=== PATIENT | female | born 1990 | race Caucasian/White ===

== ENCOUNTER 2018-07-21 12:31 | Outpatient (REF) | payer SELFPAY | END 2018-07-21 12:51 | LOC: NCHCN 12:31 | PROVIDERS: PCP Internal Medicine; Visit Provider Nurse Practitioner Family | DX: N39.0 Urinary tract infection, site not specified (principal) | CPT/HCPCS: 87077; 87086; 87186 ==

== ENCOUNTER 2019-11-13 17:30 | Emergency (ER) | payer MEDICAID, SELFPAY ==
[2019-11-13 17:36] VITALS: BP 156/94; PULSE 95; RESP 18; TEMP 37; O2SAT 98
--- NOTE | 2019-11-13 18:07 | W.ED.GENAD ---
Discharge Plan Disposition Patient Disposition: OTHER Condition: Stable Discharge Details Chief Complaint: ETOHWithdr Clinical Impression: Alcohol abuse, Eloped from emergency department Primary Care Provider: Seymour Collado ED Provider: David Zapien Home Meds and New Rx's Prescriptions: Continued methadone 5 mg/5 mL Solution 120 mg PO DAILY RF: 0 Discharge Data Discharge Date/Time-TO BE ENTERED AT DEPARTURE: 11/13/19 19:50 Medical Decision Making 29-year-old female states she was referred by outpatient recovery team for admission for medical alcohol detox. States she has been trying to get into [facility] as an outpatient. Her last drink was at 5 PM this evening. She does not have a history of acute alcohol withdrawal or seizure. Patient is somewhat tearful, blood pressure is 150/90, pulse is in the 90s, her exam is reassuring. She states she does not have thoughts of harming herself or others. Screening laboratories obtained Patient interviewed by rn practitioner recovery analyst. She continues her attempts to seek outpatient placement for substance abuse treatment. Discussed with her that she does not show indications of alcohol withdrawal at this time. Prior to receipt of her laboratories, the patient eloped from the emergency department. HPI General Mode of arrival: ambulatory. Date/Time Provider Initiated Documentation: 11/13/19 17:44. Limitations to Documentation: no limitations. Information obtained by: patient. History of Present Illness 29 year old F presents to the emergency department with the chief complaint of I was told to present for alcohol detox, last drink at 5 PM, Patient reports no radiation. Patient started experiencing this week(s) and it has been constant. No relieving factors improve symptom(s), No exacerbating factors reported . Patient notes denies loss of appetite, nausea/vomiting and seizure. Patient did receive the following treatments prior to arrival, none Related Data Home Medications Medication Instructions Recorded Confirmed methadone 120 mg PO DAILY 11/13/19 11/13/19 Allergies Allergy/AdvReac Type Severity Reaction Status Date / Time kiwi Allergy Swelling/Ed Unverified 11/13/19 17:42 catrachita General Stated Complaint: ETOHWithdr NATHANIEL: 3 Review of Systems Narrative: Drinks approxi-1/5 of alcohol per day, last drink 1 hour prior. Denies depression. No thoughts of harming herself or others. [facility] Social History Smoking/Tobacco Use Status: Current every day Tobacco Type: cigarettes Alcohol Intake: current Alcohol Intake frequency: 3 or more drinks per day Alcohol type: hard liquor Drug use: Daily Substance use type: marijuana Do you feel safe at home: Yes Do you feel safe in your relationship?: Yes Exam Narrative Exam Narrative: GEN: awake, alert, oriented 3. Pleasant, well groomed, interactive, tearful at times. HEAD: Normocephalic, atraumatic ENT: Mucous membranes moist, oropharynx unremarkable, External ear exam unremarkable EYES: PERRL, EOMI NECK: Full ROM, no NOELLE, no menigismus CHEST/RESP: Nontender, clear to auscultation bilateral, no wheeze/rhonchi/rales CARDIOVASCULAR: RRR, no murmur, rub dottie. 2+ Rad pulse bilateral ABDOMEN: Soft, nontender, no mass. +Bowel sounds EXT: Full ROM, no edema, no rash Neuro: Grossly normal neurologic exam, conversant, interactive. Psych: Speech fluent, thoughts congruent, affect tearful at times Course Vital Signs Vital signs: Vital Signs Temperature 37 C 11/13/19 17:36 Pulse 95 H 11/13/19 17:36 Respiratory Rate 18 11/13/19 17:36 Blood Pressure 156/94 H 11/13/19 17:36 Pulse Oximetry 98 11/13/19 17:36 Temperature 37 C 11/13/19 17:36 Temperature Source Temporal Artery Scan 11/13/19 17:36 Pulse 95 H 11/13/19 17:36 Respiratory Rate 18 11/13/19 17:36 Respiratory Effort Non-Labored 11/13/19 17:45 Respiratory Pattern Normal 11/13/19 17:45 Blood Pressure 156/94 H 11/13/19 17:36 Blood Pressure Position Supine 11/13/19 17:36 Pulse Oximetry 98 11/13/19 17:36 Oxygen Delivery Method Room Air 11/13/19 17:36 Oxygen Flow Rate 0 11/13/19 17:36
[2019-11-13 18:08] LABS: Bilirubin Negative (Negative); Blood Negative (Negative); Clarity Clear (Clear); Glucose Negative (Negative); Ketones Negative (Negative); Leukocyte Esterase Negative (Negative); Nitrite Negative (Negative); Specific Gravity <= 1.005 (1.005-1.025); Urobilinogen 0.2 EU/dL (Up TO 0.2)
[2019-11-13 18:27] LABS: *AMPHETAMINES SCREEN URINE Negative (Negative); *BARBITURATES SCREEN URINE Negative (Negative); *BENZODIAZEPINES SCREEN URINE Negative (Negative); Cannabinoids THC Negative (Negative); Cocaine Screen,Urine Negative (Negative); METHADONE URINE SCREEN POSITIVE (Negative); OPIATES URINE SCREEN Negative (Negative)
[2019-11-13 18:40] LABS: Tricyclic Antidepressants Negative (Negative)
[2019-11-13 19:13] LABS: Absolute Basophil Count 0.02 10^3/uL (0.0-0.2); Absolute Eosinophil Count 0.03 10^3/uL (0.0-0.7); Absolute Lymphocyte Count 1.77 10^3/uL (1.2-3.4); Absolute Monocyte Count 0.33 10^3/uL (0.1-0.8); Absolute Neutrophil Count 2.51 10^3/uL (1.2-6.7); Basophils % 0.4; Eosinophils % 0.6; HCT 40.7 % (36.0-46.0); HGB 13.8 g/dL (11.2-15.7); MCH 32.9 pg (27.0-33.0); MCHC 33.9 % (32.0-36.0); MCV 97.1 fL (80-95); MPV 9.4 fL (8.0-11.0); Monocytes % 7.1; Neutrophils % 53.9; Nucleated RBC 0 %; Platelet Count 177 10^3/uL (130-400); RBC 4.19 10^6/uL (3.93-5.22); RDW 12.7 % (11.7-14.6); RDW-SD 44.8 fL; WBC 4.66 10^3/uL (4.4-10.8)
[2019-11-13 19:47] LABS: ALT 179 U/L (14-59); AST 153 U/L (15-37); Albumin 4.2 g/dL (3.4-5.0); Alkaline Phosphatase 73 U/L (46-116); Anion Gap 9.9 mmol/L (3-11); BUN 7 mg/dL (7-18); Bilirubin, Total 0.4 mg/dL (0.2-1.0); CO2 30.1 mmol/L (21.0-32.0); Calcium 8.9 mg/dL (8.5-10.1); Chloride 105 mmol/L (98-107); Glucose 127 mg/dL (74-106); Magnesium 2.2 mg/dL (1.8-2.4); Potassium 3.4 mmol/L (3.5-5.1); Sodium 145 mmol/L (136-145); Total Protein 7.8 g/dL (6.4-8.2)
== END 2019-11-13 19:50 | disposition other institution (70) ==
PROVIDERS: Emergency Provider Emergency Medicine; PCP Internal Medicine
DX: F10.230 Alcohol dependence with withdrawal, uncomplicated (principal); Y90.8 Blood alcohol level of 240 mg/100 ml or more; Z53.29 Procedure and treatment not carried out because of patient's decision for other reasons
CPT/HCPCS: 36415; 80053; 80307; 99283; 80320; 81003; 83735; 85025

== ENCOUNTER 2019-11-14 11:17 | Inpatient (IN) | payer MEDICAID, SELFPAY ==
[2019-11-14] VITALS (7 sets, daily range): BP systolic 128–161; BP diastolic 68–110; PULSE 66–97; RESP 17–18; TEMP 36.3–37.4; O2SAT 97–100
--- NOTE | 2019-11-14 11:27 | ED.GENADUL_ITS ---
Discharge Plan Disposition Patient Disposition: [facility] INPATIENT Condition: Fair Discharge Details Chief Complaint: ETOHWithdr Clinical Impression: Alcohol withdrawal Admit Date/Time: 11/14/19 12:13 Admit Provider: Benjamin Car Attending Provider: Benjamin Car Primary Care Provider: Seymour Collado ED Provider: Marilee Dacosta Discharge Data Discharge Date/Time-TO BE ENTERED AT DEPARTURE: 11/14/19 13:09 Medical Decision Making Patient is a pleasant 29 year old female presenting today with c/c of ETOH dependence. She seen here yesterday and had been wanting inpatient [facility] for detox. Patient spoke with swimming coach or instructor who advised to not have any alcohol intake and to return today to be admitted to the ICU. Patient states her last drink was at 5 PM yesterday. She is currently feeling tremulous. She denies any GI upset. No chest pain or shortness of breath. She reports that she is drinking 1/5 of [employer] a day and has done so for the past year. States that she is tried to stop drinking historically. States that she becomes tremulous and short of breath is not had any seizures. Patient did have baseline labs upon yesterday. She did have elevated ALT, AST. Patient is on methadone, states that she took a partial dose this morning. Patient denies any other illicit drug use. She denies any suicidal homicidal ideations. She states that she is safe at home. She reports that she wants to stop and she has 3 small children at home and has been unsuccessful during this on her own. On exam, patient appears anxious and tremulous. Her lungs are clear. Normal abdominal exam. She seems to have good personal insight and does not seem to be an imminent threat to himself or others. [facility] Advise do not have any beds currently but that they are stretching many discharges this week and the patient would be eligible to be able to go there. However, they advised that they are not accepting patients to come to their facility from home and the patient will need to be housed in the emergency department or inpatient prior to transition to their facility. This is not been our practice historically. While the patient does appear tremulous and would benefit from assistance, I will speak with the hospitalist about this. Labs reviewed. Significant for AST and ALT of 178. He is relatively unchanged from yesterday. She is positive for methadone, THC. Her alcohol is less than 3. Consulted with hospitalist who agrees to admission plan for patient to be transitioned to [facility] for continued alcohol abuse management. Patient will be COVID testing. HPI General Mode of arrival: ambulatory . Date/Time Provider Initiated Documentation: 11/14/19 11:27 . Limitations to Documentation: no limitations . Information obtained by: patient and RN notes reviewed . History of Present Illness 29 year old F presents to the emergency department with the chief complaint of alcohol withdrawal, described as moderate, Quality is described as other (tremulous, anxious), Patient started experiencing this hour(s) and it has been constant (worsening). No relieving factors improve symptom(s), Patient notes loss of appetite and other (denies SI or HI); denies chest pain, cough, fever/chills, nausea/vomiting, shortness of breath and weakness. Patient did receive the following treatments prior to arrival, none Related Data Home Medications Medication Instructions Recorded Confirmed methadone 120 mg PO DAILY 11/13/19 11/14/19 Allergies Allergy/AdvReac Type Severity Reaction Status Date / Time kiwi Allergy Swelling/Ed Unverified 11/14/19 11:30 catrachita General Stated Complaint: ETOHWithdr NATHANIEL: 3 Review of Systems Constitutional Constitutional: Reports as per HPI, Denies chills, Reports fatigue, Denies fever(s), Denies headache(s), Reports malaise and Denies weakness Eyes Eyes: Denies change in vision ENT Ears, Nose, Mouth, and Throat: Denies headache(s) Cardiovascular Cardiovascular: Reports as per HPI, Denies chest pain, Denies lightheadedness, Denies dyspnea and Denies dyspnea on exertion Respiratory Respiratory: Reports as per HPI, Denies cough, Denies dyspnea and Denies dyspnea on exertion Gastrointestinal Gastrointestinal: Reports as per HPI, Denies abdominal pain, Denies change in bowel habits, Denies nausea and Denies vomiting Musculoskeletal Musculoskeletal: Denies abnormal gait Integumentary/Breasts Skin/Breast: Reports as per HPI and Denies rash Neurologic Neurologic: Denies abnormal movements, Denies abnormal speech, Denies abnormal gait, Denies headache(s), Denies paresthesias, Reports tremor(s) and Denies weakness Psychiatric Psychiatric: Denies homicidal ideation and Denies suicidal ideation Endocrine Endocrine: Reports fatigue PFSH Social History Smoking/Tobacco Use Status: Current every day Tobacco Type: cigarettes Alcohol Intake: current Alcohol Intake frequency: 3 or more drinks per day Alcohol type: hard liquor Drug use: Never Substance use type: marijuana Do you feel safe at home: Yes Do you feel safe in your relationship?: Yes Exam Const General: cooperative, well developed, well groomed, anxious and ill appearing acutely (appears to be in withdrawals) Nutritional Appearance: average body habitus and well nourished Orientation: alert and awake Eyes General: appearance normal, both eyes and all related structures Resp Effort & Inspection: normal respiratory effort, able to speak in complete sentences and no respiratory distress Auscultation: clear to auscultation bilaterally, no rales, no rhonchi and no wheezes Cardio Rate: regular rate Rhythm: regular rhythm Heart Sounds: S1 normal and S2 normal Skin General skin exam: no rashes or lesions noted Trauma: no lacerations or abrasions Neuro General: patient alert, patient awake, gait normal, tone normal and moves all extremities Cognition: normal cognition Speech: speech normal Gait: normal gait Motor: tremor Psych Appearance: grossly normal, well kempt and disheveled Mental Status: mental status grossly normal Speech and Movement: restless Mood: anxious mood Affect: anxious affect Attitude: cooperative Thought Process: normal Thought Content: normal Insight: insight good Judgment: judgment good Course Vital Signs Vital signs: Vital Signs Temperature 37.0 C 11/14/19 11:23 Pulse 97 H 11/14/19 11:23 Respiratory Rate 18 11/14/19 11:23 Blood Pressure 155/108 H 11/14/19 11:23 Pulse Oximetry 100 11/14/19 11:23 Temperature 37.0 C 11/14/19 11:23 Temperature Source Skin 11/14/19 11:23 Pulse 97 H 11/14/19 11:23 Respiratory Rate 18 11/14/19 11:23 Blood Pressure 155/108 H 11/14/19 11:23 Blood Pressure Position Sitting 11/14/19 11:23 Pulse Oximetry 100 11/14/19 11:23 Oxygen Delivery Method Room Air 11/14/19 11:23 Oxygen Flow Rate 0 11/14/19 11:23 Pain Level 0 11/14/19 11:23
[2019-11-14 12:05] LABS: *AMPHETAMINES SCREEN URINE Negative (Negative); *BARBITURATES SCREEN URINE Negative (Negative); *BENZODIAZEPINES SCREEN URINE Negative (Negative); Cannabinoids THC POSITIVE (Negative); Cocaine Screen,Urine Negative (Negative); METHADONE URINE SCREEN POSITIVE (Negative); OPIATES URINE SCREEN Negative (Negative)
[2019-11-14 12:06] LABS: Tricyclic Antidepressants Negative (Negative)
[2019-11-14] MEDS: LORazepam 2 MG/ML VIAL 1 MG IVP (12:16)
[2019-11-14] MEDS: Lactated Ringers 1,000 ML 1000 ML IV (12:17)
[2019-11-14] MEDS: Nicotine 21 MG/24 HR PATCH TD (12:17)
--- NOTE | 2019-11-14 12:19 | HPE_ITS ---
Date of service: 11/14/19 Time of Service: 12:20 Assessment and Plan Assessment and plan (1) Alcohol withdrawal: Status: Acute Assessment and plan: refer to observation, andiewa protocol, ativan for symptoms. MVI, thiamine, folic acid cessation discussed, motivated after a family intervention, seems to have good family support. (2) Alcohol abuse: Status: Chronic Assessment and plan: see above self referred to [facility] and awaiting bed acceptance. (3) Tobacco abuse: Status: Acute Assessment and plan: nicotine replacement while hospitalized (4) Dental infection: Status: Acute Assessment and plan: recent dental work, root canal, filled a script on October 21 for amoxicillin 500 mg po TID for 10 days but only took a couple days worth, denies dental pain or fevers. no further recommendations at this time, f/u with dentist as previously arranged. (5) Elevated transaminase level: Status: Acute Assessment and plan: due to alcohol abuse, will monitor and avoid hepatotoxic medications. discussed with Dr Car who is in agreement History of Present Illness History of Present Illness Chief Complaint: alcohol withdrawal Narrative: presents to the ED for c/o alcohol withdrawal. she has been drinking 1/2 fifth of [employer] daily for about a year, wants to stop drinking but has been unsuccessful at home on her own. she is trying to get into [facility] but no bed available. she is not suicidal or homicidal. she is otherwise medically stable and case discussed with case management and hospitalist, she will be referred to observation while awaiting bed. Review of Systems Constitutional Constitutional: Denies fever(s) Eyes Eyes: Denies blurry vision ENT Ears, Nose, Mouth, and Throat: Denies dysphagia Cardiovascular Cardiovascular: Denies chest pain Respiratory Respiratory: Denies cough Gastrointestinal Gastrointestinal: Denies abdominal pain, Denies dysphagia and Denies nausea Musculoskeletal Musculoskeletal: Denies myalgias Integumentary/Breasts Skin/Breast: Denies lesions and Denies rash Neurologic Neurologic: Denies confusion and Reports other (tremor/shaking) Psychiatric Psychiatric: Denies confusion Hematologic/Lymphatic Hematologic/Lymphatic: Denies easy bleeding and Denies easy bruising [facility] Social History Smoking/Tobacco Use Status: Current every day Tobacco Type: cigarettes Alcohol Intake: current Alcohol Intake frequency: 3 or more drinks per day [place] type: hard liquor Drug use: Never Substance use type: marijuana Do you feel safe at home: Yes Do you feel safe in your relationship?: Yes Meds Home Medications and Allergies Home Medications Medication Instructions Recorded Confirmed Type methadone 120 mg PO DAILY 11/13/19 11/14/19 History Allergies Allergy/AdvReac Type Severity Reaction Status Date / Time kiwi Allergy Swelling/Ed Unverified 11/14/19 11:30 catrachita Exam Const General: cooperative, in distress mild and anxious Nutritional Appearance: average body habitus Orientation: alert, awake and oriented x3 HENMT Head: normal to inspection, normocephalic and atraumatic Mouth: oral mucosae normal Resp Effort & Inspection: normal respiratory effort Cardio Rate: regular rate Rhythm: regular rhythm GI Inspection: normal to inspection Palpation: soft Auscultation: normal bowel sounds Skin General skin exam: other (bilateral hands swollen and reddened. she states chronic and unchanged) Neuro General: patient alert, patient awake, patient oriented x3, moves all extremities, no focal motor deficits and CN's II-XI intact bilaterally Cognition: normal cognition Speech: speech normal Motor: muscle tone normal throughout Extrem Right upper extremity: edema and hand Left upper extremity: edema and hand Psych Appearance: grossly normal Mental Status: mental status grossly normal Speech and Movement: speech and movement normal Mood: anxious mood (does not always make eye contact, appears slightly defensive) Affect: indifferent Attitude: cooperative Thought Process: normal Thought Content: normal Insight: insight good Judgment: fair Results Labs Result diagrams: 11/14/19 12:10 11/14/19 12:10 Labs: Laboratory Results - last 24 hr 11/14/19 11:45 Urine Opiates Screen Negative Urine Methadone Screen Positive A Ur Barbiturates Screen Negative Ur Tricyclics Screen Negative Ur Amphetamines Screen Negative U Benzodiazepines Scrn Negative Urine Cocaine Screen Negative Ur THC Screen Positive A Last Vital Signs Temp 37.0 C 11/14/19 11:23 Pulse 97 H 11/14/19 11:23 Resp 18 11/14/19 11:23 BP 155/108 H 11/14/19 11:23 Pulse Ox 100 11/14/19 11:23 COVID-19 Screening Have you,or household,traveled outside [place] in last 14 days?: No Had IN PERSON contact w/suspected or confirmed C-19 person: No
[2019-11-14 12:20] LABS: Abs Immature Grans 0.01 10^3/uL (0.0-0.06); Absolute Basophil Count 0.02 10^3/uL (0.0-0.2); Absolute Eosinophil Count 0.07 10^3/uL (0.0-0.7); Absolute Lymphocyte Count 1.19 10^3/uL (1.2-3.4); Absolute Monocyte Count 0.37 10^3/uL (0.1-0.8); Absolute Neutrophil Count 1.81 10^3/uL (1.2-6.7); Basophils % 0.6; HCT 41.3 % (36.0-46.0); HGB 13.8 g/dL (11.2-15.7); Immature Grans % 0.3; Lymphocytes % 34.3; MCH 32.8 pg (27.0-33.0); MCHC 33.4 % (32.0-36.0); MCV 98.1 fL (80-95); MPV 9.5 fL (8.0-11.0); Monocytes % 10.7; Neutrophils % 52.1; Nucleated RBC 0 %; Platelet Count 163 10^3/uL (130-400); RBC 4.21 10^6/uL (3.93-5.22); WBC 3.47 10^3/uL (4.4-10.8)
[2019-11-14 12:33] LABS: ETHANOL BLOOD < 3.0 mg/dL (<3)
[2019-11-14 12:36] LABS: ALT 178 U/L (14-59); AST 178 U/L (15-37); Albumin 4.1 g/dL (3.4-5.0); Alkaline Phosphatase 71 U/L (46-116); Anion Gap 7.5 mmol/L (3-11); BUN 8 mg/dL (7-18); Bilirubin, Total 0.5 mg/dL (0.2-1.0); CO2 32.5 mmol/L (21.0-32.0); CREATININE 0.79 mg/dL (0.55-1.02); Calcium 8.8 mg/dL (8.5-10.1); Chloride 105 mmol/L (98-107); Glucose 124 mg/dL (74-106); Potassium 3.9 mmol/L (3.5-5.1); Sodium 145 mmol/L (136-145); Total Protein 7.6 g/dL (6.4-8.2)
[2019-11-14] MEDS: LORazepam 1 MG TAB PO/SL ×3 (13:33→22:06)
[2019-11-14] MEDS: Thiamine 100 MG TAB PO (13:33)
[2019-11-14] MEDS: Folic Acid 1 MG TAB PO (13:34)
[2019-11-14] MEDS: Melatonin 3 MG TAB 6 MG PO (22:06)
[2019-11-15] VITALS (7 sets, daily range): BP systolic 131–165; BP diastolic 87–112; PULSE 60–85; RESP 17–20; TEMP 36.3–37; O2SAT 95–99
--- NOTE | 2019-11-15 08:05 | PDOC.CMIN ---
- If Service Date Differs Date of service: 11/15/19 Time of Service: 08:05 Care Management Initial Assess REASON FOR HOSPITALIZATION:: ETOH withdrawal PAST MEDICAL HISTORY/PAST SURGICAL HISTORY:: Substance use and dependency PREVIOUS FUNCTIONAL STATUS/SOCIAL/FAMILY SUPPORTS:: Melissa lives in [place], she hasthree young children at home. 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 CURRENT FUNCTIONAL STATUS:: Melissa makes good eye contact she is engaged with CM during assessment. She states she has support through [place] through [facility] program out [facility] her support person is Yolie. She states she has never been to a rehab facility. She states she does want to be sober and feels that rehabilitation is her best option. She is enrolled in [employer] out [facility] she has take homes from thru Friday every week. ADVANCE DIRECTIVES:: None on file does not want to compelte at this time Has patient been provided with info about the portal/API?: Yes Did the patient sign up for the portal?: No CODE STATUS:: Full Code INSURANCE COVERAGE / FINANCIAL ISSUES:: Medicaid CURRENT HOME/COMMUNITY SERVICES/EQUIPMENT:: [facility], [facility] PRIMARY CARE PHYSICIAN:: [facility] POTENTIAL DISCHARGE NEEDS:: Transfer to [facility] when bed available PATIENT/FAMILY EDUCATION NEEDS:: Education r/t transfer and pending bed availability. Reviewed process for transfer and expecations. ANTICIPATED BARRIERS TO DISCHARGE:: Awaiting placement and accepting facility TRANSPORTATION:: Ambulance transport at time of discharge to [facility] when bed available. PLAN:: Melissa is awaiting bed availability at . She continues to be assessed for alcohol withdrawal symptoms and receive management of symptoms. CM to continue to provide support througout the patient stay.
[2019-11-15] MEDS: Multivitamin w/Minerals TAB 1 TAB PO (09:09)
[2019-11-15] MEDS: Thiamine 100 MG TAB PO (09:09)
[2019-11-15] MEDS: Nicotine 21 MG/24 HR PATCH TD (09:09)
[2019-11-15] MEDS: Folic Acid 1 MG TAB PO (09:09)
[2019-11-15] MEDS: Methadone Liquid 10 MG/ML 50 MG PO (09:10)
[2019-11-15] MEDS: LORazepam 1 MG TAB PO/SL ×3 (09:28→19:23)
--- NOTE | 2019-11-15 09:42 | PGE_ITS ---
Date of Service Date of service: 11/15/19 Time of Service: 09:42 Assessment and Plan Assessment and plan (1) Alcohol withdrawal: Status: Acute Assessment and plan: no rehab bed available so will need acute stay, continue ciwa protocol, ativan for symptoms. MVI, thiamine, folic acid cessation discussed, motivated after a family intervention, seems to have good family support. (2) Alcohol abuse: Status: Chronic Assessment and plan: see above self referred to [facility] and awaiting bed acceptance. (3) Tobacco abuse: Status: Acute Assessment and plan: nicotine replacement while hospitalized (4) Dental infection: Status: Acute Assessment and plan: recent dental work, root canal, filled a script on October 21 for amoxicillin 500 mg po TID for 10 days but only took a couple days worth, denies dental pain or fevers. no further recommendations at this time, f/u with dentist as previously arranged. (5) Drug abuse and dependence: Status: Acute Assessment and plan: followed by [facility] in [place]. urine is positive for methadone. history of heroin abuse but denies recent use. reports she halves her doses. will resume at 50 mg as she hasn't had it filled since last friday. continue to monitor. (6) Elevated transaminase level: Status: Acute Assessment and plan: due to alcohol abuse, will monitor and avoid hepatotoxic medications. discussed with Dr Car who is in agreement Subjective Subjective Patient reports: no new complaints, tolerating liquids well, tolerating a regular diet, voiding w/o difficulty and afebrile; denies shortness of breath Interval history since last seen: scoring 3 or under on ciwa Exam Const General: cooperative, in distress mild and anxious Nutritional Appearance: average body habitus Orientation: alert, awake and oriented x3 HENMT Head: normal to inspection, normocephalic and atraumatic Mouth: oral mucosae normal Resp Effort & Inspection: normal respiratory effort Cardio Rate: regular rate Rhythm: regular rhythm GI Inspection: normal to inspection Palpation: soft Auscultation: normal bowel sounds Skin General skin exam: other (bilateral hands swollen and reddened. she states chronic and unchanged) Neuro General: patient alert, patient awake, patient oriented x3, moves all extremities, no focal motor deficits and CN's II-XI intact bilaterally Cognition: normal cognition Speech: speech normal Motor: muscle tone normal throughout Extrem Right upper extremity: edema and hand Left upper extremity: edema and hand Psych Appearance: grossly normal Mental Status: mental status grossly normal Speech and Movement: speech and movement normal Mood: anxious mood (does not always make eye contact, appears slightly defensive) Affect: indifferent Attitude: cooperative Thought Process: normal Thought Content: normal Insight: insight good Judgment: fair Objective Objective Clinical Data: Abnormal lab results 11/14/19 11/14/19 11/14/19 Range/Units 11:45 12:10 12:10 WBC 3.47 L (4.4-10.8) 10^3/uL MCV 98.1 H (80-95) fL Absolute Lymphocytes 1.19 L (1.2-3.4) 10^3/uL Carbon Dioxide 32.5 H (21.0-32.0) mmol/L Glucose 124 H (74-106) mg/dL AST 178 H (15-37) U/L ALT 178 H (14-59) U/L Urine Methadone Screen Positive A (Negative) Ur THC Screen Positive A (Negative) Vital Signs Temperature 36.8 C 11/15/19 07:49 Temperature Source Tympanic 11/15/19 07:49 Pulse 75 11/15/19 09:23 Pulse Rhythm Regular 11/15/19 03:45 Respiratory Rate 18 11/15/19 09:23 Respiratory Effort 11/15/19 03:45 Respiratory Depth Normal 11/15/19 03:45 Respiratory Pattern Normal 11/15/19 03:45 Blood Pressure 144/87 H 11/15/19 09:23 Blood Pressure Position Sitting 11/14/19 11:23 Pulse Oximetry 99 11/15/19 09:23 Oxygen Delivery Method Room Air 11/15/19 09:23 Oxygen Flow Rate 0 11/15/19 09:23 Pain Level 0 11/15/19 09:10 Comment 11/15/19 03:15 Intake & Output 11/14/19 11/14/19 11/15/19 11:59 23:59 11:59 Intake Total 2029 910 / 910 Balance 2029 910 / 910 Weight 63.503 kg 63.503 kg Intake: IV 1000 / 1000 Oral 1030 / 1030 910 / 910 Other: Comment voids independently to the toilet Voiding Methods Toilet Laboratory Results WBC 3.47 10^3/uL (4.4-10.8) L 11/14/19 12:10 RBC 4.21 10^6/uL (3.93-5.22) 11/14/19 12:10 Hgb 13.8 g/dL (11.2-15.7) 11/14/19 12:10 Hct 41.3 % (36.0-46.0) 11/14/19 12:10 MCV 98.1 fL (80-95) H 11/14/19 12:10 MCH 32.8 pg (27.0-33.0) 11/14/19 12:10 MCHC 33.4 % (32.0-36.0) 11/14/19 12:10 RDW 13.0 % (11.7-14.6) 11/14/19 12:10 Plt Count 163 10^3/uL (130-400) 11/14/19 12:10 MPV 9.5 fL (8.0-11.0) 11/14/19 12:10 Immature Gran % 0.3 11/14/19 12:10 Neutrophils % 52.1 11/14/19 12:10 Lymphocytes % 34.3 11/14/19 12:10 Monocytes % 10.7 11/14/19 12:10 Eosinophils % 2.0 11/14/19 12:10 Basophils % 0.6 11/14/19 12:10 Absolute Neutrophils 1.81 10^3/uL (1.2-6.7) 11/14/19 12:10 Absolute Lymphocytes 1.19 10^3/uL (1.2-3.4) L 11/14/19 12:10 Absolute Monocytes 0.37 10^3/uL (0.1-0.8) 11/14/19 12:10 Absolute Eosinophils 0.07 10^3/uL (0.0-0.7) 11/14/19 12:10 Absolute Basophils 0.02 10^3/uL (0.0-0.2) 11/14/19 12:10 Sodium 145 mmol/L (136-145) 11/14/19 12:10 Potassium 3.9 mmol/L (3.5-5.1) 11/14/19 12:10 Chloride 105 mmol/L (98-107) 11/14/19 12:10 Carbon Dioxide 32.5 mmol/L (21.0-32.0) H 11/14/19 12:10 Anion Gap 7.5 mmol/L (3-11) 11/14/19 12:10 BUN 8 mg/dL (7-18) 11/14/19 12:10 Creatinine 0.79 mg/dL (0.55-1.02) 11/14/19 12:10 Estimated GFR/1.73 m2 >= 60.00 (mL/min/1.73m2) 11/14/19 12:10 Glucose 124 mg/dL (74-106) H 11/14/19 12:10 Calcium 8.8 mg/dL (8.5-10.1) 11/14/19 12:10 Total Bilirubin 0.5 mg/dL (0.2-1.0) 11/14/19 12:10 AST 178 U/L (15-37) H 11/14/19 12:10 ALT 178 U/L (14-59) H 11/14/19 12:10 Alkaline Phosphatase 71 U/L (46-116) 11/14/19 12:10 Total Protein 7.6 g/dL (6.4-8.2) 11/14/19 12:10 Albumin 4.1 g/dL (3.4-5.0) 11/14/19 12:10 Urine Opiates Screen Negative (Negative) 11/14/19 11:45 Urine Methadone Screen Positive (Negative) A 11/14/19 11:45 Ur Barbiturates Screen Negative (Negative) 11/14/19 11:45 Ur Tricyclics Screen Negative (Negative) 11/14/19 11:45 Ur Amphetamines Screen Negative (Negative) 11/14/19 11:45 U Benzodiazepines Scrn Negative (Negative) 11/14/19 11:45 Urine Cocaine Screen Negative (Negative) 11/14/19 11:45 Ur THC Screen Positive (Negative) A 11/14/19 11:45 Ethyl Alcohol < 3.0 mg/dL (<3) 11/14/19 12:10
[2019-11-15 14:45] LABS: COVID-19 RT-PCR UVMMC Result Negative (Negative)
[2019-11-15] MEDS: Melatonin 3 MG TAB 6 MG PO (21:05)
[2019-11-16 03:15] VITALS: BP 129/93; PULSE 66; RESP 17; TEMP 36.9; O2SAT 99
[2019-11-16 07:13] VITALS: BP 137/95; PULSE 72; RESP 18; TEMP 36.7; O2SAT 100
[2019-11-16] MEDS: Nicotine 21 MG/24 HR PATCH TD (08:06)
[2019-11-16] MEDS: Methadone Liquid 10 MG/ML 50 MG PO (08:06)
[2019-11-16] MEDS: Folic Acid 1 MG TAB PO (08:06)
[2019-11-16] MEDS: Thiamine 100 MG TAB PO (08:07)
[2019-11-16] MEDS: Multivitamin w/Minerals TAB 1 TAB PO (08:07)
[2019-11-16 08:10] VITALS: O2SAT 100
[2019-11-16] MEDS: LORazepam 1 MG TAB PO/SL ×2 (10:00→12:32)
--- NOTE | 2019-11-16 10:29 | W.NUTRFU ---
Date of service: 11/16/19 Time of Service: 10:29 Nutritional Follow up NOTE: 29 year old female admitted for ETOH withdrawl, awaiting placement for rehab. Meds include MVI, thiamin, folic acid. Following regular diet with adequate intake for weight maintainance. BMI wnl. Not at nutritional risk at this time. Time Spent in Nutritional Counseling and Treatment: 0 time spent face to face
[2019-11-16 11:40] VITALS: BP 145/105; PULSE 105; RESP 18; TEMP 36.7; O2SAT 96
--- NOTE | 2019-11-16 11:57 | DSE_ITS ---
Date of service: 11/16/19 Time of Service: 11:57 DS: Diagnosis Discharge Diagnosis (1) Alcohol withdrawal: Status: Acute (2) Alcohol abuse: Status: Chronic (3) Tobacco abuse: Status: Acute (4) Dental infection: Status: Acute (5) Drug abuse and dependence: Status: Acute (6) Elevated transaminase level: Status: Acute Discharge Plan Disposition Patient Disposition: MOBILE RETREAT Condition: Fair Discharge Details Chief Complaint: ETOHWithdr Clinical Impression: Alcohol withdrawal Reason For Visit: ETOH WITHDRAWAL Admit Date/Time: 11/15/19 12:04 Admit Provider: Benjamin Car Attending Provider: Benjamin Car Primary Care Provider: Seymour Collado ED Provider: [facility] Course Hospital Course: This is a 29 year old female who presented to the ED for c/o alcohol withdrawal. She has a medical history of alcohol and drug abuse. she is on methadone through [facility] in [facility]. her prescribed dose is 110 mg but she has halved it and is only taking 55 mg. she has been drinking 1/2 fifth of captain [employer]org[employer] daily for about a year, wants to stop drinking but has been unsuccessful at home on her own. Her family is pushing her to rehab and she has been trying to get into [facility] but no bed available. she is not suicidal or homicidal. she is otherwise medically stable. Her covid 19 testing negative. She was referred to observation while awaiting bed. She was observed on CIWA protocol and was scoring 1-9, responding well to lorazepam. She remains medically stable and a bed has been secured. She is eating and drinking and bowels and bladder functioning well. she is being transferred by ambulance. discharge discussed with Dr Gao who is in agreement. Home Meds and New Rx's Prescriptions: Continued methadone 5 mg/5 mL Solution 55 mg PO DAILY RF: 0 Discharge Instructions Instructions: Alcohol Use Disorder (DC) Additional Instructions: medications as prescribed only. No alcohol. Referrals: Seymour Collado [Primary Care Provider] - (on discharge from rehabilitation) Activity:: Activity as Tolerated Diet:: As Tolerated DS: Summary Status at Discharge Functional status at discharge: independent ambulation Overall status at discharge: patient is progressing back to baseline Mental Status: mental status grossly normal Speech and Movement: speech and movement normal Mood: anxious mood (does not always make eye contact, appears slightly defensive) Affect: indifferent Exam Const General: cooperative, in distress mild and anxious Nutritional Appearance: average body habitus Orientation: alert, awake and oriented x3 HENMT Head: normal to inspection, normocephalic and atraumatic Mouth: oral mucosae normal Resp Effort & Inspection: normal respiratory effort Cardio Rate: regular rate Rhythm: regular rhythm GI Inspection: normal to inspection Palpation: soft Auscultation: normal bowel sounds Skin General skin exam: other (bilateral hands swollen and reddened. she states chronic and unchanged) Neuro General: patient alert, patient awake, patient oriented x3, moves all extremities, no focal motor deficits and CN's II-XI intact bilaterally Cognition: normal cognition Speech: speech normal Motor: muscle tone normal throughout Extrem Right upper extremity: edema and hand Left upper extremity: edema and hand Psych Appearance: grossly normal Mental Status: mental status grossly normal Speech and Movement: speech and movement normal Mood: anxious mood (does not always make eye contact, appears slightly defensive) Affect: indifferent Attitude: cooperative Thought Process: normal Thought Content: normal Insight: insight good Judgment: fair DS: Data Vitals/I&O Vitals and I&O: Vital Signs Temperature 36.7 C 11/16/19 11:40 Temperature Source Tympanic 11/16/19 11:40 Pulse 105 H 11/16/19 11:40 Pulse Rhythm Regular 11/16/19 08:10 Respiratory Rate 18 11/16/19 11:40 Respiratory Effort Non-Labored 11/16/19 08:10 Respiratory Depth Normal 11/16/19 08:10 Respiratory Pattern Normal 11/16/19 08:10 Blood Pressure 145/105 H 11/16/19 11:40 Blood Pressure Position Sitting 11/14/19 11:23 Pulse Oximetry 96 11/16/19 11:40 Oxygen Delivery Method Room Air 11/16/19 11:40 Oxygen Flow Rate 0 11/16/19 11:40 Pain Level 0 11/16/19 11:40 Comment 11/16/19 11:40 Intake & Output 11/15/19 11/15/19 11/16/19 11:59 23:59 11:59 Intake Total 910 / 1510 600 / 1510 480 / 480 Balance 910 / 1510 600 / 1510 480 / 480 Intake: Oral 910 / 1510 600 / 1510 480 / 480 Other: Urine Color Yellow Urine Appearance Clear Clear Clear Urine Odor Normal Comment Void x1 in the toilet. Voided 1x at this time voids independently Voiding Methods Toilet Toilet Data Completed and Pending Labs on day of discharge: Labs from last 24 hours 11/14/19 12:49 COVID-19 PCR Negative Zofia COVID-19 PCR Not Applicable Ref Test Perform Site [facility] Social History Smoking/Tobacco Use Status: Current every day Tobacco Type: cigarettes Alcohol Intake: current Alcohol Intake frequency: 3 or more drinks per day Alcohol type: hard liquor Drug use: Never Substance use type: marijuana Do you feel safe at home: Yes Do you feel safe in your relationship?: Yes
[2019-11-16 13:56] VITALS: PULSE 140
--- NOTE | 2019-11-16 15:57 | PDOC.CMDIS ---
- If Service Date Differs Date of service: 11/16/19 Time of Service: 15:57 LACE Index Scoring Tool - Questions: Length of Stay (in days): 3 Acuity (Admit via E.D.?): Yes E.D. Visits: 2 - Answers: Total Score: 8 Risk of Readmission: Low Risk Care Management Discharge Reason for Hospitalization: ETOH withdrawal Discharge Plan: Melissa is being transfered to [facility] for acute detox. She is being transfered via [facility] coordinated by CM. She agrees to the plan, nurse to nurse was completed. Patient/Family Education Needs: Education related to transfer, substance use resources and information provided to Melissa. She continues to work with community services including [facility]. Services Needed at Discharge: Psychiatric Facility, Transportation - MH Services (Omit if N/A) Current MH Services: Psychiatric Inp
== END 2019-11-16 14:00 | disposition short-term general hospital (02) | DRG 897 ==
LOC: ER 12:42 → MS 13:09
PROVIDERS: Admitting Provider Internal Medicine; Emergency Provider Physician Assistant; PCP Internal Medicine; Visit Provider Internal Medicine
DX: F10.239 Alcohol dependence with withdrawal, unspecified (principal); F11.20 Opioid dependence, uncomplicated; F17.210 Nicotine dependence, cigarettes, uncomplicated; K04.7 Periapical abscess without sinus; R74.0 Nonspecific elevation of levels of transaminase and lactic acid dehydrogenase [LDH]
CPT/HCPCS: 36415; 80053; 80307; 81025; 96361; 96374; 99220; 99233; 99239; 99285; U0003; 80320; 85025; 99284; G0378; J2060

== ENCOUNTER 2019-12-02 10:49 | Outpatient (REF) | payer MEDICAID, SELFPAY ==
[2019-12-02 18:56] LABS: Abs Immature Grans 0.02 10^3/uL (0.0-0.06); Absolute Basophil Count 0.03 10^3/uL (0.0-0.2); Absolute Eosinophil Count 0.13 10^3/uL (0.0-0.7); Absolute Lymphocyte Count 2.05 10^3/uL (1.2-3.4); Absolute Monocyte Count 0.52 10^3/uL (0.1-0.8); Absolute Neutrophil Count 4.25 10^3/uL (1.2-6.7); Basophils % 0.4; Eosinophils % 1.9; HCT 42.6 % (36.0-46.0); HGB 14.4 g/dL (11.2-15.7); Immature Grans % 0.3; Lymphocytes % 29.3; MCH 32.6 pg (27.0-33.0); MCHC 33.8 % (32.0-36.0); MCV 96.4 fL (80-95); MPV 9.6 fL (8.0-11.0); Monocytes % 7.4; Neutrophils % 60.7; Nucleated RBC 0 %; Platelet Count 279 10^3/uL (130-400); RBC 4.42 10^6/uL (3.93-5.22); RDW 12.3 % (11.7-14.6); RDW-SD 43.5 fL
[2019-12-02 19:20] LABS: ALT 38 U/L (14-59); AST 27 U/L (15-37); Albumin 3.8 g/dL (3.4-5.0); Alkaline Phosphatase 78 U/L (46-116); Anion Gap 5.7 mmol/L (3-11); BUN 13 mg/dL (7-18); Bilirubin, Direct 0.09 mg/dL (0.00-0.20); Bilirubin, Total 0.2 mg/dL (0.2-1.0); CO2 31.3 mmol/L (21.0-32.0); CREATININE 1.02 mg/dL (0.55-1.02); Chloride 104 mmol/L (98-107); Glucose 76 mg/dL (74-106); Magnesium 1.9 mg/dL (1.8-2.4); Potassium 4.7 mmol/L (3.5-5.1); Sodium 141 mmol/L (136-145); TSH 1.47 uIU/mL (0.36-3.74); Total Protein 7.2 g/dL (6.4-8.2)
[2019-12-02 20:04] LABS: Vitamin B12 524 pg/mL (193-986)
[2019-12-06 09:19] LABS: HBs Antibody, Quant 252.9 mIU/mL (See Note); Hepatitis B Surface Ab Positive (See Note)
[2019-12-06 11:12] LABS: Hep A Total Ab w Rflx IgM Negative (Negative)
[2019-12-06 11:28] LABS: Hepatitis C Ab w Rflx HCV PCR Reactive (Negative)
[2019-12-08 13:35] LABS: HCV RNA Qualitative Detected (Undetected)
== END 2019-12-02 11:09 ==
LOC: NCHCN 10:49
PROVIDERS: PCP Internal Medicine; Visit Provider Nurse Practitioner Family
DX: F10.10 Alcohol abuse, uncomplicated (principal); B19.20 Unspecified viral hepatitis C without hepatic coma
CPT/HCPCS: 80048; 80076; 86706; 86709; 86803; 87522; 82607; 83735; 84443; 85025

== ENCOUNTER 2021-08-01 10:55 | Emergency (ER) | payer MEDICAID, SELFPAY ==
[2021-08-01 11:25] VITALS: BP 172/105; PULSE 112; RESP 18; TEMP 36.9; O2SAT 98
--- NOTE | 2021-08-01 11:30 | RT.EKG_ITS ---
APPROVED REPORT Exam: Resting ECG Reason for Exam: Drug abuse, tachycardia Patient Location: E HR:104 bpm ECG Measurements Heart Rate 104 AXIS MO 169 P -6 QRSd 92 QRS 78 QT 368 T 24 QTc 485 Conclusion Sinus tachycardia...rate> 99
--- NOTE | 2021-08-01 11:37 | W.ED.GENAD ---
Discharge Plan Disposition Patient Disposition: HOME Condition: Stable Discharge Details Clinical Impression: Drug abuse and dependence Primary Care Provider: Seymour Collado ED Provider: Irais Whittaker Home Meds and New Rx's Prescriptions: No Action buprenorphine-naloxone [Suboxone] 12-3 mg Film 12 film sublingual DAILY 0RF Discharge Instructions Instructions: Medical Clearance for Substance Abuse Treatment (ED) Additional Instructions: At this time, you have been medically cleared to assist you in substance abuse treatment. Please follow up and make phone calls to recovery centers as directed by rhythmic gymnastics coach. Do not take the Suboxone with any other substances if possible. Please call the crisis hotline number for any thoughts of harming you develop or others. Follow up with primary care provider in 3-5 days. Return to ED sooner if any worsening or concerns. Increase oral fluids. Referrals: Seymour Collado [Primary Care Provider] - 5 days Medical Decision Making 31 year old female presents to ED with Alcohol and substance abuse. Patient reports she was instructed by Janet [email or web address] to present for medical clearence. She last used Fentanyl, multiple other substances and ETOH last night. She denies Suicidal ideation, homicidal ideation. She reports anxiety, Nausea, no vomiting no diarrhea, Denies CP, SOB. She is unvaccinated for Covid. She also has a prescription for Suboxone which she reports that she has not taken in the last 2 days. Past medical history include tobacco abuse, alcohol withdrawal, drug abuse and dependence. 1153: Spoke with Jenny with Care Management she will get in touch with Janet. 1157: Spoke with Isabell with care management reports that her about Janet patient has not excepted and I do not admit for drug and alcohol detox treatment only the only admit if there is a concurrent mental health issue or suicidal ideation with patient does not have at this time as far as I understand. men's basketball coach was called time. 1226: men's basketball coach here at bedside for patient evaluation and discussion. Labs largely unremarkable there is positive nitrite small blood urinalysis I did 10 RBCs negative for WBCs or leukocytes. There is squamous contamination. Cultures x2 at this time. Urine drug screen is positive for methadone, cocaine and THC ethyl alcohol less than 3.0, salicylate 2.9 within normal limits. 1250: Discussed plan of care with rhythmic gymnastics coach 1300: Patient was given resources by them. I did discuss with patient that she does not have a bed assignment at [facility] in her management. She really has understanding. She continues to deny any suicidal or homicidal ideation at time. We will give treatment centers for addiction resources. Instructed to call them to set up admission. Given strict return instructions, verbalized understanding. Patient was given transportation home by her CT arranged by community organization worker. After patient was discharged to [facility] rehab requested medical records which were faxed. HPI General Mode of arrival: ambulatory. Date/Time Provider Initiated Documentation: 08/01/21 10:56. Limitations to Documentation: no limitations. Information obtained by: patient, RN notes reviewed and old records reviewed. HPI Narrative: 31 year old female presents to ED with Alcohol and substance abuse. Patient [facility] for [facility]arence. She last used Fentanyl, multiple other substances and ETOH last night. She denies Suicidal ideation, homicidal ideation. She reports anxiety, Nausea, no vomiting no diarrhea, Denies CP, SOB. She is unvaccinated for Covid. She also has a prescription for Suboxone which she reports that she has not taken in the last 2 days. Past medical history include tobacco abuse, alcohol withdrawal, drug abuse and dependence. Related Data Home Medications Medication Instructions Recorded Confirmed buprenorphine 12 mg-naloxone 3 mg 12 film SUBLINGUAL DAILY 08/01/21 08/01/21 sublingual film (Suboxone) Allergies Allergy/AdvReac Type Severity Reaction Status Date / Time kiwi Allergy Swelling/Ed Unverified 08/01/21 11:36 catrachita General Stated Complaint: ETOHWithdr NATHANIEL: 2 Review of Systems All systems reviewed & are unremarkable except as noted in HPI and below Gastrointestinal Gastrointestinal: Denies diarrhea, Reports nausea and Denies vomiting Genitourinary Genitourinary: Denies difficulty voiding, Denies dysuria, Denies pelvic pain, Denies vaginal discharge and Denies vaginal pruritus Psychiatric Psychiatric: Reports as per HPI, Denies homicidal ideation and Denies suicidal ideation PFSH All Active Problems (Updated 08/01/21 @ 13:10 by Irais Whittaker) Drug abuse and dependence (Acute) Elevated transaminase level (Acute) Dental infection (Acute) Tobacco abuse (Acute) Alcohol withdrawal (Acute) Social History Smoking/Tobacco Use Status: Current every day Tobacco Type: cigarettes Smoking risk assessment performed?: Yes Alcohol Intake: current Alcohol Intake frequency: 3 or more drinks per day Alcohol type: hard liquor Drug use: Never Substance use type: marijuana, crack/cocaine and opiates Details: admits to fentynl use Do you feel safe at home: Yes Do you feel safe in your relationship?: Yes Exam Narrative Exam Narrative: Constitutional: Alert and oriented x3. Appears stated age. Normal body habitus. Head: Normocephalic, no trauma. Eyes: Pupils PERRL, Red reflex noted, EOM's intact. Eyelids symmetrical without lesions, discharge, or swelling. ENT: Bilateral TM's WNL, External ear normal to inspection, no mastoid TTP, swelling, or erythema, Nasal turbinates WNL, no nasal discharge. Chest: Tachycardic at rate 114, Normal S1, S2, No murmurs, rubs or gallops, distal pulses intact. Resp: Lungs clear to auscultation bilaterally, no wheezes, rales, or rhonchi. Abdomen: Soft, non-distended, Normoactive bowel sounds all 4 quads. Musculoskeletal: Normal gait, 5/5 strength to all four extremities. Skin: No suspicious rashes or lesions. Capillary refill less than 2 sec. Neurologic: Cranial nerves II-XII intact. Alert and oriented x 3. Motor: No deficits noted. Sensory: Intact bilaterally all 4 extremities. Reflexes: DTR's intact bilaterally.. Hematologic/Lymphatic: No ecchymosis, no lymphadenopathy. Psych Appearance: well kempt Mental Status: mental status grossly normal Speech and Movement: slowed movement Mood: anxious mood (Mildly tearful) Affect: anxious affect and blunted Attitude: cooperative Thought Process: normal Thought Content: no homicidality and suicidality Insight: insight good Judgment: poor Course Vital Signs Vital signs: Vital Signs Temperature 36.9 C 08/01/21 11:25 Pulse 112 H 08/01/21 11:25 Respiratory Rate 18 08/01/21 11:25 Blood Pressure 172/105 H 08/01/21 11:25 Pulse Oximetry 98 08/01/21 11:25 Temperature 36.9 C 08/01/21 11:25 Pulse 112 H 08/01/21 11:25 Respiratory Rate 18 08/01/21 11:25 Respiratory Effort 08/01/21 11:25 Blood Pressure 172/105 H 08/01/21 11:25 Pulse Oximetry 98 08/01/21 11:25 PAWSS Have you Been Recently Intoxicated or Drunk Within the Last 30 days?: Yes Have you Ever Experienced Previous Episodes of Alcohol Withdrawal?: Yes Have you ever Experienced Withdrawal Seizures?: Unable to Obtain Have you ever Experienced Delirium Tremens(DT)s?: Unable to Obtain Have you ever undergone Alcohol Rehabilitation Treatment (i.e, inpt ot outpatient treatment programs)?: Yes Have you ever Experienced Blackouts?: Yes Have you ever Combined Alcohol with other Downers within the last 90 days?: Yes Have you ever Combined Alcohol with any other Substance of Abuse during the last 90 days?: Yes Positive Blood Alcohol level on Presentation? [PCS.BAL]: Unable to Obtain Evidence of Increased Autonomic Activity (i.e. HR>120, tremor, sweating, agitation, nausea)?: Yes Result: 7
[2021-08-01 12:04] LABS: Source Nasal/Nares
[2021-08-01 12:08] LABS: HCT 37.5 % (36.0-46.0); HGB 12.9 g/dL (11.2-15.7); MCH 32.7 pg (27.0-33.0); MCHC 34.4 % (32.0-36.0); MCV 95 fL (80-95); MPV 8.9 fL (8.0-11.0); Platelet Count 143 10^3/uL (130-400); RBC 3.94 10^6/uL (3.93-5.22); RDW 13.4 % (11.7-14.6); RDW-SD 47.6 fL; WBC 3.12 10^3/uL (4.4-10.8)
[2021-08-01 12:10] LABS: Bilirubin Negative (Negative); Blood Small (Negative); Clarity Cloudy (Clear); Glucose Negative (Negative); Ketones Negative (Negative); Leukocyte Esterase Negative (Negative); Nitrite Positive (Negative); Urobilinogen 0.2 EU/dL (Up TO 0.2)
[2021-08-01 12:19] LABS: *AMPHETAMINES SCREEN URINE Negative (Negative); *BARBITURATES SCREEN URINE Negative (Negative); *BENZODIAZEPINES SCREEN URINE Negative (Negative); Cannabinoids THC Positive (Negative); Cocaine Screen,Urine Positive (Negative); METHADONE URINE SCREEN Positive (Negative); OPIATES URINE SCREEN Negative (Negative)
[2021-08-01 12:20] LABS: Absolute Lymphocyte Count 1.47 10^3/uL (1.2-3.4); Absolute Monocyte Count 0.47 10^3/uL (0.1-0.8); Absolute Neutrophil Count 1.19 10^3/uL (1.2-6.7); Atypical Lymphocytes % 8; Diff Comment Manual Differential; RBC Morphology Normal
[2021-08-01 12:21] LABS: Bacteria Many HPF (Negative); C & S Indicated? No/Sq. Contamination; Casts 0-2 Hyaline LPF (Negative); Crystals Negative HPF (Negative); Epithelial Cells Many HPF (Negative); Mucus Negative (Negative); Tricyclic Antidepressants Negative (Negative); WBC Negative HPF (0-5)
[2021-08-01 12:26] LABS: Salicylate 2.9 mg/dL (<2.8)
[2021-08-01 12:28] LABS: ALT 49 U/L (14-59); AST 48 U/L (15-37); Acetaminophen < 2 ug/mL (10-30); Albumin 3.7 g/dL (3.4-5.0); Alkaline Phosphatase 89 U/L (46-116); Anion Gap 6.7 mmol/L (3-11); BUN 7 mg/dL (7-18); Bilirubin, Total 0.2 mg/dL (0.2-1.0); CO2 31.3 mmol/L (21.0-32.0); CREATININE 0.8 mg/dL (0.55-1.02); Calcium 8.7 mg/dL (8.5-10.1); Chloride 101 mmol/L (98-107); ETHANOL BLOOD < 3.0 mg/dL (<10); Glucose 138 mg/dL (74-106); Potassium 3.5 mmol/L (3.5-5.1); Sodium 139 mmol/L (136-145); TSH (W/Ref FT4) 2.77 uIU/mL (0.36-3.74); Total Protein 7.8 g/dL (6.4-8.2)
[2021-08-01 12:49] LABS: COVID-19 PCR Negative (Negative)
[2021-08-01 13:19] VITALS: BP 132/77; PULSE 114; RESP 18; TEMP 36.6; O2SAT 99
--- NOTE | 2021-08-01 16:45 | NUR.NOTE ---
Nursing Note: At the patient's request I faxed the information from this visit to Chris Sanchez. Edith Andrade P [phone] F [phone]
== END 2021-08-01 13:37 | disposition home or self-care (01) ==
PROVIDERS: Emergency Provider Registered Nurse Emergency; PCP Internal Medicine
DX: F11.20 Opioid dependence, uncomplicated (principal); F10.10 Alcohol abuse, uncomplicated; R00.0 Tachycardia, unspecified
CPT/HCPCS: 80053; 80307; 87635; 93005; 99283; 80320; 80329; 81003; 81015; 84443; 85025; 93010

== ENCOUNTER 2022-07-05 15:33 | Outpatient (REF) | payer MEDICAID, SELFPAY ==
[2022-07-05 19:19] LABS: ALT 48 U/L (14-59); AST 80 U/L (15-37); Albumin 4.4 g/dL (3.4-5.0); Alkaline Phosphatase 106 U/L (46-116); BUN 9 mg/dL (7-18); Bilirubin, Total 0.3 mg/dL (0.2-1.0); CREATININE 0.8 mg/dL (0.55-1.02); Calculated LDL 147 mg/dL (<100); Chloride 102 mmol/L (98-107); Cholesterol 245 mg/dL (<200); Estimated GFR 101.59 (mL/min/1.73m2); Glucose 109 mg/dL (74-106); HDL Cholesterol 61 mg/dL (40-60); Potassium 4.4 mmol/L (3.5-5.1); Sodium 140 mmol/L (136-145); TSH 1.69 uIU/mL (0.36-3.74); Total Protein 8.6 g/dL (6.4-8.2); Triglyceride 186 mg/dL (<150)
== END 2022-07-05 15:34 | disposition home or self-care (01) ==
LOC: NCHCN 15:33
PROVIDERS: PCP Internal Medicine; Visit Provider Internal Medicine
DX: F41.8 Other specified anxiety disorders (principal); B19.20 Unspecified viral hepatitis C without hepatic coma; R79.89 Other specified abnormal findings of blood chemistry; Z00.00 Encounter for general adult medical examination without abnormal findings
CPT/HCPCS: 80053; 80061; 84443

== ENCOUNTER 2022-07-18 16:58 | Outpatient (REF) | payer MEDICAID, SELFPAY ==
[2022-07-18 19:56] LABS: *AMPHETAMINES SCREEN URINE Negative (Negative); *BARBITURATES SCREEN URINE Negative (Negative); *BENZODIAZEPINES SCREEN URINE Negative (Negative); Cannabinoids THC Positive (Negative); Cocaine Screen,Urine Negative (Negative); METHADONE URINE SCREEN Negative (Negative); OPIATES URINE SCREEN Negative (Negative)
[2022-07-18 20:09] LABS: Tricyclic Antidepressants Negative (Negative)
[2022-07-20 13:20] LABS: Chlamydia Result Negative (Negative); GC Result Negative (Negative)
== END 2022-07-18 16:59 | disposition home or self-care (01) ==
LOC: NCHCN 16:58
PROVIDERS: PCP Internal Medicine; Visit Provider Internal Medicine
DX: R10.2 Pelvic and perineal pain (principal); R82.998 Other abnormal findings in urine; R82.5 Elevated urine levels of drugs, medicaments and biological substances; Z11.3 Encounter for screening for infections with a predominantly sexual mode of transmission
CPT/HCPCS: 80307; 87077; 87491; 87493; 87591; 87086; 87186; 87230

== ENCOUNTER 2024-02-08 10:39 | Emergency (ER) | payer MEDICAID, SELFPAY ==
[2024-02-08] VITALS (21 sets, daily range): BP systolic 115–148; BP diastolic 69–99; PULSE 63–105; RESP 11–30; TEMP 36.8; O2SAT 89–98
--- NOTE | 2024-02-08 10:54 | W.ED.GENAD ---
Discharge Plan Disposition Patient Disposition: Home Discharge Details Clinical Impression: Alcohol withdrawal Primary Care Provider: Seymour Collado ED Provider: Gerhard Barnard Home Meds and New Rx's Prescriptions: New chlordiazepoxide HCl 25 mg capsule 25 mg PO Q6H PRNQty: 15 0RF Rx Instructions: Day 1: 50mg q6h Day 2: 25mg q6h Day 3: 25mg q12h Day 4: 25mg at night (Rx fifteen 25mg tabs) Continued methadone 100 mg PO DAILY Patient Comments: please confirm with [facility] Discharge Instructions Additional Instructions: You are seen following your withdrawal from ethanol. You are receiving a medication called Librium which you should take as directed: Day 1: 50mg every 6 hours Day 2: 25mg every 6 hours Day 3: 25mg every 12 hours Day 4: 25mg at night(Rx fifteen 25mg tabs) Please return to the emergency department if you develop nausea vomiting chest pain or shortness of breath. Please follow-up with your oil recovery unit operator. Discharge Data Discharge Date/Time-TO BE ENTERED AT DEPARTURE: 02/08/24 13:35 HPI General Date/Time Provider Initiated Documentation: 02/08/24 10:54. HPI Narrative: MDM This is an overall well-appearing 33-year-old normothermic and not tachycardic female with concerns for ethanol withdrawal for which she will receive 75 mg of chlordiazepoxide and oil recovery unit operator consultation. No suicidal nor homicidal ideation so no indication for assessment by crisis clinicians. No pain out of proportion to suggest necrotizing soft tissue infection. Will obtain IV access and basic labs in the event that patient has worsening signs of withdrawal. Soft nontender abdomen so my suspicion was low for pancreatitis and hepatitis so I did not send a comprehensive metabolic panel nor a lipase. Patient is not markedly hypertensive nor tachycardic and has no tongue fasciculations so I do not feel that she requires phenobarbital. Will engage with a oil recovery unit operator. Will monitor the patient in the emergency department and placed on a CIWA protocol. Given soft nontender abdomen I am not suspicious for spontaneous bacterial peritonitis. Will treat with 100 mg p.o. thiamine prophylactically. She took her methadone this morning. Patient does have a history of cardiomyopathy however is not short of breath and does not appear volume overloaded so I did not send a proBNP nor provide the patient with diuretics. 12:10 PM Negative hCG. CBC with leukopenia improved compared to prior. No anemia. No thrombocytopenia. 12:30 PM Patient metabolic panel notable for worsened renal function compared to prior. No acute electrolyte abnormalities. Will ensure patient can tolerate p.o. Elevated ethanol level. Normal reassuring magnesium. 1:15 PM Patient connected with a oil recovery unit operator who will call her every day for the next 10 days. She has a supportive partner with her. She passed a p.o. challenge. Given that she had no know ongoing vomiting I was not suspicious for any worsening MARLON so I did not feel that she required IV hydration. Her repeat CIWA score was 4. I discussed that she should follow-up with her primary care provider as there are medications that she could take to prevent cravings moving forward. I advised that if she did not feel safe or if she developed nausea or vomiting that she should return to the emergency department. She understood her return indications and was discharged with empiric trial of expectant outpatient management. Chronic conditions affecting the care of the patient: Heart failure History obtained from an outside historian: N/A [place] [facility] Medications: chlordiazepoxide Social determinants of health affecting disposition: N/A Management discussed with: N/A Treatment/interventions considered: IV fluids but deferred given patient passed a p.o. challenge Response to therapies provided: Improved symptoms in the ED HPI This is a 33-year-old female history of prior heart failure arrived in the emergency department via private vehicle in the setting of concerns for withdrawal from alcohol. Patient reports that she drinks 1 gallon of whiskey per day. Her last drink was 13 hours ago. She has had withdrawal in the past but has never required intubation nor has she had seizures. She vomited yesterday. She denies chest pain abdominal pain shortness of breath. She receives methadone every day and received her methadone this morning. She has daily tobacco user. Denies illicit drug use. Feels tremulous. Has not had any fevers. Exam General: Well-appearing in no acute distress speaking in complete sentences. Head: Normocephalic, atraumatic. Eye: Extraocular eye movements intact. No conjunctival injection. No scleral icterus. Ear, nose, mouth, throat: Grossly normal inspection. Normal voice, handling secretions normally. No significant tongue fasciculations. Neck: Trachea midline. Cardiovascular: Well-perfused distal extremities. Regular rate and rhythm Respiratory: Nonlabored respiration. Clear lungs bilaterally. Gastrointestinal: Nondistended abdomen. Soft and nontender. Musculoskeletal: No edema. Moving all 4 extremities spontaneously. Skin: Normal for age and race, grossly normal temperature and turgor. No acute rash. Neurologic: Alert and appropriate, no apparent acute deficits. GCS 15. Psychiatric: Mood and manner are appropriate. Grooming and personal hygiene are appropriate. Related Data Home Medications ?Medication ?Instructions ?Recorded ?Confirmed chlordiazepoxide HCl 25 mg capsule 25 mg PO Q6H PRN #15 caps 02/08/24 methadone 100 mg PO DAILY 02/08/24 02/08/24 Previous Rx's ?Medication ?Instructions ?Recorded chlordiazepoxide HCl 25 mg capsule 25 mg PO Q6H PRN #15 caps 02/08/24 Allergies Allergy/AdvReac Type Severity Reaction Status Date / Time bupropion (From Wellbutrin) Allergy Intermediate Topical Verified 02/08/24 10:46 Irritation kiwi Allergy Swelling/Ed Unverified 02/08/24 10:46 catrachita General Stated Complaint: ETOHWithdr NATHANIEL: 3 Course Vital Signs Vital signs: Vital Signs Temperature 36.8 C 02/08/24 10:42 Pulse 96 H 02/08/24 10:42 Respiratory Rate 20 02/08/24 10:42 Blood Pressure 148/90 H 02/08/24 10:42 Pulse Oximetry 96 02/08/24 10:42 Temperature 36.8 C 02/08/24 10:42 Pulse 96 H 02/08/24 10:42 Respiratory Rate 20 02/08/24 10:42 Respiratory Effort Normal 02/08/24 10:48 Blood Pressure 148/90 H 02/08/24 10:42 Pulse Oximetry 96 02/08/24 10:42 Pain Level 0 02/08/24 10:42 Medical Decision Making Quality:SDOH Health Related Social Needs: No Data to Display PFSH All Active Problems (Updated 02/08/24 @ 13:18 by Gerhard Barnard MD) Drug abuse and dependence (Acute) Elevated transaminase level (Acute) Dental infection (Acute) Tobacco abuse (Acute) Alcohol withdrawal (Acute) Social History Smoking/Tobacco Use Status: Current every day Tobacco Type: cigarettes Smoking risk assessment performed?: Yes Alcohol Intake: current Alcohol Intake frequency: 3 or more drinks per day Alcohol type: hard liquor Drug use: Current Sobriety Substance use type: former substance user and opiates Housing: house Do you feel safe at home: Yes Do you feel safe in your relationship?: Yes PAWSS Have you Been Recently Intoxicated or Drunk Within the Last 30 days?: Yes Have you Ever Experienced Previous Episodes of Alcohol Withdrawal?: Yes Have you ever Experienced Withdrawal Seizures?: No Have you ever Experienced Delirium Tremens(DT)s?: Yes Have you ever undergone Alcohol Rehabilitation Treatment (i.e, inpt ot outpatient treatment programs)?: Yes Have you ever Experienced Blackouts?: Yes Have you ever Combined Alcohol with other Downers within the last 90 days?: No Have you ever Combined Alcohol with any other Substance of Abuse during the last 90 days?: No Positive Blood Alcohol level on Presentation? [PCS.BAL]: Unable to Obtain Evidence of Increased Autonomic Activity (i.e. HR>120, tremor, sweating, agitation, nausea)?: Yes Result: 6
[2024-02-08] MEDS: chlordiazePOXIDE 25 MG CAP 75 MG PO (11:14)
[2024-02-08 11:23] LABS: HCG Qual (Urine) Negative
[2024-02-08] MEDS: Thiamine 100 MG TAB PO (11:53)
[2024-02-08 11:59] LABS: Abs Immature Grans 0.01 10^3/uL (0.0-0.06); Absolute Basophil Count 0.01 10^3/uL (0.0-0.2); Absolute Eosinophil Count 0.04 10^3/uL (0.0-0.7); Absolute Lymphocyte Count 1.38 10^3/uL (1.2-3.4); Absolute Monocyte Count 0.36 10^3/uL (0.1-0.8); Absolute Neutrophil Count 1.85 10^3/uL (1.2-6.7); Basophils % 0.3 %; Eosinophils % 1.1 %; HCT 35.9 % (36.0-46.0); HGB 11.9 g/dL (11.2-15.7); Immature Grans % 0.3 %; Lymphocytes % 37.8 %; MCH 30.4 pg (27.0-33.0); MCHC 33.1 % (32.0-36.0); MCV 92 fL (80-95); MPV 8.7 fL (8.0-11.0); Monocytes % 9.9 %; Neutrophils % 50.6 %; Platelet Count 157 10^3/uL (130-400); RBC 3.91 10^6/uL (3.93-5.22); RDW 14.7 % (11.7-14.6); RDW-SD 49.2 fL; WBC 3.65 10^3/uL (4.4-10.8)
[2024-02-08 12:10] LABS: Anion Gap 9.9 mmol/L (3-11); BUN 26 mg/dL (7-18); CO2 29.1 mmol/L (21.0-32.0); CREATININE 1.5 mg/dL (0.55-1.02); Calcium 9.2 mg/dL (8.5-10.1); Chloride 100 mmol/L (98-107); ETHANOL BLOOD 154.6 mg/dL (<10); Estimated GFR 47.19 (mL/min/1.73m2); Glucose 94 mg/dL (74-106); Sodium 139 mmol/L (136-145)
--- OUTSIDE RECORDS SUMMARY | 2024-02-08 12:27 | XMS_ITS | Encounter Summary ---
Author Organization [facility] Address [address] [place] [address] Care Team Providers Care Network Admin Name Role Phone Seymour Collado MD Primary Care Provider [phone] Encounter Details Date Type Department Care Team (Late st Contact Info) Description 02/17/2023 Lab Requisition [facility] Pathology & Laboratory Medicine - [address] [address] Outr Resulting Lab, Provider Social History Tobacco Use Types Packs/Day Years Used Date Smoking Tobacco: Former Cigarettes 0.5 3 Smokeless Tobacco: Never Alcohol Use Standard Drinks/Week Comments No 0 (1 standard drink = 0.6 oz pur e alcohol) Not with my liver bad Interpersonal Safety Answer Date Record ed Physically Hurt Never 10/31/2019 Verbally Threaten Not on file 10/31/2019 Comments No Sex and Gender Information Value Date Recorded Sex Assigned at Not on file Legal Sex Female 18:50 EST Gender Identity Not on file Sexual Orientation Not on file documented as of this encounter Functional Status * Are you deaf or do you have serious difficulty hearing? Answer Date of Assessment Author No 06/20/2017 17:00 EDT Dimitri Fallon RN * Are you blind or do you have serious difficulty seeing, even when wearing glasses? Answer Date of Assessment Author No 06/20/2017 17:00 EDT Dimitri Fallon, RN * Do you have serious difficulty walking or climbing stairs? (5 years old or older) Answer Date of Assessment Author No 06/20/2017 17:00 EDT McSDimitri mcrae RN * Do you have difficulty dressing or bathing? (5 years old or older) Answer Date of Assessment Author No 06/20/2017 17:00 EDT Dimitri Fallon RN * Because of a physical, mental, or emotional condition, do you have difficulty doing errands alone such as visiting a doctor's office or shopping? (15 years old or older) Answer Date of Assessment Author No 06/20/2017 17:00 EDT Dimitri Fallon RN documented as of this encounter Mental Status * Because of a physical, mental, or emotional condition, do you have serious difficulty concentrating, remembering, or making decisions? (5 years old or older) Answer Entry Date Author No 06/20/2017 17:00 EDT Dimitri Fallon RN documented in this encounter Plan of Treatment Not on file documented as of this encounter Procedures Procedure Name Priority Date/Time Associated Diagnosis Comments HCV RNA DETECT QUANT Today 02/17/2023 15:20 EST SYPHILIS SEROLOGY Routine 02/17/2023 15: 20 EST HEPATITIS C AB W REFLEX TO HCV RNA BY PCR Routine 02/17/2023 15:20 EST RUBELLA IGG ANTIBODY Routine 02/17/2023 15:20 EST HEPATITIS B SURFACE ANTIGEN Routine 02/17/2023 15:20 EST HIV 1/2 ANTIGEN AND ANTIBODY, 4TH GENERATION Routine 02/17/2023 15:20 EST documented in this encounter Results * (ABNORMAL) HCV RNA DETECT QUANT (02/17/2023 15:20 EST) HCV RNA Qualitative Detected( A) Undetected 02/19/2023 11:31 EST [facility] HCV RNA Quantitative 13,700,00 0(H) Undetected IU/mL 02/19/2023 11:31 EST [facility] Blood VENOUS BLOOD / Unknown 02/17/2023 15:20 EST 02/17/2023 22:44 EST Narrative [facility] - 02/19/2023 11:31 EST The quantification range of this assay is 15 IU/mL to 100,000,000 IU/mL. Testing was performed using the Danyel HCV test ([employer] with the danyel 6800 System. us Provider Outr Resulting Lab CHEMISTRY & BLOOD GA S ORDERABLES Final Result Performing Organization Address [facility]/ZIP Co de Phone Number [facility] [address] [place] [address] * (ABNORMAL) HEPATITIS C AB W REFLEX TO HCV RNA BY PCR (02/17/2023 15:20 EST) Hep C Antibody Reactive(A ) Negative 02/18/2023 10:36 EST [facility] Comment: Supplemental testing for HCV RNA is ordered to rule out active HCV infection. Blood VENOUS BLOOD / Unknown 02/17/2023 15:20 EST 02/17/2023 22:44 EST us Provider Outr Resulting Lab CHEMISTRY & BLOOD GA S ORDERABLES Final Result Performing Organization Address [facility] Co de Phone Number [facility] [address] [place] [address] * HEPATITIS B SURFACE ANTIGEN (02/17/2023 15:20 EST) Hep B Surface Ag Negative Negative 02/18/2023 9:45 EST [facility] Blood VENOUS BLOOD / Unknown 02/17/2023 15:20 EST 02/17/2023 22:44 EST us Provider Outr Resulting Lab CHEMISTRY & BLOOD GA S ORDERABLES Final Result Performing Organization Address City/[facility]/ZIP Co de Phone Number [facility] [address] [place] [address] * HIV 1/2 ANTIGEN AND ANTIBODY, 4TH GENERATION (02/17/2023 15:20 EST) HIV 1 and 2 Antibody/p24 Antigen, 4th Generation Negative Negative 02/18/2023 10:16 EST [facility] Comment:If acute HIV-1 infec tion is suspected in a high risk patient, submit plasma specimen for HIV-1 RNA quantitation test. Blood VENOUS BLOOD / Unknown 02/17/2023 15:20 EST 02/17/2023 22:44 EST Narrative [facility] - 02/18/2023 10:16 EST Fourth Generation assay performed on the Siemens Centaur XPT. us Provider Outr Resulting Lab IMMUNOLOGY AND SEROL OGY ORDERABLES Final Result [facility] [address] [place] [address] * SYPHILIS SEROLOGY (02/17/2023 15:20 EST) Syphilis Serology Negative Negative 02/18/2023 10:48 EST [facility] Blood VENOUS BLOOD / Unknown 02/17/2023 15:20 EST 02/17/2023 22:44 EST us Provider Outr Resulting Lab IMMUNOLOGY AND SEROL OGY ORDERABLES Final Result Performing Organization Address [facility]/ZIP Co de Phone Number [facility] [address] [place] [address] * RUBELLA IGG ANTIBODY (02/17/2023 15:20 EST) Rubella IgG Ab Negative See Note 02/18/2023 10:52 EST [facility] Comment:Sample is considered negative for IgG antibodies to Rubella virus. A negative result presumes that immunity has not been acquired. If exposure to Rubella virus is suspected despite a negative finding, a second specimen should be collected and tested for Rubella IgG Ab one or two weeks later. Blood VENOUS BLOOD / Unknown 02/17/2023 15:20 EST 02/17/2023 22:44 EST us Provider Outr Resulting Lab CHEMISTRY & BLOOD GA S ORDERABLES Final Result Performing Organization Address City/[facility]/ZIP Co de Phone Number [facility] [address] [place] [address] documented in this encounter Visit Diagnoses Not on filedocumented in this encounter Care Teams Network Admin Relationship Specialty Start Date End Date Seymour Collado MD [address] [place] [address] PCP - General 12/19/09 documented as of this encounter
--- OUTSIDE RECORDS SUMMARY | 2024-02-08 12:27 | XMS_ITS | Referral Summary ---
Author Organization [facility] Address [address] [place] [address] Care Team Providers Care Websphere Message Broker Developer Name Role Phone Seymour Collado MD Primary Care Provider [phone] Encounters Date Type Department Care Team Description 12/26/2023 Lab Requisition [facility] Pathology & Laboratory [address] [address] Outr Resulting Lab, Provider 11/21/2023 Lab Requisition [facility] Pathology & Laboratory [facility] [address] [place] [address] Outr Resulting Lab, Provider from Last 3 Months Allergies Active Allergy Reactions Criticality Noted Date Comments Kiwi 07/18/2014 Medications ondansetron (ZOFRAN) 4 mg tablet Take 1 Tab by mouth every 8 hours as needed for Nausea. 10 Tab 0 0 Active Additional Information Patient not taking.Informant: Self, Reported on 12/31/2016 methadone (DOLOPHINE) 5 mg/5 mL oral solution Take 100 mg by mouth daily Active Pazcohzg-Gk-Jap -Fe-FA ( VITAMIN) tablet Take 1 Tab by mouth daily Active calcium carbonate (TUMS) 200 mg calcium (500 mg) tablet,chewable Take 1-2 Tabs by mouth 4 times daily as needed Active acetaminophen (TYLENOL) 325 mg tablet Take 1-2 Tabs by mouth every 4 hours as needed for Pain 5 Active Additional Information Patient not taking.Reported on 09/06/2021 docusate sodium (COLACE) 100 mg capsule Take 1 Cap by mouth 2 times daily as needed for Constipation 5 Active Additional Information Patient not taking.Reported on 09/06/2021 ibuprofen (MOTRIN) 400 mg tablet Take 1 Tab by mouth every 4 hours as needed for Pain 5 Active Additional Information Patient not taking.Reported on 12/31/2016 HYDROmorphone (DILAUDID) 4 mg tablet Take 1 Tab by mouth every 4 hours as needed for Pain. Daily Max: 24 mg 20 Tab 8 Active Additional Information Patient not taking.Reported on 09/06/2021 buprenorphine HCl/naloxone HCl (SUBOXONE SL) Place 16 mg under the tongue daily. Active cloNIDine HCL (CATAPRES) 0.1 mg tablet Take by mouth 2 times daily. Active multivitamin capsule Take 1 capsule by mouth daily. Active MAGNESIUM OXIDE ORAL Take 1 Tablet by mouth. Active FOLIC ACID ORAL Take 1 Tablet by mouth daily. Active cyanocobalamin, vitamin B-12, (VITAMIN B12 ORAL) Take 1 Tablet by mouth daily. Active Active Problems Patient Care Coordination No te Formatting of this note migh t be different from the original. 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 Boyle Opiate dependence ([facility]) 07/18/2014 Overview (07/18/2014): methadone Assessment & Plan (07/31/2014 12:46 EDT): Stable on methadone, doing well Assessment & Plan (07/22/2014 11:25 EDT): Stable on methadone Rh negative state in antepartum period 5 Overview (07/22/2014): Received rhogam at OSH at 27 weeks ga S/p rhogam 07/18 (ECV) Assessment & Plan (07/22/2014 11:27 EDT): Received on 07/18 after ECV Stopped smoking during 06/28/2014 Overview (07/12/2014): Quit smoking 2-3 months into , still occasional smokes cigarette FOB smokes and lives in house with her [x ] growth scan ordered 3,145 g 83% Freire @ 35+6 Assessment & Plan (07/22/2014 11:26 EDT): AGA at 32 wks, continues to smoke Assessment & Plan (07/14/2014 14:41 EDT): Growth-3,145 g 83% Freire @ 35+6 Assessment & Plan (07/12/2014 15:00 EDT): Occ smokes still, 3,145 g 83% Freire @ 35+6 Assessment & Plan (06/28/2014 10:28 EDT): Quit smoking 2-3 months into , still occasional smokes cigarette FOB smokes and lives in house with her [ ] growth scan ordered Resolved Problems Problem Noted Date Diagnosed Date Resolved Date cardiac anomaly compli cating , antepartum 07/14/2014 12/31/2016 Overview (07/14/2014): 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 Given precautions Assessment & Plan (07/14/2014 14:43 EDT): Scheduled for version on 07/18 Other known or suspected fet al abnormality, not elsewhere classified, affecting management of mother, antepartum condition or complication 07/12/2014 12/31/2016 Overview (07/14/2014): Persistent SVC noted at detailed at 35+6, echo ordered--> Av canal with ASD, 50% chance of down's syndrome per Dr. Shipman. Offered genetic counseling, pt declined. Will start testing next week. Discussed NIPT and amnio; either will take 2 weeks and pt will likely be delivered; disc higher rate of culture failure with either. Will not alter OB management. Assessment & Plan (07/31/2014 12:50 EDT): Continue antepartum testing as scheduled. Delivery plan as above. Has had pedi cards consult. Understands likelihood of baby going to NICU after delivery. Assessment & Plan (07/22/2014 11:27 EDT): testing ordered Assessment & Plan (07/14/2014 14:43 EDT): Persistent SVC noted at detailed at 35+6, echo ordered--> ASD, 50% chance of down's syndrome per Dr. Shipman. Offered genetic counseling, pt declined. Will start testing next week. Supervision of high-risk 06/28/2014 12/31/2016 Overview (07/22/2014): # Global - Dating: DELMY 08/05/2014 by 6+6 wk US - PN labs: B- /Ab neg /Rubella Imm/Varicella unk /HepB neg /HepC neg /HIV neg/RPR NR Rhogam [x] had @ 27.5 weeks Pap: neg (01/11) G/C: neg, neg Urine cx: no growth - Screening: CF - neg Ultrascreen (11-13 WGA) - too late Quad Markers (15-20+6 WGA) - too late - Flu vaccines (Jan-July) - TDaP (after 28wga) [x] - Anatomy scan: detailed w persistent SVC, echo ordered - 1h GTT and CBC -- 84, Hct 36.6 - Growth: [x] 3,145 g 83% Freire @ 35+6; Also presence of persistent left vena cava with a dilated coronary sinus ---> BREECH s/p failed ECV, PCS on 08/02 - GBS [x] POS Allergies? NKDA - Contraception -- really interested in a Mirena IUD Assessment & Plan (07/31/2014 12:51 EDT): Reviewed signs/symptoms of labor prior to planned . Long discussion today regarding delivery plan (scheduled for 08/02). Reviewed informed consent with patient and signed. Informed patient that we always confirm persistent breech presentation immediately prior to proceeding to OR whether she presents in labor or for scheduled time. If cephalic, would proceed with induction on 08/02 as well given anomalies and GA >39 wks for pediatrics availability. Patient states understanding and agreement with this plan. Also discussed that visitor policy and support person policy in OR would not be altered due to baby's heart defects, still can only have one person accompany her in OR. Assessment & Plan (07/14/2014 14:44 EDT): Up to date. Breech, version scheduled on 07/18. GBS POS. Rh neg Assessment & Plan (07/12/2014 15:02 EDT): GBS collected- positive Rh neg- received rhogam at 27 weeks Growth today showed EFW 3,145 g 83% Freire, persistent SVC noted so echo ordered Would like mirena pp Assessment & Plan (06/28/2014 10:30 EDT): - Up to date on care - Needs GBS at next visit - Interested in Mirena IUD for post contraception - Growth scan ordered - S/p Rhogam at 27 wks - S/p TDaP Social History Tobacco Use Types Packs/Day Years [...] on file Sexual Orientation Not on file Last Filed Vital Signs Vital Sign Reading Time Taken Comments Blood Pressure 135/103 11/15/2022 0156 EDT Pulse 115 11/15/2022 0156 EDT Temperature 36.5 ??C (97.7 ??F) 11/15/2022 0156 EDT Respiratory Rate 22 11/15/2022 0156 EDT Oxygen Saturation 95% 11/15/2022 0156 EDT Inhaled Oxygen Concentration - - Weight 75 kg (165 lb 5.5 oz) 11/15/2022 0156 EDT Height 162.6 cm (5' 4) 06/20/2017 1700 EDT Body Mass Index 28.38 06/20/2017 1700 EDT Functional Status * Are you deaf or do you have serious difficulty hearing? Answer Date of Assessment Author No 06/20/2017 17:00 EDT Dimitri Fallon, SABA * Are you blind or do you have serious difficulty seeing, even when wearing glasses? Answer Date of Assessment Author No 06/20/2017 17:00 EDT Dimitri Fallon, RN * Do you have serious difficulty walking or climbing stairs? (5 years old or older) Answer Date of Assessment Author No 06/20/2017 17:00 EDT Dimitri Fallon RN * Do you have difficulty dressing or bathing? (5 years old or older) Answer Date of Assessment Author No 06/20/2017 17:00 EDT Dimitri Fallon, RN * Because of a physical, mental, or emotional condition, do you have difficulty doing errands alone such as visiting a doctor's office or shopping? (15 years old or older) Answer Date of Assessment Author No 06/20/2017 17:00 EDT Dimitri Fallon RN Mental Status * Because of a physical, mental, or emotional condition, do you have serious difficulty concentrating, remembering, or making decisions? (5 years old or older) Answer Entry Date Author No 06/20/2017 17:00 EDT Dimitri Fallon RN Plan of Treatment Not on file Procedures Procedure Name Priority Date/Time Associated Diagnosis Comments FENTANYL AND METABOLITE CONFIRMATION PANEL Routine 12/26/2023 11:29 EDT HOLD SST Today 11/21/2023 12:15 EDT HIV 1/2 ANTIGEN AND ANTIBODY, 4TH GENERATION Today 11/21/2023 12:15 EDT HEPATITIS A ANTIBODY IGM Today 11/21/2023 12:15 EDT HEPATITIS B SURFACE ANTIGEN Today 11/21/2023 12:15 EDT HEPATITIS B SURFACE ANTIBODY Today 11/21/2023 12:15 EDT HEPATITIS C AB W REFLEX TO HCV RNA BY PCR Routine 02/17/2023 15:20 EST from Last 3 Months or Most Recently Relevant to Health Maintenance Results * (ABNORMAL) FENTANYL AND METABOLITE CONFIRMATION PANEL (12/26/2023 11:29 EDT) Fentanyl Confirmation >40(A) <2 ng/mL 12/30/2023 11:47 EDT [facility] Norfentanyl Confirmation >200(A) <10 ng/mL 12/30/2023 11:47 EDT [facility] Urine URINE / Unknown 12/26/2023 1 1:29 EDT 12/28/2023 15:57 EDT Narrative [facility] - 12/30/2023 11:47 EDT [facility] performed by: [facility] [address] [place] [address] [address] [address] Rating Specialist: Vipul Portillo MD; CLIA # [id number] us Provider Outr Resulting Lab GEN LAB UNIT COLLECT ORDERABLES Final Result [facility] [address] [place] [address], [address] [phone] * HOLD SST (11/21/2023 12:15 EDT) [facility] Hold Hold 11/21/2023 23:15 EDT [facility] Blood VENOUS BLOOD / Unknown 11/21/2023 12:15 EDT 11/21/2023 22:09 EDT Provider Outr Resulting Lab LAB INFO SERVICE AND SUPPORT & PHONE RESULT Final Result Performing Organization Address [facility]/ZIP Co de Phone Number [facility] [address] [place] [address] * HEPATITIS A ANTIBODY IGM (11/21/2023 12:15 EDT) [facility] Hepatitis A Antibody, IgM Negative Negative 11/24/2023 10:48 EDT [facility] Blood VENOUS BLOOD / Unknown 11/21/2023 12:15 EDT 11/21/2023 22:07 EDT Narrative [facility] - 11/24/2023 10:48 EDT The results of this assay can be falsely lowered due to the consumption of Biotin. us Provider Outr Resulting Lab CHEMISTRY & BLOOD GA S ORDERABLES Final Result [facility] [address] [place] [address] * HEPATITIS B SURFACE ANTIBODY (11/21/2023 12:15 EDT) [facility] Hep B Surface Ab, Quantitative 261.4 See Note mIU/mL 11/24/2023 9:47 EDT [facility] Comment: Reference Range for Hep B Surface Ab, Quant: Positive: >= 10.0 mIU/mL Negative: ??< 10.0 mIU/mL Patient is presumed to be immune to infection with Hepatitis B Virus. Hep B Surface Ab, Qualitative Positive See Note 11/24/2023 9:47 EDT [facility] Comment: Reference Range for Hep B Surface Ab, Qual: Unvaccinated: ??Negative Vaccinated: ??Positive Blood VENOUS BLOOD / Unknown 11/21/2023 12:15 EDT 11/21/2023 22:07 EDT us Provider Outr Resulting Lab CHEMISTRY & BLOOD GA S ORDERABLES Final Result Performing Organization Address [facility]/ZIP Co de Phone Number [facility] [address] [place] [address] * HEPATITIS B SURFACE ANTIGEN (11/21/2023 12:15 EDT) Hep B Surface Ag Negative Negative 11/24/2023 10:12 EDT [facility] Blood VENOUS BLOOD / Unknown 11/21/2023 12:15 EDT 11/21/2023 22:07 EDT Provider Outr Resulting Lab CHEMISTRY & BLOOD GA S ORDERABLES Final Result Performing Organization Address [facility] Co de Phone Number [facility] [address] [place] [phone] * HIV 1/2 ANTIGEN AND ANTIBODY, 4TH GENERATION (11/21/2023 12:15 EDT) HIV 1 and 2 Antibody/p24 Antigen, 4th Generation Negative Negative 11/24/2023 10:31 EDT [facility] Comment:If acute HIV-1 infec tion is suspected in a high risk patient, submit plasma specimen for HIV-1 RNA quantitation test. Blood VENOUS BLOOD / Unknown 11/21/2023 12:15 EDT 11/21/2023 22:07 EDT Narrative [facility] - 11/24/2023 10:31 EDT Fourth Generation assay performed on the [employer] XPT. us Provider Outr Resulting Lab IMMUNOLOGY AND SEROL OGY ORDERABLES Final Result Performing Organization Address City/[facility]/ZIP Co de Phone Number [facility] [address] [place] [address] * (ABNORMAL) HEPATITIS C AB W REFLEX TO HCV RNA BY PCR (02/17/2023 15:20 EST) Hep C Antibody Reactive(A ) Negative 02/18/2023 10:36 EST [facility] Comment: Supplemental testing for HCV RNA is ordered to rule out active HCV infection. Blood VENOUS BLOOD / Unknown 02/17/2023 15:20 EST 02/17/2023 22:44 EST us Provider Outr Resulting Lab CHEMISTRY & BLOOD GA S ORDERABLES Final Result Performing Organization Address City/[facility] Co de Phone Number [facility] [address] [place] [address] from Last 3 Months or Most Recently Relevant to Health Maintenance Administered Medications Insurance MEDICAID [place] Advance Directives For more information, please contact: [phone] * Full Code (Latest Code Status on File) Date Activated Date Inactivated Comments 06/20/2017 17:26 06/24/2017 17:10 Question Answer Comments Reason for decision includes: Full code consistent with overall plan of care Who participated in the discussion? Not Discusse d * Full Code Date Activated Date Inactivated Comments 08/02/2014 19:30 08/06/2014 17:00 Question Answer Comments Reason for decision includes: Full code consistent with overall plan of care Who participated in the discussion? Not Discusse d * Full Code Date Activated Date Inactivated Comments 08/02/2014 9:34 08/02/2014 16:54 Question Answer Comments Reason for decision includes: Full code consistent with overall plan of care Who participated in the discussion? Not Discusse d * Full Code Date Activated Date Inactivated Comments 07/18/2014 9:43 07/18/2014 16:34 Question Answer Comments Reason for decision includes: Full code consistent with overall plan of care Who participated in the discussion? Not Discusse d Care Teams Websphere Message Broker Developer Relationship Specialty Start Date End Date Seymour Collado MD [address] [place] [address] PCP - General 12/19/09
--- OUTSIDE RECORDS SUMMARY | 2024-02-08 12:27 | XMS_ITS | Encounter Summary ---
Author Organization [facility] Address [address] [place] [address] Care Team Providers Care Sieve Maker Name Role Phone Seymour Collado MD Primary Care Provider [phone] Encounter Details Date Type Department Care Team (Late st Contact Info) Description 03/21/2023 Lab Requisition [facility] Pathology & Laboratory Medicine - [address] [address] Outr Resulting Lab, Provider Social History Tobacco [...] Procedure Name Priority Date/Time Associated Diagnosis Comments METHADONE AND METABOLITE CONFIRMATION PANEL Routine 03/21/2023 16:23 EST COCAINE METABOLITE CONFIRMATION Routine 03/21/2023 16:23 EST FENTANYL AND METABOLITE CONFIRMATION PANEL Routine 03/21/2023 16:23 EST documented in this encounter Results * (ABNORMAL) FENTANYL AND METABOLITE CONFIRMATION PANEL (03/21/2023 16:23 EST) Fentanyl Confirmation >40(A) <2 ng/mL 03/26/2023 11:26 EST [facility] Norfentanyl Confirmation >200(A) <10 ng/mL 03/26/2023 11:26 EST [facility] Urine URINE / Unknown 03/21/2023 1 6:23 EST 03/21/2023 21:00 EST Narrative [facility] - 03/26/2023 11:26 EST Testing performed by: [employer] [facility] [address] [place] [address], [address] [address] Welfare Director: Vipul Portillo MD; CLIA # [id number] us Provider Outr Resulting Lab GEN LAB UNIT COLLECT ORDERABLES Final Result [facility] [address] [place] [address] * (ABNORMAL) METHADONE AND METABOLITE CONFIRMATION PANEL (03/21/2023 16:23 EST) Methadone Confirmation >2000(A) <100 ng/mL 03/26/2023 11:26 EST [facility] EDDP Confirmation >2000(A) <100 ng/mL 03/26/2023 11:26 EST [facility] Urine URINE / Unknown 03/21/2023 1 6:23 EST 03/21/2023 21:00 EST Narrative [facility] - 03/26/2023 11:26 EST Testing performed by: [facility] [address] [place] [address] Welfare Director: Vipul Portillo MD; CLIA # [id number] us Provider Outr Resulting Lab GEN LAB UNIT COLLECT ORDERABLES Final Result Performing Organization Address [facility]/ZIP Co de Phone Number [facility] [address] [place] [address] * (ABNORMAL) COCAINE METABOLITE CONFIRMATION (03/21/2023 16:23 EST) Benzoylecgonine Confirmation 136(A) <50 ng/mL 03/26/2023 11:26 EST [facility] Urine URINE / Unknown 03/21/2023 1 6:23 EST 03/21/2023 21:00 EST Narrative [facility] - 03/26/2023 11:26 EST Testing performed by: [facility] [address] [place] [address] Welfare Director: Vipul Portillo MD; CLIA # [id number] us Provider Outr Resulting Lab URINALYSIS ORDERABLE S Final Result Performing Organization Address City/[facility]/ZIP Co de Phone Number [facility] [address] [place] [address] documented in this encounter Visit Diagnoses Not on filedocumented in this encounter Care Teams Sieve Maker Relationship Specialty Start Date End Date Seymour Collado MD [address] [place] [address] PCP - General 12/19/09 documented as of this encounter
--- OUTSIDE RECORDS SUMMARY | 2024-02-08 12:27 | XMS_ITS | Encounter Summary ---
Author Organization [facility] Address [address] [place] [address] Care Team Providers Care Conceptor Name Role Phone Seymour Collado MD Primary Care Provider [phone] Encounter Details Date Type Department Care Team (Late st Contact Info) Description 08/18/2023 Lab Requisition [facility] Pathology & Laboratory Medicine - [address] [address] Carlyle Katz MD [address] [place] [id number] Encounter for other general examination Social History Tobacco Use Types Packs/Day Years [...] Dimitri Fallon RN * Do you have serious difficulty [...] Procedure Name Priority Date/Time Associated Diagnosis Comments SURGICAL PATHOLOGY Today 08/18/2023 8: 45 EDT Encounter for other general examination documented in this encounter Results * SURGICAL PATHOLOGY (08/18/2023 8:45 EDT) Note to Patient The following pathology results have been interpreted by your pathologist and may be available to you before your health provider has had the opportunity to review them. Please allow time for your provider to receive these results and explore management options, if applicable. 08/21/2023 16:10 T [facility] Final Diagnosis A. FALLOPIAN TUBES, BILATERAL SALPINGECTOMY: - Two (2) fallopian tubes with no specific pathologic features. 08/21/2023 16:10 [facility] Attestation There was significant resident/fellow involvement in the diagnostic evaluation of this case. By the signature below, the attending physician certifies that they have personally conducted a gross and/or microscopic examination of the described specimens and rendered or confirmed the above diagnosis. 08/21/2023 16:10 [facility] at 1610 Clinical History Repeat C/S 08/21/2023 16:10 EDT [facility] Gross Description A. Received in formalin labelled with proper patient identification (initials R, R) and bilateral fallopian tubes are bilateral fimbriated fallopian tubes measuring 6 cm in length by 0.7 cm in diameter and 7 cm in length by 0.6 cm in diameter. The serosas are smith-pink, smooth and glistening. Cut sections display a pinpoint lumen. Roofing Plant Supervisor sections to include both fimbriated ends in their entirety are submitted as follows: BLOCK PATEL A1- cross-sections through shorter fallopian tube A2- shorter fallopian tube fimbriated end, trisected and perpendicular A3- cross-sections through longer fallopian tube A4- longer fallopian tube fimbriated end, trisected and perpendicular IAN HOANG(ASCP) 08/19/2023 9:35 08/21/2023 16:10 EDT [facility] Resident/Baldemar w: Kenrick Monroe MD 08/21/2023 16:10 EDT [facility] Performing Lab [facility] 08/21/2023 16:10 EDT [facility] Scanned Images 08/21/2023 16:10 EDT [facility] Tissue BOTH FALLOPIAN TUBES / Unknown 08/18/2023 8:45 EDT 08/19/2023 9:11 EDT Carlyle Katz MD PATHOLOGY ORDERABLES F inal Result [facility] [address] [place], [place] [address] documented in this encounter Visit Diagnoses Diagnosis Encounter for other general examination documented in this encounter Care Teams Conceptor Relationship Specialty Start Date End Date Seymour Collado MD [address] [place] [address] PCP - General 12/19/09 documented as of this encounter
--- OUTSIDE RECORDS SUMMARY | 2024-02-08 12:27 | XMS_ITS | Encounter Summary ---
Author Organization [facility] Address [address] [place] [address] Care Team Providers Care Tile Edger Name Role Phone Seymour Collado MD Primary Care Provider [phone] Encounter Details Date Type Department Care Team (Late st Contact Info) Description 05/16/2023 Lab Requisition [facility] Pathology & Laboratory Medicine - [address] [address] Outr Resulting Lab, Provider Social History Tobacco [...] Comments METHADONE AND METABOLITE CONFIRMATION PANEL Routine 05/16/2023 16:24 EST documented in this encounter Results * (ABNORMAL) METHADONE AND METABOLITE CONFIRMATION PANEL (05/16/2023 16:24 EST) Methadone Confirmation >2000(A) <100 ng/mL 05/20/2023 14:39 EST [facility] EDDP Confirmation >2000(A) <100 ng/mL 05/20/2023 14:39 EST [facility] Urine URINE / Unknown 05/16/2023 1 6:24 EST 05/18/2023 16:49 EST Narrative [facility] - 05/20/2023 14:39 EST Testing performed by: [facility] [address] [place] [address], [facility] [address] [address] Licsw: Vipul Portillo MD; CLIA # [id number] us Provider Outr Resulting Lab GEN LAB UNIT COLLECT ORDERABLES Final Result [facility] [address] [place] [address], [facility] [address] [place] [address], [facility] [phone] documented in this encounter Visit Diagnoses Not on filedocumented in this encounter Care Teams Tile Edger Relationship Specialty Start Date End Date Primeau, Seymour E, MD [address] [place] [address] PCP - General 12/19/09 documented as of this encounter
--- OUTSIDE RECORDS SUMMARY | 2024-02-08 12:27 | XMS_ITS | Encounter Summary ---
Author Organization [facility] Address [address] [place] [address] Care Team Providers Care Earth Science Teacher Name Role Phone Seymour Collado MD Primary Care Provider [phone] Encounter Details Date Type Department Care Team (Late st Contact Info) Description 06/13/2023 Lab Requisition [facility] Pathology & Laboratory Medicine - [address] [address] Outr Resulting Lab, Provider Social History Tobacco [...] Comments METHADONE AND METABOLITE CONFIRMATION PANEL Routine 06/13/2023 16:36 EDT FENTANYL AND METABOLITE CONFIRMATION PANEL Routine 06/13/2023 16:36 EDT documented in this encounter Results * (ABNORMAL) METHADONE AND METABOLITE CONFIRMATION PANEL (06/13/2023 16:36 EDT) Methadone Confirmation >2000(A) <100 ng/mL 06/17/2023 14:45 EDT [facility] EDDP Confirmation >2000(A) <100 ng/mL 06/17/2023 14:45 EDT [facility] Urine URINE / Unknown 06/13/2023 1 6:36 EDT 06/13/2023 22:09 EDT Narrative [facility] - 06/17/2023 14:45 EDT Testing performed by: [facility] [address] [place] [address], [facility] [address] [address] Tower Equipment Installer: Vipul Portillo MD; CLIA # [id number] us Provider Outr Resulting Lab GEN LAB UNIT COLLECT ORDERABLES Final Result [facility] [address] [place], [place] [address] [address] [phone] * (ABNORMAL) FENTANYL AND METABOLITE CONFIRMATION PANEL (06/13/2023 16:36 EDT) Fentanyl Confirmation 12(A) <2 ng/mL 06/17/2023 14:45 EDT [facility] Norfentanyl Confirmation >200(A) <10 ng/mL 06/17/2023 14:45 EDT [facility] Urine URINE / Unknown 06/13/2023 1 6:36 EDT 06/13/2023 22:09 EDT Narrative [facility] - 06/17/2023 14:45 EDT Testing performed by: [facility] [address] [place] [address], [facility] [address] [address] Tower Equipment Installer: Vipul Portillo MD; CLIA # [id number] us Provider Outr Resulting Lab GEN LAB UNIT COLLECT ORDERABLES Final Result Performing Organization Address City/State/[facility] Co de Phone Number [facility] [address] [place] [address], [facility] [address] [phone] documented in this encounter Visit Diagnoses Not on filedocumented in this encounter Care Teams Earth Science Teacher Relationship Specialty Start Date End Date Seymour Collado MD [address] [place] [address] PCP - General 12/19/09 documented as of this encounter
--- OUTSIDE RECORDS SUMMARY | 2024-02-08 12:27 | XMS_ITS | Encounter Summary ---
Author Organization [facility] Address [address] [place] [address] Care Team Providers Care Restaurant Front Manager Name Role Phone Seymour Collado MD Primary Care Provider [phone] Reason for Visit * (Routine/Next Available) - Receiving Office to Obtain Authorization Specialty Diagnoses / Procedures Referred By Contac t Referred To Contact Procedures CT OUTSIDE IMAGES ABDOMEN PELVIS Unknown, Provider, MD Referral ID Status Reason Start Date Expiration Date Visits Requested Visits Authorized [id number] Receiving Office to Obtain Authorization 11/19/2022 1 1 Encounter Details Date Type Department Care Team (Latest Contact Info) Description 11/19/2022 20:51 EDT - 11/19/2022 23:59 EDT Hospital Encounter [facility] Secondary Reads [place] Discharge Disposition: Home or Self Care Social History Tobacco Use Types Packs/Day Years [...] Dimitri Fallon RN documented in this encounter Medications at Time of Discharge acetaminophen (TYLENOL) 325 mg tablet Take 1-2 Tabs by mouth every 4 hours as needed for Pain 08/06/2014 buprenorphine HCl/naloxone HCl (SUBOXONE SL) Place 16 mg under the tongue daily. calcium carbonate (TUMS) 200 mg calcium (500 mg) tablet,chewable Take 1-2 Tabs by mouth 4 times daily as needed cloNIDine HCL (CATAPRES) 0.1 mg tablet Take by mouth 2 times daily. cyanocobalamin, vitamin B-12, (VITAMIN B12 ORAL) Take 1 Tablet by mouth daily. docusate sodium (COLACE) 100 mg capsule Take 1 Cap by mouth 2 times daily as needed for Constipation 08/06/2014 FOLIC ACID ORAL Take 1 Tablet by mouth daily. HYDROmorphone (DILAUDID) 4 mg tablet Take 1 Tab by mouth every 4 hours as needed for Pain. Daily Max: 24 mg 20 Tab 06/23/2017 ibuprofen (MOTRIN) 400 mg tablet Take 1 Tab by mouth every 4 hours as needed for Pain 08/06/2014 MAGNESIUM OXIDE ORAL Take 1 Tablet by mouth. methadone (DOLOPHINE) 5 mg/5 mL oral solution Take 100 mg by mouth daily multivitamin capsule Take 1 capsule by mouth daily. ondansetron (ZOFRAN) 4 mg tablet Take 1 Tab by mouth every 8 hours as needed for Nausea. 10 Tab 0 12/19/2009 Ymwzchcy-Ov-Ptk- Fe-FA ( VITAMIN) tablet Take 1 Tab by mouth daily documented as of this encounter Discharge Disposition Disposition Code Departure Means Destination Home or Self Care documented in this encounter Plan of Treatment Not on file documented as of this encounter Procedures Procedure Name Priority Date/Time Associated Diagnosis Comments CT OUTSIDE IMAGES ABDOMEN PELVIS Routine 11/19/2022 20:52 EDT documented in this encounter Results * CT OUTSIDE IMAGES ABDOMEN PELVIS (11/19/2022 20:52 EDT) Narrative 11/19/2022 20:52 EDT This is a non-reportable exam. us Provider Unknown [facility] OTHER IMAGING ORDERABLES Final Result documented in this encounter Visit Diagnoses Not on filedocumented in this encounter Care Teams Restaurant Front Manager Relationship Specialty Start Date End Date Seymour Collado MD [address] [place] [address] PCP - General 12/19/09 documented as of this encounter
--- OUTSIDE RECORDS SUMMARY | 2024-02-08 12:27 | XMS_ITS | Encounter Summary ---
Author Organization [facility] Address [address] [place] [address] Care Team Providers Care Cylinder Devalver Name Role Phone Seymour Collado MD Primary Care Provider [phone] Reason for Visit * (Routine/Next Available) - Receiving Office to Obtain Authorization Specialty Diagnoses / Procedures Referred By Contabebe t Referred To Contact Procedures XR OUTSIDE IMAGES RIGHT UPPER EXTREMITY Imaging, External Referral ID Status Reason Start Date Expiration Date Visits Requested Visits Authorized [id number] Receiving Office to Obtain Authorization 11/15/2022 1 1 Encounter Details Date Type Department Care Team (Latest Contact Info) Description 11/15/2022 6:12 EDT Hospital Encounter [facility] Secondary Reads [place] Discharge Disposition: Home [...] needed for Nausea. 10 Tab 0 12/19/2009 Ycdellhi-Fr-Ijt- Fe-FA ( VITAMIN) tablet Take 1 Tab by mouth daily documented as of this encounter Discharge Disposition Disposition Code Departure Means Destination Home or Self Care documented in this encounter Plan of Treatment Not on file documented as of this encounter Procedures Procedure Name Priority Date/Time Associated Diagnosis Comments XR OUTSIDE IMAGES RIGHT UPPER EXTREMITY Routine 11/15/2022 6:12 EDT documented in this encounter Results * XR OUTSIDE IMAGES RIGHT UPPER EXTREMITY (11/15/2022 6:12 EDT) Narrative 11/15/2022 6:12 EDT This is a non-reportable exam. us External Imaging IMG OTHER IMAGING ORDERABLES Fi nal Result documented in this encounter Visit Diagnoses Not on filedocumented in this encounter Care Teams Cylinder Devalver Relationship Specialty Start Date End Date Seymour Collado MD [address] [place] [address] PCP - General 12/19/09 documented as of this encounter
--- OUTSIDE RECORDS SUMMARY | 2024-02-08 12:27 | XMS_ITS | Encounter Summary ---
Author Organization [facility] Address [address] [place] [address] Care Team Providers Care Deck And Hull Assembler Name Role Phone Seymour Collado MD Primary Care Provider [phone] Encounter Details Date Type Department Care Team (Late st Contact Info) Description 12/26/2023 Lab Requisition [facility] Pathology & Laboratory Medicine - [address] [address] Outr Resulting Lab, Provider Social History Tobacco [...] METABOLITE CONFIRMATION PANEL Routine 12/26/2023 11:29 EDT documented in this encounter Results * (ABNORMAL) FENTANYL AND METABOLITE CONFIRMATION PANEL (12/26/2023 11:29 EDT) Fentanyl Confirmation >40(A) <2 ng/mL 12/30/2023 11:47 EDT [facility] Norfentanyl Confirmation >200(A) <10 ng/mL 12/30/2023 11:47 EDT [facility] Urine URINE / Unknown 12/26/2023 1 1:29 EDT 12/28/2023 15:57 EDT Narrative [facility] - 12/30/2023 11:47 EDT Testing performed by: [facility] [address] [place] [address], [address], [place] [address] Director Product Development: Vipul Portillo MD; CLIA # [id number] us Provider Outr Resulting Lab GEN LAB UNIT COLLECT ORDERABLES Final Result [facility] [address] [place] [address], [facility] 2 [place] [address], [facility] [phone] documented in this encounter Visit Diagnoses Not on filedocumented in this encounter Care Teams Deck And Hull Assembler Relationship Specialty Start Date End Date Seymour Collado MD [address] [place] [address] PCP - General 12/19/09 documented as of this encounter
--- OUTSIDE RECORDS SUMMARY | 2024-02-08 12:27 | XMS_ITS | Encounter Summary ---
Author Organization [facility] Address [address] [place] [address] Care Team Providers Care Electron Beam Operator Name Role Phone Seymour Collado MD Primary Care Provider [phone] Encounter Details Date Type Department Care Team (Late st Contact Info) Description 11/15/[address] [facility] Pathology & Laboratory Medicine - [address] [address] Outr Resulting Lab, Provider Social History Tobacco [...] Name Priority Date/Time Associated Diagnosis Comments FENTANYL SCREEN WITH REFLEX TO CONFIRMATION, U Routine 11/15/2022 0:51 EDT FENTANYL AND METABOLITE CONFIRMATION PANEL Today 11/15/2022 0:51 EDT documented in this encounter Results * (ABNORMAL) FENTANYL AND METABOLITE CONFIRMATION PANEL (11/15/2022 0:51 EDT) Fentanyl Confirmation >40(A) <2 ng/mL 11/19/2022 13:44 EDT [facility] Norfentanyl Confirmation >200(A) <10 ng/mL 11/19/2022 13:44 EDT [facility] Urine URINE / Unknown 11/15/2022 0 :51 EDT 11/15/2022 21:11 EDT Narrative [facility] - 11/19/2022 13:44 EDT Testing performed by: [facility] [address] [place] [address], [facility] 2[place] [address] Dye Stand Loader: Vipul Portillo MD; CLIA # [id number] us Provider Outr Resulting Lab GEN LAB UNIT COLLECT ORDERABLES Final Result [facility] [address] [place] [address], [facility] [address] [phone] * (ABNORMAL) FENTANYL SCREEN WITH REFLEX TO CONFIRMATION, U (11/15/2022 0:51 EDT) Fentanyl Screen with Reflex to Confirmation, U Positive( A) <1 ng/mL 11/18/2022 11:47 EDT [facility] Comment: Trazodone is known to cross react with the Fentanyl immunoassay and may cause a false positive Urine URINE / Unknown 11/15/2022 0 :51 EDT 11/15/2022 21:11 EDT Narrative [facility] - 11/18/2022 11:47 EDT Testing performed by: [facility] [address] [place] [address], [facility] 2[place] [address] Dye Stand Loader: Vipul Portillo MD; CLIA # [id number] us Provider Outr Resulting Lab URINALYSIS ORDERABLE S Final Result Performing Organization Address City/State/[facility] Co de Phone Number [facility] [address] [place] [address], [facility] [address] [phone] documented in this encounter Visit Diagnoses Not on filedocumented in this encounter Care Teams Electron Beam Operator Relationship Specialty Start Date End Date Seymour Collado MD [address] [place] [address] PCP - General 12/19/09 documented as of this encounter
--- OUTSIDE RECORDS SUMMARY | 2024-02-08 12:27 | XMS_ITS | Encounter Summary ---
Author Organization [facility] Address [address] [place] [address] Care Team Providers Care Strength And Conditioning Coach Name Role Phone Seymour Collado MD Primary Care Provider [phone] Encounter Details Date Type Department Care Team (Late st Contact Info) Description 08/04/2023 Lab Requisition [facility] Pathology & Laboratory Medicine - [address] [address] Outr Resulting Lab, Provider Social History Tobacco [...] Comments METHADONE AND METABOLITE CONFIRMATION PANEL Routine 08/04/2023 14:24 EDT FENTANYL AND METABOLITE CONFIRMATION PANEL Routine 08/04/2023 14:24 EDT documented in this encounter Results * FENTANYL AND METABOLITE CONFIRMATION PANEL (08/04/2023 14:24 EDT) Fentanyl Confirmation Negative <2 ng/mL 08/06/2023 15:00 EDT [facility] Norfentanyl Confirmation Negative <10 ng/mL 08/06/2023 15:00 EDT [facility] Urine URINE / Unknown 08/04/2023 1 4:24 EDT 08/04/2023 22:[address] - 08/06/2023 15:00 EDT Testing performed by: [facility] [address] [place] [address], [facility], [place] [address] Food Production Supervisor: Vipul Portillo MD; CLIA # [id number] us Provider Outr Resulting Lab GEN LAB UNIT COLLECT ORDERABLES Final Result [facility] [address] [place] [address], [address] [place] [address], [facility] [phone] * (ABNORMAL) METHADONE AND METABOLITE CONFIRMATION PANEL (08/04/2023 14:24 EDT) Methadone Confirmation >2000(A) <100 ng/mL 08/06/2023 15:00 EDT [facility] EDDP Confirmation >2000(A) <100 ng/mL 08/06/2023 15:00 EDT [facility] Urine URINE / Unknown 08/04/2023 1 4:24 EDT 08/04/2023 22:16 EDT Narrative [facility] - 08/06/2023 15:00 EDT Testing performed by: [facility] [address] [place] [address], [facility] 2[place] [address] Food Production Supervisor: Vipul Portillo MD; CLIA # [id number] us Provider Outr Resulting Lab GEN LAB UNIT COLLECT ORDERABLES Final Result Performing Organization Address City/State/[facility] Co de Phone Number [facility] [address] [place] [address], [facility] [address] [phone] documented in this encounter Visit Diagnoses Not on filedocumented in this encounter Care Teams Strength And Conditioning Coach Relationship Specialty Start Date End Date Seymour Collado MD [address] [place] [address] PCP - General 12/19/09 documented as of this encounter
--- OUTSIDE RECORDS SUMMARY | 2024-02-08 12:27 | XMS_ITS | Encounter Summary ---
Author Organization [facility] Address [address] [place] [address] Care Team Providers Care Toolroom Helper Name Role Phone Seymour Collado MD Primary Care Provider [phone] Encounter Details Date Type Department Care Team (Late st Contact Info) Description 06/27/2023 Lab Requisition [facility] Pathology & Laboratory Medicine - [address] [address] Outr Resulting Lab, Provider Social History Tobacco [...] Procedure Name Priority Date/Time Associated Diagnosis Comments XYLAZINE CONFIRMATION, U Routine 06/27/2023 16:42 EDT METHADONE AND METABOLITE CONFIRMATION PANEL Routine 06/27/2023 16:42 EDT FENTANYL AND METABOLITE CONFIRMATION PANEL Routine 06/27/2023 16:42 EDT documented in this encounter Results * (ABNORMAL) XYLAZINE CONFIRMATION, U (06/27/2023 16:42 EDT) Xylazine Confirmation > 2000(A) <50 ng/mL 07/01/2023 14:14 EDT [facility] Urine URINE / Unknown 06/27/2023 1 6:42 EDT 06/27/2023 21:50 EDT Narrative [facility] - 07/01/2023 14:14 EDT Testing performed by: [facility] [address] [place] [address], [place] [address] [address] Company Dancer: Vipul Portillo MD; CLIA # [id number] us Provider Outr Resulting Lab GEN LAB UNIT COLLECT ORDERABLES Final Result [facility] [address] [place] [address], [place] [address] [phone] * (ABNORMAL) FENTANYL AND METABOLITE CONFIRMATION PANEL (06/27/2023 16:42 EDT) Fentanyl Confirmation >40(A) <2 ng/mL 07/01/2023 14:14 EDT [facility] Norfentanyl Confirmation >200(A) <10 ng/mL 07/01/2023 14:14 EDT [facility] Urine URINE / Unknown 06/27/2023 1 6:42 EDT 06/27/2023 21:50 EDT Narrative [facility] - 07/01/2023 14:14 EDT Testing performed by: [facility] [address] [place] [address], [place] [address] [address] Company Dancer: Vipul Portillo MD; CLIA # [id number] us Provider Outr Resulting Lab GEN LAB UNIT COLLECT ORDERABLES Final Result Performing Organization Address [facility] Co de Phone Number [facility] [address] [place] [address] [phone] * (ABNORMAL) METHADONE AND METABOLITE CONFIRMATION PANEL (06/27/2023 16:42 EDT) Methadone Confirmation >2000(A) <100 ng/mL 07/01/2023 14:14 EDT [facility] EDDP Confirmation >2000(A) <100 ng/mL 07/01/2023 14:14 EDT [facility] Urine URINE / Unknown 06/27/2023 1 6:42 EDT 06/27/2023 21:50 EDT Narrative [facility] - 07/01/2023 14:14 EDT Testing performed by: [facility] [address] [place] [address], [place] [address] [address] Company Dancer: Vipul Portillo MD; CLIA # [id number] us Provider Outr Resulting Lab GEN LAB UNIT COLLECT ORDERABLES Final Result Performing Organization Address [facility]/ZIP Co de Phone Number [facility] [address] [facility], [address] [phone] documented in this encounter Visit Diagnoses Not on filedocumented in this encounter Care Teams Toolroom Helper Relationship Specialty Start Date End Date Seymour Collado MD [address] [place] [address] PCP - General 12/19/09 documented as of this encounter
--- OUTSIDE RECORDS SUMMARY | 2024-02-08 12:27 | XMS_ITS | Encounter Summary ---
Author Organization [facility] Address [address] [place] [address] Care Team Providers Care Stadium Manager Name Role Phone Seymour Collado MD Primary Care Provider [phone] Encounter Details Date Type Department Care Team (Latest Contact Info) Description 11/15/2022 Travel Social History Tobacco Use Types Packs/Day Years [...] on file documented as of this encounter Visit Diagnoses Not on filedocumented in this encounter Care Teams Stadium Manager Relationship Specialty Start Date End Date Seymour Collado MD [address] [place] [address] PCP - General 12/19/09 documented as of this encounter
--- OUTSIDE RECORDS SUMMARY | 2024-02-08 12:27 | XMS_ITS | Encounter Summary ---
Author Organization [facility] Address [address] [place] [address] Care Team Providers Care Laser Set Up Operator Name Role Phone Seymour Collado MD Primary Care Provider [phone] Encounter Details Date Type Department Care Team (Late st Contact Info) Description 01/06/2023 Lab Requisition [facility] Pathology & Laboratory Medicine - [address] [address] Outr Resulting Lab, Provider Social History Tobacco [...] Procedure Name Priority Date/Time Associated Diagnosis Comments BUPRENORPHINE AND METABOLITE CONFIRMATION PANEL Routine 01/06/2023 13:40 EDT COCAINE METABOLITE CONFIRMATION Routine 01/06/2023 13:40 EDT FENTANYL AND METABOLITE CONFIRMATION PANEL Routine 01/06/2023 13:40 EDT documented in this encounter Results * (ABNORMAL) FENTANYL AND METABOLITE CONFIRMATION PANEL (01/06/2023 13:40 EDT) Fentanyl Confirmation >40(A) <2 ng/mL 01/08/2023 14:53 EDT [facility] Norfentanyl Confirmation >200(A) <10 ng/mL 01/08/2023 14:53 EDT [facility] Urine URINE / Unknown 01/06/2023 1 3:40 EDT 01/06/2023 21:35 EDT Narrative [facility] - 01/08/2023 14:53 EDT Testing performed by: [facility] [address] [place] [address] [address] [address] Neon Technician: Vipul Portillo MD; CLIA # [id number] us Provider Outr Resulting Lab GEN LAB UNIT COLLECT ORDERABLES Final Result Performing Organization Address [facility] Co de Phone Number [email or web address] [address] [place] [address] [phone] * (ABNORMAL) COCAINE METABOLITE CONFIRMATION (01/06/2023 13:40 EDT) Benzoylecgonine Confirmation 1128(A) <50 ng/mL 01/08/2023 14:53 EDT [facility] Urine URINE / Unknown 01/06/2023 1 3:40 EDT 01/06/2023 21:35 EDT Narrative [email or web address] - 01/08/2023 14:53 EDT Testing performed by: [facility] [address] [place] [address], [facility] [address] [address] Neon Technician: Vipul Portillo MD; CLIA # [id number] us Provider Outr Resulting Lab URINALYSIS ORDERABLE S Final Result Performing Organization Address [facility] Co de Phone Number [facility] [address] [place] [address] * (ABNORMAL) BUPRENORPHINE AND METABOLITE CONFIRMATION PANEL (01/06/2023 13:40 EDT) Buprenorphine Confirmation 45(A) <10 ng/mL 01/08/2023 14:53 EDT [facility] Norbuprenorphine Confirmation 225(A) <10 ng/mL 01/08/2023 14:53 EDT [facility] Naloxone Confirmation 61(A) <10 ng/mL 01/08/2023 14:53 EDT [facility] Urine URINE / Unknown 01/06/2023 1 3:40 EDT 01/06/2023 21:35 EDT Narrative [email or web address] - 01/08/2023 14:53 EDT Testing performed by: [facility] [address] [place] [address], [facility] [address] [address] Neon Technician: Vipul Portillo MD; CLIA # [id number] us Provider Outr Resulting Lab GEN LAB UNIT COLLECT ORDERABLES Final Result [facility] [address] [facility], [address] [phone] documented in this encounter Visit Diagnoses Not on filedocumented in this encounter Care Teams Laser Set Up Operator Relationship Specialty Start Date End Date Seymour Collado MD [address] [place] [address] PCP - General 12/19/09 documented as of this encounter
--- OUTSIDE RECORDS SUMMARY | 2024-02-08 12:27 | XMS_ITS | Encounter Summary ---
Author Organization [facility] Address [address] [place] [address] Care Team Providers Care Synthetic Plasterer Name Role Phone Seymour Collado MD Primary Care Provider [phone] Encounter Details Date Type Department Care Team (Late st Contact Info) Description 07/09/2023 Lab Requisition [facility] Pathology & Laboratory Medicine - [address] [address] Outr Resulting Lab, Provider Social History Tobacco [...] Date Author No 06/20/2017 17:00 EDT Dimitri aFllon RN documented in this encounter Plan of Treatment Not on file documented as of this encounter Procedures Procedure Name Priority Date/Time Associated Diagnosis Comments XYLAZINE CONFIRMATION, U Routine 07/09/2023 16:32 EDT FENTANYL AND METABOLITE CONFIRMATION PANEL Routine 07/09/2023 16:32 EDT documented in this encounter Results * (ABNORMAL) FENTANYL AND METABOLITE CONFIRMATION PANEL (07/09/2023 16:32 EDT) Fentanyl Confirmation 12(A) <2 ng/mL 07/11/2023 15:32 EDT [facility] Norfentanyl Confirmation 100(A) <10 ng/mL 07/11/2023 15:32 EDT [facility] Urine URINE / Unknown 07/09/2023 1 6:32 EDT 07/09/2023 22:52 EDT [facility] 07/11/2023 15:32 EDT Testing performed by: [facility] [address] [place] [address], [facility] [address] [address] Tunnel Mucker: Vipul Portillo MD; CLIA # [id number] us Provider Outr Resulting Lab GEN LAB UNIT COLLECT ORDERABLES Final Result [facility] [address] [place] [address], [facility] [address] [phone] * XYLAZINE CONFIRMATION, U (07/09/2023 16:32 EDT) Xylazine Confirmation Negative <50 ng/mL 07/11/2023 15:32 EDT [facility] Urine URINE / Unknown 07/09/2023 1 6:32 EDT 07/09/2023 22:52 EDT [facility] - 07/11/2023 15:32 EDT Testing performed by: [facility] [address] [place] [address], [facility] 2, [place] [address] Tunnel Mucker: Vipul Portillo MD; CLIA # [id number] us Provider Outr Resulting Lab GEN LAB UNIT COLLECT ORDERABLES Final Result [facility] [address] [place] [address] [phone] documented in this encounter Visit Diagnoses Not on filedocumented in this encounter Care Teams Synthetic Plasterer Relationship Specialty Start Date End Date Seymour Collado MD [address] [place] [address] PCP - General 12/19/09 documented as of this encounter
--- OUTSIDE RECORDS SUMMARY | 2024-02-08 12:27 | XMS_ITS | Encounter Summary ---
Author Organization [facility] Address [address] [place] [address] Care Team Providers Care In House Cra Name Role Phone Seymour Collado MD Primary Care Provider [phone] Encounter Details Date Type Department Care Team (Late st Contact Info) Description 07/28/2023 Lab Requisition [facility] Pathology & Laboratory Medicine - [address] [address] Outr Resulting Lab, Provider Social History Tobacco [...] Associated Diagnosis Comments XYLAZINE CONFIRMATION, U Routine 07/28/2023 17:14 EDT FENTANYL AND METABOLITE CONFIRMATION PANEL Routine 07/28/2023 17:14 EDT documented in this encounter Results * XYLAZINE CONFIRMATION, U (07/28/2023 17:14 EDT) Xylazine Confirmation Negative <50 ng/mL 2023 14:43 EDT [facility] Urine URINE / Unknown 07/28/2023 1 7:14 EDT 07/28/2023 21:48 EDT Narrative [facility] - 2023 14:43 EDT Testing performed by: [facility] [address] [place] [address], [facility] [address] [address] Supervisor Prop Making: Vipul Portillo MD; CLIA # [id number] us Provider Outr Resulting Lab GEN LAB UNIT COLLECT ORDERABLES Final Result [facility] [address] [place] [address], [facility] 2 [place] [address], [facility] [phone] * (ABNORMAL) FENTANYL AND METABOLITE CONFIRMATION PANEL (07/28/2023 17:14 EDT) Fentanyl Confirmation Negative <2 ng/mL 2023 14:43 EDT [facility] Norfentanyl Confirmation 27(A) <10 ng/mL 2023 14:43 EDT [facility] Urine URINE / Unknown 07/28/2023 1 7:14 EDT 07/28/2023 21:48 EDT [facility]ative [facility] - 2023 14:43 EDT Fentanyl trace but unable to quantitate due to ion ratio inconsistency. spw 07.30.23 Testing performed by: [facility] [address] [place] [address], [facility] [address] [address] Supervisor Prop Making: Vipul Portillo MD; CLIA # [id number] us Provider Outr Resulting Lab GEN LAB UNIT COLLECT ORDERABLES Final Result Performing Organization Address City/State/[facility] Co de Phone Number [facility] [address] [place] [address], [facility] [address] [phone] documented in this encounter Visit Diagnoses Not on filedocumented in this encounter Care Teams In House Cra Relationship Specialty Start Date End Date Seymour Collado MD [address] [place] [address] PCP - General 12/19/09 documented as of this encounter
--- OUTSIDE RECORDS SUMMARY | 2024-02-08 12:27 | XMS_ITS | Encounter Summary ---
Author Organization [facility] Address [address] [place] [address] Care Team Providers Care Tractor Mechanic Apprentice Name Role Phone Seymour Collado MD Primary Care Provider [phone] Encounter Details Date Type Department Care Team (Late st Contact Info) Description 04/18/2023 Lab Requisition [facility] Pathology & Laboratory Medicine - [address] [address] Outr Resulting Lab, Provider Social History Tobacco [...] Comments METHADONE AND METABOLITE CONFIRMATION PANEL Routine 04/18/2023 16:59 EST COCAINE METABOLITE CONFIRMATION Routine 04/18/2023 16:59 EST FENTANYL AND METABOLITE CONFIRMATION PANEL Routine 04/18/2023 16:59 EST documented in this encounter Results * (ABNORMAL) COCAINE METABOLITE CONFIRMATION (04/18/2023 16:59 EST) Benzoylecgonine Confirmation >2000(A) <50 ng/mL 04/22/2023 12:28 EST [facility] Urine URINE / Unknown 04/18/2023 1 6:59 EST 04/18/2023 22:15 EST Narrative [facility] - 04/22/2023 12:28 EST Testing performed by: [facility] [address] [place] [address], [facility] 2, [place] [address] Electronics Engineering Technician: Vipul Portillo MD; CLIA # [id number] us Provider Outr Resulting Lab URINALYSIS ORDERABLE S Final Result [facility] [address] [place] [address], [address] [place] [address], [facility] [phone] * (ABNORMAL) METHADONE AND METABOLITE CONFIRMATION PANEL (04/18/2023 16:59 EST) Methadone Confirmation >2000(A) <100 ng/mL 04/22/2023 12:28 EST [facility] EDDP Confirmation >2000(A) <100 ng/mL 04/22/2023 12:28 EST [facility] Urine URINE / Unknown 04/18/2023 1 6:59 EST 04/18/2023 22:15 EST Narrative [facility] - 04/22/2023 12:28 EST Testing performed by: [facility] [address] [place] [address] Electronics Engineering Technician: Vipul Portillo MD; CLIA # [id number] us Provider Outr Resulting Lab GEN LAB UNIT COLLECT ORDERABLES Final Result Performing Organization Address [facility] Co de Phone Number [facility] [address] [place] [address] * (ABNORMAL) FENTANYL AND METABOLITE CONFIRMATION PANEL (04/18/2023 16:59 EST) Fentanyl Confirmation >40(A) <2 ng/mL 04/22/2023 12:28 EST [facility] Norfentanyl Confirmation >200(A) <10 ng/mL 04/22/2023 12:28 EST [facility] Urine URINE / Unknown 04/18/2023 1 6:59 EST 04/18/2023 22:15 EST Narrative [facility] - 04/22/2023 12:28 EST Testing performed by: [facility] [address] [place] [address] Electronics Engineering Technician: Vipul Portillo MD; CLIA # [id number] us Provider Outr Resulting Lab GEN LAB UNIT COLLECT ORDERABLES Final Result Performing Organization Address City/[facility]/ZIP Co de Phone Number [facility] [address] [place] [address] documented in this encounter Visit Diagnoses Not on filedocumented in this encounter Care Teams Tractor Mechanic Apprentice Relationship Specialty Start Date End Date Seymour Collado MD [address] [place] [address] PCP - General 12/19/09 documented as of this encounter
--- OUTSIDE RECORDS SUMMARY | 2024-02-08 12:27 | XMS_ITS | Encounter Summary ---
Author Organization [facility] Address [address] [place] [address] Care Team Providers Care Motorcycle Repairer Name Role Phone Seymour Collado MD Primary Care Provider [phone] Encounter Details Date Type Department Care Team (Late st Contact Info) Description 07/19/2022 Lab Requisition [facility] Pathology & Laboratory Medicine - [address] [address] Outr Resulting Lab, Provider Social History Tobacco Use Types Packs/Day Years Used Date Smoking Tobacco: Never Assessed Interpersonal Safety Answer Date Record ed Physically Hurt Never 10/31/2019 Verbally Threaten Not on file 10/31/2019 Comments Yes Sex and Gender Information Value Date Recorded [...] 06/20/2017 17:00 EDT Dimitri Fallon, SABA * Do you have difficulty dressing or [...] Procedure Name Priority Date/Time Associated Diagnosis Comments HEPATITIS B SURFACE ANTIGEN Routine 07/18/2022 18:30 EDT documented in this encounter Results * HEPATITIS B SURFACE ANTIGEN (07/18/2022 18:30 EDT) Hep B Surface Ag Negative Negative 07/22/2022 9:02 EDT [facility] Blood VENOUS BLOOD / Unknown 07/18/2022 18:30 EDT 07/19/2022 22:11 EDT us Provider Outr Resulting Lab CHEMISTRY & BLOOD GA S ORDERABLES Final Result [facility] [address] [place] [address] documented in this encounter Visit Diagnoses Not on filedocumented in this encounter Care Teams Motorcycle Repairer Relationship Specialty Start Date End Date Seymour Collado MD [address] [place] [address] PCP - General 12/19/09 documented as of this encounter
--- OUTSIDE RECORDS SUMMARY | 2024-02-08 12:27 | XMS_ITS | Encounter Summary ---
Author Organization [facility] Address [address] [place] [address] Care Team Providers Care Gerontology Aide Name Role Phone Seymour Collado MD Primary Care Provider [phone] Encounter Details Date Type Department Care Team (Late st Contact Info) Description 11/15/2022 Lab Requisition [facility] Pathology & Laboratory Medicine - [address] [address] Outr Resulting Lab, Provider Social History Tobacco [...] Associated Diagnosis Comments HCV RNA DETECT QUANT Routine 11/15/2022 1:32 EDT HIV 1/2 ANTIGEN AND ANTIBODY, 4TH GENERATION Routine 11/15/2022 1:32 EDT documented in this encounter Results * (ABNORMAL) HCV RNA DETECT QUANT (11/15/2022 1:32 EDT) HCV RNA Qualitative Detected( A) Undetected 11/18/2022 11:24 EDT [facility] HCV RNA Quantitative 7,950,000 (H) Undetected IU/mL 11/18/2022 11:24 EDT [facility] Blood VENOUS BLOOD / Unknown 11/15/2022 1:32 EDT 11/15/2022 21:15 EDT Narrative [facility] - 11/18/2022 11:24 EDT The quantification range of this assay is 15 IU/mL to 100,000,000 IU/mL. Testing was performed using the Danyel HCV test ([employer] with the danyel 6800 System. us Provider Outr Resulting Lab CHEMISTRY & BLOOD GA S ORDERABLES Final Result [facility] [address] [place] [address] * HIV 1/2 ANTIGEN AND ANTIBODY, 4TH GENERATION (11/15/2022 1:32 EDT) HIV 1 and 2 Antibody/p24 Antigen, 4th Generation Negative Negative 11/18/2022 11:11 EDT [facility] Comment:If acute HIV-1 infec tion is suspected in a high risk patient, submit plasma specimen for HIV-1 RNA quantitation test. Blood VENOUS BLOOD / Unknown 11/15/2022 1:32 EDT 11/15/2022 21:11 EDT Narrative [facility] - 11/18/2022 11:11 EDT Fourth Generation assay performed on the [employer] XPT. us Provider Outr Resulting Lab IMMUNOLOGY AND SEROL OGY ORDERABLES Final Result [facility] [address] [place] [address] documented in this encounter Visit Diagnoses Not on filedocumented in this encounter Care Teams Gerontology Aide Relationship Specialty Start Date End Date Seymour Collado MD [address] [place] [address] PCP - General 12/19/09 documented as of this encounter
--- OUTSIDE RECORDS SUMMARY | 2024-02-08 12:27 | XMS_ITS | Encounter Summary ---
Author Organization [facility] Address [address] [place] [address] Care Team Providers Care Architect Intern Name Role Phone Seymour Collado MD Primary Care Provider [phone] Encounter Details Date Type Department Care Team (Late st Contact Info) Description 02/17/2023 Lab Requisition [facility] Pathology & Laboratory Medicine - [address] [address] Outr Resulting Lab, Provider Social History Tobacco [...] Procedure Name Priority Date/Time Associated Diagnosis Comments VAGINAL CTGC AND VAGINITIS/VAGINOSIS MOLECULAR DETECTION Routine 02/17/2023 16:36 EST documented in this encounter Results * (ABNORMAL) VAGINAL CTGC AND VAGINITIS/VAGINOSIS MOLECULAR DETECTION (02/17/2023 16:36 EST) Dee glabrata Negative Negative 02/18/2023 14:22 [facility] Trichomonas Vaginalis Negative Negative 02/18/2023 14:22 [facility] BV (Bacterial vaginosis) Positive(A) Negative 02/18/2023 14:22 [facility] Neisseria gonorrhoeae Result Negative Negative 02/18/2023 14:22 [facility] Chlamydia trachomatis Result Negative Negative 02/18/2023 14:22 [facility] Dee Species Negative Negative 14:22 [facility] Swab VAGINAL STRUCTURE / Unknown 02/17/2023 16:36 EST 02/17/2023 22:39 EST us Provider Outr Resulting Lab MICROBIOLOGY - GENER AL ORDERABLES Final Result [facility] [address] [place] [address] documented in this encounter Visit Diagnoses Not on filedocumented in this encounter Care Teams Architect Intern Relationship Specialty Start Date End Date Seymour Collado MD [address] [place] [address] PCP - General 12/19/09 documented as of this encounter
--- OUTSIDE RECORDS SUMMARY | 2024-02-08 12:27 | XMS_ITS | Clinical Summary ---
Author Organization [facility] Address [address] [place] [address] Care Team Providers Care Calibration Laboratory Technician Name Role Phone Seymour Collado MD Primary Care Provider [phone] Allergies Active Allergy Reactions Criticality Noted Date Comments Kiwi 07/18/2014 Medications ondansetron (ZOFRAN) 4 mg tablet Take 1 Tab by mouth every 8 hours as needed for Nausea. 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 Boyle Opiate dependence ([facility]) 07/18/2014 Overview (07/18/2014): methadone Assessment & [...] 35+6 Version scheduled for 07/18 FAILED PCS 5/ Assessment & Plan (07/22/2014 11:28 EDT): S/p failed ECV on 07/18 PCS scheduled for 08/02 Breech on leóscards. 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 Encounters Date Type Department Care Team Description 12/26/2023 Lab Requisition [facility] Pathology & Laboratory Medicine [address] [address] Outr Resulting Lab, Provider 11/21/2023 Lab Requisition [facility] Pathology & Laboratory Medicine - [address] [address] Outr Resulting Lab, Provider from Last 3 Months Medical History Medical History Date Comments Iron metabolism disorder Placental abruption Hepatitis C Family History Medical History Relation Comments Diabetes Mother Relation Status Comments Mother Social History Tobacco Use Types Packs/Day Years [...] on file Sexual Orientation Not on file Obstetrics History Para Term AB IAB SAB Ectopic Multiple Livin g Live Births 5 3 3 1 1 0 2 2 Date Outcome GA Total Labor Labor//3rd Weight Sex Type Anes PTL Rita A1 A5 Name Clin SAB 2012 Term Demis e Complications:Abruptio Place nta 2014 Term 39w 4d 3630 g (8 lb) M Douglas an - L Livin g 6 9 Luna Ndiaye Delivery Location:[facility] Comments:Method of del hermelinda: c-sectionPresentation: breech Indication for delivery: breech termRoute of delivery: breechAmniotic fluid: Clear Apgars: 6/9/ Resuscitation: was initially quiet at the abdomen. Brought to open bed warmer where he was warmed, dried, and stimulated, began to cry. Had some secretions from mouth and nose, which were suctioned. Had HR >100, decreased respiratory effort at 1 MOL, increased with stimulation, good tone, remained vigorous. Bluish color persistent, pulse oximetry initiated. Received BBO2 for pre-ductal sats below O2 sat goal (60s) at 4-5 MOL, subsequently recovered and weaned to RA by 6 MOL. Deep suctioned at 5 min of life with removal of clear secretions. Parents held for a few minutes before transfer to NICU for evaluation of known congenital heart disease. 2017 Term 39w 0d M CS-LTr anv Livin g Last Filed Vital Signs Vital Sign Reading [...] Body Mass Index 28.38 06/20/2017 1700 EDT Plan of Treatment Health Maintenance Due Date Last Done Comments Hepatitis B Vaccine (1 of 3 - 19+ 3-dose series) 07/29/2010 COVID-19 Vaccine (2023-2 5 season) 2023 Hepatitis C Screen Completed 02/17/2023, 1 04/19/2022, 11/15/2022, Additional history exists Procedures Procedure Name Priority Date/Time Associated Diagnosis [...] Confirmation >40(A) <2 ng/mL 12/30/2023 11:47 EDT [facility] Norfentanyl Confirmation >200(A) <10 ng/mL 12/30/2023 11:47 EDT [facility] Urine URINE / Unknown 12/26/2023 1 1:29 EDT 12/28/2023 15:57 EDT Narrative [facility] - 12/30/2023 11:47 EDT Testing performed by: [facility] [address] [place] [address], [address], [place] [address] Spinner Concrete Pipe: Vipul Portillo MD; CLIA # [id number] us Provider Outr Resulting Lab GEN LAB UNIT COLLECT ORDERABLES Final Result [facility] [address] [place] [address], [facility] [address] [phone] * HOLD SST (11/21/2023 12:15 EDT) Hold Hold 11/21/2023 23:15 EDT [facility] Blood VENOUS BLOOD / Unknown 11/21/2023 12:15 EDT 11/21/2023 22:09 EDT us Provider Outr Resulting Lab LAB INFO SERVICE AND SUPPORT & PHONE RESULT Final Result [facility] [address] [place] [address] * HEPATITIS A ANTIBODY IGM (11/21/2023 12:15 EDT) Hepatitis A Antibody, IgM Negative Negative 11/24/2023 10:48 EDT [facility] Blood VENOUS BLOOD / Unknown 11/21/2023 12:15 EDT 11/21/2023 22:07 EDT Narrative [facility] - 11/24/2023 10:48 EDT The results of this assay can be falsely lowered due to the consumption of Biotin. us Provider Outr Resulting Lab CHEMISTRY & BLOOD GA S ORDERABLES Final Result [facility] [address] [place] [address] * HEPATITIS B SURFACE ANTIBODY (11/21/2023 12:15 EDT) Pathologist [facility] Hep B Surface Ab, Quantitative 261.4 See Note mIU/mL 11/24/2023 9:47 EDT [facility] Comment: Reference Range for Hep B Surface Ab, Quant: Positive: >= 10.0 mIU/mL Negative: ??< 10.0 mIU/mL Patient is presumed to be immune to infection with Hepatitis B Virus. Hep B Surface Ab, Qualitative Positive See Note 11/24/2023 9:47 EDT [facility] Comment: Reference Range for Hep B Surface Ab, Qual: Unvaccinated: ??Negative Vaccinated: ??Positive Blood VENOUS BLOOD / Unknown 11/21/2023 12:15 EDT 11/21/2023 22:07 EDT us Provider Outr Resulting Lab CHEMISTRY & BLOOD GA S ORDERABLES Final Result Performing Organization Address [facility]/ZIP Co de Phone Number [facility] [address] [place] [phone] * HEPATITIS B SURFACE ANTIGEN (11/21/2023 12:15 EDT) [facility] Hep B Surface Ag Negative Negative 11/24/2023 10:12 EDT [facility] Blood VENOUS BLOOD / Unknown 11/21/2023 12:15 EDT 11/21/2023 22:07 EDT us Provider Outr Resulting Lab CHEMISTRY & BLOOD GA S ORDERABLES Final Result Performing Organization Address City/[facility]/ZIP Co de Phone Number [facility] [address] [place] [address] * HIV 1/2 ANTIGEN AND ANTIBODY, 4TH GENERATION (11/21/2023 12:15 EDT) [facility] HIV 1 and 2 Antibody/p24 Antigen, 4th Generation Negative Negative 11/24/2023 10:31 EDT [facility] Comment:If acute HIV-1 infec tion is suspected in a high risk patient, submit plasma specimen for HIV-1 RNA quantitation test. Blood VENOUS BLOOD / Unknown 11/21/2023 12:15 EDT 11/21/2023 22:07 EDT Narrative [facility] - 11/24/2023 10:31 EDT Fourth Generation assay performed on the Siemens Centaur XPT. us Provider Outr Resulting Lab IMMUNOLOGY AND SEROL OGY ORDERABLES Final Result [facility] [address] [place] [address] * (ABNORMAL) HEPATITIS C AB W REFLEX TO HCV RNA BY PCR (02/17/2023 15:20 EST) Hep C Antibody Reactive(A ) Negative 02/18/2023 10:36 EST [facility] Comment: Supplemental testing for HCV RNA is ordered to rule out active HCV infection. Blood VENOUS BLOOD / Unknown 02/17/2023 15:20 EST 02/17/2023 22:44 EST us Provider Outr Resulting Lab CHEMISTRY & BLOOD GA S ORDERABLES Final Result Performing Organization Address City/[facility] Co de Phone Number [facility] [address] [place] [address] from Last 3 Months or Most Recently Relevant to Health Maintenance Insurance [place] [facility] Address: [facility] [address] [place] [address] Advance Directives For more information, please contact: [phone] * Full Code (Latest Code Status on [...] the discussion? Not Discusse d Care Teams Calibration Laboratory Technician Relationship Specialty Start Date End Date Seymour Collado MD [address] [place] [address] PCP - General 12/19/09
--- OUTSIDE RECORDS SUMMARY | 2024-02-08 12:27 | XMS_ITS | Encounter Summary ---
Author Organization [facility] Address [address] [place] [address] Care Team Providers Care Manager Sports Name Role Phone Seymour Collado MD Primary Care Provider [phone] Reason for Visit * (Routine/Next Available) - Receiving Office to Obtain Authorization Specialty Diagnoses / Procedures Referred By Contac t Referred To Contact Procedures CT OUTSIDE IMAGES HEAD Imaging, External Referral ID Status Reason Start Date Expiration Date Visits Requested Visits Authorized [id number] Receiving Office to Obtain Authorization 11/15/2022 1 1 Encounter Details Date Type Department Care Team (Latest Contact Info) Description 11/15/2022 6:12 EDT - 11/15/2022 23:59 EDT Hospital Encounter [facility] Secondary Reads [place] Discharge Disposition: Home or [...] 06/20/2017 17:00 EDT Dimitri Fallon, RN * Are you blind or do [...] needed for Nausea. 10 Tab 0 12/19/2009 Yskstsrv-Mg-Ibm- Fe-FA ( VITAMIN) tablet Take 1 Tab by mouth daily documented as of this encounter Discharge Disposition Disposition Code Departure Means Destination Home or Self Care documented in this encounter Plan of Treatment Not on file documented as of this encounter Procedures Procedure Name Priority Date/Time Associated Diagnosis Comments CT OUTSIDE IMAGES HEAD Routine 11/15/2022 6:12 EDT documented in this encounter Results * CT OUTSIDE IMAGES HEAD (11/15/2022 6:12 EDT) Narrative 11/15/2022 6:12 EDT This is a non-reportable exam. us External Imaging IMG OTHER IMAGING ORDERABLES Fi nal Result documented in this encounter Visit Diagnoses Not on filedocumented in this encounter Care Teams Manager Sports Relationship Specialty Start Date End Date Seymour Collado MD [address] [place] [address] PCP - General 12/19/09 documented as of this encounter
--- OUTSIDE RECORDS SUMMARY | 2024-02-08 12:27 | XMS_ITS | Encounter Summary ---
Author Organization [facility] Address [address] [place] [address] Care Team Providers Care Display Screen Fabricator Name Role Phone Seymour Collado MD Primary Care Provider [phone] Encounter Details Date Type Department Care Team (Late st Contact Info) Description 02/18/2023 Lab Requisition [facility] Pathology & Laboratory Medicine - [address] [address] Carlyle Katz MD [address] [place] [id number] Encounter for screening for malignant neoplasm of cervix; state, incidental Social History Tobacco Use Types Packs/Day Years [...] Procedure Name Priority Date/Time Associated Diagnosis Comments PAP TEST Today 02/17/2023 16:36 EST HPV DNA DETECTION WITH GENOTYPING, PCR Today 02/17/2023 16:36 EST documented in this encounter Results * HUMAN PAPILLOMAVIRUS (HPV) DETECTION-HIGH RISK TYPES (02/17/2023 16:36 EST) HPV other High Risk types, PCR Negative Negative 03/03/2023 18:39 EST [facility] Comment:No E6 or E7 mRNA is detected from HPV types 16,18,31,33,35,39,45,51,52,56,58,59,66, and 68 by superintendent general mediated amplification. Pap Test CERVIX UTERI STRUCTURE / Unknown 02/17/2023 16:36 EST 02/28/2023 13:33 EST us Carlyle Katz MD MICROBIOLOGY - GENERAL ORDERABLES Final Result [facility] [address] [place] [phone] * PAP TEST (02/17/2023 16:36 EST) Specimens A. Cervix and/or Endocervix , ThinPrep Imaging System with Manual Evaluation 03/03/2023 18:39 [facility] Specimen Adequacy Satisfactory for Evaluation - transformation zone component absent 03/03/2023 18:39 [facility] General Categorization Negative for intraepithelial lesion or malignancy 03/03/2023 18:39 [facility] Descriptive Diagnosis Shift in natalia present suggestive of bacterial vaginosis. 03/03/2023 18:39 [facility] Attestation . 03/03/2023 18:39 [facility] at 1838 Clinical History SEE BELOW 03/03/20 18:39 [facility] HPV The result for the Human Papillomavirus (HPV) Detection-High Risk Types is Negative. No E6 or E7 mRNA is detected from HPV types 16,18,31,33,35,39 ,45,51,52,56,58,5 9,66, and 68 by superintendent general mediated amplification.Lorna ting was performed on specimen [id number] and was resulted on 03/03/2023 1838 EST by MATT, LAB INSTRUMENT RESULTS IN 03/03/2023 18:39 [facility] Performing Lab [facility] 03/03/2023 18:39 [facility] Scanned Images 03/03/2023 18:39 [facility] Pap Test CERVIX UTERI STRUCTURE / Unknown 02/17/2023 16:36 EST 02/19/2023 14:46 EST us Carlyle Katz MD PATHOLOGY ORDERABLES F inal Result [facility] [address] [place] [address] documented in this encounter Visit Diagnoses Diagnosis Encounter for screening for malignant neoplasm of cervix Screening for malignant neoplasm of the cervix state, incidental documented in this encounter Care Teams Display Screen Fabricator Relationship Specialty Start Date End Date Seymour Collado MD [address] [place] [address] PCP - General 12/19/09 documented as of this encounter
--- OUTSIDE RECORDS SUMMARY | 2024-02-08 12:27 | XMS_ITS | Encounter Summary ---
Author Organization [facility] Address [address] [place] [address] Care Team Providers Care Angle Bender Name Role Phone Seymour Collado MD Primary Care Provider [phone] Encounter Details Date Type Department Care Team (Late st Contact Info) Description 11/21/2023 Lab Requisition [facility] Pathology & Laboratory Medicine - [address] [address] Outr Resulting Lab, Provider Social History Tobacco [...] Procedure Name Priority Date/Time Associated Diagnosis Comments HOLD SST Today 11/21/2023 12:15 EDT HEPATITIS A ANTIBODY IGM Today 11/21/2023 12:15 EDT HEPATITIS B SURFACE ANTIBODY Today 11/21/2023 12:15 EDT HEPATITIS B SURFACE ANTIGEN Today 11/21/2023 12:15 EDT HIV 1/2 ANTIGEN AND ANTIBODY, 4TH GENERATION Today 11/21/2023 12:15 EDT documented in this encounter Results * HOLD SST (11/21/2023 12:15 EDT) Hold Hold 11/21/2023 23:15 EDT [facility] Blood VENOUS BLOOD / Unknown 11/21/2023 12:15 EDT 11/21/2023 22:09 EDT us Provider Outr Resulting Lab LAB INFO SERVICE AND SUPPORT & PHONE RESULT Final Result [facility] [address] [place] [phone] * HIV 1/2 ANTIGEN AND ANTIBODY, 4TH GENERATION (11/21/2023 12:15 EDT) HIV 1 and 2 Antibody/p24 Antigen, 4th Generation Negative Negative 11/24/2023 10:31 EDT [facility] Comment:If acute HIV-1 infec tion is suspected in a high risk patient, submit plasma specimen for HIV-1 RNA quantitation test. Blood VENOUS BLOOD / Unknown 11/21/2023 12:15 EDT 11/21/2023 22:07 EDT Narrative [facility] - 11/24/2023 10:31 EDT Fourth Generation assay performed on the Siemens Centaur XPT. Provider Outr Resulting Lab IMMUNOLOGY AND SEROL OGY ORDERABLES Final Result Performing Organization Address [facility]/ZIP Co de Phone Number [facility] [address] [place] [address] * HEPATITIS A ANTIBODY IGM (11/21/2023 12:15 EDT) Pathologist [facility] Hepatitis A Antibody, IgM Negative Negative 11/24/2023 10:48 EDT [facility] Blood VENOUS BLOOD / Unknown 11/21/2023 12:15 EDT 11/21/2023 22:07 EDT Narrative [facility] - 11/24/2023 10:48 EDT The results of this assay can be falsely lowered due to the consumption of Biotin. us Provider Outr Resulting Lab CHEMISTRY & BLOOD GA S ORDERABLES Final Result [facility] [address] [place] [address] * HEPATITIS B SURFACE ANTIGEN (11/21/2023 12:15 EDT) Hep B Surface Ag Negative Negative 11/24/2023 10:12 EDT [facility] Blood VENOUS BLOOD / Unknown 11/21/2023 12:15 EDT 11/21/2023 22:07 EDT us Provider Outr Resulting Lab CHEMISTRY & BLOOD GA S ORDERABLES Final Result Performing Organization Address [facility] Co de Phone Number [facility] [address] [place], [place] [phone] * HEPATITIS B SURFACE ANTIBODY (11/21/2023 12:15 EDT) Hep B Surface Ab, Quantitative 261.4 See Note mIU/mL 11/24/2023 9:47 EDT [facility] Comment: Reference Range for Hep B Surface Ab, Quant: Positive: >= 10.0 mIU/mL Negative: ??< 10.0 mIU/mL Patient is presumed to be immune to infection with Hepatitis B Virus. Hep B Surface Ab, Qualitative Positive See Note 11/24/2023 9:47 EDT [facility] Comment: Reference Range for Hep B Surface Ab, Qual: Unvaccinated: ??Negative Vaccinated: ??Positive Blood VENOUS BLOOD / Unknown 11/21/2023 12:15 EDT 11/21/2023 22:07 EDT us Provider Outr Resulting Lab CHEMISTRY & BLOOD GA S ORDERABLES Final Result Performing Organization Address [facility] de Phone Number [facility] [address] [place] [phone] documented in this encounter Visit Diagnoses Not on filedocumented in this encounter Care Teams Angle Bender Relationship Specialty Start Date End Date Seymour Collado MD [address] [place] [id number] PCP - General 12/19/09 documented as of this encounter
--- OUTSIDE RECORDS SUMMARY | 2024-02-08 12:27 | XMS_ITS | Encounter Summary ---
Author Organization [facility] Address [address] [place] [address] Care Team Providers Care Medical Payment Poster Name Role Phone Seymour Collado MD Primary Care Provider [phone] Reason for Visit * (Routine/Next Available) - Receiving Office to Obtain Authorization Specialty Diagnoses / Procedures Referred By Contabebe t Referred To Contact Procedures CT OUTSIDE IMAGES CHEST ABDOMEN PELVIS Unknown, Provider, MD Referral ID Status Reason Start Date Expiration Date Visits Requested Visits Authorized [id number] Receiving Office to Obtain Authorization 11/19/2022 1 1 Encounter Details Date Type Department Care Team (Latest Contact Info) Description 11/15/2022 - 11/15/2022 6:11 EDT Hospital Encounter [facility] Secondary Reads [place] Discharge Disposition: [...] needed for Nausea. 10 Tab 0 12/19/2009 Xaofnvzs-Ru-Ilc- Fe-FA ( VITAMIN) tablet Take 1 Tab by mouth daily documented as of this encounter Discharge Disposition Disposition Code Departure Means Destination Home or Self Care documented in this encounter Plan of Treatment Not on file documented as of this encounter Procedures Procedure Name Priority Date/Time Associated Diagnosis Comments CT OUTSIDE IMAGES CHEST ABDOMEN PELVIS Routine 11/15/2022 20:51 EDT documented in this encounter Results * CT OUTSIDE IMAGES CHEST ABDOMEN PELVIS (11/15/2022 20:51 EDT) Narrative 11/19/2022 20:52 EDT This is a non-reportable exam. us Provider Unknown MD SARABIA OTHER IMAGING ORDERABLES Final Result documented in this encounter Visit Diagnoses Not on filedocumented in this encounter Care Teams Medical Payment Poster Relationship Specialty Start Date End Date Seymour Collado MD [address] [place] [address] PCP - General 12/19/09 documented as of this encounter
--- OUTSIDE RECORDS SUMMARY | 2024-02-08 12:28 | XMS_ITS | Encounter Summary ---
Author Organization [facility] Address [address] [place] [address] Care Team Providers Care Cooler Man Name Role Phone Seymour Collado MD Primary Care Provider [phone] Encounter Details Date Type Department Care Team (Late st Contact Info) Description 04/17/2017 Results Only Imaging [facility] [phone] Vanessa Melchor, [address] [address] Social History Tobacco Use Types Packs/Day Years Used Date Smoking Tobacco: Former Cigarettes 0.5 3 Smokeless Tobacco: Never Alcohol Use Standard Drinks/Week Comments No 0 (1 standard drink = 0.6 oz pur e alcohol) Not with my liver bad Comments Yes Sex and Gender Information Value Date Recorded Sex Assigned at Not on file Legal Sex Female 18:50 EST Gender Identity Not on file Sexual Orientation Not on file documented as of this encounter Functional Status * Are you deaf or do you have serious difficulty hearing? Answer Date of Assessment Author No 08/02/2014 10:27 Lisa Balderas RN * Are you blind or do you have serious difficulty seeing, even when wearing glasses? Answer Date of Assessment Author No 08/02/2014 10:27 Lisa Balderas RN * Do you have serious difficulty walking or climbing stairs? (5 years old or older) Answer Date of Assessment Author No 08/02/2014 10:27 Lisa Balderas RN * Do you have difficulty dressing or bathing? (5 years old or older) Answer Date of Assessment Author No 08/02/2014 10:27 Lisa Balderas RN documented as of this encounter Mental Status * Because of a physical, mental, or emotional condition, do you have serious difficulty concentrating, remembering, or making decisions? (5 years old or older) Answer Entry Date Author No 08/02/2014 10:27 Lisa Balderas RN documented in this encounter Plan of Treatment Not on file documented as of this encounter Procedures Procedure Name Priority Date/Time Associated Diagnosis Comments [facility] CARD) 04/17/2017 15:43 EST documented in this encounter Results * [facility]) (04/17/2017 15:43 EST) Anatomical Region Laterality Modality Other 04/17/2017 15:4 3 EST Narrative 04/17/2017 16:50 EST Pediatric Cardiology [address] [place] [address] Date of study: 04/17/2017 Transabdominal Echocardiography Complete 2D, complete spectral Doppler, and color Doppler *STUDY CONCLUSIONS* Summary: - Follow up echocardiogram at 29+6 weeks gestation. - Difficult images secondary to gestational age and position. - Normal chamber size and function. - Normal arterial and venous connections. - Very mild tricuspid regurgitation with no significant change since the ??prior study 03/19/17. Otherwise, Normal Doppler study. - No arrhythmias noted during the exam. - No evidence of hydrops. - The results of the study, its limitations and the limitations of ??echocardiography in general were reviewed. The inability to diagnose ??patent ductus arteriosus, some atrial defects, ventricular septal ??defects and coarctation was discussed. Further echocardiography ??is not recommended unless new concerns arise. *PATIENT PRESENTATION* Age: ?26yr S/D Pressure: Location: Facility: ? [facility] Attending: ?Precious Gar MD Referring: ?CHERY Borjas Performing: ?? Precious Gar MD Ordering: ? CHERY Borjas Test start time: ??03:45 PM. Test stop time: ??04:25 PM. *PROCEDURE DATA* Procedure information: ??Pertinent images and digital data are archived for permanent storage and are available for subsequent review. ??Study status: ??Routine. Transabdominal echocardiography. ??Complete 2D, complete spectral Doppler, and color Doppler. ??Transabdominal echocardiography for congenital heart disease evaluation. ??: 4. ??Parity: ?2. ??Expected delivery date: ?06/27/2017. ??Gestational age: ?29wk. ??Study completion: ??The patient tolerated the procedure well. *INDICATIONS AND HISTORY* Indications: ?? F/u TR. History: ?? 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 *CARDIAC ANATOMY* DESCRIPTION Normal Doppler pattern of the umbilical artery, and vein VEINS AND ATRIA Atrial septum: ??There is a patent foramen ovale. There is a [id number] shunt. Left atrium: ??The atrium is normal in size. Right atrium: ??The atrium is normal in size. Systemic veins: ??Normal systemic venous drainage. Pulmonary veins: ??At least one pulmonary vein is seen entering the left atrium from each side. A-V CANAL Tricuspid valve: ??The annulus is normal-sized. ?There is normal biphasic inflow spectral Doppler. There is very mild regurgitation. Mitral valve: ??The annulus is normal-sized. ?There is normal biphasic inflow spectral Doppler. There is no regurgitation. VENTRICLES Right ventricle: ??The cavity size is normal. Systolic function is qualitatively normal. Ventricular septum: ?? On fair images, there is no significant ventricular septal defect identified. Left ventricle: ??The cavity size is normal. Systolic function is qualitatively normal. CONOTRUNCUS Aortic valve: ? Transvalvular velocity is within the normal range. There is no regurgitation. Pulmonary valve: ?Transvalvular velocity is within the normal range. There is no regurgitation. GREAT ARTERIES Aorta: ?? Normal unobstructed left-sided aortic arch. Pulmonary arteries: ?? The proximal branch pulmonary arteries are normal. Systemic-pulmonary shunts: Patent ductus arteriosus. Shunt flow is right to left. PERICARDIUM There is no significant pericardial effusion. *MEASUREMENT TABLES* ? Value ?03/19/2017 Reference ?? Z TrV annulus ? 0.83 ??cm 0.68 ? 0.66 - 1.09 -0.4 MiV annulus ? 0.80 ??cm 0.66 ? 0.64 - 0.96 0.0 Legend: (L) ??and ??(H) ?? values outside specified reference range. I have personally reviewed the images and have reviewed and edited the reported findings. Electronically signed by Precious Gar MD 04/17/2017 16:50 Procedure Note Precious Gar MD - 04/17/2017 Pediatric Cardiology [address] [place] [address] Date of study: 04/17/2017 Transabdominal Echocardiography Complete 2D, complete spectral Doppler, and color Doppler *STUDY CONCLUSIONS* Summary: - Follow up echocardiogram at 29+6 weeks gestation. - Difficult images secondary to gestational age and position. - Normal chamber size and function. - Normal arterial and venous connections. - Very mild tricuspid regurgitation with no significant change since the prior study 03/19/17. Otherwise, Normal Doppler study. - No arrhythmias noted during the exam. - No evidence of hydrops. - The results of the study, its limitations and the limitations of echocardiography in general were reviewed. The inability to diagnose patent ductus arteriosus, some atrial defects, ventricular septal defects and coarctation was discussed. Further echocardiography is not recommended unless new concerns arise. *PATIENT PRESENTATION* Age: 26yr S/D Pressure: Location: Facility: [facility] Attending: Precious Gar MD Referring: CHERY Borjas Performing: Precious Gar MD Ordering: CHERY Borjas Test start time: 03:45 PM. Test stop time: 04:25 PM. *PROCEDURE DATA* Procedure information: Pertinent images and digital data are archived for permanent storage and are available for subsequent review. Study status: Routine. Transabdominal echocardiography. Complete 2D, complete spectral Doppler, and color Doppler. Transabdominal echocardiography for congenital heart disease evaluation. : 4. Parity: 2. Expected delivery date: 06/27/2017. Gestational age: 29wk. Study completion: The patient tolerated the procedure well. *INDICATIONS AND HISTORY* Indications: F/u TR. 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 *CARDIAC ANATOMY* DESCRIPTION Normal Doppler pattern of the umbilical artery, and vein VEINS AND ATRIA Atrial septum: There is a patent foramen ovale. There is a dcckl-ee-rpbw shunt. Left atrium: The atrium is normal in size. Right atrium: The atrium is normal in size. Systemic veins: Normal systemic venous drainage. Pulmonary veins: At least one pulmonary vein is seen entering the left atrium from each side. A-V CANAL Tricuspid valve: The annulus is normal-sized. There is normal biphasic inflow spectral Doppler. There is very mild regurgitation. Mitral valve: The annulus is normal-sized. There is normal biphasic inflow spectral Doppler. There is no regurgitation. VENTRICLES Right ventricle: The cavity size is normal. Systolic function is qualitatively normal. Ventricular septum: On fair images, there is no significant ventricular septal defect identified. Left ventricle: The cavity size is normal. Systolic function is qualitatively normal. CONOTRUNCUS Aortic valve: Transvalvular velocity is within the normal range. There is no regurgitation. Pulmonary valve: Transvalvular velocity is within the normal range. There is no regurgitation. GREAT ARTERIES Aorta: Normal unobstructed left-sided aortic arch. Pulmonary arteries: The proximal branch pulmonary arteries are normal. Systemic-pulmonary shunts: Patent ductus arteriosus. Shunt flow is right to left. PERICARDIUM There is no significant pericardial effusion. *MEASUREMENT TABLES* Value 03/19/2017 Reference Z TrV annulus 0.83 cm 0.68 0.66 - 1.09 -0.4 MiV annulus 0.80 cm 0.66 0.64 - 0.96 0.0 Legend: (L) and (H) values outside specified reference range. I have personally reviewed the images and have reviewed and edited the reported findings. Electronically signed by Precious Gar MD 04/17/2017 16:50 Vanessa Melchor [facility] CARDIAC ECHO ORDERABLES Final Result documented in this encounter Visit Diagnoses Not on filedocumented in this encounter Care Teams Cooler Man Relationship Specialty Start Date End Date Seymour Collado MD [address] [place] [address] PCP - General 12/19/09 documented as of this encounter
--- OUTSIDE RECORDS SUMMARY | 2024-02-08 12:28 | XMS_ITS | Encounter Summary ---
Author Organization [facility] Address [address] [place] [address] Care Team Providers Care Senior Marketing Analyst Name Role Phone Seymour Collado MD Primary Care Provider [phone] Encounter Details Date Type Department Care Team (Late st Contact Info) Description 12/04/2016 Documentation Visit [facility] Obstetrics & Midwifery - [address] [id number] Dario Almaraz MD [address] [facility], [address] [place] [id number] Social History Tobacco Use Types Packs/Day Years [...] Date of Assessment Author No 08/02/2014 10:27 EDT Lisa Trevizo RN documented as of this encounter Mental Status * Because of a physical, mental, or emotional condition, do you have serious difficulty concentrating, remembering, or making decisions? (5 years old or older) Answer Entry Date Author No 08/02/2014 10:27 EDT Lisa Trevizo RN documented in this encounter Progress Notes * Tessa Wiley - 12/04/2016 1148 EDT episode and dating added for consult on 12.05.16 Tessa Wiley documented in this encounter Plan of Treatment Not on file documented as of this encounter Visit Diagnoses Not on filedocumented in this encounter Care Teams Senior Marketing Analyst Relationship Specialty Start Date End Date Seymour Collado MD [address] [place] [address] PCP - General 12/19/09 documented as of this encounter
--- OUTSIDE RECORDS SUMMARY | 2024-02-08 12:28 | XMS_ITS | Encounter Summary ---
Author Organization [facility] Address [address] [place] [address] Care Team Providers Care Jump Iron Machine Presser Name Role Phone Seymour Collado MD Primary Care Provider [phone] Reason for Visit * Reason Onset Date Comments 09/05/2021 Encounter Details Date Type Department Care Team (Late st Contact Info) Description 09/05/[address] [facility] OBGYN Services - [facility] [address] [place], [place] [address] Noemi Mendoza MD [address] [facility], [address] [place] [address] Social History Tobacco Use Types Packs/Day Years [...] Dimitri Fallon RN documented in this encounter Miscellaneous Notes * Addendum Note - Maine Neri RN - 09/06/2021 1651 EDTAddended by: MAINE NERI on: 09/06/2021 16:51 Modules accepted: Orders * Telephone Encounter - Maine Neri RN - 09/06/2021 1646 EDT Images from the original note were not included. Enriqueta Aguilar MD Cook, Clare, SABA Cc: P Wom[facility] Ob Nurse Discussed with Dr. Shipman, lets book her as routine OB US. This will schedule enough time to figure out what exactly is going on. - Enriqueta US ordered and scheduled per order above. [facility] also scheduled. Patient agrees to appt. dates/times. * Addendum Note - Maine Neri RN - 09/06/2021 1559 EDTAddended by: MAINE NERI on: 09/06/2021 15:59 Modules accepted: Orders * Telephone Encounter - DaronMaineSABA - 09/06/2021 6827 EDT Initial /[facility] Appt Screening Form Best contact number: [phone] Is it ok to leave detailed message: Yes [facility] provider: No preference per patient. Transfer of care: No LMP/Pt estimate gestational age: Unknown, patient had no period while she had an IUD. It was removed in at least a few months ago, she states that she didn't have a period after the removal. Date of positive test: A couple of months ago and I didn't know about it, and then a little while ago at [facility]. Cycles regular: N/A Cycle length: N/A Height: 65 inches Weight at LMP: 145 lbs. Before Relevant OB History What number is this for you? , per patient. Have you had problems with any prior pregnancies (GDM, HTN, Preeclampsia)? No Medical History Do you have any major medical problems (diabetes, HTN, thyroid)?: No Current medications/supplements: Suboxone 16mg daily (through [facility]) Clonidine maybe 1mg twice daily (through [facility]) Multivitamin 1 tablet daily Folic acid 1 tablet daily Vitamin B12 1 tablet daily Magnesium oxide 1 tablet daily Do you smoke, drink, or use other drugs: Patient smokes 1/2 pack of cigarettes daily. She denies alcohol or drug use since learning that she was , but states that she was recently in rehab and might have been at that time. Ectopic Risk (delete if KEI) Prior US with heartbeat, or showing normal inside the uterus ? No, but patient states that she is feeling movement 1-5x daily. If no prior US, any risk factors for ectopic ? Patient reports some spotting, once for three days, etl software engineer red and dark red, like a week ago. I was a little crampy, I figured it was my uterus stretching. It was a mild cramp. She denies any other spotting/bleeding pain and states that this bleeding was more than 72 hours ago. She states that she is unsure of whether she conceived when they IUD was in place, but it is out now. She denies history of tubal . Blood type: No results found for: BTYP B negative per chart review and patient. Plan Will review with MD before scheduling as patient is already feeling movement. Patient agrees to this plan. Informed patient that we will be contacting their insurance for prior authorization of supplementaltests that the provider will discuss with them at their first visit. Patient understands that she needs to arrive 15 minutes early for appointments. Reviewed office location and visitor policy. Patient is aware that she will receive a packet and needs to return patient information sheet to clinic at [facility]. Address confirmed with patient as follows: [address] [place] [address] Patient has no further questions at this time and understands that she can contact clinic via phonefor any questions or concerns. She does not have an active [employer] account. * Telephone Encounter - Maine Neri RN - 09/06/2021 1020 EDT TC to patient, message states that VM has not been set up yet, no option to LVM. Patient does not have active [facility] account. * Telephone Encounter - Maine Neri RN - 09/05/2021 0932 EDT TC to patient, busy signal with no option to LVM. * Telephone Encounter - Gisselle Almaraz - 09/05/2021 0814 EDT Have you been seen here before for OB care? Yes If yes, who did you see (Refer to if can???t remember)? 2015 Attendings If no, who is your primary care provider? Reason for Call as described by patient +upt @ [facility] What is the first day of your last period? Patient doesn't know how far along she is - she believes she might be over 20 weeks. Bleeding/Pain? No What is the best phone number for us to reach you back at? [phone] What time of day is the best to call you back? Anytime For your awareness, this will be a 5-10 minute intake discussion with your nurse. Is it ok to leave a detailed message? Yes Gisselle Almaraz 09/05/2021 8:15 documented in this encounter Plan of Treatment Not on file documented as of this encounter Visit Diagnoses Diagnosis Amenorrhea- Primary Absence of menstruation documented in this encounter Historical Medications * This list may reflect changes made after this encounter. cyanocobalamin, vitamin B-12, (VITAMIN B12 ORAL) Take 1 Tablet by mouth daily. FOLIC ACID ORAL Take 1 Tablet by mouth daily. MAGNESIUM OXIDE ORAL Take 1 Tablet by mouth. multivitamin capsule Take 1 capsule by mouth daily. cloNIDine HCL (CATAPRES) 0.1 mg tablet Take by mouth 2 times daily. buprenorphine HCl/naloxone HCl (SUBOXONE SL) Place 16 mg under the tongue daily. added in this encounter Care Teams Jump Iron Machine Presser Relationship Specialty Start Date End Date Seymour Collado MD [address] [place] [address] PCP - General 12/19/09 documented as of this encounter
--- OUTSIDE RECORDS SUMMARY | 2024-02-08 12:28 | XMS_ITS | Encounter Summary ---
Author Organization [facility] Address [address] [place] [address] Care Team Providers Care Flotation Operator Name Role Phone Seymour Collado MD Primary Care Provider [phone] Reason for Visit * Reason Comments Non-stress Test Encounter Details Date Type Department Care Team (Late st Contact Info) Description 07/22/2014 10:00 EDT Nurse Only [facility] Obstetrics & Midwifery - [facility] [address] [place], [place] [id number] Dario Almaraz MD [address] [facility], [address] [place] [address] Nurse, [facility] cardiac anomaly complicating , antepartum (Primary Dx) Social History Tobacco Use Types Packs/Day Years Used Date Smoking Tobacco: Every Day Cigarettes 0.5 3 Smokeless Tobacco: Never Alcohol Use Standard Drinks/Week Comments No 0 (1 standard drink = 0.6 oz pur e alcohol) Not with my liver bad Comments No Sex and Gender Information Value Date Recorded Sex Assigned at Not on file Legal Sex Female 18:50 EST Gender Identity Not on file Sexual Orientation Not on file documented as of this encounter Progress Notes * Dario Almaraz MD - 07/22/2014 1152 EDT NST Report Baseline Heart Rate: 120 Accelerations: present Movement: present Decelerations: absent Contractions: absent Interpretation: reactive Dario Almaraz MD 07/22/2014 11:52 documented in this encounter Plan of Treatment Not on file documented as of this encounter Visit Diagnoses Diagnosis cardiac anomaly complicating , antepartum- Primary Other known or suspected abnormality, not elsewhere classified, affecting management of mother, antepartum condition or complication documented in this encounter Care Teams Flotation Operator Relationship Specialty Start Date End Date Seymour Collado MD [address] [place] [address] PCP - General 12/19/09 documented as of this encounter
--- OUTSIDE RECORDS SUMMARY | 2024-02-08 12:28 | XMS_ITS | Encounter Summary ---
Author Organization [facility] Address [address] [place] [address] Care Team Providers Care Plant Anatomist Name Role Phone Seymour Collado MD Primary Care Provider [phone] Reason for Visit * Reason Onset Date Comments Medications Refill 08/09/2014 Encounter Details Date Type Department Care Team (Late st Contact Info) Description 08/09/2014 Orders Only [facility] OBGYN Services - [facility] [address] [place], [place] [address] Jossie Ch MD Social History Tobacco Use Types Packs/Day Years [...] Lisa Balderas RN documented in this encounter Ordered Prescriptions Prescription Sig Dispense Quantity Refills Last Filled Start Date End Date HYDROmorphone (DILAUDID) 2 mg tablet Take 1-2 Tabs by mouth every 4 hours as needed for up to 14 days for Pain Daily Max: 24 mg 30 Tab 0 08/09/2014 08/09/2014 documented in this encounter Plan of Treatment Not on file documented as of this encounter Visit Diagnoses Not on filedocumented in this encounter Discontinued Medications Medication Sig Discontinue Reason Start Date End Da te HYDROmorphone (DILAUDID) 2 mg tablet Take 1-3 Tabs by mouth every 3 hours as needed for Pain Daily Max: 48 mg Reorder 08/06/2014 08/09/2014 documented as of this encounter Care Teams Plant Anatomist Relationship Specialty Start Date End Date Seymour Collado MD [address] [place] [address] PCP - General 12/19/09 documented as of this encounter
--- OUTSIDE RECORDS SUMMARY | 2024-02-08 12:28 | XMS_ITS | Encounter Summary ---
Author Organization [facility] Address [address] [place] [address] Care Team Providers Care Quality Improvement Analyst Name Role Phone Seymour Collado MD Primary Care Provider [phone] Encounter Details Date Type Department Care Team (Late st Contact Info) Description 05/01/2018 Results Only [facility] [phone] Isiah Bailey MD [address] [place] [address] [address] [place], [place] [id number] Social History Tobacco Use Types Packs/Day Years [...] Dimitri Fallon, SABA * Do you have serious difficulty walking [...] Priority Date/Time Associated Diagnosis Comments SURGICAL PATHOLOGY Routine 05/01/2018 8:42 EST documented in this encounter Results * SURGICAL PATHOLOGY (05/01/2018 8:42 EST) Pathology Report: SURGICAL PATHOLOGY REPORT Reports generated via electronic interface contain original data; however they are lacking the format of the original report. Caution should be taken when reading/interpret ing unformatted reports. Name: ? ADRIANNA MORENO ? Accession #: ? [id number] ? : ? 1990 (Age: 27) ??F ? Collect Date: ? 05/01/2018 ? Location: ? [facility] ? Receive Date: ? 05/01/2018 ? Provider: ISIAH BAILEY MD Copy to: ? Final Pathologic Diagnosis: WILLINGHAM PLACENTA, 36+6 WEEKS, DELIVERY: - ??Placental weight 468 g (50-75th percentile for gestational age). - ??Parenchymal infarct (10% of surface). - ??Diffuse chorioamnionic hemosiderosis, consistent with history of chronic abruption. - ??Accelerated villus maturation. - ??No umbilical cord present for evaluation. Document reviewed and electronically signed by: SUNIL CHO MD Report ??Date: 05/06/2018 13:24 By the signature above, the attending physician certifies that he/she has personally conducted a gross and/or microscopic examination of the described specimens and rendered or confirmed the above diagnosis. Specimen(s) Received: Placenta Clinical History: Chronic abruption, possible h/o cocaine use Gross Description: ? Received in formalin labelled with proper patient identification (initials R, R) and placenta is an ovoid willingham placenta (468 g, 16.1 x 15.5 x 2.8 cm) with attached membranes. No segments of umbilical cord are present. ? The umbilical cord insertion is not definitively identified, however there are prominent traversing vessels feeding toward the placental disc. The membranes are smith-razo dull, translucent and focally thickened up to 0.6 cm. The surface is razo-purple with diffuse, thickened white areas comprising approximately 10% of the surface. Toward the possible umbilical cord insertion is a focus of subchorionic hemorrhage. The maternal surface shows red-brown intact cotyledons with an 8.2 cm firm razo focus that communicates with the diffuse areas on the surface. The cut surfaces are red-brown and spongy. The cut surfaces of the firm sunshine focus are firm and gritty. Distillery Worker General sections are submitted as follows: BLOCK PATEL 1- ?? membranes, thickened area 2- ?? membrane rolls 3- ??subchorionic hemorrhage, full thickness 4-5- ??firm sunshine focus, full thickness 6- ??unremarkable placenta, full thickness ? IAN Bello (ASCP) 05/04/2018 9:46 AM End of Report [facility] 05/01/2018 8:42 EST 05/01/2018 8:42 EST us Isiah Bailey MD PATHOLOGY ORDERABLES Final Resul t [facility] [address] [place] [address] documented in this encounter Visit Diagnoses Not on filedocumented in this encounter Care Teams Quality Improvement Analyst Relationship Specialty Start Date End Date Seymour Collado MD [address] [place] [address] PCP - General 12/19/09 documented as of this encounter
--- OUTSIDE RECORDS SUMMARY | 2024-02-08 12:28 | XMS_ITS | Encounter Summary ---
Author Organization [facility] Address [address] [place] [address] Care Team Providers Care Tooth Clerk Name Role Phone Seymour Collado MD Primary Care Provider [phone] Encounter Details Date Type Department Care Team (Late st Contact Info) Description 09/06/2021 Orders Only [facility] OBGYN Services - [address] [phone] Tyler Juarez MD [address] [place] [phone] Encounter for supervision of normal , antepartum, unspecified (Primary Dx) Social History Tobacco Use Types [...] Dimitri Fallon RN documented in this encounter Progress Notes * Tyler Zavala MD - 09/06/2021 1643 EDT 31 y.o. (per patient) with +UPT a couple months ago, unknown LMP (IUD removed a few months ago) and 1-5 movements per day. No interaction with OB care yet. Will schedule for Routine US with [facility], may need to change order/type of scan at time of visit. Discussed with Dr. Shipman. TYLER ZAVALA MD 09/06/2021 16:46 Obstetrics & Gynecology, PGY-3 Pager [phone] documented in this encounter Plan of Treatment Not on file documented as of this encounter Visit Diagnoses Diagnosis Encounter for supervision of normal , antepartum, unspecified - Primary documented in this encounter Care Teams Tooth Clerk Relationship Specialty Start Date End Date Seymour Collado MD [address] [place] [address] PCP - General 12/19/09 documented as of this encounter
--- OUTSIDE RECORDS SUMMARY | 2024-02-08 12:28 | XMS_ITS | Encounter Summary ---
Author Organization [facility] Address [address] [place] [address] Care Team Providers Care Machine Biller Name Role Phone Seymour Collado MD Primary Care Provider [phone] Reason for Visit * Reason Comments Routine Visit Encounter Details Date Type Department Care Team (Late st Contact Info) Description 07/29/2014 10:30 EDT Routine [facility] OBGYN Services - [address] [phone] Yuridia Peña MD [address] [place] [address], [address] [place] [address] Jossie Ch MD GA: 39w0d Social History Tobacco Use Types Packs/Day Years [...] on file documented as of this encounter Last Filed Vital Signs Vital Sign Reading Time Taken Comments Blood Pressure 118/72 07/29/2014 1034 EDT Pulse - - Temperature - - Respiratory Rate - - Oxygen Saturation - - Inhaled Oxygen Concentration - - Weight 79.4 kg (175 lb) 07/29/2014 1034 EDT Height 163 cm (5' 4.17) 07/29/2014 1034 EDT Body Mass Index 29.88 07/29/2014 1034 EDT documented in this encounter Progress Notes * Yuridia Peña MD - 08/01/2014 1442 EDT I discussed the patient with the resident at the time of visit. I agree with the above assessment and plan of care. Will notify pediatric cardiology of upcoming delivery. Yuridia Peña MD * Jossie Ch MD - 07/31/2014 1252 EDT CC: 24 y.o. @ 39w0d by 6+6wk US S: Doing well, but nervous about . Feeling lots of movement, wonders what would happen if baby flipped on his own. Accompanying friend today asking about additional people being allowed to go with Melissa to OR for given the situation with the baby's defects. Denies ctxs, LOF, VB. +FM O: BP 118/72 Ht 163 cm (64.17) Wt 79.379 kg (175 lb) BMI 29.88 kg/m2 assessment deferred as patient was seen in US today. See report for details. A/P 24 y.o. @ 39w0d by 6+6wk Opiate dependence Stable on methadone, doing well Supervision of high-risk Reviewed signs/symptoms of labor prior to planned . Long discussion today regarding delivery plan (scheduled for 08/02). Reviewed informed consent with patient and signed. Informed patient that we always confirm persistent breech presentation immediately prior to proceeding to OR whether shepresents in labor or for scheduled time. If cephalic, would proceed with induction on 08/02 as well given anomalies and GA >39 wks for pediatrics availability. Patient states understanding andagreement with this plan. Also discussed that visitor policy and support person policy in OR would not be altered due to baby's heart defects, still can only have one person accompany her in OR. Other known or suspected abnormality, not elsewhere classified, affecting management of mother, antepartum condition or complication Continue antepartum testing as scheduled. Delivery plan as above. Has had pedi cards consult. Understands likelihood of baby going to NICU after delivery. RTC for post- visit D/w Dr. Casey Ch MD documented in this encounter Miscellaneous Notes * Assessment & Plan Note - Jossie Ch MD - 07/31/2014 1250 EDTAssociated Problem(s): Other known or suspected abnormality, not elsewhere classified, affecting management of mother, antepartum condition or complication (Resolved 12/31/2016) Continue antepartum testing as scheduled. Delivery plan as above. Has had pedi cards consult. Understands likelihood of baby going to NICU after delivery. * Assessment & Plan Note - Jossie Ch MD - 07/31/2014 1250 EDTAssociated Problem(s): Supervision of high-risk (Resolved 12/31/2016) Reviewed signs/symptoms of labor prior to planned . Long discussion today regarding delivery plan (scheduled for 08/02). Reviewed informed consent with patient and signed. Informed patient that we always confirm persistent breech presentation immediately prior to proceeding to OR whether shepresents in labor or for scheduled time. If cephalic, would proceed with induction on 08/02 as well given anomalies and GA >39 wks for pediatrics availability. Patient states understanding andagreement with this plan. Also discussed that visitor policy and support person policy in OR would not be altered due to baby's heart defects, still can only have one person accompany her in OR. * Assessment & Plan Note - Jossie Ch MD - 07/31/2014 1246 EDTAssociated Problem(s): Opiate dependence ([facility]) Stable on methadone, doing well documented in this encounter Plan of Treatment Not on file documented as of this encounter Visit Diagnoses Diagnosis Opiate dependence ([facility])- Primary Opioid type dependence, unspecified Supervision of high-risk Unspecified high-risk Other known or suspected abnormality, not elsewhere classified, affecting management of mother, antepartum condition or complication documented in this encounter Care Teams Machine Biller Relationship Specialty Start Date End Date Seymour Collado MD [address] [place] [address] PCP - General 12/19/09 documented as of this encounter
--- OUTSIDE RECORDS SUMMARY | 2024-02-08 12:28 | XMS_ITS | Encounter Summary ---
Author Organization [facility] Address [address] [place] [address] Care Team Providers Care Plant Quality Manager Name Role Phone Seymour Collado MD Primary Care Provider [phone] Reason for Visit * Reason Comments Addiction Problem Encounter Details Date Type Department Care Team (Late st Contact Info) Description 07/29/2014 10:45 EDT Nurse Only [facility] OBGYN Services - [address] [phone] Unknown, Provider, Drug dependence, antepartum(648.33) (Primary Dx) Social History Tobacco Use Types [...] as of this encounter Progress Notes * Eva Cox, TYRE FINISHER AND EXAMINER - 07/29/2014 1128 EDT Melissa is a 24 year old woman who lives in [place]. This is an unplanned but desired . This will be Melissa's first child. Melissa is not employed. 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 Melissa has family supports. Melissa has a history of anxiety. She is in substance abuse treatment at [facility]. She receives methadone. She has been in treatment for 2.5 years. She receives daily dosing. After the baby, she will start to get take homes. Charm consent signed today. Melissa receives WIC. She will consider home health referral after she delivers. THELMA Mann documented in this encounter Plan of Treatment Not on file documented as of this encounter Visit Diagnoses Diagnosis Drug dependence, antepartum(648.33)- Primary Drug dependence, antepartum documented in this encounter Care Teams Plant Quality Manager Relationship Specialty Start Date End Date Seymour Collado MD [address] [place] [address] PCP - General 12/19/09 documented as of this encounter
--- OUTSIDE RECORDS SUMMARY | 2024-02-08 12:28 | XMS_ITS | Encounter Summary ---
Author Organization [facility] Address [address] [place] [address] Care Team Providers Care Mining Detail Draftsperson Name Role Phone Seymour Collado MD Primary Care Provider [phone] Reason for Visit * Reason Comments Non-stress Test Encounter Details Date Type Department Care Team (Late st Contact Info) Description 07/26/2014 9:00 EDT Nurse Only [facility] Obstetrics & Midwifery - [facility] [address] [place], [place] [address] Grisel Shipman MD [address] [facility], [address] [place] [address] Nurse, keyur cardiac anomaly complicating , antepartum (Primary Dx) Discharge Disposition: Auto Discharge Social History Tobacco Use Types Packs/Day Years [...] on file documented as of this encounter Discharge Diagnoses Diagnosis 655.83 ABNORM NEC-ANTEPAR[ICD-9-CM] documented in this encounter Discharge Disposition Disposition Code Departure Means Destination Auto Discharge documented in this encounter Progress Notes * Grisel Shipman MD - 07/26/2014 1254 EDT NST Report Baseline Heart Rate: 120 Accelerations: present Movement: present Decelerations: absent Contractions: absent Interpretation: reactive Grisel Shipman MD documented in this encounter Plan of Treatment Not on file documented as of this encounter Visit Diagnoses Diagnosis cardiac anomaly complicating , antepartum- Primary Other known or suspected abnormality, not elsewhere classified, affecting management of mother, antepartum condition or complication documented in this encounter Care Teams Mining Detail Draftsperson Relationship Specialty Start Date End Date Seymour Collado MD [address] [place] [address] PCP - General 12/19/09 documented as of this encounter
--- OUTSIDE RECORDS SUMMARY | 2024-02-08 12:28 | XMS_ITS | Encounter Summary ---
Author Organization [facility] Address [address] [place] [address] Care Team Providers Care Hair Weaver Name Role Phone Seymour Collado MD Primary Care Provider [phone] Reason for Visit * Reason Onset Date Comments Appointment Related 07/25/2014 Encounter Details Date Type Department Care Team (Late st Contact Info) Description 07/25/2014 Telephone [facility] - [facility] [address] [place], [place] [phone] Noa Calderón, SANDRA [address] [place] [address] Appointment Related Social History Tobacco Use Types Packs/Day Years [...] on file documented as of this encounter Miscellaneous Notes * Telephone Encounter - Trish Rosario - 07/25/2014 0687 EDT Left message stating referral was placed for clinic and appt has been scheduled for tomorrow (07/26)@ 10AM in coordination with [facility]. Requested call back if any questions. Will route letter/message to [facility]. Trish Rosario documented in this encounter Plan of Treatment Not on file documented as of this encounter Visit Diagnoses Not on filedocumented in this encounter Care Teams Hair Weaver Relationship Specialty Start Date End Date Seymour Collado MD [address] [place] [address] PCP - General 12/19/09 documented as of this encounter
--- OUTSIDE RECORDS SUMMARY | 2024-02-08 12:28 | XMS_ITS | Encounter Summary ---
Author Organization [facility] Address [address] [place] [address] Care Team Providers Care Black Powder Glazing Operator Name Role Phone Seymour Collado MD Primary Care Provider [phone] Reason for Visit * PHOTOGRAPHERS' MODEL (Routine/Next Available) - Closed Specialty Diagnoses / Procedures Referred By Contabebe t Referred To Contact Diagnoses Amenorrhea Procedures US PELVIS TRANSVAGINAL US OB ROUTINE (GREATER THAN 14 WEEKS) Grisel Shipman MD Phone: tel: fax: [facility] Referral ID Status Reason Start Date Expiration Date Visits Re quested Visits Authorized [id number] Closed 09/06/2021 1 1 Encounter Details Date Type Department Care Team (Latest Contact Info) Description 09/18/2021 8:15 EDT - 09/18/2021 23:59 EDT Hospital Encounter [facility] Obstetrics Services - [place] [address] [place], [place] [id number] Amenorrhea Discharge Disposition: Home or Self Care Social [...] needed for Nausea. 10 Tab 0 12/19/2009 Bhgcspzm-Vx-Gmn- Fe-FA ( VITAMIN) tablet Take 1 Tab by mouth daily documented as of this encounter Discharge Disposition Disposition Code Departure Means Destination Home or Self Care documented in this encounter Plan of Treatment Not on file documented as of this encounter Procedures Procedure Name Priority Date/Time Associated Diagnosis Comments US PELVIS TRANSVAGINAL COMPLETE Routine 09/18/2021 8:24 EDT Amenorrhea documented in this encounter Results * US PELVIS TRANSVAGINAL (09/18/2021 8:24 EDT) Anatomical Region Laterality Modality Pelvis Ultrasound 09/18/2021 8:18 EDT Narrative 09/18/2021 9:26 EDT Indication ======== Positive UPT - Unknown LMP; IUD removed several months ago Assessment Contraception: none Uterus ====== Uterus: ?Appears normal Uterus position: ?? Anteverted Description of uterine malformations: ??None Myometrium: ?Appears normal with scar Endometrium: ?? Luteal phase Cervix details: ?Normal appearance Uterus length ??74.6 mm Uterus width ?? 53.0 mm Uterus height ??37.2 mm Endometrial thickness, total ?? 8.4 mm Uterus other findings: No fluid or sac in uterine cavity Right Ovary ========= Rt ovary: ??Visualized Outline: ?? Smooth Rt ovary morphology: ?? Normal Rt ovary D1 ?35.5 mm Rt ovary D2 ?27.8 mm Rt ovary D3 ?24.0 mm Rt ovary Vol ?? 12.4 cm cubed Rt ovary other findings: ?? Fallopian tube seen in adnexa; no masses seen Left Ovary ======== Lt ovary: ??Visualized Outline: ?? Smooth Lt ovary morphology: ?? Normal Lt ovary D1 ?25.2 mm Lt ovary D2 ?22.8 mm Lt ovary D3 ?22.6 mm Lt ovary Vol ?? 6.8 cm cubed Lt ovary other findings: ?? Fallopian tube seen in adnexa; no masses seen Cul de Sac ========= Appears normal. No free fluid visualized Method ====== Transvaginal ultrasound examination, probe # 1. View: Sufficient Impression ========= Transvaginal Pelvic -30514 1. Uterus with scar, otherwise unremarkable. 2. Unremarkable endometrium with no fluid or sac in cavity. 3. Right ovary unremarkable in size and contour. No right adnexal masses noted. 4. Left ovary unremarkable in size and contour. No left adnexal masses noted. 5. No free fluid in the cul-de-sac. 6. Intrauterine not identified. No adnexal masses noted. Follow-up ======== Obtain hCG level. If negative, no follow up (except if patient wishes IUD replaced). If positive, check hCG in two days and follow appropriately. Comment ======== O36.80X0 of unknown anatomic location Plan discussed with patient. DATE OF SERVICE: 09/18/2021 Procedure Note Noelle Coronel MD - 09/18/2021 Indication ======== Positive UPT - Unknown LMP; IUD removed several months ago Assessment Contraception: none Uterus ====== Uterus: Appears normal Uterus position: Anteverted Description of uterine malformations: None Myometrium: Appears normal with scar Endometrium: Luteal phase Cervix details: Normal appearance Uterus length 74.6 mm Uterus width 53.0 mm Uterus height 37.2 mm Endometrial thickness, total 8.4 mm Uterus other findings: No fluid or sac in uterine cavity Right Ovary ========= Rt ovary: Visualized Outline: Smooth Rt ovary morphology: Normal Rt ovary D1 35.5 mm Rt ovary D2 27.8 mm Rt ovary D3 24.0 mm Rt ovary Vol 12.4 cm cubed Rt ovary other findings: Fallopian tube seen in adnexa; no masses seen Left Ovary ======== Lt ovary: Visualized Outline: Smooth Lt ovary morphology: Normal Lt ovary D1 25.2 mm Lt ovary D2 22.8 mm Lt ovary D3 22.6 mm Lt ovary Vol 6.8 cm cubed Lt ovary other findings: Fallopian tube seen in adnexa; no masses seen Cul de Sac ========= Appears normal. No free fluid visualized Method ====== Transvaginal ultrasound examination, probe # 1. View: Sufficient Impression ========= Transvaginal Pelvic -83813 1. Uterus with scar, otherwise unremarkable. 2. Unremarkable endometrium with no fluid or sac in cavity. 3. Right ovary unremarkable in size and contour. No right adnexal massesnoted. 4. Left ovary unremarkable in size and contour. No left adnexal massesnoted. 5. No free fluid in the cul-de-sac. 6. Intrauterine not identified. No adnexal masses noted. Follow-up ======== Obtain hCG level. If negative, no follow up (except if patient wishes IUDreplaced). If positive, check hCG in two days and follow appropriately. Comment ======== O36.80X0 of unknown anatomic location Plan discussed with patient. DATE OF SERVICE: 09/18/2021 Grisel Shipman MD [facility] OB ORDERABLES Final R esult documented in this encounter Visit Diagnoses Diagnosis Amenorrhea Absence of menstruation documented in this encounter Care Teams Black Powder Glazing Operator Relationship Specialty Start Date End Date Seymour Collado MD [address] [place] [address] PCP - General 12/19/09 documented as of this encounter
--- OUTSIDE RECORDS SUMMARY | 2024-02-08 12:28 | XMS_ITS | Encounter Summary ---
Author Organization [facility] Address [address] [place] [address] Care Team Providers Care Potato Chip Sacking Machine Operator Name Role Phone Seymour Collado MD Primary Care Provider [phone] Reason for Visit * Reason Comments New Patient Visit Encounter Details Date Type Department Care Team (Late st Contact Info) Description 09/18/2021 9:00 EDT Office Visit [facility] Obstetrics & Midwifery - [facility] [address] [place], [place] [phone] Grisel Shipman MD [address] [facility], [address] [place] [address] Amenorrhea (Primary Dx) Social History Tobacco Use Types [...] Progress Notes * Grisel Shipman MD - 09/18/2021 0900 EDT MFM New Pt Note Pt presented for Routine US. Pt states called and scheduled herself. States IUD out 4-5 months ago. No bleeding since. Had 2 positive preg tests at [facility]. Has W[facility] at [facility] 09/27. No abd pain. No bleeding. Feeling well. Pt comfortable In US; not tender on US US: no IUP or adnexal mass (read by Dr. Coronel) Plan: Quant beta and fu beta book (ordered by Dr. Coronel) Told pt to keep appt 09/[address] Wright as states wants IUD if not preg Pt phone number in [employer] conformed [facility]MS Attending I saw and examined the patient. I agree with impression and plan as noted above. I spent 30 minutesof total time today on the encounter. Grisel Shipman MD documented in this encounter Plan of Treatment Not on file documented as of this encounter Visit Diagnoses Diagnosis Amenorrhea- Primary Absence of menstruation documented in this encounter Care Teams Potato Chip Sacking Machine Operator Relationship Specialty Start Date End Date Seymour Collado MD [address] [place] [address] PCP - General 12/19/09 documented as of this encounter
--- OUTSIDE RECORDS SUMMARY | 2024-02-08 12:28 | XMS_ITS | Encounter Summary ---
Author Organization [facility] Address [address] [place] [address] Care Team Providers Care Attic Fans Mechanic Name Role Phone Seymour Collado MD Primary Care Provider [phone] Reason for Referral * HOTEL SERVER (Routine) - Closed Specialty Diagnoses / Procedures [facility]erred To Contact Diagnoses Prior with congenital cardiac defect, antepartum Procedures MCC DETAILED Jenniffer Davalos MD Phone: tel: fax: Referral ID Status Reason Start Date Expiration Date Visits Re quested Visits Authorized [id number] Closed 12/31/2016 1 1 Reason for Visit * Reason Comments Advice Only Encounter Details Date Type Department Care Team (Late st Contact Info) Description 12/31/2016 14:30 EDT Initial consult [facility] Obstetrics & Midwifery - [address] [id number] Jenniffer Davalos MD [address] [place] [address], [address] [place] [address] Prior with congenital cardiac defect, antepartum (Primary Dx) Social History Tobacco Use [...] Sign Reading Time Taken Comments Blood Pressure 126/60 12/31/2016 1439 EDT Pulse - - Temperature - - Respiratory Rate - - Oxygen Saturation - - Inhaled Oxygen Concentration - - Weight 70 kg (154 lb 6.4 oz) 12/31/2016 1439 EDT Height - - Body Mass Index 26.5 08/04/2014 0200 EDT documented in this encounter Functional Status * Are you [...] Lisa Balderas RN documented in this encounter Progress Notes * Jenniffer Davalos MD - 12/31/2016 1430 EDT Vanessa Melchor CNM Dear Vanessa Melchor: Thank you for asking us to see your patient, Melissa Moreno, at the Maternal- Medicine Clinic at [facility]. As you know, she is a 26-year-old 4, para 2-0-2-1 female with an intrauterine at 14 weeks 3 days' gestation. Her estimated delivery date is 06/27/2017. She is seen today in consultation due to a history of her prior having a cardiac defect. Her pertinent history is as follows: 1. Prior with AV Canal Defect: In 2014, at 36 weeks, her fetus was diagnosed with a suspected AV canal defect. This infant was born via for a breech presentation following a failed version, and the cardiac defect was confirmed after delivery. 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 The infant has beenfollowed closely by Dr Walton of our pediatric cardiology group. He was referred to [facility] for surgery at 8 months of age after a significant gradient had developed through the restrictive VSD and there was some concern for right ventricular hypertension. He was also having significant respiratory symptoms. He underwent closure of the primum ASD and repair of the left and right cleft AV valves. Following the surgery, the has done well. He was weaned from blood pressure medications and diuretics over several months following surgery. Melissa reports that he is now 3 years old and is noton any medications, with normal exercise tolerance and no activity restrictions. He is following upwith Dr Walton tomorrow. He did undergo a genetic consultation on day of life #1 as Ms Moreno had beencautioned that AV canal defects are highly associated with trisomy 21; however, he does not have trisomy 21 or any other features suggestive of aneuploidy, and so no genetic workup was recommended. Past Medical History: Opioid dependence. Past Surgical History: delivery. Past OB History: In 2011, Ms Moreno reports having a spontaneous at 16 weeks. She subsequently had another in 2011, which also ended in a spontaneous at 9 weeks. In 2012 she reports she had a stillbirth at 26 weeks. This was a normal male infant per her report. Elsewhere inher record, it is listed as a term stillbirth associated with a massive abruption. More recently, in July 2014, she had a primary low transverse at 39 weeks 4 days for a 3630 gram male infant with the AV canal cardiac defect. She reports that she has never had a workup for the miscarriages or stillbirth. Medications: Methadone 100 mg daily. Allergies: No known drug allergies. Social History: Ms Moreno has a fairly extensive tobacco use history, however, recently quit smoking with her positive test. This has the same father of the baby as her last . They live in [place], [place]. 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 She reports that she does have a history of IV drug use in the past, but has not used illicit substances in the last 5 years. Family History: She denies any history of congenital malformations, specifically other cardiac defects. She denies a family history of trisomy 21 or other genetic problems. She does report she has 1 maternal cousin with multiple recurrent miscarriages and no live births. Past WANT AD CLERK History: She denies any history of sexually transmitted infections or abnormal Pap smears. Current History: Ms Moreno reports the current has been uncomplicated. She has hadsignificant nausea and vomiting in the first trimester, which is now much improved. She declined tohave any genetic screening this . She has not had any episodes of vaginal bleeding. Physical Exam: Weight 154.4 pounds, blood pressure 126/60. General: Well-appearing female in no acute distress. Abdomen: Soft, gravid, nontender to palpation. heart tones are present at 150 beats per minute. Summary and Recommendations: 1. Prior infant with atrioventricular canal cardiac defect. I discussed with Ms Moreno that there is arecurrent risk for cardiac defects in subsequent pregnancies, although the overall risk is low. We discussed that different types of cardiac defects have different patterns of recurrence, and that for atrioventricular canal defect specifically, there is a reported 3% to 4% recurrence rate in siblings. We discussed that other than the very strong association with trisomy 21, there are no other significant known genetic associations with atrioventricular canal defect. She reports a very negative family history and therefore, I would not recommend any maternal genetic evaluation. I do recommend that she have a detailed ultrasound this here at [facility] around 20 weeks and also a echocardiogram with a pediatric nurse practitioner at 22 to 24 weeks. She seems quite comfortable with this information and the relatively low recurrence risk. I also offered a first trimester ultrasound try to assess cardiac anatomy if she felt that a cardiac defect this would change her decision to continue the , and she declined this today, so it was not scheduled. 2. History of Stillbirth and Recurrent Miscarriage: It sounds as if Ms Moreno has never had a workup for her miscarriages or her prior stillbirth. The circumstances surrounding her stillbirth are not completely clear and it sounds like she may have been actively using IV drugs at the time of her initial losses. Given that she had a successful term most recently with no complications in thecurrent , I would not pursue additional workup now; however, if she does have a miscarriage this , she should be referred back for a full evaluation. At the conclusion of our discussion today, the patient had no further questions. Thank you for allowing me to participate in the care of this nice patient. Please do not hesitate to call me if you have any questions regarding her care. Sincerely, Jenniffer Davalos MD Maternal- Medicine documented in this encounter Plan of Treatment Not on file documented as of this encounter Procedures Procedure Name Priority Date/Time Associated Diagnosis Comments MCC DETAILED Routine 02/03/2017 14:14 EST Prior with congenital cardiac defect, antepartum documented in this encounter Results * MCC DETAILED (02/03/2017 14:14 EST) Anatomical Region Laterality Modality Other 02/03/2017 14:1 4 EST 02/03/2017 15:34 EST Narrative 02/03/2017 15:34 EST Indication History of complications: heart anomaly, AV Canal Defect. History ======= General History Height 163 cm Height (ft) ?5 ft Height (in) ?4 in Previous Outcomes ?4 Para ?? 2 Willingham children born (T) ?2 Willingham children born (P) ?0 Abortions (A) ??1 Willingham living children (L) ??1 Other: Prior history of Maternal Assessment Height 163 cm Height (ft) ?5 ft Height (in) ?4 in Physical Exam Initial weight 64 kg Initial weight (lb) ?141 lb Initial BMI ?24.07 kg/m? Number of fetuses: 1. Dating ======= Method of dating: ??based on the external assessment Stated Dating on: ?11/25/2016 Type of external assessment: ?? CRL GA at stated dating date 9 w + 3 d GA by stated dating ??19 w + 3 d DELMY by stated dating: ?06/27/2017 Ultrasound examination on: 02/03/2017 GA by U/S based upon: ??AC, BPD, Femur GA by U/S ??20 w + 0 d DELMY by U/S: ?06/23/2017 Assigned: ??Dating performed on 02/03/2017, based on the external assessment (on 11/25/2016) Assigned GA ?19 w + 3 d Assigned DELMY: ??06/27/2017 General Evaluation Cardiac activity: Present. FHR 136 bpm. movements: visualized. Presentation: cephalic, maternal left. Placenta: anterior. Umbilical cord: Cord vessels: 3 vessel cord. Cord insertion: placental insertion: normal. Amniotic fluid: Amount of AF: normal. Biometry Biometry BPD ?47.1 mm 82% 20w 2d Hadlock OFD ?59.7 mm 88% 20w 5d Apolonia HC 169.7 mm AC 149.5 mm ?71% 20w 1d Hadlock Femur ??31.0 mm 71% 19w 5d Apolonia Cerebellum tr ??19.3 mm 45% 19w 2d Smith CM 4.7 mm ??44% Nicolaides Nuchal fold ?4.39 mm Humerus ?31.1 mm 82% 20w 2d Apolonia EFW ?320 g Calculated by: Hadlock ([id number]) EFW (lb) ?? 0 lb EFW (oz) ?? 11 oz Cephalic index 0.79 ?50% Nicolaides HC / AC ?1.14 ?27% Hadlock FL / BPD ?? 0.66 ?24% Hadlock FL / AC ?0.21 ?29% Hadlock FHR ?136 bpm Head / Face / Neck Measuring Machine Tender 5.7 mm Nasal bone 5.5 mm Thorax Cardiac axis ?? 15.00 ? Extremities / Bony Struc Radius 25.9 mm 60% Chitty Ulna ?? 28.6 mm 74% 20w 4d Apolonia Tibia ??28.2 mm 81% 20w 2d Apolonia Fibula 29.6 mm 73% 20w 4d Apolonia Foot ?? 30.7 mm 47% Chitty Anatomy Cranium: ?? normal Lateral ventricles: ?normal Choroid plexus: ?normal Midline falx: ??normal Cavum septi pellucidi: normal Cerebellum: ?normal Cisterna magna: ?normal Parenchyma: ?normal Cerebellar lobes: ??normal Vermis: ?normal Neck: ??normal Nuchal fold: ?? normal Lips: ??normal Profile: ?? normal Nose: ??normal Maxilla: ?? normal Mandible: ??normal 4-chamber view: ?abnormal RVOT: ??normal LVOT: ??normal 4-chamber view: ?Dextro-rotated Situs: normal Aortic arch: ?? normal SVC: ?? normal IVC: ?? normal 3-vessel view: normal 2-aoqhon-ntdabob view: normal Rt lung: ?? normal Lt lung: ?? normal Diaphragm: normal Cord insertion: ?normal Stomach: ?? normal Bladder: ?? normal Genitals: ??normal Abdom. wall: ?? normal Rt kidney: normal Lt kidney: normal Liver: normal Cervical spine: ?normal Thoracic spine: ?normal Lumbar spine: ??normal Sacral spine: ??normal Skeleton: ??normal Arms: ??normal Legs: ??normal Rt arm: ?normal Lt arm: ?normal Rt hand: ?? normal Lt hand: ?? normal Rt leg: ?normal Lt leg: ?normal Rt foot: ?? normal Lt foot: ?? normal Gender: ?male Wants to know gender: ??yes Aneuploidy Screening Age ?25 yrs Echogenic focus: ?? no Include: ?? intracardiac echogenic focus Include: ?? ventriculomegaly Include: ?? nuchal fold Include: ?? echogenic bowel Include: ?? mild hydronephrosis Ventriculomegaly: ??no Nuchal fold: ?? normal Echogenic bowel: ?? no Pyelectasis: ?? no Short femur: ?? no Include: ?? short humerus Include: ?? nasal bone Short humerus: no Nasal bone: ?present Display risk: ??Risk at time of screening Background risk at time of screening ?? 1,114 Background risk at term ?1,326 Adjusted risk at time of screening 3,010 Adjusted risk at term ??3,583 Maternal Structures Uterus / Cervix Uterus: ?Appears normal Cervix: ?Appears normal Ovaries / Tubes / Adnexa Rt ovary: ??Visualized, normal appearance Rt ovary D1 ?18.0 cm Rt ovary D2 ?18.0 cm Rt ovary D3 ?1.7 cm Rt ovary mean ??12.6 cm Rt ovary vol ?? 288.4 cm cubed Rt ovarian cyst(s): ?Cysts identified Findings: ??Simple cyst D1 12.0 mm D2 9.0 mm D3 12.0 mm Mean ?? 11.0 mm Vol ?0.679 cm cubed Lt ovary: ??Visualized, normal appearance Lt ovary D1 ?2.6 cm Lt ovary D2 ?1.9 cm Lt ovary D3 ?1.0 cm Lt ovary mean ??1.8 cm Lt ovary vol ?? 2.6 cm cubed Method ======== Transabdominal ultrasound examination, Voluson E10. View: Sufficient. Impression [id number] Obstetrical ultrasound with and maternal evaluation, including detailed anatomic examination This is a willingham gestation. Biometry is consistent with prior ultrasound dating. The heart appears dextro-rotated with an axis of about 15 degrees. 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 The remaining anatomy appears normal as noted above; however, ultrasound cannot detect all anomalies. As per the [facility] guidelines, the following were evaluated and were normal: the cerebellum (including lobes and vermis), facial profile, the chest (including examination for masses, effusion, integrity of both sides of the diaphragm and lung parenchyma), abdomen for ascites, 12-long bones with normal architecture/position of limbs, hands and feet, placental insertion site of the umbilical cord and placenta for masses. The amniotic fluid volume is normal. There is trunk and extremity movement noted. Although there appears to be a dextro-rotation of the cardiac axis, which can be associated with cardiac anomalies, I do not see any anomalies. A careful review of the diaphragm to identify a diaphragmatic hernia that could be responsible for shifting the heart did not identify a hernia either with grayscale ultrasound or color Doppler. Follow-up Recommend follow-up with a echocardiogram due to maternal history and cardiac findings today. I would also follow-up with a scan at 28 weeks' to reassess the diagphragm. Comment ========= The echocardiogram has already been scheduled. DATE OF SERVICE: 02/03/2017 Procedure Note Dario Almaraz MD - 02/03/2017 Indication History of complications: heart anomaly, AV Canal Defect. History ======= General History Height 163 cm Height (ft) 5 ft Height (in) 4 in Previous Outcomes 4 Para 2 Willingham children born (T) 2 Willingham children born (P) 0 Abortions (A) 1 Willingham living children (L) 1 Other: Prior history of Maternal Assessment Height 163 cm Height (ft) 5 ft Height (in) 4 in Physical Exam Initial weight 64 kg Initial weight (lb) 141 lb Initial BMI 24.07 kg/m? Number of fetuses: 1. Dating ======= Method of dating: based on the external assessment Stated Dating on: 11/25/2016 Type of external assessment: CRL GA at stated dating date 9 w + 3 d GA by stated dating 19 w + 3 d DELMY by stated datin06/27/2017 Ultrasound examination on: 02/03/2017 GA by U/S based upon: AC, BPD, Femur GA by U/S 20 w + 0 d DELMY by U/S: 06/23/2017 Assigned: Dating performed on 02/03/2017, based on the external assessment (on 11/25/2016) Assigned GA 19 w + 3 d Assigned DELMY: 06/27/2017 General Evaluation Cardiac activity: Present. FHR 136 bpm. movements: visualized. Presentation: cephalic, maternal left. Placenta: anterior. Umbilical cord: Cord vessels: 3 vessel cord. Cord insertion: placental insertion: normal. Amniotic fluid: Amount of AF: normal. Biometry Biometry BPD 47.1 mm 82% 20w 2d Hadlock OFD 59.7 mm 88% 20w 5d Apolonia HC 169.7 mm AC 149.5 mm 71% 20w 1d Hadlock Femur 31.0 mm 71% 19w 5d Apolonia Cerebellum tr 19.3 mm 45% 19w 2d Smith CM 4.7 mm 44% Nicolaides Nuchal fold 4.39 mm Humerus 31.1 mm 82% 20w 2d Apolonia EFW 320 g Calculated by: Hadlock ([id number]) EFW (lb) 0 lb EFW (oz) 11 oz Cephalic index 0.79 50% Nicolaides HC / AC 1.14 27% Hadlock FL / BPD 0.66 24% Hadlock FL / AC 0.21 29% Hadlock FHR 136 bpm Head / Face / Neck Measuring Machine Tender 5.7 mm Nasal bone 5.5 mm Thorax Cardiac axis 15.00 ? Extremities / Bony Struc Radius 25.9 mm 60% Chitty Ulna 28.6 mm 74% 20w 4d Apolonia Tibia 28.2 mm 81% 20w 2d Apolonia Fibula 29.6 mm 73% 20w 4d Apolonia Foot 30.7 mm 47% Chitty Anatomy Cranium: normal Lateral ventricles: normal Choroid plexus: normal Midline falx: normal Cavum septi pellucidi: normal Cerebellum: normal Cisterna magna: normal Parenchyma: normal Cerebellar lobes: normal Vermis: normal Neck: normal Nuchal fold: normal Lips: normal Profile: normal Nose: normal Maxilla: normal Mandible: normal 4-chamber view: abnormal RVOT: normal LVOT: normal 4-chamber view: Dextro-rotated Situs: normal Aortic arch: normal SVC: normal IVC: normal 3-vessel view: normal 2-vdsfdf-gowhfrg view: normal Rt lung: normal Lt lung: normal Diaphragm: normal Cord insertion: normal Stomach: normal Bladder: normal Genitals: normal Abdom. wall: normal Rt kidney: normal Lt kidney: normal Liver: normal Cervical spine: normal Thoracic spine: normal Lumbar spine: normal Sacral spine: normal Skeleton: normal Arms: normal Legs: normal Rt arm: normal Lt arm: normal Rt hand: normal Lt hand: normal Rt leg: normal Lt leg: normal Rt foot: normal Lt foot: normal Gender: male Wants to know gender: yes Aneuploidy Screening Age 26 yrs Echogenic focus: no Include: intracardiac echogenic focus Include: ventriculomegaly Include: nuchal fold Include: echogenic bowel Include: mild hydronephrosis Ventriculomegaly: no Nuchal fold: normal Echogenic bowel: no Pyelectasis: no Short femur: no Include: short humerus Include: nasal bone Short humerus: no Nasal bone: present Display risk: Risk at time of screening Background risk at time of screening 1,114 Background risk at term 1,326 Adjusted risk at time of screening 3,010 Adjusted risk at term 3,583 Maternal Structures Uterus / Cervix Uterus: Appears normal Cervix: Appears normal Ovaries / Tubes / Adnexa Rt ovary: Visualized, normal appearance Rt ovary D1 18.0 cm Rt ovary D2 18.0 cm Rt ovary D3 1.7 cm Rt ovary mean 12.6 cm Rt ovary vol 288.4 cm cubed Rt ovarian cyst(s): Cysts identified Findings: Simple cyst D1 12.0 mm D2 9.0 mm D3 12.0 mm Mean 11.0 mm Vol 0.679 cm cubed Lt ovary: Visualized, normal appearance Lt ovary D1 2.6 cm Lt ovary D2 1.9 cm Lt ovary D3 1.0 cm Lt ovary mean 1.8 cm Lt ovary vol 2.6 cm cubed Method ======== Transabdominal ultrasound examination, Voluson E10. View: Sufficient. Impression [id number] Obstetrical ultrasound with and maternal evaluation, including detailed anatomic examination This is a willingham gestation. Biometry is consistent with prior ultrasound dating. The heart appears dextro-rotated with an axis of about 15 degrees. 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 The remaining anatomy appears normal as noted above; however, ultrasound cannot detect all anomalies. As per the [facility] guidelines, the following were evaluated and were normal: the cerebellum (including lobes and vermis), facial profile, the chest (including examination for masses, effusion, integrity of both sides of the diaphragm and lung parenchyma), abdomen for ascites, 12-long bones with normal architecture/position of limbs, hands and feet, placental insertion site of the umbilical cord and placenta for masses. The amniotic fluid volume is normal. There is trunk and extremity movement noted. Although there appears to be a dextro-rotation of the cardiac axis, which can be associated with cardiac anomalies, I do not see any anomalies. A careful review of the diaphragm to identify a diaphragmatic hernia that could be responsible for shifting the heart did not identify a hernia either with grayscale ultrasound or color Doppler. Follow-up Recommend follow-up with a echocardiogram due to maternal history and cardiac findings today. I would also follow-up with a scan at 28 weeks' to reassess the diagphragm. Comment ========= The echocardiogram has already been scheduled. DATE OF SERVICE: 02/03/2017 Vanessa Melchor [facility] ORDERABLES Fi nal Result documented in this encounter Visit Diagnoses Diagnosis Prior with congenital cardiac defect, antepartum- Primary with other poor obstetric history documented in this encounter Care Teams Attic Fans Mechanic Relationship Specialty Start Date End Date Seymour Collado MD [address] [place] [address] PCP - General 12/19/09 documented as of this encounter
--- OUTSIDE RECORDS SUMMARY | 2024-02-08 12:28 | XMS_ITS | Encounter Summary ---
Author Organization [facility] Address [address] [place] [address] Care Team Providers Care Sample Maker Name Role Phone Seymour Collado MD Primary Care Provider [phone] Reason for Visit * Reason Comments Non-stress Test Encounter Details Date Type Department Care Team (Late st Contact Info) Description 07/29/2014 11:00 EDT Nurse Only [facility] Obstetrics & Midwifery - [facility] [address], [place] [id number] Grisel Shipman MD [address] [facility], [address] [place] [address] Nurse, [facility] cardiac anomaly complicating , antepartum (Primary Dx) [...] as of this encounter Progress Notes * Grisel Shipman MD - 07/29/2014 1339 EDT NST Report Baseline Heart Rate: 130 Accelerations: present Movement: present Decelerations: absent Contractions: irritability Interpretation: reactive Grisel Shipman MD documented in this encounter Plan of Treatment Not on file documented as of this encounter Visit Diagnoses Diagnosis cardiac anomaly complicating , antepartum- Primary Other known or suspected abnormality, not elsewhere classified, affecting management of mother, antepartum condition or complication documented in this encounter Care Teams Sample Maker Relationship Specialty Start Date End Date Seymour Collado MD [address] [place] [address] PCP - General 12/19/09 documented as of this encounter
--- OUTSIDE RECORDS SUMMARY | 2024-02-08 12:28 | XMS_ITS | Encounter Summary ---
Author Organization [facility] Address [address] [place] [address] Care Team Providers Care Pheresis Specialist Name Role Phone Seymour Collado MD Primary Care Provider [phone] Encounter Details Date Type Department Care Team (Late st Contact Info) Description 10/26/2020 Lab Requisition [facility] Pathology & Laboratory Medicine - [address] [address] Elyssa Hodges [address] [place] [address] Encounter for screening for malignant neoplasm of cervix; Encounter for screening for human papillomavirus (HPV); Encounter for screening for infections with a predominantly sexual mode of transmission; Encounter for screening for other infectious and parasitic diseases Social History Tobacco Use Types Packs/Day Years [...] Date/Time Associated Diagnosis Comments PAP TEST Today 10/26/2020 14:58 EDT documented in this encounter Results * PAP TEST (10/26/2020 14:58 EDT) Specimens A. Cervix and/or Endocervix , ThinPrep Imaging System with Manual Evaluation 11/06/2020 15:52 [facility] Specimen Adequacy Satisfactory for Evaluation - transformation zone component present [facility]2020 [facility] General Categorization Negative for intraepithelial lesion or malignancy 11/06/2020 15:52 T [facility] Attestation . 11/06/2020 15:52 [facility] at 1552 Clinical History Clinical History, Signs, Symptoms, Chief Complaint, Pertaining to This Order: See below SEISMOLOGY TEACHER Treatment History?: Yes 11/06/2020 15:52 [facility] Performing Lab [facility] 11/06/2020 15:52 [facility] Scanned Images 11/06/2020 15:52 EDT [facility] Papanicolaou smear specimen (specimen) CERVIX UTERI STRUCTURE / Unknown 10/26/2020 14:58 EDT 10/27/2020 11:42 EDT us Elyssa Hodges PATHOLOGY ORDERABLES Final Resul t [facility] [address] [place] [address] documented in this encounter Visit Diagnoses Diagnosis Encounter for screening for malignant neoplasm of cervix Screening for malignant neoplasm of the cervix Encounter for screening for human papillomavirus (HPV) Special screening examination for human papillomavirus (HPV) Encounter for screening for infections with a predominantly sexual mode of transmission Encounter for screening for other infectious and parasitic diseases documented in this encounter Care Teams Pheresis Specialist Relationship Specialty Start Date End Date Seymour Collado MD [address] [place] [address] PCP - General 12/19/09 documented as of this encounter
--- OUTSIDE RECORDS SUMMARY | 2024-02-08 12:28 | XMS_ITS | Encounter Summary ---
Author Organization [facility] Address [address] [place] [address] Care Team Providers Care Product Support Representative Name Role Phone Seymour Collado MD Primary Care Provider [phone] Encounter Details Date Type Department Care Team (Latest Contact Info) Description 05/01/2018 10:08 EST - 05/01/2018 23:59 EST Hospital Encounter [address] [address] Unknown, Provider, Discharge Disposition: Home or Self Care Social [...] 4 hours as needed for Pain 08/06/2014 calcium carbonate (TUMS) 200 mg calcium (500 mg) tablet,chewable Take 1-2 Tabs by mouth 4 times daily as needed docusate sodium (COLACE) 100 mg capsule Take 1 Cap by mouth 2 times daily as needed for Constipation 08/06/2014 HYDROmorphone (DILAUDID) 4 mg tablet Take 1 Tab by mouth every 4 hours as needed for Pain. Daily Max: 24 mg 20 Tab 06/23/2017 ibuprofen (MOTRIN) 400 mg tablet Take 1 Tab by mouth every 4 hours as needed for Pain 08/06/2014 methadone (DOLOPHINE) 5 mg/5 mL oral solution Take 100 mg by mouth daily ondansetron (ZOFRAN) 4 mg tablet Take 1 Tab by mouth every 8 hours as needed for Nausea. 10 Tab 0 12/19/2009 Jrdsvcxu-Mv-Fmh- Fe-FA ( VITAMIN) tablet Take 1 Tab by mouth daily documented as of this encounter Discharge Disposition Disposition Code Departure Means Destination Home or Self Mcfp documented in this encounter Plan of Treatment Not on file documented as of this encounter Visit Diagnoses Not on filedocumented in this encounter Care Teams Product Support Representative Relationship Specialty Start Date End Date Seymour Collado MD [address] [place] [address] PCP - General 12/19/09 documented as of this encounter
--- OUTSIDE RECORDS SUMMARY | 2024-02-08 12:28 | XMS_ITS | Encounter Summary ---
Author Organization [facility] Address [address] [place] [address] Care Team Providers Care Divemaster Name Role Phone Seymour Collado MD Primary Care Provider [phone] Reason for Visit * Reason Onset Date Comments 11/26/2018 Encounter Details Date Type Department Care Team (Late st Contact Info) Description 11/26/2018 Telephone [facility] OBGYN Services - [address] [id number] Celia Srivastava RN Social History Tobacco Use Types Packs/Day Years [...] 06/20/2017 17:00 EDT Dimitri Fallon, SABA * Because of a physical, mental, or emotional condition, do you have difficulty doing errands alone such as visiting a doctor's office or shopping? (15 years old or older) Answer Date of Assessment Author No 06/20/2017 17:00 EDT Dimitri Fallon, SABA documented as of this encounter Mental Status * Because of a physical, mental, or emotional condition, do you have serious difficulty concentrating, remembering, or making decisions? (5 years old or older) Answer Entry Date Author No 06/20/2017 17:00 EDT Dimitri Fallon RN documented in this encounter Miscellaneous Notes * Telephone Encounter - Celia Srivastava RN - 11/27/2018 1055 EDT 3rd attempt to contact pt today, no answer and no VM set up. * Telephone Encounter - Celia Srivastava RN - 11/26/2018 0956 EDT Initial Appt Screening Form Best Contact Number: [phone] [facility] Provider: no preference LMP: 08/12/18 Pt estimate gestational age: 15w1d Date of Positive Test: approx 11/12/18 per pt Cycle Length: reports regular cycles G P HGT: WEIGHT AT LMP: Blood type: No results found for: BTYP Current medications/supplements: Do you smoke, drink or use other drugs: Have you had problems with any prior pregnancies: (GDM, HTN, Preeclampsia)? Do you have any major medical problems: (diabetes, HTN,thyroid)? Prior US with heartbeat, or showing normal inside the uterus ? No Risk factors for ectopic ? Pt hung up prior to asking this ques Ultrasound scheduled: Plan: While I was on the phone with the pt, I placed her on hold to look up appts. Pt hung up while on hold. I tried calling pt back but no answer and VM not set up. Unable to complete OB intake/questions/scheduling. 2nd call to pt to complete intake - went straight to [facility] stating that VM not set up documented in this encounter Plan of Treatment Not on file documented as of this encounter Visit Diagnoses Not on filedocumented in this encounter Care Teams Divemaster Relationship Specialty Start Date End Date Seymour Collado MD [address] [place] [address] PCP - General 12/19/09 documented as of this encounter
--- OUTSIDE RECORDS SUMMARY | 2024-02-08 12:28 | XMS_ITS | Encounter Summary ---
Author Organization [facility] Address [address] [place] [address] Care Team Providers Care Shop Foreman Name Role Phone Seymour Collado MD Primary Care Provider [phone] Encounter Details Date Type Department Care Team (Late st Contact Info) Description 07/19/2022 Lab Requisition [facility] Pathology & Laboratory Medicine - [address] [address] Outr Resulting Lab, Provider Social History Tobacco [...] Procedure Name Priority Date/Time Associated Diagnosis Comments HIV 1/2 ANTIGEN AND ANTIBODY, 4TH GENERATION Routine 07/18/2022 18:30 EDT documented in this encounter Results * HIV 1/2 ANTIGEN AND ANTIBODY, 4TH GENERATION (07/18/2022 18:30 EDT) [facility] HIV 1 and 2 Antibody/p24 Antigen, 4th Generation Negative Negative 07/21/2022 10:12 EDT [facility] Comment:If acute HIV-1 infec tion is suspected in a high risk patient, submit plasma specimen for HIV-1 RNA quantitation test. Blood VENOUS BLOOD / Unknown 07/18/2022 18:30 EDT 07/19/2022 22:19 EDT Narrative [facility] - 07/21/2022 10:12 EDT Fourth Generation assay performed on the Siemens Centaur XPT. us Provider Outr Resulting Lab IMMUNOLOGY AND SEROL OGY ORDERABLES Final Result [facility] [address] [place] [address] documented in this encounter Visit Diagnoses Not on filedocumented in this encounter Care Teams Shop Foreman Relationship Specialty Start Date End Date Seymour Collado MD [address] [place] [address] PCP - General 12/19/09 documented as of this encounter
--- OUTSIDE RECORDS SUMMARY | 2024-02-08 12:28 | XMS_ITS | Encounter Summary ---
Author Organization [facility] Address [address] [place] [address] Care Team Providers Care Head Banquet Waitress Name Role Phone Seymour Collado MD Primary Care Provider [phone] Encounter Details Date Type Department Care Team (Late st Contact Info) Description 10/26/2020 Lab Requisition [facility] Pathology & Laboratory Medicine - [address] [address] Outr Resulting Lab, Provider Social History Tobacco [...] Procedure Name Priority Date/Time Associated Diagnosis Comments CHLAMYDIA/N. GONORRHOEAE AMPLIFIED NUCLEIC ACID, THINPREP Routine 10/26/2020 14:58 EDT documented in this encounter Results * CHLAMYDIA/N. GONORRHOEAE AMPLIFIED RNA, THINPREP (10/26/2020 14:58 EDT) Neisseria gonorrhoeae Result Negative Negative 10/27/2020 13:44 EDT [facility] Chlamydia trachomatis Result Negative Negative 10/27/2020 13:44 EDT [facility] Papanicolaou smear specimen (specimen) CERVIX UTERI STRUCTURE / Unknown 10/26/2020 14:58 EDT 10/27/2020 7:32 EDT us Provider Outr Resulting Lab MICROBIOLOGY - GENER AL ORDERABLES Final Result [facility] [address] [place] [address] documented in this encounter Visit Diagnoses Not on filedocumented in this encounter Care Teams Head Banquet Waitress Relationship Specialty Start Date End Date Seymour Collado MD [address] [place] [address] PCP - General 12/19/09 documented as of this encounter
--- OUTSIDE RECORDS SUMMARY | 2024-02-08 12:28 | XMS_ITS | Encounter Summary ---
Author Organization [facility] Address [address] [place] [address] Care Team Providers Care Miniature Set Constructor Name Role Phone Seymour Collado MD Primary Care Provider [phone] Encounter Details Date Type Department Care Team (Late st Contact Info) Description 07/19/2022 Lab Requisition [facility] Pathology & Laboratory Medicine - [address] [phone] Outr Resulting Lab, Provider Social History Tobacco [...] Diagnosis Comments HCV RNA DETECT QUANT Today 07/18/2022 18:30 EDT HEPATITIS C AB W REFLEX TO HCV RNA BY PCR Routine 07/18/2022 18:30 EDT documented in this encounter Results * (ABNORMAL) HCV RNA DETECT QUANT (07/18/2022 18:30 EDT) HCV RNA Qualitative Detected( A) Undetected 07/24/2022 13:04 EDT [facility] HCV RNA Quantitative 10,700,00 0(H) Undetected IU/mL 07/24/2022 13:04 EDT [facility] Blood VENOUS BLOOD / Unknown 07/18/2022 18:30 EDT 07/19/2022 22:10 EDT Narrative [facility] - 07/24/2022 13:04 EDT The quantification range of this assay is 15 IU/mL to 100,000,000 IU/mL. Testing was performed using the Danyel HCV test ([employer] with the danyel 6800 System. us Provider Outr Resulting Lab CHEMISTRY & BLOOD GA S ORDERABLES Final Result [facility] [address] [place] [address] * (ABNORMAL) HEPATITIS C AB W REFLEX TO HCV RNA BY PCR (07/18/2022 18:30 EDT) Hep C Antibody Reactive(A ) Negative 07/22/2022 11:13 EDT [facility] Comment: Supplemental testing for HCV RNA is ordered to rule out active HCV infection. Blood VENOUS BLOOD / Unknown 07/18/2022 18:30 EDT 07/19/2022 22:10 EDT us Provider Outr Resulting Lab CHEMISTRY & BLOOD GA S ORDERABLES Final Result [facility] [address] [place] [address] documented in this encounter Visit Diagnoses Not on filedocumented in this encounter Care Teams Miniature Set Constructor Relationship Specialty Start Date End Date Seymour Collado MD [address] [place] [address] PCP - General 12/19/09 documented as of this encounter
--- OUTSIDE RECORDS SUMMARY | 2024-02-08 12:28 | XMS_ITS | Encounter Summary ---
Author Organization [facility] Address [address] [place] [address] Care Team Providers Care Packager Name Role Phone Seymour Collado MD Primary Care Provider [phone] Encounter Details Date Type Department Care Team (Late st Contact Info) Description 09/18/2021 Orders Only [facility] - [address] [id number] Noelle Coronel MD [address] [facility], [address] [place] [id number] , unspecified gestational age (Primary Dx) Social History Tobacco Use Types [...] as of this encounter Visit Diagnoses Diagnosis , unspecified gestational age- Primary documented in this encounter Care Teams Packager Relationship Specialty Start Date End Date Seymour Collado MD [address] [place] [address] PCP - General 12/19/09 documented as of this encounter
--- OUTSIDE RECORDS SUMMARY | 2024-02-08 12:28 | XMS_ITS | Encounter Summary ---
Author Organization [facility] Address [address] [place] [address] Care Team Providers Care District Manager In Training Name Role Phone Seymour Collado MD Primary Care Provider [phone] Encounter Details Date Type Department Care Team (Late st Contact Info) Description 12/02/2019 Lab Requisition [facility] Pathology & Laboratory Medicine - [address] [address] Outr Resulting Lab, Provider Social History Tobacco [...] Diagnosis Comments HCV RNA DETECT QUANT Today 12/02/2019 10:45 EDT HEPATITIS C AB W REFLEX TO HCV RNA BY PCR Routine 12/02/2019 10:45 EDT HEPATITIS A TOTAL ANTIBODY W REFLEX Routine 12/02/2019 10:45 EDT HEPATITIS B SURFACE ANTIBODY Routine 12/02/2019 10:45 EDT documented in this encounter Results * (ABNORMAL) HCV RNA DETECT QUANT (12/02/2019 10:45 EDT) HCV RNA Qualitative Detected( A) Undetected 12/08/2019 13:31 EDT [facility] HCV RNA Quantitative 7,095,611 (H) Undetected IU/mL 12/08/2019 13:31 EDT [facility] Blood VENOUS BLOOD / Unknown 12/02/2019 10:45 EDT 12/03/2019 15:48 EDT Narrative [facility] - 12/08/2019 13:31 EDT The quantification range of this assay is 15 IU/mL to 100,000,000 IU/mL. ??Testing was performed on the KANDIS Ampliprep/KANDIS TaqMan HCV v2.0 ([employer] us Provider Outr Resulting Lab CHEMISTRY & BLOOD GA S ORDERABLES Final Result Performing Organization Address [facility] Co de Phone Number [facility] [address] [place] [address] * HEPATITIS B SURFACE ANTIBODY (12/02/2019 10:45 EDT) Hep B Surface Ab, Quantitative 252.9 See Note mIU/mL 12/06/2019 9:14 EDT [facility] Comment: Reference Range for Hep B Surface Ab, Quant: Positive: >= 10.0 mIU/mL Negative: ??< 10.0 mIU/mL Patient is presumed to be immune to infection with Hepatitis B Virus. Hep B Surface Ab, Qualitative Positive See Note 12/06/2019 9:14 EDT [facility] Comment: Reference Range for Hep B Surface Ab, Qual: Unvaccinated: ??Negative Vaccinated: ??Positive Blood VENOUS BLOOD / Unknown 12/02/2019 10:45 EDT 12/03/2019 15:48 EDT us Provider Outr Resulting Lab CHEMISTRY & BLOOD GA S ORDERABLES Final Result Performing Organization Address [facility] Co de Phone Number [facility] [address] [place] [address] * (ABNORMAL) HEPATITIS C AB W REFLEX TO HCV RNA BY PCR (12/02/2019 10:45 EDT) Hep C Antibody Reactive(A ) Negative 12/06/2019 11:23 EDT [facility] Comment: Supplemental testing for HCV RNA is ordered to rule out active HCV infection. Blood VENOUS BLOOD / Unknown 12/02/2019 10:45 EDT 12/03/2019 15:48 EDT us Provider Outr Resulting Lab CHEMISTRY & BLOOD GA S ORDERABLES Final Result Performing Organization Address City/[facility]/ZIP Co de Phone Number [facility] [address] [place] [address] * HEPATITIS A TOTAL ANTIBODY W REFLEX (12/02/2019 10:45 EDT) Hepatitis A Antibody, Total Negative Negative 12/06/2019 11:07 EDT [facility] Blood VENOUS BLOOD / Unknown 12/02/2019 10:45 EDT 12/03/2019 15:48 EDT Narrative [facility] - 12/06/2019 11:07 EDT The result of this assay can be falsely elevated (Positive) due to the consumption of Biotin. us Provider Outr Resulting Lab CHEMISTRY & BLOOD GA S ORDERABLES Final Result [facility] [address] [place] [address] documented in this encounter Visit Diagnoses Not on filedocumented in this encounter Care Teams District Manager In Training Relationship Specialty Start Date End Date Seymour Collado MD [address] [place] [address] PCP - General 12/19/09 documented as of this encounter
--- OUTSIDE RECORDS SUMMARY | 2024-02-08 12:28 | XMS_ITS | Encounter Summary ---
Author Organization [facility] Address [address] [place] [address] Care Team Providers Care Proposal Consultant Name Role Phone Seymour Collado MD Primary Care Provider + [phone] Encounter Details Date Type Department Care Team (Late st Contact Info) Description 01/07/2018 Results Only Imaging [facility] [phone] Vanessa Melchor, [address] [address] Social History Tobacco Use Types Packs/Day Years [...] Procedure Name Priority Date/Time Associated Diagnosis Comments HALFWAY DETAILED 01/07/2018 16:03 EDT documented in this encounter Results * HALFWAY DETAILED (01/07/2018 16:03 EDT) Anatomical Region Laterality Modality Other 01/07/2018 16:0 3 EDT 01/07/2018 16:40 EDT Narrative 01/07/2018 16:40 EDT Indication Chronic bleeding this . History ======= General History Height 163 cm Height (ft) ?5 ft Height (in) ?4 in Previous Outcomes ?4 Para ?? 2 [place] children born (T) ?2 [place] children born (P) ?0 Abortions (A) ??1 [place]illing[place] living children (L) ??1 Other: Prior history of Maternal Assessment Height 163 cm Height (ft) ?5 ft Height (in) ?4 in Physical Exam Initial weight 68 kg Initial weight (lb) ?150 lb Initial BMI ?25.61 kg/m? Number of fetuses: 1. Dating ======= Method of dating: ??based on the LMP LMP on: ?08/16/2017 GA by LMP ??20 w + 4 d DELMY by LMP : ? 05/23/2018 Stated Dating on: ?12/05/2017 GA at stated dating date 15 w + 6 d GA by stated dating ??20 w + 4 d DELMY by stated dating: ?05/23/2018 Ultrasound examination on: 01/07/2018 GA by U/S based upon: ??AC, BPD, Femur, HC GA by U/S ??20 w + 2 d DELMY by U/S: ?05/25/2018 Assigned: ??Dating performed on 01/07/2018 Based on the LMP Assigned GA ?20 w + 4 d Assigned DELMY: ??05/23/2018 General Evaluation Cardiac activity: Present. FHR 148 bpm. movements: visualized. Placenta: anterior. Umbilical cord: Cord vessels: 3 vessel cord. Cord insertion: placental insertion: normal. Amniotic fluid: Amount of AF: normal. Biometry Biometry BPD ?46.4 mm 27% 20w 0d Hadlock OFD ?65.0 mm 91% 22w 0d Apolonia HC 178.7 mm ?42% 20w 2d [place] AC 155.9 mm ?50% 20w 5d Hadlock Femur ??32.1 mm 42% 20w 1d Apolonia Cerebellum tr ??20.8 mm 43% 20w 4d Smith CM 4.6 mm ??33% Nicolaides Nuchal fold ?4.16 mm Humerus ?31.7 mm 50% 20w 4d Apolonia EFW ?350 g Calculated by: Hadlock ([id number]) EFW (lb) ?? 0 lb EFW (oz) ?? 12 oz Cephalic index 0.71 ?1% Nicolaides HC / AC ?1.15 ?42% Hadlock FL / BPD ?? 0.69 ?30% Hadlock FL / AC ?0.21 ?13% Hadlock FHR ?148 bpm Head / Face / Neck [employer] Director 5.9 mm Nasal bone 5.5 mm Extremities / Bony Struc Radius 27.1 mm 35% Chitty Ulna ?? 28.3 mm 31% 20w 3d Apolonia Tibia ??28.7 mm 50% 20w 3d Apolonia Fibula 28.1 mm 35% 20w 0d Apolonia Foot ?? 32.2 mm 20% Chitty Anatomy Cranium: ?? normal Lateral ventricles: ?normal Choroid plexus: ?normal Midline falx: ??normal Cavum septi pellucidi: normal Cerebellum: ?normal Cisterna magna: ?normal Parenchyma: ?normal Cerebellar lobes: ??normal Vermis: ?normal Neck: ??normal Nuchal fold: ?? normal Lips: ??normal Profile: ?? normal Nose: ??normal Maxilla: ?? normal Mandible: ??normal 4-chamber view: ?normal RVOT: ??normal LVOT: ??normal Situs: normal Aortic arch: ?? normal SVC: ?? normal IVC: ?? normal 3-vessel view: normal 6-vyvdbh-jfehlli view: normal Rt lung: ?? normal Lt [...] to know gender: ??yes Aneuploidy Screening Age ?26 yrs Echogenic focus: ?? no Include: ?? intracardiac echogenic focus Include: ?? ventriculomegaly Include: ?? nuchal fold Include: ?? echogenic bowel Include: ?? mild hydronephrosis Ventriculomegaly: ??no Nuchal fold: ?? normal Echogenic bowel: ?? no Pyelectasis: ?? no Short femur: ?? no Include: ?? short humerus Include: ?? nasal bone Short humerus: no Nasal bone: ?present Background risk at time of screening ?? 1,081 Background risk at term ?1,264 Adjusted risk at time of screening 2,920 Adjusted risk at term ??3,414 Maternal Structures Uterus / Cervix Uterus: ?Appears normal Cervix: ?Appears normal Ovaries / Tubes / Adnexa Rt ovary: ??Visualized, normal appearance Rt ovary D1 ?1.8 cm Rt ovary D2 ?1.9 cm Rt ovary D3 ?2.0 cm Rt ovary mean ??1.9 cm Rt ovary vol ?? 3.6 cm cubed Lt ovary: ??Visualized, normal appearance Lt ovary D1 ?2.4 cm Lt ovary D2 ?1.8 cm Lt ovary D3 ?1.6 cm Lt ovary mean ??2.0 cm Lt ovary vol ?? 3.8 cm cubed Method ======== Transabdominal ultrasound examination, [place] E10. View: Good view. Impression [id number] Obstetrical ultrasound with and maternal evaluation, including detailed anatomic examination This is a willingham gestation. Biometry is consistent with menstrual dating. Anatomy appears normal as noted above; however, ultrasound [...] There is trunk and extremity movement noted. Follow-up Follow-up as clinically indicated. DATE OF SERVICE: 01/07/2018 Procedure Note Evelyn Du MD - 01/07/2018 Indication Chronic bleeding this . History ======= General History Height 163 cm Height (ft) 5 ft Height (in) 4 in Previous Outcomes 4 Para 2 [place] children born (T) 2 [place] children born (P) 0 Abortions (A) 1 [place] living children (L) 1 Other: Prior history of Maternal Assessment Height 163 cm Height (ft) 5 ft Height (in) 4 in Physical Exam Initial weight 68 kg Initial weight (lb) 150 lb Initial BMI 25.61 kg/m? Number of fetuses: 1. Dating ======= Method of dating: based on the LMP LMP on: 08/16/2017 GA by LMP 20 w + 4 d DELMY by LMP : 05/23/2018 Stated Dating on: 12/05/2017 GA at stated dating date 15 w + 6 d GA by stated dating 20 w + 4 d DELMY by stated datin05/23/2018 Ultrasound examination on: 01/07/2018 GA by U/S based upon: AC, BPD, Femur, HC GA by U/S 20 w + 2 d DELMY by U/S: 05/25/2018 Assigned: Dating performed on 01/07/2018 Based on the LMP Assigned GA 20 w + 4 d Assigned DELMY: 05/23/2018 General Evaluation Cardiac activity: Present. FHR 148 bpm. movements: visualized. Placenta: anterior. Umbilical cord: Cord vessels: 3 vessel cord. Cord insertion: placental insertion: normal. Amniotic fluid: Amount of AF: normal. Biometry Biometry BPD 46.4 mm 27% 20w 0d Hadlock OFD 65.0 mm 91% 22w 0d Apolonia HC 178.7 mm 42% 20w 2d [place] AC 155.9 mm 50% 20w 5d Hadlock Femur 32.1 mm 42% 20w 1d Apolonia Cerebellum tr 20.8 mm 43% 20w 4d Smith CM 4.6 mm 33% Nicolaides Nuchal fold 4.16 mm Humerus 31.7 mm 50% 20w 4d Apolonia EFW 350 g Calculated by: Hadlock ([id number]) EFW (lb) 0 lb EFW (oz) 12 oz Cephalic index 0.71 1% Nicolaides HC / AC 1.15 42% Hadlock FL / BPD 0.69 30% Hadlock FL / AC 0.21 13% Hadlock FHR 148 bpm Head / Face / Neck [employer] Director 5.9 mm Nasal bone 5.5 mm Extremities / Bony Struc Radius 27.1 mm 35% Chitty Ulna 28.3 mm 31% 20w 3d Apolonia Tibia 28.7 mm 50% 20w 3d Apolonia Fibula 28.1 mm 35% 20w 0d Apolonia Foot 32.2 mm 20% Chitty Anatomy Cranium: normal Lateral ventricles: normal Choroid plexus: normal Midline falx: normal Cavum septi pellucidi: normal Cerebellum: normal Cisterna magna: normal Parenchyma: normal Cerebellar lobes: normal Vermis: normal Neck: normal Nuchal fold: normal Lips: normal Profile: normal Nose: normal Maxilla: normal Mandible: normal 4-chamber view: normal RVOT: normal LVOT: normal Situs: normal Aortic arch: normal SVC: normal IVC: normal 3-vessel view: normal 1-vhmwok-vpbxukb view: normal Rt lung: normal Lt lung: [...] to know gender: yes Aneuploidy Screening Age 27 yrs Echogenic focus: no Include: intracardiac echogenic focus Include: ventriculomegaly Include: nuchal fold Include: echogenic bowel Include: mild hydronephrosis Ventriculomegaly: no Nuchal fold: normal Echogenic bowel: no Pyelectasis: no Short femur: no Include: short humerus Include: nasal bone Short humerus: no Nasal bone: present Background risk at time of screening 1,081 Background risk at term 1,264 Adjusted risk at time of screening 2,920 Adjusted risk at term 3,414 Maternal Structures Uterus / Cervix Uterus: Appears normal Cervix: Appears normal Ovaries / Tubes / Adnexa Rt ovary: Visualized, normal appearance Rt ovary D1 1.8 cm Rt ovary D2 1.9 cm Rt ovary D3 2.0 cm Rt ovary mean 1.9 cm Rt ovary vol 3.6 cm cubed Lt ovary: Visualized, normal appearance Lt ovary D1 2.4 cm Lt ovary D2 1.8 cm Lt ovary D3 1.6 cm Lt ovary mean 2.0 cm Lt ovary vol 3.8 cm cubed Method ======== Transabdominal ultrasound examination, [place] E10. View: Good view. Impression [id number] Obstetrical ultrasound with and maternal evaluation, including detailed anatomic examination This is a willingham gestation. Biometry is consistent with menstrual dating. Anatomy appears normal as noted above; however, ultrasound [...] There is trunk and extremity movement noted. Follow-up Follow-up as clinically indicated. DATE OF SERVICE: 01/07/2018 [facility] Result documented in this encounter Visit Diagnoses Not on filedocumented in this encounter Care Teams Proposal Consultant Relationship Specialty Start Date End Date Seymour Collado MD [address] [place] [address] PCP - General 12/19/09 documented as of this encounter
--- OUTSIDE RECORDS SUMMARY | 2024-02-08 12:28 | XMS_ITS | Encounter Summary ---
Author Organization [facility] Address [address] [place] [address] Care Team Providers Care Building Carpenter Helper Name Role Phone Seymour Collado MD Primary Care Provider [phone] Encounter Details Date Type Department Care Team (Late st Contact Info) Description 03/19/2017 Results Only Imaging [facility] [phone] Vanessa Melchor, [address] [address] Social History Tobacco Use Types Packs/Day Years [...] Procedure Name Priority Date/Time Associated Diagnosis Comments [facility] ECHOCARDIOGRAM (PEDI CARD) 03/19/2017 9:27 EST documented in this encounter Results * [facility] ECHOCARDIOGRAM (PEDI CARD) (03/19/2017 9:27 EST) Anatomical Region Laterality Modality Other 03/19/2017 9:27 EST Narrative 03/19/2017 14:11 EST Pediatric Cardiology [address] [place] [address] Date of study: 03/19/2017 Transabdominal Echocardiography Complete 2D, complete spectral Doppler, and color Doppler *STUDY CONCLUSIONS* Summary: - echocardiogram at 25 weeks + 5days gestation. - Mild tricuspid regurgitation with suggestion of mild valve thickening ??and displacement. - Cannot rule out perimembranous ventricular septal defect. - Normal chamber size and function. - Normal arterial and venous connections. - Normal Doppler study. - No arrhythmias noted during the exam. - No evidence of hydrops. - The results of the study, its limitations and the limitations of ??echocardiography in general were reviewed. The inability to diagnose ??patent ductus arteriosus, some atrial defects, ventricular septal ??defects and coarctation was discussed. Recommendations: ??Further echocardiography is recommended in 4 weeks: Reassess tricuspid valve and ventricular septum. *PATIENT PRESENTATION* Age: ?26yr Height: ? () S/D Pressure: Weight: ? () BSA: Location: Facility: ? [facility] Attending: ?Aj Ornelas MD Referring: ?Vanessa Melchor Ordering: ? Vanessa Melchor Test start time: ??Test start time: 09:25 AM. Test stop time: ??Test stop time: 10:00 AM. *PROCEDURE DATA* Procedure information: ??Pertinent images and digital data are archived for permanent storage and are available for subsequent review. ??Study status: ??Routine. Transabdominal echocardiography. ??Complete 2D, complete spectral Doppler, and color Doppler. ??Transabdominal echocardiography for congenital heart disease evaluation. Views were limited by position and maternal obesity. ??Maternal age: ?26yr. : ?4. ??Parity: ?2. ??Expected delivery date: ?06/27/2017. Gestational age: ?25wk. ??Study completion: ??The patient tolerated the procedure well. *INDICATIONS AND HISTORY* Indications: ?? (Z82.49) Family history of ischemic heart disease and other diseases of the circulatory system. History: ?? 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 Son with transitional AV canal s/p surgical repair. *CARDIAC ANATOMY* DESCRIPTION ? One fetus is present. The rhythm is sinus rhythm, with no apparent ectopy, an atrial rate of 137bpm, an AV conduction interval of 110ms, a ventricular rate of 137bpm, and a heart rate of 137bpm. Normal Doppler pattern of the ductus venosus, umbilical artery, and vein VEINS AND ATRIA Atrial septum: ??There is a patent foramen ovale. There is a [id number]-[id number] shunt. Left atrium: ??The atrium is normal in size. Right atrium: ??The atrium is normal in size. Systemic veins: ??Normal systemic venous drainage. Pulmonary veins: ??At least one pulmonary vein is seen entering the left atrium from each side. A-V CANAL Tricuspid valve: ??The annulus is normal-sized. Some images suggest mild thickening and displacement. ?There is normal biphasic inflow spectral Doppler. There is mild regurgitation directed centrally. Mitral valve: ??The annulus is normal-sized. ?There is normal biphasic inflow spectral Doppler. There is no regurgitation. VENTRICLES Right ventricle: ??The cavity size is normal. Systolic function is qualitatively normal. Ventricular septum: ?? A septal defect cannot be excluded in the perimembranous region, near the tricuspid valvar area. Left ventricle: ??The cavity size is normal. [...] significant pericardial effusion. *MEASUREMENT TABLES* ? Value ?Reference ?? Z TrV annulus ? 0.68 ??cm 0.53 - 0.87 -0.2 MiV annulus ? 0.66 ??cm 0.52 - 0.80 0.0 PuV annulus ? 0.57 ??cm 0.41 - 0.64 0.7 AoV annulus ? 0.42 ??cm 0.34 - 0.52 -0.3 Legend: (L) ??and ??(H) ?? values outside specified reference range. I have personally reviewed the images and have reviewed and edited the reported findings. Electronically signed by Aj Ornelas MD 03/19/2017 14:11 Procedure Note Aj Ornelas MD - 03/19/2017 Pediatric Cardiology [address] [place] [address] Date of study: 03/19/2017 Transabdominal Echocardiography Complete 2D, complete spectral Doppler, and color Doppler *STUDY CONCLUSIONS* Summary: - echocardiogram at 25 weeks + 5days gestation. - Mild tricuspid regurgitation with suggestion of mild valve thickening and displacement. - Cannot rule out perimembranous ventricular septal defect. - Normal chamber size and function. - Normal arterial and venous connections. - Normal Doppler study. - No arrhythmias noted during the exam. - No evidence of hydrops. - The results of the study, its limitations and the limitations of echocardiography in general were reviewed. The inability to diagnose patent ductus arteriosus, some atrial defects, ventricular septal defects and coarctation was discussed. Recommendations: Further echocardiography is recommended in 4 weeks: Reassess tricuspid valve and ventricular septum. *PATIENT PRESENTATION* Age: 26yr Height: () S/D Pressure: Weight: () BSA: Location: Facility: [facility] Attending: Aj Ornelas MD Referring: Vanessa Melchor Ordering: Vanessa Melchor Test start time: Test start time: 09:25 AM. Test stop time: Test stop time: 10:00 AM. *PROCEDURE DATA* Procedure information: Pertinent images and digital data are archived for permanent storage and are available for subsequent review. Study status: Routine. Transabdominal echocardiography. Complete 2D, complete spectral Doppler, and color Doppler. Transabdominal echocardiography for congenital heart disease evaluation. Views were limited by position and maternal obesity. Maternal age: 26yr. : 4. Parity: 2. Expected delivery date: 06/27/2017. Gestational age: 25wk. Study completion: The patient tolerated the procedure well. *INDICATIONS AND HISTORY* Indications: (Z82.49) Family history of ischemic heart disease and other diseases of the circulatory system. 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 Son with transitional AV canal s/p surgical repair. *CARDIAC ANATOMY* DESCRIPTION One fetus is present. The rhythm is sinus rhythm, with no apparent ectopy, an atrial rate of 137bpm, an AV conduction interval of 110ms, a ventricular rate of 137bpm, and a heart rate of 137bpm. Normal Doppler pattern of the ductus venosus, umbilical artery, and vein VEINS AND ATRIA Atrial septum: There is a patent foramen ovale. There is a [id number] shunt. Left atrium: The atrium is normal in size. Right atrium: The atrium is normal in size. Systemic veins: Normal systemic venous drainage. Pulmonary veins: At least one pulmonary vein is seen entering the left atrium from each side. A-V CANAL Tricuspid valve: The annulus is normal-sized. Some images suggest mild thickening and displacement. There is normal biphasic inflow spectral Doppler. There is mild regurgitation directed centrally. Mitral valve: The annulus is normal-sized. There is normal biphasic inflow spectral Doppler. There is no regurgitation. VENTRICLES Right ventricle: The cavity size is normal. Systolic function is qualitatively normal. Ventricular septum: A septal defect cannot be excluded in the perimembranous region, near the tricuspid valvar area. Left ventricle: The cavity size is normal. [...] no significant pericardial effusion. *MEASUREMENT TABLES* Value Reference Z TrV annulus 0.68 cm 0.53 - 0.87 -0.2 MiV annulus 0.66 cm 0.52 - 0.80 0.0 PuV annulus 0.57 cm 0.41 - 0.64 0.7 AoV annulus 0.42 cm 0.34 - 0.52 -0.3 Legend: (L) and (H) values outside specified reference range. I have personally reviewed the images and have reviewed and edited the reported findings. Electronically signed by Aj Ornelas MD 03/19/2017 14:11 Vanessa Melchor [facility] CARDIAC ECHO ORDERABLES Final Result documented in this encounter Visit Diagnoses Not on filedocumented in this encounter Care Teams Building Carpenter Helper Relationship Specialty Start Date End Date Seymour Collado MD [address] [place] [address] PCP - General 12/19/09 documented as of this encounter
--- OUTSIDE RECORDS SUMMARY | 2024-02-08 12:28 | XMS_ITS | Encounter Summary ---
Author Organization [facility] Address [address] [place] [address] Care Team Providers Care Wood Router Hand Name Role Phone Seymour Collado MD Primary Care Provider [phone] Encounter Details Date Type Department Care Team (Late st Contact Info) Description 07/19/2022 Lab Requisition [facility] Pathology & Laboratory Medicine - [address] [address] Outr Resulting Lab, Provider Social History Tobacco [...] Entry Date Author No 06/20/2017 17:00 EDT Dimitir Faloln RN documented in this encounter Plan of Treatment Not on file documented as of this encounter Procedures Procedure Name Priority Date/Time Associated Diagnosis Comments CHLAMYDIA/N. GONORRHOEAE AMPLIFIED NUCLEIC ACID Routine 07/18/2022 14:15 EDT documented in this encounter Results * CHLAMYDIA/N. GONORRHOEAE AMPLIFIED RNA (07/18/2022 14:15 EDT) Neisseria gonorrhoeae Result Negative Negative 07/20/2022 13:[address] [facility] Chlamydia trachomatis Result Negative Negative 07/20/2022 13:[address] [facility] Swab ENTIRE ENDOCERVIX / Unknown 07/18/2022 14:15 EDT 07/19/2022 19:13 EDT us Provider Outr Resulting Lab MICROBIOLOGY - GENER AL ORDERABLES Final Result [facility] [address] [place] [address] documented in this encounter Visit Diagnoses Not on filedocumented in this encounter Care Teams Wood Router Hand Relationship Specialty Start Date End Date Seymour Collado MD [address] [place] [address] PCP - General 12/19/09 documented as of this encounter
--- OUTSIDE RECORDS SUMMARY | 2024-02-08 12:28 | XMS_ITS | Encounter Summary ---
Author Organization [facility] Address [address] [place] [address] Care Team Providers Care Family And Consumer Sciences Teacher Name Role Phone Seymour Collado MD Primary Care Provider [phone] Reason for Referral * (Routine) - Closed Specialty Diagnoses / Procedures Referred By Contabebe t Referred To Contact Lalit Ch MD Referral ID Status Reason Start Date Expiration Date V isits Requested Visits Authorized [id number] Closed Specialty Services Required 08/06/2014 1 1 Comments See your doctor in the [facility] in 6-8 weeks. Please call for an appointment. * (Routine) - Closed Specialty Diagnoses / Procedures Referred By Contac t Referred To Contact Lalit Ch MD Referral ID Status Reason Start Date Expiration Date V isits Requested Visits Authorized [id number] Closed Specialty Services Required 08/06/2014 1 1 Reason for Visit * Reason Comments Scheduled Encounter Details Date Type Department Care Team (Late st Contact Info) Description 08/02/2014 9:20 EDT - 08/06/2014 14:37 EDT Hospital Encounter [facility] Mother/Baby [address], [place] [id number] Dario Jackson MD [address] [facility], [address] [place] [phone] Laurie Butler MD [address] [facility], [address] [place] [phone] Supervision of high-risk (Primary Dx); Breech presentation; cardiac anomaly complicating , antepartum; Opiate dependence (CMS-HCC) (HCC-CMS); Breech presentation without mention of version, antepartum Discharge Disposition: Home or Self Care Social [...] Sign Reading Time Taken Comments Blood Pressure 127/81 08/06/2014 0902 EDT Pulse - - Temperature 37 ??C (98.6 ??F) 08/06/2014 0902 EDT Respiratory Rate 20 08/06/2014 0902 EDT Oxygen Saturation 97% 08/06/2014 0902 EDT Inhaled Oxygen Concentration - - Weight 79.4 kg (175 lb) 08/04/2014 0200 EDT Height 162.6 cm (5' 4) 08/04/2014 0200 EDT Body Mass Index 30.04 08/04/2014 0200 EDT documented in this encounter [...] Lisa Trevizo RN documented in this encounter Discharge Summaries * Danilo Lunsford MD - 08/02/2014 2040 EDT Department of CERTIFIED ANESTHESIOLOGIST ASSISTANT MATERNAL DISCHARGE SUMMARY Information for the patient's : Elijah Moreno [[id number]] Kellijc Moreno Maternal Name: Adrianna Moreno : 1990 Attending: Laurie Butler MD Admission: 08/02/2014 Discharge: 08/06/2014 Reason for Admission: 24 y.o. at 39w4d Multiple gestation: No, Ching planned primary LTCS for breech presentation and prior failed ECV Hospital Problems: Active Problems: Supervision of high-risk Other known or suspected abnormality, not elsewhere classified, affecting management of mother, antepartum condition or complication Rh negative state in antepartum period Breech presentation Opiate dependence Principal Procedure: Primary schedule low transverse section Secondary Procedures: none Allergies: Kiwi Medications during current : Current Facility-Administered Medications Medication Route Frequency ??? acetaminophen (TYLENOL) tablet 325-650 mg oral Q4H Followed by ??? [START ON 08/04/2014] acetaminophen (TYLENOL) tablet 325-650 mg oral Q4H PRN ??? bisacodyl (DULCOLAX) suppository 10 mg rectal Daily PRN ??? calcium carbonate (TUMS) 200 mg calcium (500 mg) per chewable tablet tablet,chewable 1-2 Tab oral Q2H PRN ??? dextrose 5 % and 0.45 % NaCl with KCl 20 mEq/L infusion intravenous CONTINUOUS ??? docusate sodium (COLACE) capsule 100 mg oral BID PRN ??? HYDROmorphone (DILAUDID) tablet 2-6 mg oral Q3H Followed by ??? [START ON 08/03/2014] HYDROmorphone (DILAUDID) tablet 2-6 mg oral Q3H PRN ??? HYDROmorphone (PF) (DILAUDID) 1 mg/mL injection 0.2-0.6 mg intravenous Q3H PRN ??? ibuprofen (MOTRIN) tablet 400 mg oral Q4H Followed by ??? [START ON 08/04/2014] ibuprofen (MOTRIN) tablet 400 mg oral Q4H PRN ??? lactated ringers (LR) infusion intravenous CONTINUOUS ??? lansinoh HPA lanolin topical PRN ??? magnesium hydroxide (MILK OF MAGNESIA) 400 mg/5 mL suspension 30 mL oral Daily PRN ??? [START ON 08/03/2014] methadone (DOLOPHINE) concentrated solution 100 mg oral DAILY ??? multivitamin vit-iron fumarate-FA (STUARTNATAL) 27 mg iron- 1 mg tablet 1 Tab oral DAILY ??? ondansetron (PF) (ZOFRAN) injection 4 mg intravenous Q6H PRN Or ??? ondansetron (ZOFRAN-ODT) disintegrating tablet 4 mg oral Q6H PRN LABOR INFORMATION Labor Onset: None GBS Status: Positive GBS Prophylaxis: No treatment Labor Analgesia: Spinal, FHR Pattern: Cat I FHT Amniotic Fluid Color: Clear Duration Rupture of Membranes: hours minutes DELIVERY INFORMATION - LST ; Episiotomy: None Lacerations Perineal: None Repaired? Periurethral: Repaired? Labia: Repaired? Sulcus: Repaired? Vaginal: Repaired? Cervical: Repaired? Repair Suture: 0 Vicryl Delivery / Repair Anesthesia: Spinal, EBL: 800.00 Placenta: Method: Spontaneous Labor and Delivery Complications and/or Procedures: None INFORMATION Date: 08/02/2014 Time: 1402 Weight: 3630 g (8 lb) Sex: male Apgars: 6 9 Hospital Course: 24yo @ 39+4 presented for a scheduled primary CS for maude breech presentation after a prior failed ECV. 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 The procedure was uncomplicated and the NICU team was present for resuscitation after delivery. The infant was admitted for the NICU for further monitoring and treatment. The patient's postoperative and course was uncomplicated. The carbone was removed POD#1 and the patient voided without difficulty. Her pain as well controlled, she was ambulating and tolerating a regular diet. Lochia was mild. The patient was discharged POD#4 with instructions to follow-upin the clinic at 2 and 6 weeks for routine postoperative and care. MATERNAL DISCHARGE SUMMARY Patient Active Problem List Diagnosis Date Noted ??? Opiate dependence 07/18/2014 methadone ??? 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 Breech presentation 07/13/2014 Found to be breech presentation on detailed ultrasound @ 35+6 Version scheduled for 07/18 FAILED PCS 08/02 ??? Other known or suspected abnormality, not elsewhere classified, affecting management of mother, antepartum condition or complication 07/12/2014 Persistent SVC noted at detailed at 35+6, echo ordered--> Av canal with ASD, 50% chance ofdown's syndrome per Dr. Shipman. Offered genetic counseling, pt declined. Will start testing next week. Discussed NIPT and amnio; either will take 2 weeks and pt will likely be delivered; disc higher rate of culture failure with either. Will not alter OB management. ??? Rh negative state in antepartum period 07/12/2014 Received rhogam at OSH at 27 weeks ga S/p rhogam 07/18 (ECV) ??? Supervision of high-risk 06/28/2014 # Global - Dating: DELMY 08/05/2014 by [...] -- really interested in a Mirena IUD ??? Stopped smoking during 06/28/2014 Quit smoking 2-3 months into , still occasional smokes cigarette FOB smokes and lives in house with her [x ] growth scan ordered 3,145 g 83% Freire @ 35+6 Immunizations indicated : Rhogam Clinical Issues Needing Follow-up: - Routine care - Care for infant with cardiac defect (AV canal) Results Pending at Discharge: Test results still pending from this admission Procedure Component Value Units Date/Time Surgical Pathology [[id number]] Collected: 08/02/142023 Lab Status: In process Updated: 08/02/142024 Appointments Scheduled with [facility] in the Next 3 Months: None Follow-Up Appointments and Procedures Recommended to Patient: None Follow-Up Labs and Tests: None : uncomplicated Additional Comments: none Diet Activity: regular, as tolerated, nothing per vagina X 6 weeks Discharge Medications / Dosage: tylenol, ibuprofen, colace, oxy, PNV Discharge Medications: START taking these medications Sig acetaminophen 325 mg tablet Commonly known as: TYLENOL 325-650 mg, oral, EVERY 4 HOURS PRN docusate sodium 100 mg capsule Commonly known as: COLACE 100 mg, oral, 2 TIMES DAILY PRN HYDROmorphone 2 mg tablet Commonly known as: DILAUDID 2-6 mg, oral, EVERY 3 HOURS PRN ibuprofen 400 mg tablet Commonly known as: MOTRIN 400 mg, oral, EVERY 4 HOURS PRN CONTINUE taking these medications Sig calcium carbonate 200 mg calcium (500 mg) tablet,chewable Commonly known as: TUMS 1-2 Tabs, oral, 4 TIMES DAILY PRN methadone 5 mg/5 mL oral solution Commonly known as: DOLOPHINE 100 mg, oral, DAILY ondansetron 4 mg tablet Commonly known as: ZOFRAN ( HYDROCHLORIDE) 4 mg, oral, EVERY 8 HOURS PRN VITAMIN tablet Generic drug: Ualwhofl-Hr-Egh-Fe-FA 1 Tab, oral, DAILY Other Problems / Discharge Diagnoses Follow-Up Plan for each Problem: Contraception discussed, willdiscuss at PPV. Pt verbalized understanding of S/Sx of post- depression and plan if sx occur. Condition at Discharge: good Discharge Disposition: [X] Home Hannah Ford MD 08/02/2014 20:40 Attestation Statement ???I Danilo Lunsford M.D, M.S., hereby attest that the Discharge Summary entry for 08/06/2014 accurately reflects signatures/notations made in my capacity as attending physician when I treated/diagnosed the above listed patient. I was present during any, and all procedures, and properly supervised the resident staff until the procedures were complete. I do hereby attest that this information istrue, accurate and complete to the best of my knowledge. documented in this encounter Medications at Time [...] times daily as needed for Constipation 08/06/2014 ibuprofen (MOTRIN) 400 mg tablet Take 1 Tab by mouth every 4 hours as needed for Pain 08/06/2014 methadone (DOLOPHINE) 5 mg/5 mL oral solution Take 100 mg by mouth daily ondansetron (ZOFRAN) 4 mg tablet Take 1 Tab by mouth every 8 hours as needed for Nausea. 10 Tab 0 12/19/2009 Emklwlrx-Kb-Xpc- Fe-FA ( VITAMIN) tablet Take 1 Tab by mouth daily HYDROmorphone (DILAUDID) 2 mg tablet Take 1-3 Tabs by mouth every 3 hours as needed for Pain Daily Max: 48 mg 30 Tab 0 08/06/2014 5 documented as of this encounter Ordered Prescriptions Prescription Sig Dispense Quantity Refills Last Filled Start Date End Date ibuprofen (MOTRIN) 400 mg tablet Take 1 Tab by mouth every 4 hours as needed for Pain 08/06/2014 docusate sodium (COLACE) 100 mg capsule Take 1 Cap by mouth 2 times daily as needed for Constipation 08/06/2014 acetaminophen (TYLENOL) 325 mg tablet Take 1-2 Tabs by mouth every 4 hours as needed for Pain 08/06/2014 HYDROmorphone (DILAUDID) 2 mg tablet Take 1-3 Tabs by mouth every 3 hours as needed for Pain Daily Max: 48 mg 30 Tab 0 08/06/2014 5 documented in this encounter Discharge Disposition Disposition Code Departure Means Destination Home or Self Care documented in this encounter Progress Notes * Danilo Lunsford MD - 08/06/2014 0551 EDT C/S Progress Note CC: s/p LTCS S: Doing well, pain well controlled. Passing flatus, no BM. Tolerating regular diet without nausea/vomiting. Has ambulated. Voiding spontaneously. Lochia minimal. going well. The patient denies CP/SOB/N/V/SPRAGUE/Dizziness/F/C/LE pain. O: BP 134/85 Temp(Src) 37 ??C (98.6 ??F) (Temporal) Resp 18 Ht 162.6 cm (64) Wt 79.379 kg (175 lb) BMI 30.02 kg/m2 SpO2 100% ? Unknown No intake or output data in the 24 hours ending 08/06/14 0551 Gen: NAD Resp: CTAB CV: RRR Abd: +BS, soft, nondistended, appropriately tender to palpation, fundus firm @ 3 cm below umbilicus, incision clean/dry/intact with mayo Ext: WWP, 2+DPs, 1+ PE bilat A/P: Adrianna Moreno is a 24 y.o. POD#4 s/p primary LTCS at 39w4d for breech presentation. Ptrecovering well, AVSS and adequate UOP. *Continue routine post-op/post- care. Discussed depression and contraception, handouts given, will discuss at visit. Desires Depo bridge to Mirena. Mirena pre-cert completed. *Continue current pain regimen. *Opioid dependence: continue home methadone dose *Rh neg: rec'd rhogam *Varicella negative: will need varivax at pp visit. Cannot give in immediate timeframe with rhogam. *Encourage IS, ambulation, PO intake; support BF. *Likely d/c home today. Circ done on baby boy. Lalit Ch MD 08/06/2014 5:51 Obstetrics and Gynecology Attending Attestation statement: I saw and examined the patient with the resident/fellow. I agree with the findings and plan of care documented in the resident's/fellow's note. The patient is cleared for discharge. Danilo Lunsford M.D., M.S. [phone] Clinical Instructor, Obstetrics, Gynecology, and Reproductive Sciences * Tessie Gaming - 08/05/2014 1141 EDT Checked in with parents this morning, report they are doing well at this time. Understand that hospital stay for both mom and baby likely through tomorrow. Looking forward to discharge home once medically ready. Have good supports in place, no needs identified. Provided a gas card to assist with travel cost. Tessie Gaming, SLURRY BLENDER #[id number] * Laurie Butler MD - 08/05/2014 0645 EDT C/S Progress Note CC: s/p LTCS S: Doing well, pain well controlled. Passing flatus, no BM. Tolerating regular diet without nausea/vomiting. Has ambulated. Voiding spontaneously. Lochia minimal, decreasing. going better, baby latching now and milk is coming in. The patient denies CP/SOB/N/V/SPRAGUE/Dizziness/F/C/LE pain. O: BP 121/77 Temp(Src) 36.1 ??C (97 ??F) (Temporal) Resp 18 Ht 162.6 cm (64) Wt 79.379 kg (175 lb) BMI 30.02 kg/m2 SpO2 97% ? Unknown No intake or output data in the 24 hours ending 08/05/14 0645 Gen: NAD Resp: CTAB CV: RRR Abd: +BS, soft, nondistended, appropriately tender to palpation, fundus firm @ 3 cm below umbilicus, incision clean/dry/intact with mayo Ext: WWP, 2+DPs, 1+ PE bilat A/P: Adrianna Moreno is a 24 y.o. POD#3 s/p primary LTCS at 39w4d for breech. Pt recovering well, AVSS and adequate UOP. *Continue routine post-op/post- care. Discussed depression and contraception, handouts given, will discuss at visit. Desires Depo bridge to Mirena. Pre-cert completed in office, will order Depo for administration tomorrow prior to discharge. *Continue current pain regimen. Continue home methadone dose *Encourage IS, ambulation, PO intake; support BF. *Baby doing well, out of NICU. Continue SUKHJINDER scoring, no acute interventions needed per patient for heart defect, will follow-up as outpatient. Circ consent signed this am, will plan to do today *Likely d/c home tomorrow Lalit Ch MD 08/05/2014 6:45 \ OB Attending Attestation: I have examined Adrianna Moreno myself and agree with the above assessment and plan as noted. LAURIE BUTLER MD * Tessie Gaming - 08/04/2014 1037 EDT Brief Case Management Assessment & Initial Discharge Plan Reason for Hospitalization: s/p delivery of baby boy, Apolinar Pedro, admitted to theNICU for evaluation of congenital heart disease, SUKHJINDER scoring. Current Living Arrangements: Adrianna and Fab Pedro live in [place] with Adrianna's mother. Current Social, Health Care and Community Supports: Adrianna is covered by [place] Medicaid, talked with her about calling to add baby to coverage. She is receiving WIC, will notify of . Both Adrianna and Ta are actively involved in treatment, on Methadone. Identified Case Management/Social Work Needs and Issues (housing, care, financial, transportation, cultural, spiritual, emotional, legal, etc.): No needs identified at this time. Case Management Actions (completed and planned): Introduced myself and role working with families while inpatient. Adrianna was seen prior to delivery by Maxwell Devan and says she is understanding SUKHJINDER scoring. Mom is hopeful that Apolinar will transition to NBN later in the day so they can be together. Will check in before the weekend to assess any additional needs. Tessie Gaming, SLURRY BLENDER #[id number] * Amanda Tessie - 08/04/2014 0710 EDT C/S Progress Note CC: s/p LTCS S: Doing well, pain well controlled. Baby down from NICU, no acute interventions needed and patientvery pleased with this. Passing flatus, no BM. Tolerating regular diet without nausea/vomiting. Hasambulated. Voiding spontaneously. Lochia moderate. Struggling with , baby not latchingwell. Continues to desire significant support with this. The patient denies CP/SOB/N/V/SPRAGUE/Dizziness/F/C/LE pain. O: BP 111/61 Temp(Src) 37.2 ??C (99 ??F) (Temporal) Resp 18 Ht 162.6 cm (64) Wt 79.379 kg (175 lb) BMI 30.02 kg/m2 SpO2 97% ? Unknown Intake/Output Summary (Last 24 hours) at 08/04/14 0710 Last data filed at 08/03/14 0800 Gross per 24 hour Intake 0 ml Output 400 ml Net -400 ml Gen: NAD Resp: CTAB CV: RRR Abd: +BS, soft, nondistended, appropriately tender to palpation, fundus firm @ 2 cm below umbilicus, incision clean/dry/intact with mayo Ext: WWP, 2+DPs, 1+ PE bilat A/P: Adrianna Moreno is a 24 y.o. POD#2 s/p primary LTCS at 39w4d for breech. Pt recovering well, AVSS and adequate UOP. *Continue routine post-op/post- care. Discussed depression and contraception, handouts given, will discuss at visit. Desires Mirena *Continue current pain regimen. *Opioid dependence: continue methadone dose. *Encourage IS, ambulation, PO intake; support BF. *Likely d/c home POD 3/4. Lalit Ch MD 08/04/2014 7:10 Attestation: I saw and evaluated the patient. I agree with the findings and plan of care as documented in the resident's/fellow's note. Tessie Patel MD 08/04/2014 * Lalit Ch MD - 08/03/2014 0540 EDT Postoperative Progress Note CC: s/p LTCS S: Doing well, pain initially not well controlled but doing better now with med adjustments overnight. Not yet passing flatus, no BM. Tolerating regular diet without nausea/vomiting. Has ambulated. Carbone in place. Lochia moderate. Tried to breastfeed once overnight in NICU, wants to start pumping today. Reports baby doing well, may be able to come downstairs to N today. The patient denies CP/SOB/N/V/SPRAGUE/Dizziness/F/C/LE pain. O: BP 123/59 Temp(Src) 36 ??C (96.8 ??F) (Temporal) Resp 18 Wt 79.379 kg (175 lb) SpO2 97% ? Unknown Intake/Output Summary (Last 24 hours) at 08/03/14 0540 Last data filed at 08/03/14 0400 Gross per 24 hour Intake 4661.5 ml Output 4975 ml Net -313.5 ml UOP: 800 cc/4 hrs Gen: NAD Resp: CTAB CV: RRR Abd: +BS, soft, nondistended, appropriately tender to palpation, fundus firm @ 2 cm below umbilicus, bulky dressing clean/dry/intact with no shadowing noted Ext: WWP, 2+DPs, 1+ PE bilat A/P: Adrianna Moreno is a 24 y.o. POD#1 s/p primary LTCS at 39w4d for breech. Pt recovering well, AVSS and adequate UOP. *Continue routine post-op/post- care. Discussed depression and contraception, handouts given, will discuss at visit. Previously expressed interest in Mirena IUD, would still like this. Will do pre-cert paperwork today. Unsure of what she may like in interim, will continue to disccuss. *Continue current pain regimen. *Encourage IS, ambulation, PO intake; support BF. Baby in NICU, may be coming down today per patient. Will order consult *D/C Carbone with ambulation today. Remove bulky dressing this pm after 24 hrs *CBC pending with Varicella IgG. *Rh negative, rhogam panel ordered. *Likely d/c home POD 3/4. Lalit Ch MD 08/03/2014 5:40 * Estephania Cuevas MD - 08/02/20142112 EDT OB POC CC: POD#0 s/p LTCS Subjective: Patient not in room. In NICU visiting her baby. Per RN, her pain was poorly controlled earlier in the evening prompting increase in frequency of dilaudid dosing and one time dose, but since then has been better controlled. Objective: BP 120/74 Temp(Src) 36.7 ??C (98.1 ??F) (Temporal) Resp 18 Wt 79.379 kg (175 lb) SpO2 96% ? Unknown Intake/Output Summary (Last 24 hours) at 08/02/142112 Last data filed at 08/02/14 2100 Gross per 24 hour Intake 4661.5 ml Output 3375 ml Net 1286.5 ml UOP 500mL over 1 hour Recent Labs 08/02/14 1006 HCT 37.9 Assessment/Plan:Adrianna Moreno is a 24 y.o. POD #0 s/p LTCS for breech malpresentation. AVSS. AUOP. #Continue routine PP care including current pain regimen. #EBL: 800mL. Pre-op Hct 37.9. Post-op Hct in am. Appropriate. #Encourage ambulation, PO intake and b reast feeding. #RhoGam panel ordered for Rh neg # Anticipate discharge: on POD 4 Estephania Cuevas MD, PGY3 Department of Obstetrics and Gynecology * Lisa Trevizo, RN - 08/02/2014 1040 EDT Pt admitted to rm 11 for scheduled CS Baby breech with a known cardiac defect Family at bedside andsupportive EFM allied FHR cat 1 IV started Labs sent Pre op teaching done 1100 Explained to pt that her CS is on hold for a non elective CS documented in this encounter H&P Notes * Laurie Butler MD - 08/02/2014 1004 EDT Department of Obstetrics History & Physical Admit Date: 08/02/2014 No chief complaint on file. Admission indication: Planned Maternal transport/Outside delivery: No HPI: Adrianna Moreno is a 24 y.o. at 39w4d by LMP c/w first trimester scan who presents todayfor primary for breech presentation. Patient had a failed external version at 37 weeks. has been complicated by cardiac malformation of AV-canal defect with increased risk of trisomy 21. She has had a consult with pedi-bogdan, and declined invasive testing for chromosomes. She is also maintained on 100 mg methadone daily through [facility] for opioid dependence. Today reports feeling nervous, but otherwise well. Occasional mild contractions, no LOF, VB. +FM. Denies sprague/vision changes/upper abd pain/LE swelling. Reports that she did receive her am methadone dose today. Review of Systems: negative except as per HPI Current Complications: Substance abuse: Opioids - methadone Prior admission for PTL (this ): No Immunizations during : rhogam;TdaP Immunizations indicated : Rhogam Patient involved in a clinical trial?: No Prior : None growth abnormality: None Multiple gestation: No, Ching Second or third trimester bleeding: None Abnormal placentation/cord: None Alloimmunization: None Testing: Genetic screening: None Genetic screening abnormalities: None Genetic procedures: None testing: NST Maternal/ imaging: First trimester US;Detailed US Congenital anomalies: Cardiac (AV canal defect) infection: None Dx requiring follow-up: Breech FOB History: Father of the baby medical history: Not significant Medication Exposure: Significant medication exposure: None DELMY 08/05/2014 by 6+6wk U/S c/w LMP Blood Type B neg Antibody Screen neg GBS + Rubella immune Varicella unk Hep B Neg (+ antibody in 2009 indicating immunity) Hep C neg HIV neg RPR NR Gonorrhea neg Chlamydia neg Pap NILM 1 hour GTT 82 Aneuploidy Testing declined CF Testing declined Ultrasound Date GA EFW GINGER Anatomy Dopplers OB History Para Term AB SAB TAB Ectopic Multiple Living 3 1 1 1 1 0 # Outcome Date GA Lbr Osmar/2nd Weight Sex Delivery Anes PTL Lv 3 Current 2 Term 40w0d M Vag-Spont FD Complications: Abruptio Placenta 1 SAB Previous Complications: Has patient had any prior complications?: Yes Prior delivery: None demise: Intrapartum stillbirth ( demise at term in setting of massive abruption) Past Medical History Past Surgical History Past Medical History Diagnosis Date ??? Iron metabolism disorder ??? Placental abruption No past surgical history on file. Past Gynecological History Social History No h/o STIs, no h/o abnormal Paps History Substance Use Topics ??? Smoking status: Former Smoker -- 0.50 packs/day for 3 years ??? Smokeless tobacco: Never Used ??? Alcohol Use: No Comment: Not with my liver bad reports that she uses illicit drugs (Methadone). Medications Allergies Current Facility-Administered Medications Medication Route Frequency ??? acetaminophen (TYLENOL) tablet 650 mg oral PRN ??? carboprost (HEMABATE) intramuscular injection 250 mcg intramuscular PRN ??? ceFAZolin (ANCEF) syringe 2 g intravenous PRE-OP ONCE ??? ibuprofen (MOTRIN) tablet 400 mg oral PRN ??? lactated ringers (LR) infusion intravenous CONTINUOUS ??? lactated ringers BOLUS 1,000 mL intravenous Now ??? methylergonovine (METHERGINE) injection 200 mcg intramuscular PRN ??? misoprostol (CYTOTEC) tablet 200 mcg buccal PRN ??? misoprostol (CYTOTEC) tablet 800 mcg rectal PRN ??? oxytocin in lactated ringers 30 units/500 ml intravenous ONCE And ??? oxytocin in lactated ringers 30 units/500 ml intravenous ONCE ??? sodium citrate-citric acid (BICITRA) 500-334 mg/5 mL solution 30 mL oral Now Allergies Allergen Reactions ??? Kiwi Objective: Weights Prepregnancy Weight: 60.782 kg (134 lb) Weight : 79.379 kg (175 lb) Weight Gain (kg) (Calculated): 18.6 kg No data found. General: alert, NAD Cardiovascular: RRR, no m/g/r Respiratory: CTAB, no w/r/r Abdomen: appropriately gravid, non-tender, longitudinal lie by Boaz's Extremities: WWP, trace edema bilaterally Physical Lie: Longitudinal Presentation: Breech FHT: 125 baseline. mod variability, + accels, no decels; Cat 1 tracing. TOCO: single ctx in 30 min SSE: deferred SVE: deferred Bedside US: maude breech with posterior placenta Assessment/Problems/Plan: Adrianna Moreno is a 24 y.o. at 39w4d by LMP c/w 6+6 wk US presenting for primary CS for breech presentation and known cardiac defect. *LTCS: informed consent signed in office on 07/29/14. Will draw CBC, T&S now. Anesthesia notifiedand to consult. Peds informed yesterday of plan for delivery of affected fetus today. NPO. Immunizations indicated : Rhogam Breastmilk contraindication: None Planning: Prior uterine surgery: No candidate?: Not applicable Waterbirth planned: No Home : No Global hemorrhage risk: Medium Rh neg GBS +, will get pre-op prophylaxis Discussed with Dr. Butler. Lalit Ch MD 08/02/2014 10:04 OB Attending Attestation: I have examined Adrianna Moreno myself and agree with the above assessment and plan as noted. Plan for c/s as above. Peds aware of AV canal, plan for post delivery ECHO. LAURIE BUTLER MD Documentation of Verbal Consent for Inclusion in Research: Verbal consent was given by Adrianna Moreno for cord blood collection, to be used in a study of platelet precursors by a [facility] researcher. The nature and purpose of the study was presented to the patient, and a handout providing further information was provided. See IRB protocol: [id number] documented in this encounter OR Notes * OR Surgeon - Laurie Butler MD - 08/04/2014 1158 EDT Name: Adrianna Moreno : 1990 Date of Service: 08/02/2014 Surgeon: Laurie Butler MD [employer] Material Inspector: Lalit Ch MD; Hannah Ford MD Procedure: Low Transverse Section via Pfannenstiel with double layer uterine closure. Anesthesia: Spinal, TAP Block Preoperative Diagnosis: 1. IUP @ 39w4d 2. Breech presentation 3. Prior failed ECV Postoperative Diagnosis: Same, delivered Indications: This is a 24 y.o. at 39w4d EGA who presented to labor and delivery for a scheduled primary section for breech presentation, prior attempted external cephalic version that was unsuccessful. 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 The patient was counseled on the risks, benefits and alternatives to the procedure and a written consent was signed prior to the start of the procedure. Findings: 1. Clear fluid on amniotomy 2. Male infant in the maude breech position, born at 1402, with APGARs of 6 and 9 at 1 and 5 minutes respectively, weighing 3630g, with cord arterial pH of 7.34 3. 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 Normal posterior placenta, with 3 vessel cord 5. Normal uterus, tubes, and ovaries Narrative: The pt was taken to the operating room with an IV in place where spinal anesthesia was found to be adequate. She was prepped and draped in the normal sterile fashion in the dorsal supine position with a leftward tilt. An allis test was performed to ensure adequate anesthesia. A Pfannenstiel incision was made with the scalpel and carried down to the underlying layer of fascia. The fascia was then incised in the midline and the incision was extended laterally with the Lazcano scissors. The inferior aspect of the fascial incision was then grasped with the denilson clamps, elevated, and the underlyingrectus muscles dissected off bluntly then sharply. Attention was then turned to the superior aspectof this incision, which was grasped, tented out with denilson clamps, and the rectus muscle dissectedoff bluntly then sharply. The rectus muscles were then in the midline and the peritoneum identified and entered sharply with Metzenbaum scissors. This incision was then extended laterally under tension until the uterus was well visualized. The vesicouterine peritoneum was grasped with pick-ups, incised with Metzenbaums, and a bladder flap was created digitally. The bladder blade was then inserted over this flap. The lower uterine segment was incised in a transverse fashion with the scalpel. The uterine incision was then extended laterally under tension. The bladder blade was removed and the was delivered atraumatically usingstandard breech maneuvers. The cord was clamped and cut and the was handed off to the waiting pediatricians. The placenta was then removed with gentle traction, the uterus exteriorized, and the uterus was cleared of all clots and debris. The uterine incision was repaired with a 0 vicryl in arunning, locked fashion. A second layer was created with the same suture in an imbricating fashion with excellent hemostasis. The uterus was then returned to the abdomen. The gutters were cleared of all clots and debris and irrigated with sterile saline. The fascia was reapproximated with 0 vicryl in a running fashion. The skin was closed with mayo. The patient tolerated the procedure well. Sponge, lap and needle counts were correct times two. Twograms of cephazolin were given prior to incision. The patient was taken to [place] [address] PACU/Birthing room [address] Butler was present throughout the entire procedure. Estimated blood loss: 800cc IV fluids: 1500cc LR Urine Output: 25 cc Specimens Sent: placenta to pathology Retained Materials: Carbone mayo Complications: none Disposition: M7 then Shep 5 Hannah Ford MD 08/04/2014 11:58 Ob Attending Attestation: I was present for the entire procedure, and agree with the above resident note. There were no complications. Laurie Butler MD documented in this encounter Miscellaneous Notes * Plan of Care - Naomi Jo RN - 08/06/2014 1442 EDT Post- Shift Note Maternal: Admit Date: 08/02/2014 Hospital Day: LOS: 4 days Date of Delivery: Information for the patient's : Elijah Moreno [[id number]] 08/02/2014 Time of Delivery: Information for the patient's : Elijah Moreno [[id number]] 1402 Type of Delivery: primary section Rhogam Administration: Given Gestation (weeks): Information for the patient's : Elijah Moreno [[id number]] 39 07/05 Hepatitis B: No results found for this basename: HEPBSAG Hepatitis C: Lab Results Component Value Date HEPCAB Negative Reference Range: Negative 12/19/2009 Rubella: Protected Anesthesia/Duramorph: Spinal and tap block Episiotomy/Laceration:None Vital signs: Stable Patient Vitals for the past 8 hrs: BP Heart Rate Resp Temp SpO2 08/06/14 0902 127/81 mmHg 77 BPM 20 37 ??C (98.6 ??F) 97 % Post- check: WNL IV / SL: None Carbone/Void: Patient up and voiding Pain Medications: Given this shift - see MAR Feeding: breast and bottle Feeding assistance: Occasional support Special Social Circumstances: History of stillbirth. Discharge Education:Education completed Certificate: Completed Comments: D: Pt had mayo removed this morning. Rates pain 3-4/10. independently. A: Medicated with Dilaudid 6 mg, Tylenol 650 mg and Motrin 400 mg po. Assessment done. Depo shot given as ordered. Discharge instructions given to pt. BC completed. Pt watched dc video. R: Pain level stays at 3/10. Pt up ad [place] in room. Verbalized understanding of dc instructions. Carseat check done at time of discharge. Discharged to home. Naomi Jo RN 08/06/2014 14:42 * Note - Roldan Carmen RN IBCLC - 08/06/2014 1053 EDT LC note ( did not do full consult) - S: Adrianna was undecided at first about whether to breast or bottle feed baby but has gained confidence with BF and plans to BF. Planning discharge today. Breasts engorged; nipples tender but BF not painful. Does not have pump at home, plans to get one from [facility]. Doesn't know if she has [facility] Peer Counselor. O: I didn't get to observe baby at breast today. Breasts are moderately engorged and reviewed prevention/rx engorgement. Showed her how to use pump kit as hand pump and enc her to take ALL pump partshome, including those that go on pump. Reviewed community resources for BF help p discharge; she would like f/u TC. Reviewed use of BF log, when to call baby's PCP including if baby didn't void by this maude. Gave written info on milk storage. A: Adrianna seems motivated to continue BF. Continued strong support, guidance on what to expect andhow to continue BF, brittani info on upcoming growth spurts would be very helpful for this first time mother. P: Cont to offer breast c cues, at least 8-12 x/ 24 hrs Keep track of I&O on BF log, calling pedi if any concerns, brittani if baby doesn't void by this evep circ We'll TC 08/07 WIC peer counselor f/u would be most helpful Time Spent: 15 mins face to face, mostly counseling/discharge teaching Tiffanie Carmen RN, IBCLC * Plan of Care - Clare Thurman LPN - 08/06/2014 0445 EDT Post- Shift Note Maternal: Admit Date: 08/02/2014 Hospital Day: LOS: 4 days Date of Delivery: Information for the patient's : Garret Morenocasandrajc [[id number]] 08/02/2014 Time of Delivery: Information for the patient's : Elijah Moreno [[id number]] 1402 Type of Delivery: primary section Rhogam Administration: Given Gestation (weeks): Information for the patient's : Josh Elijah [[id number]] 39 07/05 Hepatitis B: No results found for this basename: HEPBSAG Hepatitis C: Lab Results Component Value Date HEPCAB Negative Reference Range: Negative 12/19/2009 Rubella: Protected Anesthesia/Duramorph: Spinal and tap block Episiotomy/Laceration:None Vital signs: Stable Patient Vitals for the past 8 hrs: BP Heart Rate Resp Temp SpO2 08/06/14 0127 134/85 mmHg 77 BPM 18 37 ??C (98.6 ??F) 100 % Post- check: WNL IV / SL: None Carbone/Void: Patient up and voiding Pain Medications: Given this shift - see MAR Feeding: breast and bottle Feeding assistance: Occasional support Special Social Circumstances: History of stillbirth. Discharge Education:Education incomplete Certificate: Not completed Comments: Mother is BF independently. [id number]: Routine pp c/s care, + flatus, + void, see mar for meds, breast feeding independently. Clare Thurman LPN 08/06/2014 4:45 Cosigned by Jailyn Grove RN at 08/06/2014 8:10 EDT * Plan of Care - Clare Thurman LPN - 08/06/2014 0337 EDT Problem: Daily Care Plan Goals Goal: Care Plan Documentation Outcome: Ongoing 08/06/14 0127 Care Plan Focus Area of Focus Circulatory Status Goal This Shift stable vs D: VSS A: Vital signs done per protocol. R: VSSA, continue to monitor Clare Thurman LPN 08/06/2014 3:37 Cosigned by Jailyn Grove RN at 08/06/2014 8:10 EDT * Plan of Care - Jessica Vazquez RN - 08/05/2014 2228 EDT Problem: Daily Care Plan Goals Goal: Care Plan Documentation 08/05/14 1713 Care Plan Focus Area of Focus Circulatory Status Goal This Shift VSS Data: Day 3 multip s/p c/s. Action: VS and assessment per protocol. Response: AVSS stable assessment WNL. Will continue to monitor. Jessica Vazquez RN 08/05/2014 22:27 * Plan of Care - Zuleika Funez RN - 08/05/2014 1612 EDT Problem: Daily Care Plan Goals Goal: Care Plan Documentation Outcome: Ongoing 08/05/14 Care Plan Focus Area of Focus Circulatory Status Goal This Shift stable vs D: VSS A: Vital signs done per protocol. R: VSSA, continue to monitor Zuleika Funez RN 08/05/2014 16:12 * Plan of Care - Zuleika Funez RN - 08/05/2014 1610 EDT Post- Shift Note Maternal: Admit Date: 08/02/2014 Hospital Day: LOS: 3 days Date of Delivery: Information for the patient's : Elijah Moreno [[id number]] 08/02/2014 Time of Delivery: Information for the patient's : Elijah Moreno [[id number]] 1402 Type of Delivery: primary section Rhogam Administration: Given Gestation (weeks): Information for the patient's : Elijah Moreno [[id number]] 39 4 Hepatitis B: No results found for this basename: HEPBSAG Hepatitis C: Lab Results Component Value Date HEPCAB Negative Reference Range: Negative 12/19/2009 Rubella: Protected Anesthesia/Duramorph: Spinal and tap block Episiotomy/Laceration:None Vital signs: Stable Patient Vitals for the past 8 hrs: BP Heart Rate Temp SpO2 08/05/14 0836 115/72 mmHg 88 BPM 36.9 ??C (98.4 ??F) 98 % Post- check: WNL IV / SL: None Carbone/Void: Patient up and voiding Pain Medications: Given this shift - see MAR Feeding: breast and bottle Feeding assistance: Occasional support Special Social Circumstances: History of stillbirth. Discharge Education:Education incomplete Certificate: Not completed Comments: Mother is BF independently. Zuleika Funez RN 08/05/2014 16:10 * Plan of Care - Clare Thurman LPN - 08/05/2014 0414 EDT Post- Shift Note Maternal: Admit Date: 08/02/2014 Hospital Day: LOS: 3 days Date of Delivery: Information for the patient's : Elijah Moreno [[id number]] 08/02/2014 Time of Delivery: Information for the patient's : Kelli Morenojc [[id number]] 1402 Type of Delivery: primary section Rhogam Administration: Given Gestation (weeks): Information for the patient's : oJsh Fouziaelizadalberto [[id number]] 39 4/7 Hepatitis B: No results found for this basename: HEPBSAG Hepatitis C: Lab Results Component Value Date HEPCAB Negative Reference Range: Negative 12/19/2009 Rubella: Protected Anesthesia/Duramorph: Spinal and tap block Episiotomy/Laceration:None Vital signs: Stable Patient Vitals for the past 8 hrs: BP Heart Rate Resp Temp SpO2 08/05/14 0030 121/77 mmHg 70 BPM 18 36.1 ??C (97 ??F) 97 % Post- check: WNL IV / SL: None Carbone/Void: Patient up and voiding Pain Medications: Given this shift - see MAR Feeding: breast and bottle Feeding assistance: Occasional support Special Social Circumstances: Discharge Education:Education incomplete Certificate: Not completed Comments: Rhogam given on prior shift. Mother is BF independently. Has a hx of loss. Mother has been teary this evening because baby is having higher SUKHJINDER scores and NICU was down to observe baby. [id number]: Routine pp c/s care, up & voiding ,+ flatus, pp check wnl, see mar for meds, mom is ambulating in [place] tolerated well,has been breast feeding independently & frequently , continue to monitor & assist with care as needed. Clare Thurman LPN 08/05/2014 4:14 Cosigned by Yuni Culp RN at 08/05/2014 7:13 EDT * Plan of Care - Clare Thurman LPN - 08/05/2014 0143 EDT Problem: Daily Care Plan Goals Goal: Care Plan Documentation Outcome: Ongoing 08/05/14 0030 Care Plan Focus Area of Focus Circulatory Status Goal This Shift stable vs D: VSS A: Vital signs done per protocol. R: VSSA, continue to monitor Clare Thurman LPN 08/05/2014 1:43 Cosigned by Yuni Culp RN at 08/05/2014 7:13 EDT * Plan of Care - Jessica Vazquez RN - 08/04/20142207 EDT Post- Shift Note Maternal: Admit Date: 08/02/2014 Hospital Day: LOS: 2 days Date of Delivery: Information for the patient's : Garret Morenoadalberto [[id number]] 08/02/2014 Time of Delivery: Information for the patient's : Josh Elijah [[id number]] 1402 Type of Delivery: primary section Rhogam Administration: Given Gestation (weeks): Information for the patient's : Josh Elijah [[id number]] 39 07/05 Hepatitis B: No results found for this basename: HEPBSAG Hepatitis C: Lab Results Component Value Date HEPCAB Negative Reference Range: Negative 12/19/2009 Rubella: Protected Anesthesia/Duramorph: Spinal and tap block Episiotomy/Laceration:None Vital signs: Stable Patient Vitals for the past 8 hrs: BP Heart Rate Resp Temp SpO2 08/04/14 1609 133/61 mmHg 94 BPM 18 36.5 ??C (97.7 ??F) 97 % Post- check: WNL IV / SL: None Carbone/Void: Patient up and voiding Pain Medications: Given this shift - see MAR Feeding: breast and bottle Feeding assistance: Occasional support Special Social Circumstances: Discharge Education:Education incomplete Certificate: Not completed Comments: Rhogam given on prior shift. Mother is BF independently. Has a hx of loss. Mother has been teary this evening because baby is having higher SUKHJINDER scores and NICU was down to observe baby. Jessica Vazquez RN 08/04/2014 22:08 * Plan of Care - Jessica Vazquez RN - 08/04/20142207 EDT Problem: Daily Care Plan Goals Goal: Care Plan Documentation 08/04/14 1609 Care Plan Focus Area of Focus Pain/ Comfort Goal This Shift Pain at tolerable level for patient Data: Stable day 2 multip s/p C/S. Pt rating incisional pain 4/10 this shift. Action: Pain medications given per MAY. Encouraged rest as well as times of ambulation. Response: Pt still rating pain 4/10 but reports that this level is tolerable for her. Will continueto monitor. Jessica Vazquez RN 08/04/2014 21:58 * Plan of Care - Zuleika Funez RN - 08/04/2014 1438 EDT Problem: Daily Care Plan Goals Goal: Care Plan Documentation Outcome: Ongoing 08/04/14 Care Plan Focus Area of Focus mobility Goal This Shift Ambulate more frequently Data: Pt is s/p c/s 2 days ago. On methadone for opiate addiction. Action: Pain meds given as requested. Encouraged increased ambulation. Response: Pt comfortable. Ambulation increased. Zuleika Funez RN 08/04/2014 14:38 * Plan of Care - Zuleika Funez RN - 08/04/2014 1426 EDT Post- Shift Note Maternal: Admit Date: 08/02/2014 Hospital Day: LOS: 2 days Date of Delivery: Information for the patient's : Elijah Moreno [[id number]] 08/02/2014 Time of Delivery: Information for the patient's : Elijah Moreno [[id number]] 1402 Type of Delivery: primary section Rhogam Administration: Not given - order in chart Gestation (weeks): Information for the patient's : Elijah Moreno [[id number]] 39 07/05 Hepatitis B: No results found for this basename: HEPBSAG Hepatitis C: Lab Results Component Value Date HEPCAB Negative Reference Range: Negative 12/19/2009 Rubella: Protected Anesthesia/Duramorph: Spinal and tap block Episiotomy/Laceration:None Vital signs: Stable Patient Vitals for the past 8 hrs: BP Heart Rate Resp Temp SpO2 08/04/14 0937 114/64 mmHg 71 BPM 16 36.6 ??C (97.9 ??F) 97 % Post- check: WNL IV / SL: None Carbone/Void: Patient up and voiding Pain Medications: Given this shift - see MAR Feeding: breast and bottle Feeding assistance: Occasional support Special Social Circumstances: Discharge Education:Education incomplete Certificate: Not completed Comments: Stable post op c/s. Has exclusively breast fed this shift. Zuleika Funez RN 08/04/2014 14:26 * Plan of Care - Yuni Culp RN - 08/04/2014 0539 EDT Post- Shift Note Maternal: Admit Date: 08/02/2014 Hospital Day: LOS: 2 days Date of Delivery: Information for the patient's : Elijah Moreno [[id number]] 08/02/2014 Time of Delivery: Information for the patient's : Elijah Moreno [[id number]] 1402 Type of Delivery: primary section Rhogam Administration: Not given - order in chart Gestation (weeks): Information for the patient's : Elijah Moreno [[id number]] 39 07/05 Hepatitis B: No results found for this basename: HEPBSAG Hepatitis C: Lab Results Component Value Date HEPCAB Negative Reference Range: Negative 12/19/2009 Rubella: Protected Anesthesia/Duramorph: Spinal and tap block Episiotomy/Laceration:None Vital signs: Stable Patient Vitals for the past 8 hrs: BP Heart Rate Resp Temp SpO2 08/04/14 0005 111/61 mmHg 82 BPM 18 37.2 ??C (99 ??F) 97 % Post- check: WNL IV / SL: Saline lock removed - catheter intact and None Carbone/Void: Carbone d/c'd - patient due to void at 1500 Pain Medications: Given this shift - see MAR Feeding: breast and bottle Feeding assistance: Other: Independent with bottle feeding, will need help with bf if she chooses to continue. Special Social Circumstances: Discharge Education:Education incomplete Certificate: Not completed Comments: Stable post op c/s. T/M/D q 4 hrs for pain. Yuni Culp RN 08/04/2014 5:39 * Plan of Care - Yuni Culp RN - 08/04/2014 0539 EDT Problem: Daily Care Plan Goals Goal: Care Plan Documentation Outcome: Ongoing 08/03/14 0045 08/03/14 0815 Care Plan Focus Area of Focus -- Pain/ Comfort Goal This Shift Pain score <5 -- Data: Pt is s/p c/s 2 days ago. On methadone for opiate addiction. Rates pain 2-08/07. Action: Pain meds given as requested. Response: Pt comfortable Yuni Culp RN 08/04/2014 5:37 * Plan of Care - Viky Ramachandran RN IBCLC - 08/03/2014 2045 EDT Problem: PAIN Goal: Patient???s pain/discomfort is manageable/tolerable Outcome: Met This Shift Data: Day 1 s/p primary . Pt on methadone for opiate dependence. Action: Administer pain meds per MD orders. Response: Patient reports adequate pain control with Tylenol, Motrin, and Dilaudid PO 6mg Q 4 hours. Viky Ramachandrna RN 08/03/2014 20:43 * Plan of Care - Dorene Ward RN - 08/03/2014 1442 EDT Post- Shift Note Maternal: Admit Date: 08/02/2014 Hospital Day: LOS: 1 day Date of Delivery: Information for the patient's : Elijah Moreno [[id number]] 08/02/2014 Time of Delivery: Information for the patient's : Elijah Moreno [[id number]] 1402 Type of Delivery: primary section Rhogam Administration: Not given - order in chart Gestation (weeks): Information for the patient's : Elijah Moreno [[id number]] 39 07/05 Hepatitis B: No results found for this basename: HEPBSAG Hepatitis C: Lab Results Component Value Date HEPCAB Negative Reference Range: Negative 12/19/2009 Rubella: Protected Anesthesia/Duramorph: Spinal and tap block Episiotomy/Laceration:None Vital signs: Stable Patient Vitals for the past 8 hrs: BP Heart Rate Resp Temp SpO2 08/03/14 0815 111/59 mmHg 67 BPM 18 37.1 ??C (98.8 ??F) 100 % Post- check: WNL IV / SL: Saline lock removed - catheter intact and None Carbone/Void: Carbone d/c'd - patient due to void at 1500 Pain Medications: Given this shift - see MAR Feeding: breast Feeding assistance: Independent Special Social Circumstances: Discharge Education:Education incomplete Certificate: Not completed Comments: Patient is a 24yo @ 39+4 presented for a scheduled primary CS for maude breech presentation after a prior failed external version. She is also maintained on 100 mg methadone daily through [facility] for opioid dependence. The had previously been diagnosed with a likely AV canal cardiac defect and had been seen by the MFM service. The procedure was uncomplicated and the NICU team was present for resuscitation after delivery. The infant was admitted for the NICU for further monitoring and treatment. Pt is pumping for in the NICU. He should be coming down this afternoon. Pt is pumping independently and storing BM in the nursery fridge. She is independent with self care and voiding in the bathroom. Bulky dsg off. Dorene Ward RN 08/03/2014 14:42 * Plan of Care - Virginia Carroll RN - 08/03/2014 7016 EDT Problem: Daily Care Plan Goals Goal: Care Plan Documentation Outcome: Met This Shift 08/03/14 0045 Care Plan Focus Area of Focus Pain/ Comfort Goal This Shift Pain score <5 Data: Stable POD 1 pt, s/p C/S. Baby in NICU. Pt states pain is about the same rating at 3/10 throughout shift. Pt reports inadequate pain relief on previous shift, and is now taking Dilaudid 6 mg q3 and TM q4. Action: Pain meds per MAY. Saline lock kept in and flushed for PRN IV medication. Response: No IV dilaudid given this shift. Pt was able to get OOB (second time) to bathroom for carrie care and repositioned to wheelchair for ride up to NICU. Tolerated well. Pain continues to be 3/10. Virginia Carroll RN 08/03/2014 4:56 * Plan of Care - Noa Gaxiola RN - 08/02/20142 EDT Problem: Daily Care Plan Goals Goal: Care Plan Documentation 08/02/142156 Care Plan Focus Area of Focus Pain/ Comfort Goal This Shift Pain score <5 and mom able to get to NICU Data: Patient arrived on Sheo 5 with pain score 4-5 out of 10. Pain increased to 6 out of 10 and medicated with dilaudid 0.4 mg IV. No relief noted. Pain score continued to increased. Action: MD Estephania Cuevas notified of pain control issues. Increased PO dose of dilaudid to 2-6 mg q3 hours and an extra 0.2 mg dilaudid IV x 1 ordered. Patient medicated with both PO dilaudid and extra 0.2mg of dilaudid. Response: Pain score decreased to 3 and patient able to go to NICU in wheelchair to visit infant. Noa Gaxiola RN 08/02/2014 21:57 * Plan of Care - Noa Gaxiola RN - 08/02/2014 8267 EDT Post- Shift Note Maternal: Admit Date: 08/02/2014 Hospital Day: LOS: 0 days Date of Delivery: Information for the patient's : Elijah Moreno [[id number]] 08/02/2014 Time of Delivery: Information for the patient's : Elijah Moreno [[id number]] 1402 Type of Delivery: primary section Rhogam Administration: Not given - order in chart Gestation (weeks): Information for the patient's : Elijah Moreno [[id number]] 39 07/05 Hepatitis B: No results found for this basename: HEPBSAG Hepatitis C: Lab Results Component Value Date HEPCAB Negative Reference Range: Negative 12/19/2009 Rubella: Protected Anesthesia/Duramorph: Spinal and tap block Episiotomy/Laceration:None Vital signs: Stable Patient Vitals for the past 8 hrs: BP Heart Rate Resp Temp SpO2 08/02/14 2100 120/74 mmHg 87 BPM 18 36.7 ??C (98.1 ??F) 96 % 08/02/14 1825 119/69 mmHg 79 BPM 18 36.4 ??C (97.5 ??F) 97 % 08/02/14 1732 124/71 mmHg 80 BPM 16 36.2 ??C (97.2 ??F) 96 % 08/02/14 1631 115/56 mmHg 90 BPM 18 - - 08/02/14 1600 111/49 mmHg 90 BPM 18 36.8 ??C (98.2 ??F) - 08/02/14 1543 118/66 mmHg 107 BPM 18 - - 08/02/14 1530 113/84 mmHg 91 BPM 18 - - 08/02/14 1515 121/66 mmHg 91 BPM - - - 08/02/14 1500 127/67 mmHg 98 BPM 18 - - 08/02/14 1456 122/59 mmHg 95 BPM 18 36.3 ??C (97.3 ??F) 99 % Post- check: WNL IV / SL: IV to saline lock Carbone/Void: Carbone in - Patent Pain Medications: Given this shift - see MAR Feeding: breast Feeding assistance: Full assist Special Social Circumstances: Discharge Education:Education incomplete Certificate: Not completed Comments: Patient is a 24yo @ 39+4 presented for a scheduled primary CS for maude breech presentation after a prior failed external version. She is also maintained on 100 mg methadone daily through [facility] for opioid dependence. 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 The procedure was uncomplicated and the NICU team was present for resuscitation after delivery. The was admitted for the NICU for further monitoring and treatment. Patient admitted to [facility]. VSS, afebrile. Dressing clean dry and intact. FF at U-1. Bleeding WNL. Pain control an issue as patient is opioid dependant. Up to NICU at end of shift as pain score finally a 3. Still needs to pump for infant in NICU. Noa Gaxiola RN 08/02/2014 21:49 * L&D Delivery Note - Hannah Ford MD - 08/02/20142035 EDT Delivery Information Mode of delivery: Primary scheduled LTCS for maude breech s/p prior ECV failure Indication for delivery: Term, breech presentation NARRATIVE: 24yo @ 39+4 presented for a scheduled primary CS for maude breech presentation after a prior failed ECV. The had previously been diagnosed with a likely AV canal cardiac defect and hadbeen seen by the [facility] service. The procedure was uncomplicated and the NICU team was present for resuscitation after delivery. The infant was admitted for the NICU for further monitoring and treatment. course comments: AV canal/cardiac defect GBS: pos Rh: neg Induction: n/a Augmentation: n/a Rupture of membranes: at time of delivery Amniotic fluid color: clear Placenta configuration: normal Labor anesthesia: n/a Lacerations: n/a Repair anesthesia: n/a EBL: 800 Baby: Male Apgars: 1min - 6, 5min - 9 Weight: 3630g Dispo: NICU Please see below for additional BotScanner data output. Adrianna Moreno is a 24 y.o. at 39w4d delivered by - [facility] . Elijah Moreno weighed 3630 g (8 lb), 6 /9 , sent to NICU after delivery. Maternal: Planned home ? Not planned External cephalic version attempt indicated? Yes, unsuccessful Delivery as waterbirth? No MARTINE after : No MARTINE Intrapartum Management Maternal Indications for delivery/comments: Planned Indications for delivery/comments: Other (Comment) Breech presentation Intrapartum Medication Intrapartum preeclampsia: No Intrapartum Mg: No Intrapartum Mg Indication: Labor Labor onset: None Cervical ripening: Labor induction method: Labor augmentation: Augmentation indication/comments: Infection/Risk of Sepsis GBS Status: Positive GBS treatment: No treatment PROM > or = 18 Hours: Maternal Fever > or = 38 C: Maternal Tachycardia > 100 bpm: Tachycardia > 160 bpm: Uterine tenderness: Foul odor of amniotic fluid: Chorioamnionitis: HIV Status/treatment: Not indicated Hepatitis B Surface Antigen: Negative Assessment monitoring: Intermittent heart rate characteristics/comments: Cat 1 demise, if applicable: Anesthesia Labor analgesia: Spinal, Delivery anesthesia: Spinal, Adjunctive analgesia: Ketorolac, TAP Block , Anesthetic complications: None Additional comments: Maternal Delivery Delivery type: - [facility] Presentation: Breech Position: Delivery: Planned Primary indications: Malpresentation, Planned primary, Operative Vaginal Delivery Indication: Station - Initial Application: Forceps Attempted: No Vacuum Attempted: No Details of Shoulder Dystocia (if applicable) Dystocia Present? No Anterior Shoulder: Maneuvers Performed (if applicable) Maneuver Time Performed Performed By Meron: Suprapubic pressure: Delivery of posterior arm: Rotational Maneuver: Hand and Knees: Placenta Delivered: 08/02 14:03 Delivery method: Spontaneous Morphology: Normal Disposition: Lab Cord Details Vessels: 3 Vessels Complications: None Nuchal intervention: Nuchal cord description: Cord around: Number of loops: Gases Sent? Yes Cord Blood Sent: Blood type / Rh Stem cell collection (by )? No Comments: Lacerations/Episiotomy Lacerations Perineal: None Repaired? Periurethral: Repaired? Labia: Repaired? Sulcus: Repaired? Vaginal: Repaired? Cervical: Repaired? Episiotomy: None Indication: Repair Suture: 0 Vicryl Estimated blood loss (mL): 800.00 Procedures Additional Procedures: None Hemorrhage (if applicable) hemorrhage: None Uterotonics/PPH Procedures: Uterine massage, Blood Products Transfused: Labor Length Duration of Labor: hours minutes Duration of Induction: hours minutes Duration of ROM: hours minutes Duration of Cord Clamp Delay: seconds Precipitous Labor (<3 hours): Prolonged Labor (>20 hours): [place]: Elijah Moreno [id number] at Gestational Age: 39w4d delivered by - [facility] Date of : 08/02/2014 Time of : 1402 Sex: male Weight (grams): 3630 g (8 lb) Length (in): Head circumference (in): Observed anomalies, comments: Meconium Present at Delivery: No (<37 wks): No Late (34-37 wks): No Steroid Course: .None : PPROM Gestational Age: APGARS One minute Five minutes Ten minutes Fifteen minutes Twenty minutes Totals: 6 9 Resuscitation Resuscitation: Delivery Personnel Delivering Clinician: ABIGAIL FERRO Additional Personnel: LALIT CH;HANNAH FORD;JADA LICEA;LISA TREVIZO Cosigned by Laurie Butler MD at 08/26/2014 12:41 EDT * Brief Op Note - Laurie Butler MD - 08/02/2014 1453 EDT Department of Obstetrics Brief Operative Note Date: 08/02/2014 Attending: Laurie Butler MD Navy Material Inspector: Hannah Ford MD, Lalit Ch MD Pre-op diagnosis: 1. IUP @ 39w4d 2. Breech presentation 3. Prior failed ECV Post-op diagnosis: Same, delivered Procedure: Low transverse section via Pfannenstiel incision with double layer uterine closure Anesthesia: GETA Findings: 1. Clear fluid on amniotomy 2. Male in the maude breech position, born at 1402, with APGARs of 6 and 9 at 1 and 5 minutes respectively, weighing 3630g, with cord arterial pH of 7.34 3. 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 Normal posterior placenta, with 3 vessel cord 5. Normal uterus, tubes, and ovaries Blood loss: 800cc Fluids: 1500cc LR Urine output: 25cc Specimens: placenta to pathology Drains/Packs/Foreign object retained: Carbone Complications: none Condition: stable Disposition: Birthing Room 11 -> Shep 5 See dictated operative report for more details. Dr. Butler was present throughout the procedure. Hannah Ford MD 08/02/2014 14:53 Ob Attending Attestation: I was present for the entire procedure, and agree with the above resident note. There were no complications. Laurie Butler MD * Plan of Care - Lisa Trevizo RN - 08/02/2014 1350 EDT Problem: Daily Care Plan Goals Goal: Care Plan Documentation 08/02/14 1028 Care Plan Focus Area of Focus Utero Placental Perfusion Goal This Shift well being * Anesthesia Pre-Eval - Salome Ho MD - 08/02/2014 1248 EDT Obstetric Anesthesia Consult Name: ADRIANNA MORENO : 1990 Date: 08/02/2014 Age: 24 y.o. 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 Kiwi Anesthetic History: Anesthesia History Previous Patient or Family Problems with Anesthesia: None Airway Evaluation: Airway Evaluation Mallampati: 2 Mouth Opening: Normal Jaw Thrust: Normal Thyro-Mental Distance: Normal Neck Eval: ROM Normal Teeth: Normal Review of Systems: Smoker: Quit (Quit during first trimester) History of Respiratory Infections: No Asthma: No Heart Murmur: No High Blood Pressure: No Angina/Palpitations: No Blood Vessel Disease: No Neurological Disease: No Muscular Degeneration: No Backpain/Neckpain: No Reflux/Heartburn/Hiatial Hernia: Yes GI Additional Info: Taking Medication (RONALD's 1-2x/day) Liver Disease: No Thyroid Disease: No Kidney Disease: No Diabetes: No Anemia: No Bleeding Disorders: No Previous Anesthesia for Childbirth: No Infectious Disease: No Opioid Dependency: Yes Opioid Type: Methadone History reviewed. No pertinent past surgical history. Current Facility-Administered Medications Medication Route Frequency ??? acetaminophen (TYLENOL) tablet 650 mg oral PRN ??? carboprost (HEMABATE) intramuscular injection 250 mcg intramuscular PRN ??? ceFAZolin (ANCEF) syringe 2 g intravenous PRE-OP ONCE ??? ibuprofen (MOTRIN) tablet 400 mg oral PRN ??? lactated ringers (LR) infusion intravenous CONTINUOUS ??? methylergonovine (METHERGINE) injection 200 mcg intramuscular PRN ??? misoprostol (CYTOTEC) tablet 200 mcg buccal PRN ??? misoprostol (CYTOTEC) tablet 800 mcg rectal PRN ??? oxytocin in lactated ringers 30 units/500 ml intravenous ONCE And ??? oxytocin in lactated ringers 30 units/500 ml intravenous ONCE ??? sodium citrate-citric acid (BICITRA) 500-334 mg/5 mL solution 30 mL oral Now Outpatient Prescriptions Marked as Taking for the 08/02/14 encounter (Hospital Encounter) with Laurie Butler MD Medication Sig Dispense Refill ??? calcium carbonate (TUMS) 200 mg calcium (500 mg) tablet,chewable Take 1-2 Tabs by mouth 4 timesdaily as needed ??? methadone (DOLOPHINE) 5 mg/5 mL oral solution Take 100 mg by mouth daily ??? Uzmaphae-Hz-Zum-Fe-FA ( VITAMIN) tablet Take 1 Tab by mouth daily Vital Signs: BP 116/53 Resp 18 Wt 79.379 kg (175 lb) Labs: Lab Results Component Value Date WBC 13.85* 08/02/2014 HGB 13.3 08/02/2014 HCT 37.9 08/02/2014 MCV 91 08/02/2014 PLT 220 08/02/2014 NA 140 12/19/2009 K 4.3 12/19/2009 CL 104 12/19/2009 CO2 27 12/19/2009 BUN 12 12/19/2009 CREATININE 0.77 12/19/2009 Blood/Cultures: Recent Results (from the past 1008 hour(s)) TYPE AND SCREEN Collection Time 08/02/14 10:06 Result Value Ref Range Status ABO B Final Rh Factor Negative Final Antibody Screen Positive Final GROUP B STREPTOCOCCUS MOLECULAR DETECTION Collection Time 07/07/14 15:37 Result Value Ref Range Status Group B Streptococcus Molecular Detection GROUP B BETA STREPTOCOCCAL DNA detected by PCR. (*) Final ASA Classification: Plan: general, spinal, Bilateral TAP block for post-op pain mode(s) of anesthesia were discussed. Risks discussed included: Bleeding, Infection, Nerve Injury, Spinal headaches, low blood pressures with underperfusion, high spinals, hematomas, failure and replacement. All of Adrianna Moreno's questions were answered to her satisfaction. Unless otherwise noted, follow standard anesthesia pre-operative protocol. Antoni Bhatia MD 08/02/2014 Attestation: I saw and examined the patient with the resident/fellow 08/02/2014. I agree with the findings and plan of care documented in the resident's/fellow's note. Salome Ho MD 08/02/2014 13:29 * Plan of Care - Lisa Trevizo RN - 08/02/2014 1045 EDT Problem: UTERUS/PLACENTA PERFUSION Goal: FHR Pattern D. Pt is having a promary c/section for breech. She and her partner are unsure what to expect. . A. Explained the rationale for all nursing actions. Ensured that a consent has been signed for the surgery. Did the pre op teaching as per protocol. Allowed the pt time to ask and have her questions answered. Had the anesthesia team see the pt pre operatively to make their assessment and develop a plan of care for her. R. Pt will feel supported and will be aware of what to expect before, during and after her delivery. documented in this encounter Plan of Treatment Pending Results Name Type Priority Associated Diagnoses Date /Time ANTIBODY IDENTIFICATION Blood Bank STAT 0 08/02/2014 11:09 EDT Scheduled Orders Name Type Priority Associated Diagnoses Orde r Schedule ANTIBODY IDENTIFICATION Blood Bank STAT O ne Time for 1 Occurrences starting 08/02/2014 until 08/02/2014 SURGICAL PATHOLOGY- ORDER ONLY Pathology Routine One Time for 1 Occurrences starting 08/02/2014 until 08/02/2014 Scheduled Referrals Name Type Priority Associated Diagnoses Order Schedule PROVIDER FOLLOW-UP INSTRUCTIONS Outpatient Referral Routine Ordered: 08/06/2014 PROVIDER FOLLOW-UP INSTRUCTIONS Outpatient Referral Routine Ordered: 08/06/2014 documented as of this encounter Procedures Procedure Name Priority Date/Time Associated Diagnosis Comments TRANSFUSION RECORD - SCANNED 08/10/2014 9:42 EDT ANESTHESIA NERVE BLOCK TAP Routine 08/03/2014 13:30 EDT COMPLETE BLOOD COUNT Routine 08/03/2014 6:32 EDT VARICELLA IGG ANTIBODY Routine 5 6:32 EDT SURGICAL PATHOLOGY Routine 08/02/2014 20 :24 EDT POST RH IMMUNE GLOBULIN ( SCREEN TEST AND RHIG) Routine 08/02/2014 16:55 EDT BLOOD GASES, CORD VENOUS STAT 08/02/2014 14:06 EDT BLOOD GASES, CORD ARTERIAL STAT 08/02/2014 14:06 EDT PREPARE RED BLOOD CELLS Routine 08/03/19 15 11:26 EDT ANTIBODY IDENTIFICATION Routine 08/03/19 15 11:09 EDT COMPLETE BLOOD COUNT STAT 08/02/2014 10:06 EDT TYPE AND SCREEN STAT 08/02/2014 10:06 EDT ADMINISTER RHOGAM (RHIG) 300 MCG Routine documented in this encounter Results * TRANSFUSION RECORD - SCANNED (08/10/2014 9:42 EDT) 08/10/2014 9:42 EDT us Scan 2 Foiling Machine Operator LAB INFO SERVICE AND SUPPOR T & PHONE RESULT Final Result * ANESTHESIA NERVE BLOCK TAP (08/03/2014 13:30 EDT) Anatomical Region Laterality Modality Other 08/03/2014 13:3 0 EDT Narrative 08/03/2014 13:30 EDT Non Reportable Exam Procedure Note REGIONAL SALES MANAGER, IMAGING - 08/04/2014 Non Reportable Exam us Antoni Bhatia MD [facility] US ORDERABLES Final Result * VARICELLA IGG ANTIBODY (08/03/2014 6:32 EDT) Pathologist [facility] Varicella IgG Ab Interpretati on: Negative 08/03/2014 13:33 EDT [facility] Comment: Absence of detectable Varicella Zoster virus IgG antibodies. ??A negative result indicates no detectable antibody, but does not rule out acute infection. ??If VZV exposure is suspected, a second sample should be collected and tested in no less than one or two weeks later. Blood specimen (specimen) BLOOD SPECIMEN / Unknown 08/03/2014 6:32 EDT 08/03/2014 7:33 EDT us Hannah Lawler MD IMMUNOLOGY AND SEROLOGY JUSTYNA CHRISTENSEN Final Result Performing Organization Address City/State/[facility] Co de Phone Number [facility] [address] [place] [address] * (ABNORMAL) HEMAGRAM (08/03/2014 6:32 EDT) Pathologist [facility] WBC 23.34(H) 4.0 - 12.4 K/cmm 08/03/2014 8:24 EDT [facility] RBC 3.62(L) 3.86 - 5.04 M/cmm 08/03/2014 8:24 EDT [facility] Hemoglobin 11.7 11.6 - 15.2 gm/dl 08/03/2014 8:24 T [facility] HCT 33.3(L) 34.9 - 44.4 % 08/03/2014 8:24 T [facility] MCV 92 81 - 98 fl 08/03/2014 8:24 T [facility] MCH 32.3 26.7 - 33.3 pg 08/03/2014 8:24 EDT [facility] MCHC 35.1 32.1 - 35.9 gm/dl 08/03/2014 8:24 EDT [facility] RDW-CV 13.0 11.7 - 14.6 % 08/03/2014 8:24 EDT [facility] RDW-SD 42.9 37.6 - 50.3 fl 08/03/2014 8:24 EDT [facility] PLT 224 141 - 320 K/cmm 08/03/2014 8:24 EDT [facility] MPV 8.3 7.5 - 11.2 fl 08/03/2014 8:24 EDT [facility] Blood specimen (specimen) BLOOD SPECIMEN / Unknown 08/03/2014 6:32 EDT 08/03/2014 7:33 EDT us Hannah Lawler MD HEMATOLOGY & PF4 ORDERABLES Final Result Performing Organization Address City/State/[facility] Co de Phone Number [facility] [address] [place] [address] * SURGICAL PATHOLOGY (08/02/2014 20:24 EDT) Pathology Report: SURGICAL PATHOLOGY REPORT Reports generated via electronic interface contain original data; however they are lacking the format of the original report. Caution should be taken when reading/interpret ing unformatted reports. Name: ? ADRIANNA MORENO ? Accession #: ? [id number] ? : ? 1990 (Age: 24) ??F ? Collect Date: ? 08/02/2014 ? Location: ? SB05 ? Receive Date: ? 08/02/2014 ? Provider: LAURIE BUTLER MD Copy to: HANNAH JACKSON MD ? Final Pathologic Diagnosis: ? TERM CHING PLACENTA: - No abnormalities. Document reviewed and electronically signed by: MONICA ALVAREZ MD Report ??Date: 08/08/2014 09:50 By the signature above, the attending physician certifies that he/she has personally conducted a gross and/or microscopic examination of the described specimens and rendered or confirmed the above diagnosis. Specimen(s) Received: Not listed Clinical History: Infant with suspected AV malformation; placenta; 39+4 Gross Description: ? Received fresh labelled with proper patient identification (initials R, R) is a ching placenta (19.5 x 17.0 x 2.8 cm) with attached umbilical cord (19.5 cm in length x 1.2 cm in diameter) and membranes as well as a detached segment of umbilical cord (13.5 cm in length x 1.5 cm in diameter). After the cord and membranes are removed, the ovoid placental disc weighs 556 g. ? The membranes are smith-brown, opaque, and insert at the disc margin. The umbilical cord is white, shiny and coiled, with three vessels, and inserts centrally, 7.0 cm from the nearest disc margin. The surface is blue-sunshine with the usual arborizing vasculature. The maternal surface is red-brown with intact and complete cotyledons and focal calcification. Sectioning reveals a dark red spongy cut surface, with no nodules or discrete lesions identified. ? Trust Clerk sections are submitted as follows: BLOCK PATEL 1- ??attached and detached umbilical cord and membrane rolls 2-3- ??full thickness placental disc, bisected 4- ??full thickness placental disc Lalit Heredia 08/03/2014 11:51 AM End of Report [facility] 08/02/2014 20:2 4 EDT 08/02/2014 20:24 EDT us Laurie Butler MD PATHOLOGY ORDERABLES Final Result [facility] [address] [place] [address] * POST RH IMMUNE GLOBULIN ( SCREEN TEST AND RHIG) (08/02/2014 16:55 EDT) Screen Test NEGATIVE [facility] Derivative Code Rh Immune Globulin 300 ug [facility] Lot Number [id number] [facility] Unit Status Transfuse [facility] Blood specimen (specimen) 08/02/2014 16:55 EDT us Hannah Lawler MD BLOOD BANK TESTS Final Resul t [facility] [address] [place] [address] * (ABNORMAL) BLOOD GASES, CORD VENOUS (08/02/2014 14:06 EDT) pH, Cord blood jose d 7.34 7.25 - 7.45 08/02/2014 14:24 EDT [facility] PCO2, Cord blood 48 mmHg 08/02/2014 14:24 EDT [facility] PO2, Cord bld jose d 27 17 - 41 mmHg 08/02/2014 14:24 EDT [facility] tCO2, Cord blood 27(H) 14 - 22 mEq/L 08/02/2014 14:24 EDT [facility] Base Deficit 1.0 08/02/2014 14:24 EDT [facility] BLOOD SPECIMEN / Unknown 08/02/2014 14:06 EDT 08/02/2014 14:15 EDT us Lalit Ch MD GEN LAB UNIT COLLECT ORDERABLES Final Result [facility] [address] [place] [address] * (ABNORMAL) BLOOD GASES, CORD ARTERIAL (08/02/2014 14:06 EDT) pH, Cord blood art 7.34 7.18 - 7.38 08/02/2014 14:27 EDT [facility] PCO2, Cord blood 48 mmHg 08/02/2014 14:27 EDT [facility] PO2, Cord bld art 28 6 - 30 mmHg 08/02/2014 14:27 EDT [facility] tCO2, Cord blood 27(H) 14 - 22 mEq/L 08/02/2014 14:27 EDT [facility] Base Deficit 1.3 08/02/2014 14:27 EDT [facility] Blood specimen (specimen) BLOOD SPECIMEN / Unknown 08/02/2014 14:06 EDT 08/02/2014 14:15 EDT Lalit Ch MD GEN LAB UNIT COLLECT ORDERABLES Final Result [facility] [address] [place] [address] * PREPARE RED BLOOD CELLS (08/02/2014 11:26 EDT) Product Code E0336 -1 RED BLOOD CELLS, Leukocytes Reduced [facility] Donor Number [id number] [facility] Unit ABO B [facility] Unit Rh NEG [facility] Cross Match Interp Compatible [facility] Unit Status Released From Crossmatch [facility] 08/02/2014 11:2 6 EDT Lalit Ch MD BLOOD BANK ORDERABLES Final Res ult Performing Organization Address City/[facility]/ZIP Co de Phone Number [facility] [address] [place] [address] * ANTIBODY IDENTIFICATION (08/02/2014 11:09 EDT) Antibody Identification Anti-D; patient recd RhIg [facility] 08/02/2014 11:0 9 EDT Lalit Ch MD BLOOD BANK TESTS Final Result [facility] [address] [place] [id number] * TYPE AND SCREEN (08/02/2014 10:06 EDT) ABO B [facility] Rh Factor Negative [facility] Antibody Screen Positive [facility] Comment:SPECIMEN EXPIRES AT 23:59 ON 08/05/14 Blood specimen (specimen) 08/02/2014 10:06 EDT us Lalit Ch MD BLOOD BANK TESTS Final Result Performing Organization Address City/State/[facility] Co de Phone Number [facility] [address] [place], [place] [id number] * (ABNORMAL) HEMAGRAM (08/02/2014 10:06 EDT) WBC 13.85(H) 4.0 - 12.4 K/cmm 08/02/2014 10:17 [facility] RBC 4.17 3.86 - 5.04 M/cmm 08/02/2014 10:17 [facility] Hemoglobin 13.3 11.6 - 15.2 gm/dl 08/02/2014 10:17 [facility] HCT 37.9 34.9 - 44.4 % 08/02/2014 10:17 [facility] MCV 91 81 - 98 fl 08/02/2014 10:17 [facility] MCH 31.8 26.7 - 33.3 pg 08/02/2014 10:17 [facility] MCHC 35.0 32.1 - 35.9 gm/dl 08/02/2014 10:17 [facility] RDW-CV 12.9 11.7 - 14.6 % 08/02/2014 10:17 [facility] RDW-SD 41.1 37.6 - 50.3 fl 08/02/2014 10:17 [facility] PLT 220 141 - 320 K/cmm 08/02/2014 10:17 [facility] MPV 7.8 7.5 - 11.2 fl 08/02/2014 10:17 EDT [facility] Blood specimen (specimen) BLOOD SPECIMEN / Unknown 08/02/2014 10:06 EDT 08/02/2014 10:12 EDT us Lalit Ch MD HEMATOLOGY & PF4 ORDERABLES Fin al Result [facility] [address] [place] [address] documented in this encounter Visit Diagnoses Diagnosis Supervision of high-risk - Primary Unspecified high-risk Supervision of high-risk Unspecified high-risk Breech presentation Breech presentation without mention of version, unspecified as to episode of care cardiac anomaly complicating , antepartum Other known or suspected abnormality, not elsewhere classified, affecting management of mother, antepartum condition or complication Opiate dependence (HCC-CMS) Opioid type dependence, unspecified Breech presentation without mention of version, antepartum Other known or suspected abnormality, not elsewhere classified, affecting management of mother, antepartum condition or complication Breech presentation Breech presentation without mention of version, unspecified as to episode of care Rh negative state in antepartum period Rhesus isoimmunization affecting management of mother, antepartum condition Opiate dependence ([facility]) Opioid type dependence, unspecified documented in this encounter Administered Medications Inactive Administered Medications - up to 3 most recent administrations Medication Order MAR Action Action Date Dose Rate Site acetaminophen (TYLENOL) tablet 1,000 mg 1,000 mg, oral, EVERY 6 HOURS PRN, 2 doses, Starting on Fri08/02/14 at 1448, Until Fri08/02/14 at 1650, Pain, Routine, Recovery (only) Given 08/02/2014 15:00 EDT 1,000 mg acetaminophen (TYLENOL) tablet 325-650 mg 325-650 mg, oral, EVERY 4 HOURS, 12 doses, First dose on Fri08/02/14 at 1715, Last dose on Fri08/04/14 at 1200, Routine, On Unit Given 08/04/2014 14:14 EDT 650 mg Given 08/04/2014 10:08 EDT 650 mg Given 08/04/2014 6:07 EDT 650 mg acetaminophen (TYLENOL) tablet 325-650 mg 325-650 mg, oral, EVERY 4 HOURS PRN, Starting on Gypsy 08/04/14 at 1600, Until 08/06/14 at 1700, Pain, Routine, On Unit Given 08/06/2014 12:07 EDT 650 mg Given 08/06/2014 5:33 EDT 650 mg Given 08/06/2014 1:29 EDT 650 mg ceFAZolin (ANCEF) syringe 2 g 2 g, intravenous, Administer over 10 Minutes, PRE-OP ONCE, 1 dose, On Fri08/02/14 at 1000, STAT Given 08/02/2014 13:45 EDT 2 g docusate sodium (COLACE) capsule 100 mg 100 mg, oral, 2 TIMES DAILY PRN, Starting on Tu08/02/14 at 1654, Until 08/06/14 at 1700, Constipation, Routine, On Unit Given 08/05/2014 21:22 EDT 100 mg Given 08/05/2014 8:37 EDT 100 mg Given 08/04/2014 23:28 EDT 100 mg HYDROmorphone (DILAUDID) tablet 2 mg 2 mg, oral, EVERY 4 HOURS PRN, 2 doses, Starting on Tu08/02/14 at 1448, Until 08/02/14 at 1650, Pain, Routine, Recovery (only) Given 08/02/2014 15:43 EDT 4 mg HYDROmorphone (DILAUDID) tablet 2-6 mg 2-6 mg, oral, EVERY 3 HOURS, 8 doses, First dose (after last modification) on Fri08/02/14 at 2100, Last dose on Fri08/03/14 at 1800, Routine, On Unit Given 08/03/2014 17:23 EDT 6 mg Given 08/03/2014 13:17 EDT 6 mg Given 08/03/2014 9:02 EDT 6 mg HYDROmorphone (DILAUDID) tablet 2-6 mg 2-6 mg, oral, EVERY 3 HOURS PRN, Starting on Fri08/03/14 at 2100, Until 08/06/14 at 1700, Pain, Routine, On Unit Given 08/06/2014 12:06 EDT 6 mg Given 08/06/2014 9:03 EDT 6 mg Given 08/06/2014 5:33 EDT 6 mg HYDROmorphone (PF) (DILAUDID) 1 mg/mL injection 0.2 mg 0.2 mg, intravenous, EVERY 10 MINUTES PRN, Starting on 08/02/14 at 1448, Until 08/02/14 at 1650, Pain, Routine, Recovery (only) Given 08/02/2014 16 :28 EDT 0.6 mg HYDROmorphone (PF) (DILAUDID) 1 mg/mL injection 0.2 mg 0.2 mg, intravenous, NOW X1, 1 dose, On 08/02/14 at 2000, Routine Given 08/02/2014 19:46 EDT 0.2 mg HYDROmorphone (PF) (DILAUDID) 1 mg/mL injection 0.2-0.4 mg 0.2-0.4 mg, intravenous, EVERY 4 HOURS PRN, Starting on 08/02/14 at 1654, Until 08/02/14 at 1930, Pain, Severe pain, Routine, On Unit Given 08/02/2014 17:57 EDT 0.4 mg ibuprofen (MOTRIN) tablet 400 mg 400 mg, oral, EVERY 4 HOURS, 12 doses, First dose on 08/02/14 at 1715, Last dose on Gypsy 08/04/14 at 1200, Routine, On Unit Given 08/04/2014 10:08 EDT 400 mg Given 08/04/2014 6:08 EDT 400 mg Given 08/04/2014 2:05 EDT 400 mg ibuprofen (MOTRIN) tablet 400 mg 400 mg, oral, EVERY 4 HOURS PRN, Starting on Gypsy 08/04/14 at 1600, Until 08/06/14 at 1700, Pain, Routine, On Unit Given 08/06/2014 12:06 EDT 400 mg Given 08/06/2014 5:33 EDT 400 mg Given 08/06/2014 1:29 EDT 400 mg lactated ringers (LR) infusion 150-200 mL/hr, intravenous, CONTINUOUS, Starting on 08/02/14 at 1000, Until 08/02/14 at 1654, Routine New Bag 08/02/2014 12:34 EDT 200 mL/hr 200 mL/hr lactated ringers (LR) infusion 75 mL/hr, intravenous, CONTINUOUS, Starting on 08/02/14 at 1515, Until 08/06/14 at 1700, Routine, On Unit Rate Documented 08/02/2014 16:49 EDT 75 mL/hr 75 mL/hr New Bag 08/02/2014 15:08 EDT 75 mL/hr 75 mL/hr lactated ringers BOLUS 1,000 mL 1,000 mL, intravenous, NOW X1, 1 dose, On Fri08/02/14 at 1000, STAT Given 08/02/2014 11:08 EDT 1,000 mL lansinoh HPA lanolin topical, PRN, Starting on Fri08/02/14 at 1654, Until Fri08/06/14 at 1700, Other, On Unit Given 08/05/2014 17:25 EDT Given 08/02/2014 21:02 EDT medroxyPROGESTERone (DEPO-PROVERA) injection 150 mg 150 mg, intramuscular, Once (Without Time Specified), 1 dose, Starting on Fri08/05/14 at 1217, Until Fri08/06/14 at 1318, Routine Given 08/06/2014 13:18 EDT 150 mg methadone (DOLOPHINE) concentrated solution 100 mg 100 mg, oral, DAILY, First dose on Fri08/03/14 at 0600, Until Discontinued, Routine Given 08/06/2014 9:02 EDT 100 mg Given 08/05/2014 9:36 EDT 100 mg Given 08/04/2014 9:14 EDT 100 mg multivitamin vit-iron fumarate-FA (STUARTNATAL) 27 mg iron- 1 mg tablet 1 Tab 1 Tablet, oral, DAILY, First dose on Fri08/02/14 at 1715, Until Discontinued, Routine, On Unit Given 08/06/2014 9:02 EDT 1 Tablet Given 08/03/2014 9:03 EDT 1 Tablet oxytocin in lactated ringers 30 units/500 ml 200 mL/hr, intravenous, Once (Without Time Specified), 1 dose, Starting on Fri08/02/14 at 0933, Until Fri08/02/14 at 1403, Routine Given 08/02/2014 14:03 EDT 12 Units/hr 200 mL/hr oxytocin in lactated ringers 30 units/500 ml 135 mL/hr, intravenous, Once (Without Time Specified), 1 dose, Starting on Fri08/02/14 at 0933, Until Fri08/02/14 at 1448, Routine Given 08/02/2014 14:48 EDT 8.1 Units/hr 135 mL/hr oxytocin in lactated ringers 30 units/500 ml 50 mL/hr, intravenous, CONTINUOUS, Starting on Fri08/02/14 at 1515, Until Fri08/02/14 at 1956, Routine, On Unit Rate Documented 08/02/2014 16:49 EDT 50 mL/hr 50 mL/hr New Bag 08/02/2014 15:57 EDT 50 mL/hr 50 mL/hr sodium citrate-citric acid (BICITRA) 500-334 mg/5 mL solution 30 mL 30 mL, oral, NOW X1, 1 dose, On Fri08/02/14 at 1000, STAT Given 08/02/2014 13:30 EDT 30 mL Additional Administered Medications Medication Order MAR Action Action Date Dose Rate Site Rho(D) Immune Globulin IM Intramuscular Given 08/04/2014 11:28 EDT 1,500 Int'l Units Right Gluteus Medius/Ventroglut eal documented in this encounter Active and Recently Administered Medications Times are shown in EDT. Scheduled Medication Order 08/04/2014 08/05/2014 08/06/2014 acetaminophen (TYLENOL) tablet 325-650 mg ()(Linked Group 1) 325-650 mg, oral, EVERY 4 HOURS, 12 doses, First dose on Fri08/02/14 at 1715, Last dose on Fri08/04/14 at 1200, Routine, On Unit 0205 (Given - Provider: Yuni Culp RN)0607 (Given - Provider: Yuni Culp RN)1008 (Given - Provider: Zuleika Funez RN)1414 (Given - Provider: Zuleika Funez, SABA) ibuprofen (MOTRIN) tablet 400 mg ()(Linked Group 2) 400 mg, oral, EVERY 4 HOURS, 12 doses, First dose on Fri08/02/14 at 1715, Last dose on Fri08/04/14 at 1200, Routine, On Unit 0205 (Given - Provider: Yuni Culp RN)0608 (Given - Provider: Yuni Culp RN)1008 (Given - Provider: Zuleika Funez RN)1200 (Canceled Entry - Provider: Zuleika Funez RN) medroxyPROGESTERone (DEPO-PROVERA) injection 150 mg (COMPLETED) 150 mg, intramuscular, Once (Without Time Specified), 1 dose, Starting on Fri08/05/14 at 1217, Until 08/06/14 at 1318, Routine 1318 (Given - Provider: Naomi Jo, SABA) methadone (DOLOPHINE) concentrated solution 100 mg (CANCELED) 100 mg, oral, DAILY, First dose on Fri08/03/14 at 0600, Until Discontinued, Routine 0914 (Given - Provider: Zuleika Funez RN - Comment: Normally takes btween 9 and 9:30.) 0620 (Not Given - Provider: Clare Thurman LPN - Reason: Patient/family refused - Comment: pt. prefers to take medication at 0900)0936 (Given - Provider: Zuleika Funez RN - Comment: takes between 0900 and 0930) 0902 (Given - Provider: Naomi Jo RN) multivitamin vit-iron fumarate-FA (STUARTNATAL) 27 mg iron- 1 mg tablet 1 Tab (CANCELED) 1 Tablet, oral, DAILY, First dose on Fri08/02/14 at 1715, Until Discontinued, Routine, On Unit 0900 (Not Given - Provider: Zuleika Funez RN - Reason: Patient/family refused) 0900 (Not Given - Provider: Zuleika Funez RN - Reason: Patient/family refused) 0902 (Given - Provider: Naomi Jo RN) Continuous Medication Order 08/04/2014 08/05/2014 08/06/2014 oxytocin in lactated ringers 30 units/500 ml 50 mL/hr, intravenous, CONTINUOUS, Starting on Fri08/02/14 at 1515, Until Fri08/02/14 at 1956, Routine, On Unit PRN Medication Order 08/04/2014 08/05/2014 08/06/2014 acetaminophen (TYLENOL) tablet 325-650 mg(Linked Group 1) 325-650 mg, oral, EVERY 4 HOURS PRN, Starting on Gypsy 08/04/14 at 1600, Until 08/06/14 at 1700, Pain, Routine, On Unit 1823 (Given - Provider: Jessica Vazquez RN)2328 (Given - Provider: Jessica Vazquez RN) 0333 (Given - Provider: Clare Thurman LPN)0837 (Given - Provider: Zuleika Funez RN)1318 (Given - Provider: Zuleika Funez RN)1723 (Given - Provider: Jessica Vazquez RN)212 (Given - Provider: Jessica Vazquez RN) 0129 (Given - Provider: Clare Thurman LPN)0533 (Given - Provider: Clare Thurman LPN)1207 (Given - Provider: Naomi Jo RN) docusate sodium (COLACE) capsule 100 mg 100 mg, oral, 2 TIMES DAILY PRN, Starting on Fri08/02/14 at 1654, Until 08/06/14 at 1700, Constipation, Routine, On Unit 1008 (Given - Provider: Zuleika Funez RN)2328 (Given - Provider: Jessica Vazquez RN) 0837 (Given - Provider: Zuleika Funez RN)2121 (Given - Provider: Jessica Vazquez RN) HYDROmorphone (DILAUDID) tablet 2-6 mg(Linked Group 3) 2-6 mg, oral, EVERY 3 HOURS PRN, Starting on Fri08/03/14 at 2100, Until 08/06/14 at 1700, Pain, Routine, On Unit 0205 (Given - Provider: Yuni Culp RN)0608 (Given - Provider: Yuni Culp RN)1008 (Given - Provider: Zuleika Funez RN)1413 (Given - Provider: Zuleika Funez RN)1823 (Given - Provider: Jessica Vazquez RN)2327 (Given - Provider: Jessica Vazquez RN) 0333 (Given - Provider: Clare Thurman LPN)0836 (Given - Provider: Zuleika Funez RN)1318 (Given - Provider: Zuleika Funez RN)1723 (Given - Provider: Jessica Vazquez RN)212 (Given - Provider: Jessica Vazquez RN) 0128 (Given - Provider: Clare Thurman LPN)0533 (Given - Provider: Clare Thurman LPN)0903 (Given - Provider: Naomi oJ, SABA)1206 (Given - Provider: Naomi Jo RN) ibuprofen (MOTRIN) tablet 400 mg(Linked Group 2) 400 mg, oral, EVERY 4 HOURS PRN, Starting on Gypsy 08/04/14 at 1600, Until 08/06/14 at 1700, Pain, Routine, On Unit 1414 (Given - Provider: Zuleika Funez, SABA)1822 (Given - Provider: Jessica Vazquez RN)2327 (Given - Provider: Jessica Vazquez RN) 0334 (Given - Provider: Clare Thurman LPN)0837 (Given - Provider: Zuleika Funez RN)1318 (Given - Provider: Zuleika Funez RN)1723 (Given - Provider: Jessica Vazquez RN)2122 (Given - Provider: Jessica Vazquez RN) 0129 (Given - Provider: Clare Thurman LPN)0533 (Given - Provider: Clare Thurman LPN)1206 (Given - Provider: Naomi Jo RN) lansinoh HPA lanolin (CANCELED) topical, PRN, Starting on 08/02/14 at 1654, Until 08/06/14 at 1700, Other, On Unit 1725 (Given - Provider: Jessica Vazquez RN) Linked Groups Order Group 1: acetaminophen (TYLENOL) tablet 325-650 mg ()Jump to med 325-650 mg, oral, EVERY 4 HOURS, 12 doses, First dose on e 08/02/14 at 1715, Last dose on Gypsy 08/04/14 at 1200, Routine, On Unit Followed by acetaminophen (TYLENOL) tablet 325-650 mgJump to med 325-650 mg, oral, EVERY 4 HOURS PRN, Starting on Gypsy 08/04/14 at 1600, Until 08/06/14 at 1700, Pain, Routine, On Unit Group 2: ibuprofen (MOTRIN) tablet 400 mg ()Jump to med 400 mg, oral, EVERY 4 HOURS, 12 doses, First dose on Fri08/02/14 at 1715, Last dose on Fri08/04/14 at 1200, Routine, On Unit Followed by ibuprofen (MOTRIN) tablet 400 mgJump to med 400 mg, oral, EVERY 4 HOURS PRN, Starting on Fri08/04/14 at 1600, Until 08/06/14 at 1700, Pain, Routine, On Unit Group 3: HYDROmorphone (DILAUDID) tablet 2-6 mg () 2-6 mg, oral, EVERY 3 HOURS, 8 doses, First dose (after last modification) on Fri08/02/14 at 2100, Last dose on Fri08/03/14 at 1800, Routine, On Unit Followed by HYDROmorphone (DILAUDID) tablet 2-6 mgJump to med 2-6 mg, oral, EVERY 3 HOURS PRN, Starting on Fri08/03/14 at 2100, Until 08/06/14 at 1700, Pain, Routine, On Unit documented in this encounter Orders Medications Ordered That Louis ht Not Have Been Administered Count Last Ordered Date First Ordered Date acetaminophen (TYLENOL) tablet 650 mg 1 07/2014 atropine 0.1 mg/mL syringe 0.5 mg 1 015 bisacodyl (DULCOLAX) suppository 10 mg 1 calcium carbonate (TUMS) 200 mg calcium (500 mg) per chewable tablet tablet,chewable 1-2 Tab 1 08/02/2014 carboprost (HEMABATE) intram uscular injection 250 mcg 1 08/02/2014 dextrose 5 % and 0.45 % NaCl with KCl 20 mEq/L infusion 1 08/02/2014 HYDROmorphone (DILAUDID) tablet 2-4 mg 2 HYDROmorphone (PF) (DILAUDID ) 1 mg/mL injection 0.2-0.6 mg 1 08/02/2014 ibuprofen (MOTRIN) tablet 400 mg 2 08/03/19 15 magnesium hydroxide (MILK OF MAGNESIA) 400 mg/5 mL suspension 30 mL 1 08/02/2014 methadone (DOLOPHINE) concen trated solution 100 mg 1 08/02/2014 methylergonovine (METHERGINE ) injection 200 mcg 1 08/02/2014 misoprostol (CYTOTEC) tablet 200 mcg 1 07/2014 misoprostol (CYTOTEC) tablet 800 mcg 1 07/2014 nalOXone (NARCAN) injection 0.2 mg 1 2014 ondansetron (PF) (ZOFRAN) injection 4 mg 1 08/02/2014 ondansetron (ZOFRAN-ODT) dis integrating tablet 4 mg 1 08/02/2014 Diet Count Last Ordered Date First Orde red Date DISCHARGE DIET 1 08/06/2014 Nursing Count Last Ordered Date First Orde red Date ACTIVITY INSTRUCTIONS 5 08/06/2014 BATHING INSTRUCTIONS 2 08/06/2014 WOUND CARE INSTRUCTIONS 4 08/06/2014 Admission Count Last Ordered Date First Orde red Date STATUS: NON-MEDICARE OB INPA TIENT ADMISSION 1 08/02/2014 Transfer Count Last Ordered Date First Orde red Date NOTIFY PPS OF DISCHARGE COMPLETE 1 08/07/19 15 NOTIFY PPS OF ROOM CHANGE COMPLETE 1 2014 PPS NOTIFICATION OF PATIENT ARRIVAL ON UNIT 1 08/02/2014 PPS NOTIFICATION OF SENDING PATIENT OFF THE UNIT 1 08/02/2014 Discharge Count Last Ordered Date First Orde red Date DISCHARGE PATIENT 1 08/06/2014 Legal Count Last Ordered Date First Orde red Date MISCELLANEOUS DISCHARGE INSTRUCTIONS 5 11/2014 Transfuse Count Last Ordered Date First Orde red Date ADMINISTER RHOGAM (RHIG) 300 MCG 1 08/04/2014 documented in this encounter Care Teams [employer] Teacher Relationship Specialty Start Date End Date Seymour Collado MD [address] [place] [address] PCP - General 12/19/09 documented as of this encounter
--- OUTSIDE RECORDS SUMMARY | 2024-02-08 12:28 | XMS_ITS | Encounter Summary ---
Author Organization [facility] Address [address] [place] [address] Care Team Providers Care Ribbon Lap Machine Tender Name Role Phone Seymour Collado MD Primary Care Provider [phone] Encounter Details Date Type Department Care Team (Late st Contact Info) Description 08/09/2014 Orders Only [facility] - [facility] [address], [place] [address] Jossie Ch MD Social History Tobacco Use [...] Lisa Trevizo RN documented in this encounter Ordered Prescriptions Prescription Sig Dispense Quantity Refills Last Filled Start Date End Date HYDROmorphone (DILAUDID) 2 mg tablet Take 1-2 Tabs by mouth every 4 hours as needed for up to 14 days for Pain Daily Max: 24 mg 30 Tab 0 08/09/2014 08/23/2014 documented in this encounter Progress Notes * Jossie Ch MD - 08/09/2014 1547 EDT Prior script written today (order #[id number]) lost in transit to de, was not signed. Repeat order being placed, prior script is not to be filled, and if found should be destroyed immediately. documented in this encounter Plan of Treatment Not on file documented as of this encounter Visit Diagnoses Not on filedocumented in this encounter Discontinued Medications Medication Sig Discontinue Reason Start Date End Da te HYDROmorphone (DILAUDID) 2 mg tablet Take 1-2 Tabs by mouth every 4 hours as needed for up to 14 days for Pain Daily Max: 24 mg Error 08/09/2014 08/09/2014 documented as of this encounter Care Teams Ribbon Lap Machine Tender Relationship Specialty Start Date End Date Seymour Collado MD [address] [place] [id number] PCP - General 12/19/09 documented as of this encounter
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
--- OUTSIDE RECORDS SUMMARY | 2024-02-08 12:28 | XMS_ITS | Encounter Summary ---
Author Organization [facility] Address [address] [place] [address] Care Team Providers Care Gas Specialist Name Role Phone Seymour Collado MD Primary Care Provider [phone] Encounter Details Date Type Department Care Team (Late st Contact Info) Description 11/14/2019 Lab Requisition [facility] Pathology & Laboratory Medicine - [address] [address] Outr Resulting Lab, Provider Social History Tobacco [...] Procedure Name Priority Date/Time Associated Diagnosis Comments ZZCOVID-19 TEST [facility] PCR Today 11/14/2019 12:49 EDT COVID-19 TESTING Routine 11/14/2019 12:4 9 EDT documented in this encounter Results * COVID-19 TEST [facility] PCR (11/14/2019 12:49 EDT) Swab ENTIRE NASOPHARYNX / Unknown 11/14/2019 12:49 EDT 11/15/2019 9:35 EDT us Provider Outr Resulting Lab MICROBIOLOGY - GENER AL ORDERABLES Final Result Performing Organization Address City/State/[facility] Co de Phone Number [facility] [address] [place] [id number] * COVID-19 TESTING (11/14/2019 12:49 EDT) COVID-19 rt-PCR Result Negative Negative 11/15/2019 14:24 EDT [facility] Comment: This test has not been FDA cleared or approved. This test has been authorized by FDA under an EUA for use by authorized laboratories. This test has been authorized only for detection of nucleic acid from 2018-, not for any other viruses or pathogens. This test is only authorized for the duration of the declaration that circumstances exist justifying the authorization of emergency use of in vitro diagnostic tests for detection and/or diagnosis of 2019-nCoV under section 564(b)(1) of Act, 21 U.S.C ?? 360bbb-3(b) (1), unless the authorization is terminated or revoked sooner. Negative results do not preclude 2019-nCoV infection and should not be used as the sole basis for treatment or other patient management decisions. Negative results must be combined with clinical observations, patient history, and epidemiological information. Performed on the [employer] Fusion instrument Performing Lab [place] [facility] 11/15/2019 14:24 EDT [facility] Swab 11/14/2019 12:4 9 EDT 11/15/2019 9:35 EDT us Provider Outr Resulting Lab MICROBIOLOGY - GENER AL ORDERABLES Final Result Performing Organization Address City/State/[facility] Co de Phone Number [facility] [address] [place] [address] documented in this encounter Visit Diagnoses Not on filedocumented in this encounter Care Teams Gas Specialist Relationship Specialty Start Date End Date Seymour Collado MD [address] [place] [id number] PCP - General 12/19/09 documented as of this encounter
--- OUTSIDE RECORDS SUMMARY | 2024-02-08 12:28 | XMS_ITS | Encounter Summary ---
Author Organization [facility] Address [address] [place] [address] Care Team Providers Care Nutrition Professor Name Role Phone Seymour Collado MD Primary Care Provider [phone] Encounter Details Date Type Department Care Team (Late st Contact Info) Description 10/28/2019 Lab Requisition [facility] Pathology & Laboratory Medicine - [address] [address] Outr Resulting Lab, Provider Social History Tobacco [...] Assessment Author No 06/20/2017 17:00 EDT Dimitri aFllon RN documented as of this encounter Mental [...] Procedure Name Priority Date/Time Associated Diagnosis Comments DO NOT ORDER STANDALONE - BROAD COVID TEST Today 10/28/2019 11:30 EDT COVID-19 TESTING Routine 10/28/2019 11:3 0 EDT documented in this encounter Results * DO NOT ORDER STANDALONE - BROAD COVID TEST (10/28/2019 11:30 EDT) COVID-19 rt-PCR Result NEGATIVE Negative 10/30/2019 6:36 EDT [facility] Comment: 2019-novel Coronavirus (2019-nCoV) not detected by the qRT-PCR assay. Consider testing for other respiratory viruses or re-collecting for 2019-nCoV testing. Note: Optimum timing for peak viral levels during infections caused by 2019-nCoV have not been determined. Collection of multiple specimens from the same patient may be necessary to detect the virus. Limitations Positive results are indicative of active infection with SARS-CoV-2 but do not rule out bacterial infection or co-infection with other viruses. The agent detected may not be the definite cause of disease. In addition, detection of viral RNA may not indicate the presence of infectious virus or that SARS-CoV-2 is the causative agent for clinical symptoms. Negative results do not preclude SARS-CoV-2 infection and should not be used as the sole basis for patient management decisions. Negative results must be combined with clinical observations, patient history, and epidemiological information. False negative results may also occur if amplification inhibitors are present in the specimen or if inadequate numbers of organisms are present in the specimen. Optimum specimen types and timing for peak viral levels during infections caused by SARS-CoV-2 have not been fully determined. Collection of multiple specimens (types and time points) from the same patient may be necessary to detect the virus. The test was validated for use with upper respiratory specimens obtained via nasopharyngeal or oropharyngeal swabs in VTM, UTM, M4, M5, M6, saline, and MTM media. The performance of this test has not been established for other specimens. Specimens collected using other FDA recommended Specimen Collection Materials listed in the FDA COVID-19 Diagnostic Technologies communication (June 24, 2019) are processed with the caveat that they were not all validated for use with this test and the result must be interpreted in this context. Furthermore, a false negative results may occur if a specimen is improperly collected, transported or handled. If the virus mutates in the RT-PCR target region, SARS-CoV-2 may not be detected or may be detected less predictably. Inhibitors or other types of interference may produce a false negative result. An interference study evaluating the effect of common cold medications was not performed. This test is not FDA-cleared but its performance characteristics were established by our CLIA-certified, CAP-accredited, high complexity laboratory in accordance with CLIA regulations, College of [employer] Pathologists (CAP) guidelines (Jun 17, 2019), and FDA guidance (May 29, 2019). This test is only for use under the Food and Drug Administration's Emergency Use Authorization. Swab ENTIRE NASOPHARYNX / Unknown 10/28/2019 11:30 EDT 10/28/2019 21:42 EDT us Provider Outr Resulting Lab MICROBIOLOGY - GENER AL ORDERABLES Final Result [facility] [place], [place] * COVID-19 TESTING (10/28/2019 11:30 EDT) COVID-19 rt-PCR Result NEGATIVE Negative 10/30/2019 8:09 EDT [facility] Comment: 2019-novel Coronavirus (2019-nCoV) not detected by the qRT-PCR assay. Consider testing for other respiratory viruses or re-collecting for 2019-nCoV testing. Note: Optimum timing for peak viral levels during infections caused by 2019-nCoV have not been determined. Collection of multiple specimens from the same patient may be necessary to detect the virus. Limitations Positive results are indicative of active infection with SARS-CoV-2 but do not rule out bacterial infection or co-infection with other viruses. The agent detected may not be the definite cause of disease. In addition, detection of viral RNA may not indicate the presence of infectious virus or that SARS-CoV-2 is the causative agent for clinical symptoms. Negative results do not preclude SARS-CoV-2 infection and should not be used as the sole basis for patient management decisions. Negative results must be combined with clinical observations, patient history, and epidemiological information. False negative results may also occur if amplification inhibitors are present in the specimen or if inadequate numbers of organisms are present in the specimen. Optimum specimen types and timing for peak viral levels during infections caused by SARS-CoV-2 have not been fully determined. Collection of multiple specimens (types and time points) from the same patient may be necessary to detect the virus. The test was validated for use with upper respiratory specimens obtained via nasopharyngeal or oropharyngeal swabs in VTM, UTM, M4, M5, M6, saline, and MTM media. The performance of this test has not been established for other specimens. Specimens collected using other FDA recommended Specimen Collection Materials listed in the FDA COVID-19 Diagnostic Technologies communication (June 24, 2019) are processed with the caveat that they were not all validated for use with this test and the result must be interpreted in this context. Furthermore, a false negative results may occur if a specimen is improperly collected, transported or handled. If the virus mutates in the RT-PCR target region, SARS-CoV-2 may not be detected or may be detected less predictably. Inhibitors or other types of interference may produce a false negative result. An interference study evaluating the effect of common cold medications was not performed. This test is not FDA-cleared but its performance characteristics were established by our CLIA-certified, CAP-accredited, high complexity laboratory in accordance with CLIA regulations, College of [place] Pathologists (CAP) guidelines (Jun 17, 2019), and FDA guidance (May 29, 2019). This test is only for use under the Food and Drug Administration's Emergency Use Authorization. Performing Lab [employer] 10/30/2019 8:09 EDT [facility] Swab 10/28/2019 11:3 0 EDT 10/28/2019 21:42 EDT us Provider Outr Resulting Lab MICROBIOLOGY - GENER AL ORDERABLES Final Result [facility] [address] [place] [address] [facility] [place], [place] documented in this encounter Visit Diagnoses Not on filedocumented in this encounter Care Teams Nutrition Professor Relationship Specialty Start Date End Date Seymour Collado MD [address] [place] [address] PCP - General 12/19/09 documented as of this encounter
--- OUTSIDE RECORDS SUMMARY | 2024-02-08 12:28 | XMS_ITS | Encounter Summary ---
Author Organization [facility] Address [address] [place] [address] Care Team Providers Care Stave Grader Name Role Phone Seymour Collado MD Primary Care Provider [phone] Encounter Details Date Type Department Care Team (Late st Contact Info) Description 12/19/2016 Results Only [facility] [phone] Tyler Melchor, [address] [address] Social History Tobacco Use Types Packs/Day Years [...] Lisa Trevizo RN documented in this encounter Plan of Treatment Not on file documented as of this encounter Procedures Procedure Name Priority Date/Time Associated Diagnosis Comments PAP TEST- RESULT ONLY Routine 12/19/2016 0:00 EDT documented in this encounter Results * PAP TEST- RESULT ONLY (12/19/2016 0:00 EDT) Pathology Report: CYTOPATHOLOGY REPORT Reports generated via electronic interface contain original data; however they are lacking the format of the original report. Caution should be taken when reading/interpreti ng unformatted reports. Name: ? ADRIANNA MORENO ? Accession #: ? [id number] : ? 1990 (Age: 26) ??F ?Collect Date: ? 12/19/2016 Location: ? [facility] ? Receive Date: ? 12/24/2016 Provider: ?TYLER MELCHOR [facility] Copy to: ? Specimen/Source: ?Pap Test, Cervix, ThinPrep Imaging System with manual evaluation Last Menstrual Period: ? 08/02/16 Menstrual/Pregnanc y Status: ? Hormonal/Contracep tive Status: ? None Other: ? Previous NIL Pap(s): 01/11 ? SPECIMEN ADEQUACY ? Satisfactory for Evaluation - transformation zone component present GENERAL CATEGORIZATION ? Negative for Intraepithelial Lesion or Malignancy ? Document reviewed and electronically signed by: ? ELLE Root(ASCP) ? Report Date: ??01/02/2017 15:02 End of Report [facility] 12/19/2016 12/24/2016 us Tyler Melchor [facility] PATHOLOGY ORDERABLES Fin al Result [facility] [address] [place] [address] documented in this encounter Visit Diagnoses Not on filedocumented in this encounter Care Teams Stave Grader Relationship Specialty Start Date End Date Seymour Collado MD [address] [place] [address] PCP - General 12/19/09 documented as of this encounter
--- OUTSIDE RECORDS SUMMARY | 2024-02-08 12:28 | XMS_ITS | Encounter Summary ---
Author Organization [facility] Address [address] [place] [address] Care Team Providers Care Collection Systems Foreman Name Role Phone Seymour Collado MD Primary Care Provider [phone] Reason for Visit * Reason Onset Date Comments Follow-up 09/19/2021 Encounter Details Date Type Department Care Team (Late st Contact Info) Description 09/19/2021 Telephone [facility] OBGYN Services - [address] [phone] Noelle Brown, RN Follow-up Social History Tobacco Use Types Packs/Day Years [...] encounter Miscellaneous Notes * Telephone Encounter - Noelle Brown RN - 09/24/2021 1555 EDT TC to pt, no answer, not able to LM, VM not setup. Called [facility], spoke with lab, pt has not had HCG drawn since order was sent on 09/21. Pt still has office visit scheduled for 09/27. * Telephone Encounter - Noelle Brown RN - 09/21/2021 1344 EDT Spoke with pt, she was not able to go to the lab on 09/21 for HCG test, had to leave due to her ride. Pt would still like to have test done, she is currently in [place], [place]. Called [facility] in [place], HCG order faxed to [phone]. [facility] * Telephone Encounter - Noelle Brown RN - 09/19/2021 0943 EDT TC to pt, no answer, VM not setup, not able to LM. Pt did not go to lab for HCG on 09/18/21. Attempted to call number listed as home number. Went to , seemed like a man's personal cell phone. Message not left. documented in this encounter Plan of Treatment Not on file documented as of this encounter Visit Diagnoses Not on filedocumented in this encounter Care Teams Collection Systems Foreman Relationship Specialty Start Date End Date Seymour Collado MD [address] [place] [address] PCP - General 12/19/09 documented as of this encounter
--- OUTSIDE RECORDS SUMMARY | 2024-02-08 12:28 | XMS_ITS | Encounter Summary ---
Author Organization [facility] Address [address] [place] [address] Care Team Providers Care List Of First Job Ideas Name Role Phone Seymour Collado MD Primary Care Provider [phone] Reason for Referral * (Routine) - Receiving Office to Obtain Authorization Specialty Diagnoses / Procedures Referred By Contac t Referred To Contact Maris Ledezma MD Phone: tel: Referral ID Status Reason Start Date Expiration Date Visits Requested Visits Authorized [id number] Receiving Office to Obtain Authorization Specialty Services Required 8 1 1 Comments See your box printer on Friday for staple removal appointment and then again in 2 weeks. Please call for an appointment. * (Routine) - Receiving Office to Obtain Authorization Specialty Diagnoses / Procedures Referred By Contac t Referred To Contact Maris Ledezma MD Phone: tel: Referral ID Status Reason Start Date Expiration Date Visits Requested Visits Authorized [id number] Receiving Office to Obtain Authorization Specialty Services Required 8 1 1 Reason for Visit * Reason Comments Post-OP Follow Up Encounter Details Date Type Department Care Team (Late st Contact Info) Description 06/20/2017 16:01 EDT - 06/24/2017 14:59 EDT Hospital Encounter [facility] [address], [place] [address] Laurie Butler MD [address] [facility], [address] [place] [id number] Prior with congenital cardiac defect, antepartum (Primary Dx); S/P Discharge Disposition: Home or Self Care Social [...] Sign Reading Time Taken Comments Blood Pressure 126/78 06/24/2017 0813 EDT Pulse - - Temperature 36.5 ??C (97.7 ??F) 06/24/2017 0813 EDT Respiratory Rate 16 06/24/2017 0813 EDT Oxygen Saturation 99% 06/24/2017 0813 EDT Inhaled Oxygen Concentration - - Weight 68.9 kg (152 lb) 06/20/2017 1700 EDT Height 162.6 cm (5' 4) 06/20/2017 1700 EDT Body Mass Index 26.09 06/20/2017 1700 EDT documented in this encounter Functional Status [...] Dimitri Fallon RN documented in this encounter Discharge Diagnoses Diagnosis Z39.0 Encounter for care and examination of mother immediately after delivery-Z39.0[ICD-10-CM] documented in this encounter Discharge Summaries * Maris Ledezma MD - 06/24/[address] REGISTRY OFFICER Maternal Discharge Summary This patient has no babies on file. Maternal Name: Melissa Moreno : 1990 Attending: No att. providers found Admission: 06/20/2017 Discharge: 06/24/17 Reason for Admission: Admission indication: Other (comment) (maternal transport for NICU) Hospital Course: Melissa Moreno is a 26 y.o. on POD0 s/p repeat LTCS at 39w0d who presented as a maternal transport as her infant is requiring NICU support. Her CS was uncomplicated with EBL 300 cc. On admission, she reported incisional pain. Her vaginal bleeding had been moderate, changing her pad every 2-3 hours. She stood once since her CS but had not ambulated much. Her carbone was stillin place. She had not passed gas yet. She had tolerated a regular diet without N, V. The patient's course was uncomplicated. She obtained good pain control, tolerated a regular diet, was ambulating and voiding independently. Her lochia was within normal limits and she initiated . The patient was subsequently discharged on POD#4 with instructions to follow-upfor routine care at 2 and 6 weeks. Hospital Problems: Active Hospital Problems Diagnosis Date Noted ??? 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 Boyle Allergies: Kiwi Medications during current : No prescriptions prior to admission. Clinical Issues Needing Follow-up: Staple removal Contraception Plan: With home OB provider Other: Hepatitis C Results Pending at Discharge: Test results still pending from this admission None Follow-Up Appointments and Procedures Recommended to Patient: Follow-up appointments and procedures Keep all scheduled appointments Authorizing Provider: Maris Ledezma MD You should follow up with your Aged Or Disabled Care Worker See your box printer on Friday for staple removal appointment and then again in 2 weeks. Please call for an appointment. Authorizing Provider: Maris Ledezma MD Discharge Medications: START taking these medications Sig HYDROmorphone 4 mg tablet Commonly known as: DILAUDID Take 1 Tab by mouth every 4 hours as needed for Pain. Daily Max: 24 mg Quantity: 20 Tab CONTINUE taking these medications Sig acetaminophen 325 mg tablet Commonly known as: TYLENOL Take 1-2 Tabs by mouth every 4 hours as needed for Pain calcium carbonate 200 mg calcium (500 mg) tablet,chewable Commonly known as: TUMS Take 1-2 Tabs by mouth 4 times daily as needed docusate sodium 100 mg capsule Commonly known as: COLACE Take 1 Cap by mouth 2 times daily as needed for Constipation ibuprofen 400 mg tablet Commonly known as: MOTRIN Take 1 Tab by mouth every 4 hours as needed for Pain methadone 5 mg/5 mL oral solution Commonly known as: DOLOPHINE Take 100 mg by mouth daily ondansetron 4 mg tablet Commonly known as: ZOFRAN ( HYDROCHLORIDE) Take 1 Tab by mouth every 8 hours as needed for Nausea. Quantity: 10 Tab VITAMIN tablet Generic drug: Ronlscnx-Lh-Vci-Fe-FA Take 1 Tab by mouth daily Condition at Discharge: Stable Discharge Disposition: to home Maris Ledezma MD 06/24/2017 17:28 Cosigned by Jenniffer Davalos MD at 06/25/2017 10:33 EDT documented in this encounter Medications at Time [...] needed for Nausea. 10 Tab 0 12/19/2009 Laebbksb-Mk-Ymz- Fe-FA ( VITAMIN) tablet Take 1 Tab by mouth daily documented as of this encounter Ordered Prescriptions Prescription Sig Dispense Quantity Refills Last Filled Start Date End Date HYDROmorphone (DILAUDID) 4 mg tablet Take 1 Tab by mouth every 4 hours as needed for Pain. Daily Max: 24 mg 20 Tab 06/23/2017 documented in this encounter Discharge Disposition Disposition Code Departure Means Destination Home or Self Care documented in this encounter Progress Notes * Jenniffer Davalos MD - 06/24/2017 0556 EDT Postoperative Progress Note CC: s/p LTCS Subjective/Objective Subjective Doing well, pain well controlled. Passing flatus, no BM. Tolerating regular diet without nausea/vomiting. Has ambulated and voiding spontaneously Lochia minimal. Breast pumping. The patient denies CP/SOB/N/V/RECIO/Dizziness/LE pain. Objective Vital Signs Temp: [36.1 ??C (97 ??F)-37.1 ??C (98.8 ??F)] (), Heart Rate: [64 BPM-74 BPM] (), Resp:[16-18] (), BP: (122-132)/(72-81) (), SpO2: [99 %-100 %] () UOP: Not recorded No intake or output data in the 24 hours ending 06/24/17 0556 Physical Exam Gen: NAD Resp: CTAB CV: RRR Abd: soft, nondistended, appropriately tender to palpation, fundus firm @ 2 cm below umbilicus, incision intact with adriano and steri strips Ext: WWP, 2+DPs, trace edema bilat Assessment/Plan Assessment Melissa Moreno is a 26 y.o. POD#4 s/p repeat LTCS at 39w0d. Patient recovering well, AVSS. Plan Opioid maintenance therapy: - Continue 110 mg methadone daily Post-op/ care: - Encourage IS, ambulation - Advance PO intake as tolerated - Support BF - Contraception: Planning for LARC, unsure which kind yet. Will f/u with home OB. - depression: Discussed, patient reports understanding - Hep C: needs referral to GI - Pain: Continue current pain regimen - Heme: Pre-op Hct 37.7. EBL 300 cc POD1 Hct 31.6, likely secondary to under- estimated EBL and hemodilution. - RI. V Non-Imm, will need varivax - Rh neg with Rh pos , s/p rhogam on 06/21. - Dispo: Likely d/c home later today- patient will need adriano appt Friday with home OB provider, discussed Maris Ledezma MD 06/24/2017 5:56 Attestation: I saw and examined the patient 06/24/2017. I agree with the resident's/fellow's findings and plans as documented. Ready for d/c today. Adriano removed. Will f/u for 6 week PPV with Ursula Melchor at [facility]. Declines contraception at d/c. Plans IUD PP. Circumcision for prior to d/c. Jenniffer Davalos MD 06/24/2017 17:05 * Farheen Del Rosario - 06/23/2017 1112 EDT Case Management Assessment & Initial Discharge Plan Working Diagnosis/Presenting Problem: Melissa Moreno is a 26 y.o. on POD0 s/p repeat LTCS [id number] who presents as a maternal transport as her infant is requiring NICU support. Living Arrangements: Melissa lives with her partner Fab, who is baby's (Moe) father. Rebeccastates that housing is stable. Functional Status (psychosocial and physical): Melissa states that Moe is doing well but that she is having some complications with C section. Melissa has named Moe after her father who . Melissa lost her first born when he was two weeks old (Apolinar). Social Supports: Melissa states that her sister lives nearby and is supportive. Other than that shehas little family support in the area. Existing Community Resources: [facility] home health care identified. Provider's name is Lisa Ruiz. Melissa receives counseling support through [facility]. Advanced Directives/DPOA: None specified. Cultural/Spiritual Needs: None specified. Insurance/Financial Needs: Medicaid. Nutrition: [facility] Transportation Needs: None identified at this time. Patient Goals: Discharge home when medically indicated. Assessment and Discharge Care Plan: [facility] met with Melissa. Moe sleeping in room with her. Discussed role of case management and completed plan of safe care. Melissa stated that her morningsickness worsened towards end of and she was aware of THC in her urine. Plan of safe carewas faxed to Dr. Collado in [place]. Melissa will have case management paged if needs come up. TONY Meade [employer] #[id number] Cosigned by Jessica Watt at 06/23/2017 12:12 EDT * Tatiana De León MD - 06/23/2017 0617 EDT Postoperative Progress Note CC: s/p LTCS Subjective/Objective Subjective Doing well, pain well controlled. Passing flatus, no BM. Tolerating regular diet without nausea/vomiting. Has ambulated and voiding spontaneously Lochia minimal. Breast pumping. The patient denies CP/SOB/N/V/RECIO/Dizziness/LE pain. Objective Vital Signs Temp: [36 ??C (96.8 ??F)-37.1 ??C (98.8 ??F)] (), Heart Rate: [67 BPM-95 BPM] (), Resp:[16-18] (), BP: (113-132)/(55-85) (), SpO2: [99 %-100 %] () UOP: Not recorded No intake or output data in the 24 hours ending 06/23/17 0617 Physical Exam Gen: NAD Resp: CTAB CV: RRR Abd: soft, nondistended, appropriately tender to palpation, fundus firm @ 2 cm below umbilicus, dressing/incision intact with adriano Ext: WWP, 2+DPs, trace edema bilat Assessment/Plan Assessment Melissa Moreno is a 26 y.o. POD#3 s/p repeat LTCS at 39w0d. Patient recovering well, AVSS. Plan Opioid maintenance therapy: - Continue 110 mg methadone daily Post-op/ care: - Encourage IS, ambulation - Advance PO intake as tolerated - Support BF - Contraception: Planning for LARC, unsure which kind yet. Will f/u with home OB. - depression: Discussed, patient reports understanding - Hep C: needs referral to GI - Pain: Continue current pain regimen - Heme: Pre-op Hct 37.7. EBL 300 cc POD1 Hct 31.6, likely secondary to under- estimated EBL and hemodilution. - RI. V Non-Imm, will need varivax - Rh neg with Rh pos , s/p rhogam on 06/21. - Dispo: Likely d/c home later today- patient will need adriano appt Friday with home OB provider, discussed Maris Ledezma MD 06/23/2017 6:17 Attending Addendum: I saw and examined the patient. I agree with the findings and plan of care documented in the resident's note. Wound clean dry and intact with steri strips and adriano, no significant erythema or fluctuance. Baby here for 4 days, pt to stay also, D/C tomorrow - will f/u with regular methadone provider on D/C. TATIANA DE LEÓN MD 06/23/2017 11:02 * Grisel Shipman MD - 06/22/2017 0623 EDT Postoperative Progress Note CC: POD#2 s/p LTCS Subjective/Objective Subjective Doing well, pain well controlled. Passing flatus, no BM. Tolerating regular diet without nausea/vomiting. Has ambulated and voiding spontaneously Lochia minimal. Breast pumping. The patient denies CP/SOB/N/V/RECIO/Dizziness/LE pain. Objective Vital Signs Temp: [35.5 ??C (95.9 ??F)-37.2 ??C (99 ??F)] (), Heart Rate: [71 BPM-79 BPM] (), Resp:[18] (), BP: (121-139)/(79-91) (), SpO2: [99 %] () UOP: Not recorded Intake/Output Summary (Last 24 hours) at 06/22/17 0624 Last data filed at 06/21/17 1930 Gross per 24 hour Intake 980 ml Output 600 ml Net 380 ml Physical Exam Gen: NAD Resp: CTAB CV: RRR Abd: soft, nondistended, appropriately tender to palpation, fundus firm @ 2 cm below umbilicus, dressing/incision intact with adriano Ext: WWP, 2+DPs, trace edema bilat Assessment/Plan Assessment Melissa Moreno is a 26 y.o. POD#2 s/p repeat LTCS at 39w0d. Patient recovering well, AVSS and adequate UOP. Plan Opioid maintenance therapy: - Continue 110 mg methadone daily Post-op/ care: - Encourage IS, ambulation - Advance PO intake as tolerated - Support BF - D/C Carbone with ambulation - Contraception: Planning for LARC, unsure which kind yet - depression: Discussed, patient reports understanding - Pain: Continue current pain regimen - Heme: Pre-op Hct 37.7. EBL 300 cc Will follow up with CBC this am - RI. V Non-Imm, will need varivax - Rh neg with Rh pos . Needs rhogam. - Dispo: Likely d/c home POD#3-4 Shantelle Sheridan MD 06/22/2017 6:24 PGY-3, Obstetrics and Gynecology Pager #: [phone] MFMS Attending I saw and examined patient. I agree with the the impression and plan as noted above. Nl post-op Grisel Shipman MD * Melissa Schaeffer MD - 06/21/2017 0541 EDT Postoperative Progress Note CC: s/p LTCS Subjective/Objective Subjective Doing well, pain well controlled. Passing flatus, no BM. Tolerating regular diet without nausea/vomiting. Has ambulated. Carbone removed, voiding spontaneously Lochia minimal. Breast pumping. The patient denies CP/SOB/N/V/RECIO/Dizziness/LE pain. Objective Vital Signs Temp: [36.4 ??C (97.5 ??F)-36.6 ??C (97.9 ??F)] (), Heart Rate: [64 BPM-77 BPM] (), Resp: [16-18] (), BP: (118-120)/(82-84) (), SpO2: [99 %] () UOP: 750 cc/4 hrs Intake/Output Summary (Last 24 hours) at 06/21/17 0541 Last data filed at 06/21/17 0357 Gross per 24 hour Intake 400 ml Output 3275 ml Net -2875 ml Physical Exam Gen: NAD Resp: CTAB CV: RRR Abd: soft, nondistended, appropriately tender to palpation, fundus firm @ 2 cm below umbilicus, dressing/incision intact with steris Ext: WWP, 2+DPs, trace edema bilat Assessment/Plan Assessment Melissa Moreno is a 26 y.o. POD#1 s/p repeat LTCS at 39w0d. Patient recovering well, AVSS and adequate UOP. Plan Opioid maintenance therapy - Continue 110 mg methadone daily - Continue routine post-op/post- care - Encourage IS, ambulation - Advance PO intake as tolerated - Support BF - D/C Carbone with ambulation - Contraception: will discuss prior to d/c - depression: will discuss prior to d/c - Pain: continue current pain regimen - Heme: Pre-op Hct 37.7. EBL 300 cc Will follow up with CBC this am - RI. V Non-Imm, will need varivax. Rh neg with Rh pos infant. Needs rhogam. - Dispo: Likely d/c home POD3-4 Maris Ledezma MD 06/21/2017 5:41 Pager [phone] I have seen and examined the patient above. I agree with the assessment and plan as above. Patient planning on PP IUD with primary box printer in [place]. She is currently eagerly awaiting her son'sMRI results. Melissa Schaeffer MD Pager [phone] documented in this encounter H&P Notes * Laurie Butler MD - 06/20/2017 9695 EDT Department of Obstetrics History & Physical Admit Date: 06/20/2017 Chief Complaint Patient presents with ??? Post-OP Follow Up Admission indication: Other (comment) (maternal transport for NICU) Maternal transport/Outside delivery: Yes Patient transported from: hospital Sending hospital name: [facility] Indications for transport: transport HPI: Melissa Moreno is a 26 y.o. on POD0 s/p repeat LTCS at 39w0d who presents as a maternaltransport as her is requiring NICU support. Her CS was uncomplicated with EBL 300 cc. This afternoon, she reports incisional pain. Her vaginal bleeding has been moderate, changing her pad every 2-3 hours. She has stood once since her CS but has not ambulated much. Her carbone is still in place. She has not passed gas yet. She has tolerated a regular diet without N, V. She denies CP, SOB, calf pain. Review of Systems: As above OB History Para Term AB Living 4 2 2 2 2 SAB TAB Ectopic Multiple Live Births 2 0 2 # Outcome Date GA Lbr Osmar/2nd Weight Sex Delivery Anes PTL Lv 4 Term 06/20/17 39w0d M CS-LTranv FELIBERTO 3 Term 08/02/14 39w4d 3630 g (8 lb) M - L FELIBERTO Comments: Method of delivery: Presentation: breech Indication for delivery: breech term Route of delivery: breech Amniotic fluid: Clear Apgars: 69/ Resuscitation: was initially quiet at the abdomen. Brought to open bed warmer where he was warmed, dried, and stimulated, began to cry. Had some secretions from mouth and nose, which were suctioned. Had HR >100, decreased respiratory effort at 1 MOL, increased with stimulation, good tone,remained vigorous. Bluish color persistent, pulse oximetry initiated. Received BBO2 for pre-ductal sats below O2 sat goal (60s) at 4-5 MOL, subsequently recovered and weaned to RA by 6 MOL. Deep suctioned at 5 min of life with removal of clear secretions. Parents held for a few minutes before transfer to NICU for evaluation of known congenital heart disease. 2 SAB 1 SAB Previous Complications: No Data Recorded Past Medical History Past Surgical History Past Medical History: Diagnosis Date ??? Iron metabolism disorder ??? Placental abruption No past surgical history on file. Past Gynecological History Social History No abnormal paps 12/19/16 NILM pap Social History Substance Use Topics ??? Smoking status: Former Smoker Packs/day: 0.50 Years: 3.00 ??? Smokeless tobacco: Never Used ??? Alcohol use No Comment: Not with my liver bad reports that she uses illicit drugs, including Methadone. Medications Allergies Prescriptions Prior to Admission Medication Sig Dispense Refill Last Dose ??? acetaminophen (TYLENOL) 325 mg tablet Take 1-2 Tabs by mouth every 4 hours as needed for Pain Taking ??? calcium carbonate (TUMS) 200 mg calcium (500 mg) tablet,chewable Take 1-2 Tabs by mouth 4 timesdaily as needed Taking ??? docusate sodium (COLACE) 100 mg capsule Take 1 Cap by mouth 2 times daily as needed for Constipation Taking ??? ibuprofen (MOTRIN) 400 mg tablet Take 1 Tab by mouth every 4 hours as needed for Pain (Patient not taking: Reported on 12/31/2016) Not Taking ??? methadone (DOLOPHINE) 5 mg/5 mL oral solution Take 100 mg by mouth daily Taking ??? ondansetron (ZOFRAN) 4 mg tablet Take 1 Tab by mouth every 8 hours as needed for Nausea. (Patient not taking: Reported on 12/31/2016) 10 Tab 0 Not Taking ??? Emrmhrmy-Ut-Ptq-Fe-FA ( VITAMIN) tablet Take 1 Tab by mouth daily Taking Allergies Allergen Reactions ??? Kiwi Objective: Patient Vitals for the past 8 hrs: BP Heart Rate Resp Temp SpO2 06/20/17 1600 120/82 64 BPM 16 36.6 ??C (97.9 ??F) 99 % General: NAD Cardiovascular: RRR Respiratory: CTAB Abdomen: soft, non-tender, uterine fundus firm at 2 cm below the umbilicus Extremities: SCDs on Labs from [facility]: 06/18 Hct 37.7 06/20 UDS: + methadone and MJ 06/10 Hep C [id number] Assessment/Problems/Plan: Melissa Moreno is a 26 y.o. on POD#0 s/p repeat LTCS at 39w0d who presents as a maternal transport for NICU care for her infant. She is stable. AVSS. Neuro: Continue current pain regimen of dilaudid PO/IV, tylenol, ibuprofen. Continue home dose of methadone 110 mg daily. CV: No active issues Resp: No active issues GI: Regular diet as tolerated. Colace for bowel regimen. Recent Hep C viral load as above. : Carbone in place, will d/c with ambulation. Heme: RI. V unknown, will order IgG. Rh neg, will order Rhogam. Pre-op Hct 37.7. EBL 300 cc. CBC tomorrow am. VTE Ppx: Ambulation and SCDs Discussed with Dr. Butler. Maris Ledezma MD 06/20/2017 18:04 [facility] Inpatient Attending Attestation: I have examined Melissa Moreno myself, have reviewed her vitals, laboratory data, and chart history.I agree with the above assessment and plan as noted (otherwise I have inserted modifications in red). Pt in considerable pain when I went to see her- will increase her narcotic dosing, as she will need higher doses given her opiate tolerance. Baby is stable, but appears to have a tethered cord and m ay have spina bifida oculta. LAURIE BUTLER MD documented in this encounter Miscellaneous Notes * Note - Roldan Carmen RN IBCLC - 06/24/2017 9109 EDT [facility] Consult ? Consult Requested By: Nursing Order Reason for Consult: Hx difficult experience ?? Subjective: Baby had frenotomy; perhaps she will put baby to breast at home. Has help of her sisters who BF andshe has BF before. Has script for pump but hasn't called to arrange tile picker yet. Was getting ready for discharge so it wasn't really a good time for visit. ?? Objective: ?? Date of : 06/20/2017 Time of : 817 History ? Weight: 3515 g (7 lb 12 oz) ? One: 9 ? Five: 9 ??? Delivery Method: , Unspecified ??? Gestation Age: 39 wks ? GBS: negative ?? 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 Maternal Lab: See chart ?? Infant Lab: Lab Results Component Value Date ?? TCB 10.8 06/22/2017 No results found for: TBIL No results found for: CRP ?? Social History: From [facility] Spouse: Fab [place] ?? Medical History: ? Pertinent Maternal History:Opiate dependence (MAT tx), Hep C+, former smoker Current Maternal Medications:Routine medications + methadone 110 mg daily Maternal Anatomy: ?? Pertinent Infant History: dx: spina bifida and will need surgical tx SUKHJINDER: 5 to 6 today Current Infant Medications: Current Facility-Administered Medications: Breast Milk Identification oral PRN Breast Milk Identification oral PRN sucrose 24% (TOOTSWEET) solution 0.1 mL oral PRN ?? Infant Anatomy: Assessed - significant lingual tie and upper lip tie Infants Current Weight: Weight stable since yesterday without loss or gain: 3170 gm or 6-15.8 Change from Weight: -9% 24 hour I/O: BF x 0 + 58 cc EBM + 7 bottles of formula/24 hrs c 5 voids + 2 stools ?? Observation: Introduced self/role. Melissa was packing, dressed and ready to leave. Reinforced vendors for pump,brittani LRV if she wanted to get [employer] since [facility] does n't carry them. Showed her how to use hand pump in case she doesn't get to tile picker pump tonight. Reinforced that whoever goes to get pump should bring prescription with them. Reinforced pumping a minimum of 8 x/ 24 hrs if she wanted to establish and adequate milk supply in first couple weeks at least. ?? Patient Education:Typical pattern of night and cluster feeding, the need to pump q 3hours around the clock, continuously, even post d/c. ?? History: Breast fed other son for a few months, did pump as well First son needed surgery/cardiac repair at 8 months of age ?? Assessment: BF has been difficult for this mom and she has been offering bottles due to nipple pain. She still has desire to BF but needs hospital grade pump to establish milk supply until baby BF better. She will need much guidance and support at home to continue . ?? Plan: ?? Double pump a minimum of 8 x/ 24 hrs, using hospital grade pump May use hand pump if she is unable to obtain electric pump tonight Melissa will put baby to breast and call for help from WIC, [facility] if needed. ?? Handouts given: Community Services hand out ?? Pump Equipment:: Mother now given an RX from Dr Corral for a hospital grade pump ?? Time spent: In Room: 10 minutes face to face Out of room: 20 minutes chart review and obtaining RX from [facility] ?? Roldan Carmen RN, IBCLC 06/24/17 2348 ?? * Plan of Care - Zuleika Funez RN - 06/24/2017 1104 EDT Problem: Daily Care Plan Goals Goal: Care Plan Documentation Outcome: Met This Shift 06/24/17 Care Plan Focus Area of Focus Discharge Plan Goal This Shift Discharge to home today Problem: Pain: Goal: Pain level will decrease Outcome: Met This Shift Data: PPD #4 s/p c/s of a baby boy; Moe SUKHJINDER completed scoring for maternal methadone maintenance. VSS. assessment WNL. Rating pain 4/10. Action: Monitor VS, assess, offered assistance with care and feedings. Medicated with TMD4 q4h prn. Discharge preparation completed. Response: Stable . Discharge to home today. Will continue to monitor and assist with care as needed. Zuleika Funez RN 06/24/2017 11:04 * Plan of Care - Virginia Balbuena RN - 06/23/2017 4696 EDT Problem: Daily Care Plan Goals Goal: Care Plan Documentation Outcome: Met This Shift 06/23/17 2321 Care Plan Focus Area of Focus Pain/ Comfort Goal This Shift maintain adequate pain control Problem: Pain: Goal: Pain level will decrease Outcome: Met This Shift Data: PPD #4 s/p c/s of a baby boy; Moe SLAUGHTER scoring for maternal methadone maintenance. Action: Monitor VS, assess, encourage rooming in and feeding Q3-4 overnight. Response: VS and assessment stable, Fundus @U-2. Pain managed with T/M/D6 Q4. Mom is planning to pump and bottle feed EBM as she did with her first son Apolinar. Will continue to monitor and assist with care as needed. Virginia Balbuena RN 06/23/2017 23:57 * Plan of Care - Danis Ahumada RN - 06/23/2017 7053 EDT Problem: Daily Care Plan Goals Goal: Care Plan Documentation Outcome: Ongoing 06/23/17 2106 Care Plan Focus Area of Focus Pain/ Comfort Goal This Shift pt will report adequate pain relief Data: Day 3 s/p c/s. Transport from [facility] when baby was transferred to [facility] NICU. Pt on Methadone. Pt has been reporting pain for 4-5/10. Initially pt felt most of her pain in her incision, but is starting to report more uterine cramping. Action: Medicated per MAR, offered heating pack. Response: Pt continues to report incisional pain and uterine cramping. Continue to medicate per MARand offer non-pharmacological interventions. Danis Ahumada RN 06/23/2017 22:28 * Plan of Care - Oneyda Hernandez, SABA - 06/23/2017 1800 EDT Problem: Daily Care Plan Goals Goal: Care Plan Documentation Outcome: Ongoing 06/23/17 1518 Care Plan Focus Area of Focus Sleep Goal This Shift rest inbetween infant care Data: PPD #3 s/p C/S of a baby boy; Moe on SUKHJINDER due to methadone Action: Monitor VS, assess, encourage S2S and breast/ formula feeding Q 2-3 Response: VS and assessment stable, Fundus @U-1. Pain managed well with T/M/D6 Q4. Will continue to monitor and assist with care as needed. Oneyda Hernandez RN 06/23/2017 17:57 * Note - Marie Cazares RN IBCLC - 06/23/2017 1651 EDT [facility] Consult ? Consult Requested By: Nursing Order Reason for Consult: Hx difficult experience ?? Subjective: Melissa states that it hurts her nipples to bf. 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 Mother reports her other son and father both have a lisp and would like to discuss a frenotomy with shauna. She chooses to bottle feed EBM at this time d/t latch pain. Pt states, Maybe I will try breast feeding again if her gets his tongue tie fixed. ?? Objective: ?? Date of : 06/20/2017 Time of : 817 History ? Weight: 3515 g (7 lb 12 oz) ? One: 9 ? Five: 9 ??? Delivery Method: , Unspecified ??? Gestation Age: 39 wks ? GBS: negative ?? 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 Maternal Lab: See chart ?? Lab: Lab Results Component Value Date ?? TCB 10.8 06/22/2017 No results found for: TBIL No results found for: CRP ?? Social History: From [facility] Spouse: Fab [facility] ?? Medical History: ? Pertinent Maternal History:Opiate dependence (MAT tx), Hep C+, former smoker Current Maternal Medications:Routine medications + methadone 110 mg daily Maternal Anatomy: ?? Pertinent History: dx: spina bifida and will need surgical tx Current Infant Medications: Current Facility-Administered Medications: Breast Milk Identification oral PRN Breast Milk Identification oral PRN sucrose 24% (TOOTSWEET) solution 0.1 mL oral PRN ?? Infant Anatomy: Assessed - significant lingual tie and upper lip tie Infants Current Weight: Weight down 15 g from 06/22/17 Change from Weight: -9% 24 hour I/O: Breast feedin + EBM 113 ml's = 3.8 oz And 46 ml's = 1.5 ml's of Similac Voids: 7 Stools: 2 ?? Observation: Entered room and introduced self and role to Melissa. Melissa reported that it was time to feed thebaby. She had just pumped 35 ml's of EBM, stating, I never pumped that much with my first child. Melissa switched to exclusive bottle feeding of EBM at this time d/t nipple pain. (lingual tongue tie is significant and I can see why it may be painful to latch nb since nb can't elevate his tongue or bring it past his gumline.) Melissa reported being ok with bottle feeding at this time, as long asit is her bm. Gave Melissa her RX for a hospital grade pump and Dr Corral aware that pt and she needto discuss tongue tie. ?? Patient Education:Typical pattern of night and cluster feeding, the need to pump q 3hours around the clock, continuously, even post d/c. ?? History: Breast fed other son for a few months, did pump as well First son needed surgery/cardiac repair at 8 months of age ?? Assessment: Multipara with desire to breast feed/bottle feed her Moe. Needs support for breast feeding basics, latching and positioning. Support for whichever feeding plan Melissa chooses. SUKHJINDER scoring per protocol. Pump Q3 hours, around the clock to maintain milk supply ?? Plan: ?? STS as much as possible while caregiver awake. Offer breast with cues, at least 8-12 times per 24 hours Watch for light sleep state cues if needed, to avoid longer than 3 hours without feeding Try to observe latch at least once per shift - help with this PRN Use breast compressions to keep baby swallowing PRN Ring for assistance as needed with positioning + latching, watch for early cues Offer breast before bottle if able Continue to encourage hands on pumping, Q3 hours, around the clock Discuss tongue tie (lower significant) with pedi ?? Handouts given: [facility] Services hand out ?? Pump Equipment:: Mother now given an RX from Dr Corral for a hospital grade pump ?? Time spent: In Room: 15 minutes face to face Out of room: 25 minutes chart review and obtaining RX from Pedi ?? LC to see: daily as in-patients Pricilla Cazares RN, IBCLC ?? * Note - Marie Cazares RN IBCLC - 06/23/2017 1646 EDT [facility] Consult Initial Consult ? Consult Requested By: Nursing Order Reason for Consult: Hx difficult experience ?? Subjective: Melissa states that current latch feels okay. Breast feed older son for a little while. ?? Objective: ?? Date of : 06/20/2017 Time of : 817 History ? Weight: 3515 g (7 lb 12 oz) ? One: 9 ? Five: 9 ??? Delivery Method: , Unspecified ??? Gestation Age: 39 wks ? GBS: negative ?? History/ Complications: Needed resuscitation and transferred to NICU Mom transported from [place] ?? Maternal Lab: See chart ?? Lab: Lab Results Component Value Date ?? TCB 10.8 06/22/2017 No results found for: TBIL No results found for: CRP ?? Social History: From [place] area Spouse: Fab [facility] ?? Medical History: ? Pertinent Maternal History:Opiate dependence (MAT tx), Hep C+, former smoker Current Maternal Medications:Routine medications + methadone 110 mg daily Maternal Anatomy: was latched onto left side - RUFUS ?? Pertinent History: dx: spina bifida and will need surgical tx Current Infant Medications: Current Facility-Administered Medications: Breast Milk Identification oral PRN Breast Milk Identification oral PRN sucrose 24% (TOOTSWEET) solution 0.1 mL oral PRN ?? Infant Anatomy: Need to assess - was latched onto left side Infants Current Weight: Weight: 3185 g (7 lb 0.4 oz) Change from Weight: -9% 24 hour I/O: Breast feedinx + bottles similac Voids: 5 Stools: 5 ?? Observation: Entered room and introduced self and role to Melissa, her primary RN had already assisted to latch the baby Moe onto left side. Baby was still feeding but getting sleepy. Melissa said he fed only 1 hour ago. Discussed her breast feeding history, goals this time. Reports the cross cradle latch onleft side felt comfortable, no nipple pain. Reviewed frequency, cueing/rooting, breast feeding basics. Baby was still feeding on left when I left room. Melissa will call me when he wakes up, need to check palate/tongue/frenulum. ? Patient Education:Typical pattern of night and cluster feeding ?? History: Breast fed other son for a few months, did pump as well First son needed surgery/cardiac repair at 8 months of age ?? Assessment: Multipara with desire to breast feed/bottle feed her Moe. At this time no identified risk factors for delayed lactogenesis II. Needs support for breast feeding basics, latching and positioning. Support for whichever feeding plan Melissa chooses. SUKHJINDER scoring per protocol. ?? Plan: ?? STS as much as possible while caregiver awake. Offer breast with cues, at least 8-12 times per 24 hours Watch for light sleep state cues if needed, to avoid longer than 3 hours without feeding Try to observe latch at least once per shift - help with this PRN Use breast compressions to keep baby swallowing PRN Ring for assistance as needed with positioning + latching, watch for early cues Offer breast before bottle if able Support with pumping if no sustained breast feeds ?? Handouts given: none yet ?? Pump Equipment:: does not have a pump at this time ?? Time spent: In Room: 15 minutes face to face - baby had already been latched/feeding Out of room: 15 minutes chart prep + note ?? LC to see: later this evening when he wakes or 06/23/17 ?? TAMRA Huerta RN IBCLC 06/22/2017 16:28 * Plan of Care - Blossom June RN - 06/23/2017 7839 EDT Problem: Daily Care Plan Goals Goal: Care Plan Documentation Outcome: Ongoing 06/23/17 0904 Care Plan Focus Area of Focus Discharge Plan Goal This Shift begin d/c teaching D: s/p c/s 3 days ago. Hoping to be d/c'd tomorrow with baby. A: reviewed d/c process with pt, pt completed BC at [facility] where she delivered. PT aware needs to watch d/c video, and will bring car seat when he comes and visits R: Pt to watch d/c video today. Has WIC, she will call them today, has a nurse,Lisa Ruiz. Will need to call referral when pt is d/c'd. Problem: Safety: Goal: Will remain free from falls Outcome: Met This Shift * Plan of Care - Marlene Coronel RN - 06/23/2017 0557 EDT Problem: Daily Care Plan Goals Goal: Care Plan Documentation 06/23/17 0543 Care Plan Focus Goal This Shift adequate pain control Data: PPD #3 s/p C/S. Hep C+. GA:39. GBS unknown. Pumping and formula feeding. Action: Vitals and assessment per orders. Medicated pt per eMar (see eMar for details). Offered assistance with all feedings. Response: AVSS. Pt stating pain 4-5/10. Taking Motrin, tylenol, and dilauded 6 mgs Q4. Mother independent with NB feeds. Marlene Coronel RN 06/23/2017 5:43 * Plan of Care - Blossom June RN - 06/22/2017 1610 EDT Problem: Daily Care Plan Goals Goal: Care Plan Documentation Outcome: Met This Shift 06/22/17 0725 Care Plan Focus Area of Focus Pain/ Comfort Goal This Shift pain will be tolerable D: s/p repeat c/s 2 days ago. Pt is currently on methadone daily. Rates incisional pain 4-6/10 A: Medicate pt q 4hrs with tylenol, motrin and dilaudid 6 mg. R: Pt rates pain 3-4/10 after taking po pain meds, pt states this is a tolerable pain level to her.She might want to begin decreasing her dilaudid dose tomorrow. Will cont to monitor Problem: Safety: Goal: Will remain free from falls Outcome: Met This Shift * Plan of Care - Hannah Kirkland RN - 06/22/2017 0419 EDT Problem: Daily Care Plan Goals Goal: Care Plan Documentation Outcome: Ongoing 06/21/17 0499 Care Plan Focus Area of Focus Pain/ Comfort Goal This Shift tolerable pain levels D: Stable PP s/p c/s. VSS. Rating pain 4-7/10 this shift. Up with much of shift. Attempted some independently, but did not request help and did not pump. A: Offered assistance and encouragement about feeds. Medicated per MAY. Encouraged periods of rest, when able. D:Pt tolerating well. [place] intact. Will continue to monitor. Problem: Safety: Goal: Will remain free from falls Outcome: Met This Shift * Plan of Care - Elias Rudolph RN IBCLC - 06/21/2017 2152 EDT Problem: Daily Care Plan Goals Goal: Care Plan Documentation Outcome: Met This Shift 06/21/17 1312 Care Plan Focus Area of Focus Pain/ Comfort Goal This Shift pt will report adequate pain control Problem: Pain: Goal: Pain level will decrease Outcome: Met This Shift Data: Stable day 1 s/p transport from [place], [place] for baby admission to NICU for spinal anomalies. [place] intact. Pt takes Methadone 110 mg daily. Breast and bottle feeding. Action: Monitored per MD orders. Medicated with Tylenol, ibuprofen, and Dilaudid 6 mg Q 4 hours. Encouraged PO fluids & ambulation. Educated patient on the importance of nipple integrity in the setting of Hep C+. Pt verbalized understanding of requesting help with latches if at all uncomfortable. Response: AVSS. Pt reports pain 4-5/10 and states this level is pretty comfortable for her. Pt received Rhogam today. Will need varicella vaccine before discharge. Continue POC. ELIAS RUDOLPH RN IBCLC 06/21/2017 21:48 * Plan of Care - Hannah Kirkland RN - 06/21/2017 0314 EDT Problem: Daily Care Plan Goals Goal: Care Plan Documentation Outcome: Met This Shift 06/20/17 2348 Care Plan Focus Area of Focus Pain/ Comfort Goal This Shift tolerable pain levels D: s/p c/s, transport from [place], [place] d/t anomalies with admitted to NICU. High levels of pain just prior to this shift, now pain is under control with PO meds and IV breakthrough. A: Encouraged hydration/ambulation/rest. Encouraged to pump. R: Pt resting well at this time. Dressing with old drainage visible, but no current bleeding apparent. Will continue to monitor. Problem: Safety: Goal: Will remain free from falls Outcome: Met This Shift * Plan of Care - Kesha Wynn, RN - 06/20/2017 2133 EDT Problem: Daily Care Plan Goals Goal: Care Plan Documentation Outcome: Ongoing 06/20/17 1600 Care Plan Focus Area of Focus Pain/ Comfort Goal This Shift pt will report low pain Data: Pt day 0 s/p c/s. Maternal transport for NICU care for . 2nd baby for pt. VSS. Has stood up at bedside. [place] intact. Pain rated as 9/10 today. Action: Monitored VS. Administered pain meds (see MAR). Assisted pt OOB. Response: Pain regimen has been altered. Will monitor to see if pain improves. Kesha Wynn RN 06/20/2017 21:23 Problem: Pain: Goal: Pain level will decrease Outcome: Not Met This Shift documented in this encounter Plan of Treatment Pending Results Name Type Priority Associated Diagnoses Date /Time ABO/RH Blood Bank Routine 06/20/2017 18: 45 EDT Scheduled Orders Name Type Priority Associated Diagnoses Orde r Schedule ABO/RH Blood Bank Routine One Time for 1 Occurrences starting 06/20/2017 until 06/20/2017 Scheduled Referrals Name Type Priority Associated Diagnoses Order Schedule PROVIDER FOLLOW-UP INSTRUCTIONS Outpatient Referral Routine Ordered: 06/23/2017 PROVIDER FOLLOW-UP INSTRUCTIONS Outpatient Referral Routine Ordered: 06/23/2017 documented as of this encounter Procedures Procedure Name Priority Date/Time Associated Diagnosis Comments ADMINISTER RHOGAM (RHIG) 300 MCG Routine 06/21/2017 13:46 EDT COMPLETE BLOOD COUNT Routine 06/21/2017 7:00 EDT VARICELLA IGG ANTIBODY Routine 06/21/2017 7:00 EDT TYPE AND SCREEN Routine 06/20/2017 18:18 EDT POST RH IMMUNE GLOBULIN ( SCREEN TEST AND RHIG) Routine 06/20/2017 17:26 EDT documented in this encounter Results * VARICELLA IGG ANTIBODY (06/21/2017 7:00 EDT) Varicella IgG Ab Positive 06/23/2017 13:33 [facility] Comment: Presence of detectable Varicella Zoster virus IgG antibodies. Blood specimen (specimen) BLOOD SPECIMEN / Unknown 06/21/2017 7:00 EDT 06/21/2017 7:11 EDT Maris Ledezma MD IMMUNOLOGY AND SEROLOGY ORDERA BLES Final Result [facility] [address] [place] [address] * (ABNORMAL) HEMAGRAM (06/21/2017 7:00 EDT) WBC 11.15 4.0 - 12.4 K/cmm 06/21/2017 7:20 [facility] RBC 3.60(L) 3.86 - 5.04 M/cmm 06/21/2017 7:20 [facility] Hemoglobin 11.4(L) 11.6 - 15.2 gm/dl 06/21/2017 7:20 [facility] HCT 31.6(L) 34.9 - 44.4 % 06/21/2017 7:20 [facility] MCV 88 81 - 98 fl 06/21/2017 7:20 [facility] MCH 31.7 26.7 - 33.3 pg 06/21/2017 7:20 [facility] MCHC 36.1(H) 32.1 - 35.9 gm/dl 06/21/2017 7:20 [facility] RDW-CV 13.2 <14.7 % 06/21/2017 7:20 [facility] RDW-SD 41.9 <50.4 fl 06/21/2017 7:20 [facility] PLT 174 141 - 377 K/cmm 06/21/2017 7:20 [facility] MPV 10.0 9.5 - 12.7 fl 06/21/2017 7:20 [facility] Blood specimen (specimen) BLOOD SPECIMEN / Unknown 06/21/2017 7:00 EDT 06/21/2017 7:11 EDT us Laurie Butler MD HEMATOLOGY & PF4 JUSTYNA CHRISTENSEN Final Result Performing Organization Address City/[facility]/ZIP Co de Phone Number [facility] [address] [place] [address] * TYPE AND SCREEN (06/20/2017 18:18 EDT) ABO B [facility] Rh Factor Negative [facility]OD BANK Antibody Screen Negative [facility] Specimen Expires: 06/23/2017 @ 23:59 [facility] Blood specimen (specimen) 06/20/2017 18:18 EDT us Prachi Montes MD BLOOD BANK TESTS Final Result Performing Organization Address [facility] Co de Phone Number [facility] [address] [place] [address] * POST RH IMMUNE GLOBULIN ( SCREEN TEST AND RHIG) (06/20/2017 17:26 EDT) Screen Test NEGATIVE [facility] Derivative Code ^Rh Immune Globulin 300 ug [facility] Lot Number [id number] [facility] Unit Status Transfuse [facility] Blood specimen (specimen) 06/20/2017 17:26 EDT us Maris Ledezma MD BLOOD BANK TESTS Final Result Performing Organization Address [facility] Co de Phone Number [facility] [address] [place] [address] documented in this encounter Visit Diagnoses Diagnosis Prior with congenital cardiac defect, antepartum- Primary with other poor obstetric history Prior with congenital cardiac defect, antepartum with other poor obstetric history S/P Other postprocedural status documented in this encounter Administered Medications Inactive Administered Medications - up to 3 most recent administrations Medication Order MAR Action Action Date Dose Rate Site acetaminophen (TYLENOL) tablet 650 mg 650 mg, oral, EVERY 4 HOURS, 12 doses, First dose on Fri06/20/17 at 1745, Last dose on Fri06/22/17 at 1200, Routine, On Unit Given 06/22/2017 13:15 EDT 650 mg Given 06/22/2017 9:14 EDT 650 mg Given 06/22/2017 5:11 EDT 650 mg acetaminophen (TYLENOL) tablet 650 mg 650 mg, oral, EVERY 4 HOURS PRN, Starting on Fri06/22/17 at 1600, Until Fri06/24/17 at 1705, Pain, Routine, On Unit Given 06/24/2017 10:44 EDT 650 mg Given 06/24/2017 6:30 EDT 650 mg Given 06/24/2017 2:30 EDT 650 mg docusate sodium (COLACE) capsule 100 mg 100 mg, oral, 2 TIMES DAILY, First dose on Fri06/20/17 at 2100, Until Discontinued, Routine, On Unit Given 06/24/2017 9:23 EDT 100 mg Given 06/23/2017 22:15 EDT 100 mg Given 06/23/2017 9:32 EDT 100 mg HYDROmorphone (DILAUDID) injection 0.2-0.6 mg 0.2-0.6 mg, intravenous, EVERY 4 HOURS PRN, Starting on Fri06/20/17 at 1726, Until Fri06/20/17 at 2019, Pain, Routine Given 06/20/2017 19:09 EDT 0.6 mg HYDROmorphone (DILAUDID) injection 0.6-1 mg 0.6-1 mg, intravenous, EVERY 3 HOURS PRN, Starting on Fri06/20/17 at 2030, Until Fri06/24/17 at 1705, Pain, Routine Given 06/21/2017 0:53 EDT 1 mg Given 06/20/2017 21:47 EDT 1 mg HYDROmorphone (DILAUDID) tablet 2-4 mg 2-4 mg, oral, EVERY 4 HOURS PRN, Starting on Fri06/20/17 at 1726, Until Fri06/20/17 at 2019, Pain, Routine Given 06/20/2017 17:35 EDT 4 mg HYDROmorphone (DILAUDID) tablet 4-6 mg 4-6 mg, oral, EVERY 4 HOURS PRN, Starting on Fri06/20/17 at 2018, Until Fri06/24/17 at 1705, Pain, Routine Given 06/24/2017 10:44 EDT 4 mg Given 06/24/2017 6:30 EDT 6 mg Given 06/24/2017 2:29 EDT 6 mg ibuprofen (MOTRIN) tablet 400 mg 400 mg, oral, EVERY 4 HOURS, 12 doses, First dose on Fri06/20/17 at 1745, Last dose on Fri06/22/17 at 1200, Routine, On Unit Given 06/22/2017 13:16 EDT 400 mg Given 06/22/2017 9:14 EDT 400 mg Given 06/22/2017 5:11 EDT 400 mg ibuprofen (MOTRIN) tablet 400 mg 400 mg, oral, EVERY 4 HOURS PRN, Starting on Fri06/22/17 at 1600, Until Fri06/24/17 at 1705, Pain, Routine, On Unit Given 06/24/2017 10:44 EDT 400 mg Given 06/24/2017 6:30 EDT 400 mg Given 06/24/2017 2:30 EDT 400 mg lansinoh HPA lanolin topical, PRN, Starting on Fri06/20/17 at 1726, Until Fri06/24/17 at 1705, Other, On Unit Given 06/21/2017 9:34 EDT 1 Tub e methadone (DOLOPHINE) concentrated solution 110 mg 110 mg, oral, DAILY, First dose on Fri06/21/17 at 0900, Until Discontinued, Routine Given 06/24/2017 9:23 EDT 110 mg Given 06/23/2017 9:05 EDT 110 mg Given 06/22/2017 9:15 EDT 110 mg multivitamin vit-iron fumarate-FA (STUARTNATAL) 27 mg iron- 1 mg tablet 1 Tab 1 Tablet, oral, DAILY, First dose on Fri06/20/17 at 1745, Until Discontinued, Routine, On Unit Given 06/24/2017 9:23 EDT 1 Tablet ondansetron (PF) (ZOFRAN) injection 4 mg 4 mg, intravenous, EVERY 6 HOURS PRN, Starting on Fri06/20/17 at 1726, Until Fri06/24/17 at 1705, Nausea, Routine, On Unit ondansetron (ZOFRAN-ODT) disintegrating tablet 4 mg 4 mg, oral, EVERY 6 HOURS PRN, Starting on Fri06/20/17 at 1726, Until Tu06/24/17 at 1705, Nausea, Routine, On Unit Additional Administered Medications Medication Order MAR Action Action Date Dose Rate Site Rho(D) Immune Globulin IM Intramuscular Given 06/21/2017 300 mcg Right Gluteus Medius/Ventrogluteal documented in this encounter Active and Recently Administered Medications Times are shown in EDT. Scheduled Medication Order 06/22/2017 06/23/2017 06/24/2017 acetaminophen (TYLENOL) tablet 650 mg (COMPLETED)(Linked Group 1) 650 mg, oral, EVERY 4 HOURS, 12 doses, First dose on Fri06/20/17 at 1745, Last dose on 06/22/17 at 1200, Routine, On Unit 0107 (Given - Provider: Hannah Kirkland RN)0511 (Given - Provider: Hannah Kirkland RN)0914 (Given - Provider: Blossom June RN)1315 (Given - Provider: Blossom June RN) docusate sodium (COLACE) capsule 100 mg 100 mg, oral, 2 TIMES DAILY, First dose on Fri06/20/17 at 2100, Until Discontinued, Routine, On Unit 0913 (Given - Provider: Blossom June RN)2143 (Given - Provider: Lara Bragg RN) 0932 (Given - Provider: Blossom Jnue, SABA)2215 (Given - Provider: Danis Ahumada RN) 0923 (Given - Provider: Zuleika Funez RN) ibuprofen (MOTRIN) tablet 400 mg (COMPLETED)(Linked Group 2) 400 mg, oral, EVERY 4 HOURS, 12 doses, First dose on Fri06/20/17 at 1745, Last dose on 06/22/17 at 1200, Routine, On Unit 0107 (Given - Provider: Hannah Kirkland RN)0511 (Given - Provider: Hannah Kirkland RN)0914 (Given - Provider: Blossom June RN)1316 (Given - Provider: Blossom June, SABA) methadone (DOLOPHINE) concentrated solution 110 mg 110 mg, oral, DAILY, First dose on Sat 18 at 0900, Until Discontinued, Routine 0915 (Given - Provider: Blossom June, RN) 0905 (Given - Provider: Blossom June RN) 0923 (Given - Provider: Zuleika Funez, RN) multivitamin vit-iron fumarate-FA (STUARTNATAL) 27 mg iron- 1 mg tablet 1 Tab 1 Tablet, oral, DAILY, First dose on Fri06/20/17 at 1745, Until Discontinued, Routine, On Unit 0915 (Not Given - Provider: Blossom June RN - Reason: Patient/family refused) 0934 (Not Given - Provider: Blossom June RN - Reason: Patient/family refused) 09 (Given - Provider: Zuleika Funez, SABA) PRN Medication Order 06/22/2017 06/23/2017 06/24/2017 acetaminophen (TYLENOL) tablet 650 mg(Linked Group 1) 650 mg, oral, EVERY 4 HOURS PRN, Starting on Fri06/22/17 at 1600, Until Fri06/24/17 at 1705, Pain, Routine, On Unit 1730 (Given - Provider: Blossom June RN)2143 (Given - Provider: Lara Bragg RN) 0137 (Given - Provider: Marlene Coronel RN)0538 (Given - Provider: Oneyda Hernandez RN)0932 (Given - Provider: Blossom June RN)1351 (Given - Provider: Blossom June RN)1817 (Given - Provider: Oneyda Hernandez RN)2215 (Given - Provider: Danis Ahumada RN) 0230 (Given - Provider: Virginia Balbuena, RN)0630 (Given - Provider: Virginia Balbuena, RN)1044 (Given - Provider: Zuleika Funez, SABA) calcium carbonate (TUMS) 200 mg calcium (500 mg) per chewable tablet tablet,chewable 2 Tab 2 Tablet, oral, EVERY 2 HOURS PRN, Starting on Fri06/20/17 at 1726, Until Fri06/24/17 at 1705, Heartburn, Indigestion, Routine, On Unit HYDROmorphone (DILAUDID) injection 0.6-1 mg 0.6-1 mg, intravenous, EVERY 3 HOURS PRN, Starting on Fri06/20/17 at 2030, Until Fri06/24/17 at 1705, Pain, Routine HYDROmorphone (DILAUDID) tablet 4-6 mg 4-6 mg, oral, EVERY 4 HOURS PRN, Starting on Fri06/20/17 at 2018, Until Fri06/24/17 at 1705, Pain, Routine 0511 (Given - Provider: Hannah Kirkland RN)0914 (Given - Provider: Blossom June RN)1315 (Given - Provider: Blossom June RN)1730 (Given - Provider: Blossom June RN)2143 (Given - Provider: Lara Bragg RN) 0138 (Given - Provider: Marlene Coronel RN)0538 (Given - Provider: Oneyda Hernandez RN)0932 (Given - Provider: Blossom June RN)135 (Given - Provider: Blossom June RN)181 (Given - Provider: Oneyda Hernandez RN)221 (Given - Provider: Danis Ahumada RN) 0229 (Given - Provider: Virginia Balbuena RN)0630 (Given - Provider: Virginia Balbuena RN)1044 (Given - Provider: Zuleika Funez RN) ibuprofen (MOTRIN) tablet 400 mg(Linked Group 2) 400 mg, oral, EVERY 4 HOURS PRN, Starting on Fri06/22/17 at 1600, Until Fri06/24/17 at 1705, Pain, Routine, On Unit 1730 (Given - Provider: Blossom June RN)214 (Given - Provider: Lara Bragg RN) 0137 (Given - Provider: Marlene Coronel, SABA)0538 (Given - Provider: Oneyda Hernandez RN)0932 (Given - Provider: Blossom June RN)1351 (Given - Provider: Blossom June RN)181 (Given - Provider: Oneyda Hernandez RN)221 (Given - Provider: Danis Ahumada RN) 0230 (Given - Provider: Virginia Balbuena RN)0630 (Given - Provider: Virginia Balbuena RN)1044 (Given - Provider: Zuleika Funez RN) lansinoh HPA lanolin topical, PRN, Starting on Fri06/20/17 at 1726, Until Fri06/24/17 at 1705, Other, On Unit ondansetron (PF) (ZOFRAN) injection 4 mg(Linked Group 3) 4 mg, intravenous, EVERY 6 HOURS PRN, Starting on Fri06/20/17 at 1726, Until Fri06/24/17 at 1705, Nausea, Routine, On Unit ondansetron (ZOFRAN-ODT) disintegrating tablet 4 mg(Linked Group 3) 4 mg, oral, EVERY 6 HOURS PRN, Starting on Fri06/20/17 at 1726, Until Fri06/24/17 at 1705, Nausea, Routine, On Unit Linked Groups Order Group 1: acetaminophen (TYLENOL) tablet 650 mg (COMPLETED)Jump to med 650 mg, oral, EVERY 4 HOURS, 12 doses, First dose on Fri06/20/17 at 1745, Last dose on Fri06/22/17 at 1200, Routine, On Unit Followed by acetaminophen (TYLENOL) tablet 650 mgJump to med 650 mg, oral, EVERY 4 HOURS PRN, Starting on Fri06/22/17 at 1600, Until Fri06/24/17 at 1705, Pain, Routine, On Unit Group 2: ibuprofen (MOTRIN) tablet 400 mg (COMPLETED)Jump to med 400 mg, oral, EVERY 4 HOURS, 12 doses, First dose on Fri06/20/17 at 1745, Last dose on Fri06/22/17 at 1200, Routine, On Unit Followed by ibuprofen (MOTRIN) tablet 400 mgJump to med 400 mg, oral, EVERY 4 HOURS PRN, Starting on Fri06/22/17 at 1600, Until Fri06/24/17 at 1705, Pain, Routine, On Unit Group 3: ondansetron (PF) (ZOFRAN) injection 4 mgJump to med 4 mg, intravenous, EVERY 6 HOURS PRN, Starting on Fri06/20/17 at 1726, Until Fri06/24/17 at 1705, Nausea, Routine, On Unit Or ondansetron (ZOFRAN-ODT) disintegrating tablet 4 mgJump to med 4 mg, oral, EVERY 6 HOURS PRN, Starting on Fri06/20/17 at 1726, Until Tu06/24/17 at 1705, Nausea, Routine, On Unit documented in this encounter Orders Medications Ordered That Louis ht Not Have Been Administered Count Last Ordered Date First Ordered Date calcium carbonate (TUMS) 200 mg calcium (500 mg) per chewable tablet tablet,chewable 2 Tab 1 06/20/2017 ondansetron (PF) (ZOFRAN) injection 4 mg 1 06/20/2017 ondansetron (ZOFRAN-ODT) dis integrating tablet 4 mg 1 06/20/2017 Diet Count Last Ordered Date First Orde red Date DISCHARGE DIET 1 06/23/2017 Nursing Count Last Ordered Date First Orde red Date ACTIVITY INSTRUCTIONS 5 06/23/2017 BATHING INSTRUCTIONS 2 06/23/2017 WOUND CARE INSTRUCTIONS 4 06/23/2017 Admission Count Last Ordered Date First Orde red Date STATUS: INPATIENT POST-PROCE DURE ADMISSION UPGRADE 1 06/20/2017 Transfer Count Last Ordered Date First Orde red Date NOTIFY PPS OF DISCHARGE COMPLETE 1 06/25/19 18 UR PATIENT STATUS CHANGE 1 06/20/2017 Discharge Count Last Ordered Date First Orde red Date DISCHARGE PATIENT 1 06/24/2017 Legal Count Last Ordered Date First Orde red Date MISCELLANEOUS DISCHARGE INSTRUCTIONS 3 05/30 Transfuse Count Last Ordered Date First Orde red Date ADMINISTER RHOGAM (RHIG) 300 MCG 1 06/21/2017 documented in this encounter Care Teams List Of First Job Ideas Relationship Specialty Start Date End Date Seymour Collado MD [address] [place] [address] PCP - General 12/19/09 documented as of this encounter
--- OUTSIDE RECORDS SUMMARY | 2024-02-08 12:29 | XMS_ITS | Encounter Summary ---
Author Organization [facility] Address [address] [place] [address] Care Team Providers Care Jewelry Technician Name Role Phone Seymour Collado MD Primary Care Provider [phone] Reason for Visit * Reason Comments Heart Problem Encounter Details Date Type Department Care Team (Latest Contact Info) Description 07/14/2014 12:00 EDT Office Visit [facility] Pediatric Cardiology - [place] [address], [place] [address] Tang Walton MD [address] [place] [id number] Transitional atrioventricular canal defect (Primary Dx) Discharge Disposition: Auto Discharge Social [...] as of this encounter Discharge Diagnoses Diagnosis 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 Denney following a echocardiogram to discuss abnormal cardiac findings. The patient is currently at 37 weeks gestation, and the echocardiogram was limited due to theadvanced gestational age and position. 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 I explained normal cardiac anatomy and saba a diagram of both normal and the findings in this fetus. I discussed the consequences, which would probably not require any intervention immediately. Timing of surgery would depend onthe size of the VSD component. This could range from a few months of age to several years of age. Iemphasized that the outcome is generally good following this type of surgery. I also cautioned her that there could be additional unrecognized defects because of the limited nature of this study. I also explained that a significant percentage of babies with this kind of heart abnormality will have Down syndrome. I told Melissa that we would evaluate the baby in the first day following delivery and at that time we would have a very good idea about the probable subsequent course. For now, I told her that nothing needs to be changed in the management of her or delivery. She should anticipate that her baby will be in the intensive care nursery for some period of time for evaluation. Approximately 20 minutes were spent in face to face consultation with this patient. documented in this encounter Plan of Treatment Not on file documented as of this encounter Visit Diagnoses Diagnosis Transitional atrioventricular canal defect- Primary Other congenital endocardial cushion defect documented in this encounter Care Teams Jewelry Technician Relationship Specialty Start Date End Date Seymour Collado MD [address] [place] [address] PCP - General 12/19/09 documented as of this encounter
--- OUTSIDE RECORDS SUMMARY | 2024-02-08 12:29 | XMS_ITS | Encounter Summary ---
Author Organization [facility] Address [address] [place] [address] Care Team Providers Care Manager Supply Name Role Phone Seymour Collado MD Primary Care Provider [phone] Reason for Visit * Reason Comments Initial Visit Transfer of Care Encounter Details Date Type Department Care Team (Latest Contact Info) Description 06/28/2014 8:45 EDT Initial [facility] OBGYN Services - [address] [phone] Unknown, Provider, MD Olivera, Lisha Escalante MD [address] [address] GA: 34w4d Discharge Disposition: Auto Discharge Social History Tobacco [...] Sign Reading Time Taken Comments Blood Pressure 110/74 06/28/2014 0851 EDT Pulse - - Temperature - - Respiratory Rate - - Oxygen Saturation - - Inhaled Oxygen Concentration - - Weight 76.2 kg (168 lb) 06/28/2014 0851 EDT Height 162.6 cm (5' 4) 06/28/2014 0851 EDT Body Mass Index 28.84 06/28/2014 0851 EDT documented in this encounter Discharge Diagnoses Diagnosis 649.00 TOBACCO USE DISORDER COMPL. PREG, , PUER, UNSPEC CARE OR N/A[ICD-9-CM] documented in this encounter Discharge Disposition Disposition Code Departure Means Destination Auto Discharge documented in this encounter Progress Notes * Natalie Freire MD - 06/28/2014 1158 EDT Attestation statement: I discussed the patient with the resident/fellow at the time of the visit. Jeannettegree with the findings and the plan of care documented in the resident's/fellow's note. Natalie Freire MD 06/28/2014 11:59 * Lisha Best MD - 06/28/2014 0901 EDT CC: WAI Gracia Pt is a 23 y.o. with IUP at 34w4d by 6+6 wk US. This is a unplanned but this is marquita desired . FOB is currently involved and they are . Denies any nausea/vomiting,vaginal bleeding, vaginal burning/itching, dysuria. Increased vaginal discharge. Intermittently hasbraxton camacho contractions. Denies LOF, VB. +FM. PMHx: Healthy PSHx: None OBHx: SAB x 2 GYNHx: Normal menses previously No history of STIs Normal pap smears FHx: Denies mental retardation, defects, female cancers, bleeding/clotting disorders, complications with pregnancies. 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 EtOH: none. Smoking: none currently. Used to smoke 1/2 pack per day, quit at 2-3 months . Intermittently has a cigarette. Living situation: Lives in [place] with . Feels very safe at home. Occupation: Not currently working. 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 Denies any history of any sexual/physical/domestic abuse Meds: 100 mg methadone daily, gets at [facility]; PNV, Tums Allergies: NKDA Objective BP 110/74 Ht 162.6 cm (64) Wt 76.204 kg (168 lb) BMI 28.82 kg/m2 Gen: NAD CV: RRR Resp: CTAB Abd: Soft, NT, ND, + BS, palpable fundus above the umbilicus; fundal height at 35 cm Ext: NT, WWP FHT: 125-135 Assessment/Plan Meilssa Moreno is a 23 y.o. @ 34w4d by 6+6wk U/S. Stopped smoking during Quit smoking 2-3 months into , still occasional smokes cigarette FOB smokes and lives in house with her [ ] growth scan ordered Supervision of high-risk - Up to date on care - Needs GBS at next visit - Interested in Mirena IUD for post contraception - Growth scan ordered - S/p Rhogam at 27 wks - S/p TDaP Lisha Best MD 06/28/2014 10:30 documented in this encounter Miscellaneous Notes * Assessment & Plan Note - Lisha Best MD - 06/28/2014 1030 EDTAssociated Problem(s): Supervision of high-risk (Resolved 12/31/2016) - Up to date on care - Needs GBS at next visit - Interested in Mirena IUD for post contraception - Growth scan ordered - S/p Rhogam at 27 wks - S/p TDaP * Assessment & Plan Note - Lisha Bset MD - 06/28/2014 1028 EDTAssociated Problem(s): Stopped smoking during Quit smoking 2-3 months into , still occasional smokes cigarette FOB smokes and lives in house with her [ ] growth scan ordered documented in this encounter Plan of Treatment Not on file documented as of this encounter Procedures Procedure Name Priority Date/Time Associated Diagnosis Comments [facility] DETAILED 07/07/2014 16:49 EDT documented in this encounter Results * [facility] DETAILED (07/07/2014 16:49 EDT) Anatomical Region Laterality Modality Other 07/07/2014 16:4 9 EDT 07/07/2014 17:33 EDT Narrative 07/07/2014 17:33 [place] [address] due to finding, tobacco use. History ======= General History Height 163 cm Height (ft) ?5 ft Height (in) ?4 in Previous Outcomes ?1 Maternal Assessment Height 163 cm Height (ft) ?5 ft Height (in) ?4 in Physical Exam Initial weight 76 kg Initial weight (lb) ?168 lb Initial BMI ?28.68 kg/m Screening Tests Wants to know gender: ??yes Number of fetuses: 1. Dating ======= Method of dating: ??based on the stated dating Stated Dating on: ?12/16/2013 GA at stated dating date 6 w + 6 d Stated dating by: ?outside ultrasound GA by stated dating ??35 w + 6 d DELMY by stated dating: ?08/05/2014 Ultrasound examination on: 07/07/2014 GA by U/S based upon: ??AC, BPD, Femur, HC GA by U/S ??36 w + 5 d DELMY by U/S: ?2014 Assigned: ??Dating performed on 07/07/2014, based on the stated dating (on 12/16/2013 by outside ultrasound) Assigned GA ?35 w + 6 d Assigned DELMY: ??08/05/2014 General Evaluation Cardiac activity: present. FHR 141 bpm. movements: visualized. Presentation: breech, spine maternal left. Placenta: posterior. Umbilical cord: Cord vessels: 3 vessel cord. Cord insertion: poorly seen. Amniotic fluid: Amount of AF: normal. MVP 6.3 cm. GINGER 14.6 cm. Q1 6.3 cm, Q2 3.0 cm, Q3 0.0 cm, Q4 5.3 cm. Biometry Biometry BPD ?90.4 mm 78% 36w 4d Hadlock OFD ?114.0 mm ?51% 35w 4d Nicolaides HC 326.7 mm ?48% 37w 0d Hadlock AC 343.4 mm ?98% 38w 2d Hadlock Femur ??68.4 mm 26% 35w 1d Hadlock Cerebellum tr ??49.8 mm >99% Nicolaides CM 8.1 mm ??67% Nicolaides Humerus ?58.6 mm 24% 34w 4d Nicolas EFW ?3,145 g 83% Freire Calculated by: Hadlock ([id number]) EFW (lb) ?? 6 lb EFW (oz) ?? 15 oz Cephalic index 0.79 ?53% Chitty HC / AC ?0.95 FL / BPD ?? 0.76 FL / HC ?0.21 FL / AC ?0.20 MVP ?6.3 cm GINGER ?14.6 cm FHR ?141 bpm Head / Face / Neck Medical Intern 3.9 mm Extremities / Bony Struc Radius 49.1 mm 58% 38w 1d Nicolas Ulna ?? 56.1 mm 28% 34w 1d Nicolas Tibia ??59.6 mm 48% 35w 6d Nicolas Fibula 58.4 mm 57% 36w 3d Nicolas Foot ?? 71.3 mm 28% 35w 1d Harp Anatomy Head / Brain Head: ??normal Head: ??Shape and size Brain: normal Brain: Cerebellum, choroid plexus, cisterna magna, lateral cerebral ventricles, midline falx and cavum septi pellucidi Face / Neck / Spine Profile: ?? suboptimally visualized Orbits: ?not visualized Nose: ??normal Lips: ??normal Maxilla: ?? not visualized Mandible: ??not visualized Neck: ??normal Neck: ??No neck masses seen Spine: suboptimally visualized Spine: Cervical, thoracic, lumbar and sacral spine and overlying soft tissue Thorax / Heart / Great Vessels Thorax: ?normal Thorax: ?No thoracic abnormalities detected Situs: normal 4-chamber view: ?abnormal 4-chamber view: ?Dilated coronary sinus LVOT: ??normal RVOT: ??normal 3-vessel - trachea view: ?? normal 3-vessel view: normal Aortic arch view: ??normal Abdomen Abdom. wall: ?? not visualized Abdom. wall: ?? Integrity of abdominal wall and cord insertion GI tract: ??normal GI tract: ??Normal echogenicity Stomach: ?? normal Stomach: ?? Presence, size and situs Urinary Tract / Genitals Rt kidney: normal Lt kidney: normal Bladder: ?? normal Bladder: ?? Size and location Gender: ?male Wants to know gender: ??yes Genitals: ??normal Genitals: ??Normal appearing genitalia Extremities / Bony Structures Upper extrem.: normal Upper extrem.: Normal architecture and position of long bones in left arm and hands Rt upper extremity: ?suboptimally visualized Lower extrem.: normal Lower extrem.: Normal architecture and position of long bones in left leg and feet Rt lower extremity: ?suboptimally visualized Skeleton: ??normal Skeleton: ??No evidence of skeletal abnormalities Additional Cardiac Views Superior vena cava: Most likely bilateral SVCs. Inferior vena cava: Appears normal. Maternal Structures Uterus / Cervix Uterus: ?appears normal Cervix: ?Not visualized Ovaries / Tubes / Adnexa Rt ovary: ??appears normal Rt ovary D1 ?2.1 cm Rt ovary D2 ?1.9 cm Rt ovary D3 ?1.8 cm Rt ovary mean ??1.9 cm Rt ovary Vol. ??3.7 cm Lt ovary: ??appears normal Lt ovary D1 ?2.7 cm Lt ovary D2 ?1.4 cm Lt ovary D3 ?0.9 cm Lt ovary mean ??1.6 cm Lt ovary Vol. ??1.7 cm Method ======== Voluson E10, Transabdominal ultrasound examination. Limited by advanced gestational age. Impression [id number] Obstetrical ultrasound with and maternal evaluation, including detailed anatomic examination This is a willingham gestation. There is suspicion of persistent left vena cava with a dilated coronary sinus. Fetus is breech. No other anomalies were seen but anatomic detail was limited due to advanced gestational age. Biometry is consistent with prior ultrasound dating. There is a dilated coronary sinus with likely bilateral SVC's. The placental and cord insertions could not be visualized. The right leg, right arm and distal spine are suboptimally seen due to position. The remainder of anatomy appears normal as noted above; however, ultrasound cannot detect all anomalies. As per the SM guidelines, the following were evaluated and were normal: the cerebellum (including lobes and vermis,) facial profile, the chest (including examination for masses, effusion, integrity of both sides of the diaphragm and lung parenchyma), abdomen for ascites, 12-long bones with normal architecture/position of limbs, hands and feet, placental insertion site of the umbilical cord and placenta for masses. Amniotic fluid volume is normal. There is trunk and extremity movement noted. Follow-up Follow-up with a echo next week; discussion ov version next week. Comment ========= This follow-up has been scheduled. Procedure Note Grisel Shipman MD - 07/07/2014 [place] [address] due to finding, tobacco use. History ======= General History Height 163 cm Height (ft) 5 ft Height (in) 4 in Previous Outcomes 1 Maternal Assessment Height 163 cm Height (ft) 5 ft Height (in) 4 in Physical Exam Initial weight 76 kg Initial weight (lb) 168 lb Initial BMI 28.68 kg/m Screening Tests Wants to know gender: yes Number of fetuses: 1. Dating ======= Method of dating: based on the stated dating Stated Dating on: 12/16/2013 GA at stated dating date 6 w + 6 d Stated dating by: outside ultrasound GA by stated dating 35 w + 6 d DELMY by stated datin08/05/2014 Ultrasound examination on: 07/07/2014 GA by U/S based upon: AC, BPD, Femur, HC GA by U/S 36 w + 5 d DELMY by U/S: 2014 Assigned: Dating performed on 07/07/2014, based on the stated dating (on 12/16/2013 by outside ultrasound) Assigned GA 35 w + 6 d Assigned DELMY: 08/05/2014 General Evaluation Cardiac activity: present. FHR 141 bpm. movements: visualized. Presentation: breech, spine maternal left. Placenta: posterior. Umbilical cord: Cord vessels: 3 vessel cord. Cord insertion: poorly seen. Amniotic fluid: Amount of AF: normal. MVP 6.3 cm. GINGER 14.6 cm. Q1 6.3 cm, Q2 3.0 cm, Q3 0.0 cm, Q4 5.3 cm. Biometry Biometry BPD 90.4 mm 78% 36w 4d Hadlock OFD 114.0 mm 51% 35w 4d Nicolaides HC 326.7 mm 48% 37w 0d Hadlock AC 343.4 mm 98% 38w 2d Hadlock Femur 68.4 mm 26% 35w 1d Hadlock Cerebellum tr 49.8 mm >99% Nicolaides CM 8.1 mm 67% Nicolaides Humerus 58.6 mm 24% 34w 4d Nicolas EFW 3,145 g 83% Freire Calculated by: Hadlock ([id number]) EFW (lb) 6 lb EFW (oz) 15 oz Cephalic index 0.79 53% Chitty HC / AC 0.95 FL / BPD 0.76 FL / HC 0.21 FL / AC 0.20 MVP 6.3 cm GINGER 14.6 cm FHR 141 bpm Head / Face / Neck Medical Intern 3.9 mm Extremities / Bony Struc Radius 49.1 mm 58% 38w 1d Nicolas Ulna 56.1 mm 28% 34w 1d Nicolas Tibia 59.6 mm 48% 35w 6d Nicolas Fibula 58.4 mm 57% 36w 3d Nicolas Foot 71.3 mm 28% 35w 1d Harp Anatomy Head / Brain Head: normal Head: Shape and size Brain: normal Brain: Cerebellum, choroid plexus, cisterna magna, lateral cerebral ventricles, midline falx and cavum septi pellucidi Face / Neck / Spine Profile: suboptimally visualized Orbits: not visualized Nose: normal Lips: normal Maxilla: not visualized Mandible: not visualized Neck: normal Neck: No neck masses seen Spine: suboptimally visualized Spine: Cervical, thoracic, lumbar and sacral spine and overlying soft tissue Thorax / Heart / Great Vessels Thorax: normal Thorax: No thoracic abnormalities detected Situs: normal 4-chamber view: abnormal 4-chamber view: Dilated coronary sinus LVOT: normal RVOT: normal 3-vessel - trachea view: normal 3-vessel view: normal Aortic arch view: normal Abdomen Abdom. wall: not visualized Abdom. wall: Integrity of abdominal wall and cord insertion GI tract: normal GI tract: Normal echogenicity Stomach: normal Stomach: Presence, size and situs Urinary Tract / Genitals Rt kidney: normal Lt kidney: normal Bladder: normal Bladder: Size and location Gender: male Wants to know gender: yes Genitals: normal Genitals: Normal appearing genitalia Extremities / Bony Structures Upper extrem.: normal Upper extrem.: Normal architecture and position of long bones in left arm and hands Rt upper extremity: suboptimally visualized Lower extrem.: normal Lower extrem.: Normal architecture and position of long bones in left leg and feet Rt lower extremity: suboptimally visualized Skeleton: normal Skeleton: No evidence of skeletal abnormalities Additional Cardiac Views Superior vena cava: Most likely bilateral SVCs. Inferior vena cava: Appears normal. Maternal Structures Uterus / Cervix Uterus: appears normal Cervix: Not visualized Ovaries / Tubes / Adnexa Rt ovary: appears normal Rt ovary D1 2.1 cm Rt ovary D2 1.9 cm Rt ovary D3 1.8 cm Rt ovary mean 1.9 cm Rt ovary Vol. 3.7 cm Lt ovary: appears normal Lt ovary D1 2.7 cm Lt ovary D2 1.4 cm Lt ovary D3 0.9 cm Lt ovary mean 1.6 cm Lt ovary Vol. 1.7 cm Method ======== Voluson E10, Transabdominal ultrasound examination. Limited by advanced gestational age. Impression [id number] Obstetrical ultrasound with and maternal evaluation, including detailed anatomic examination This is a willingham gestation. There is suspicion of persistent left vena cava with a dilated coronary sinus. Fetus is breech. No other anomalies were seen but anatomic detail was limited due to advanced gestational age. Biometry is consistent with prior ultrasound dating. There is a dilated coronary sinus with likely bilateral SVC's. The placental and cord insertions could not be visualized. The right leg, right arm and distal spine are suboptimally seen due to position. The remainder of anatomy appears normal as noted above; however, ultrasound cannot detect all anomalies. As per the SMFM guidelines, the following were evaluated and were normal: the cerebellum (including lobes and vermis,) facial profile, the chest (including examination for masses, effusion, integrity of both sides of the diaphragm and lung parenchyma), abdomen for ascites, 12-long bones with normal architecture/position of limbs, hands and feet, placental insertion site of the umbilical cord and placenta for masses. Amniotic fluid volume is normal. There is trunk and extremity movement noted. Follow-up Follow-up with a echo next week; discussion ov version next week. Comment ========= This follow-up has been scheduled. us Natalie Freire MD [facility] ORDERABLES Maria M l Result documented in this encounter Visit Diagnoses Diagnosis Tobacco smoking complicating - Primary Tobacco use disorder complicating , childbirth, or the puerperium, unspecified as to episode of care or not applicable documented in this encounter Historical Medications * This list may reflect changes made after this encounter. calcium carbonate (TUMS) 200 mg calcium (500 mg) tablet,chewable Take 1-2 Tabs by mouth 4 times daily as needed Xzijbezs-Er-Zwn-F e-FA ( VITAMIN) tablet Take 1 Tab by mouth daily methadone (DOLOPHINE) 5 mg/5 mL oral solution Take 100 mg by mouth daily added in this encounter Care Teams Manager Supply Relationship Specialty Start Date End Date Seymour Collado MD [address] [place] [address] PCP - General 12/19/09 documented as of this encounter
--- OUTSIDE RECORDS SUMMARY | 2024-02-08 12:29 | XMS_ITS | Encounter Summary ---
Author Organization [facility] Address [address] [place] [address] Care Team Providers Care Rack Worker Name Role Phone Seymour Collado MD Primary Care Provider [phone] Encounter Details Date Type Department Care Team (Late st Contact Info) Description 06/23/2014 Documentation Visit [facility] - [facility] [address] [place] [address] Rose Pearce LPN [address] [place] [address] Social History Tobacco Use Types Packs/Day Years [...] on file documented as of this encounter Plan of Treatment Not on file documented as of this encounter Procedures Procedure Name Priority Date/Time Associated Diagnosis Comments GLUCOSE-1HR GESTATIONAL SCREEN Routine 05/19/2014 COMPLETE BLOOD COUNT Routine 05/19/2014 PAP TEST- RESULT ONLY Routine 01/07/2014 CHLAMYDIA/N. GONORRHOEAE AMPLIFIED NUCLEIC ACID Routine 01/07/2014 SYPHILIS SEROLOGY Routine 12/09/2013 HEPATITIS C AB W REFLEX TO HCV RNA BY PCR Routine 12/09/2013 RUBELLA IGG ANTIBODY Routine 12/09/2013 HEPATITIS B SURFACE ANTIGEN Routine 12/09/2013 BACTERIAL CULTURE, URINE Routine 12/09/2013 HIV 1/2 ANTIGEN AND ANTIBODY, 4TH GENERATION Routine 12/09/2013 documented in this encounter Results * (ABNORMAL) HEMAGRAM (05/19/2014) HCT, External 36.6 L POINT OF CARE MCH, External POINT OF CARE MCV, External 91.5 POINT OF CARE MCHC, External POINT OF CARE Hemoglobin, External 12.5 POINT OF CARE WBC, External 14.6 H POINT OF CARE RBC, External 4.00 L POINT OF CARE PLT, External 179 POINT OF CARE RDW-CV, External 12.5 POINT OF CARE Blood specimen (specimen) 05/19/2014 Historical Provider HEMATOLOGY & PF4 ORDERABL ES Final Result POINT OF CARE * GLUCOSE-1HR GESTATIONAL SCREEN (05/19/2014) Glucose-1hr Gest Scn, External 82 POINT OF CARE Glucose Dose, External POINT OF CARE Blood specimen (specimen) 05/19/2014 Historical Provider PACKAGES & DNA PROBE JUSTYNA CHRISTENSEN Final Result POINT OF CARE * PAP TEST- RESULT ONLY (01/07/2014) Other Pap Screen, External negative POINT OF CARE 01/07/2014 Historical Provider PATHOLOGY ORDERABLES Maria M l Result POINT OF CARE * CHLAMYDIA/GC AMPLIFIED (01/07/2014) Result-Chlamyd ia Amp Probe, External negative POINT OF CARE Result-GC Amp Probe, External negative POINT OF CARE Specimen Description, External cervix POINT OF CARE Specimen of unknown material (specimen) 01/07/2014 Result [facility] Provider MICROBIOLOGY - GENERAL OR DERABLES Final Result POINT OF CARE * HIV 1/2 ANTIBODY (12/09/2013) Hiv Ab, External negative POINT OF CARE Blood specimen (specimen) 12/09/2013 Result [facility] Historical Provider IMMUNOLOGY AND SEROLOGY O RDERABLES Final Result POINT OF CARE * HEPATITIS C ANTIBODY (12/09/2013) Hepatitis C Ab negative POINT OF CARE Blood specimen (specimen) 12/09/2013 Result [facility] Historical Provider CHEMISTRY & BLOOD GAS ORD ERABLES Final Result POINT OF CARE * HEPATITIS B SURFACE ANTIGEN (12/09/2013) Hepatitis B Surface Ag, External negative POINT OF CARE Blood specimen (specimen) 12/09/2013 Result [facility] Historical Provider CHEMISTRY & BLOOD GAS ORD ERABLES Final Result POINT OF CARE * SYPHILIS SEROLOGY (12/09/2013) Syphilis Serology, External non-reacti ve POINT OF CARE Blood specimen (specimen) 12/09/2013 Result [facility] Historical Provider IMMUNOLOGY AND SEROLOGY O RDERABLES Final Result POINT OF CARE * RUBELLA IGG ANTIBODY (12/09/2013) Rubella IgG Ab, External positive POINT OF CARE Blood specimen (specimen) 12/09/2013 Historical Provider CHEMISTRY & BLOOD GAS ORD ERABLES Final Result POINT OF CARE * BACTERIAL CULTURE, URINE (12/09/2013) Report Status, External POINT OF CARE Result, External no growth POINT OF CARE Specimen Description, External POINT OF CARE Urine specimen (specimen) 12/09/2013 Historical Provider MICROBIOLOGY - GENERAL OR DERABLES Final Result Performing Organization Address City/[facility]/ZIP Co de Phone Number POINT OF CARE documented in this encounter Visit Diagnoses Not on filedocumented in this encounter Care Teams Rack Worker Relationship Specialty Start Date End Date Seymour Collado MD [address] [place] [id number] PCP - General 12/19/09 documented as of this encounter
--- OUTSIDE RECORDS SUMMARY | 2024-02-08 12:29 | XMS_ITS | Encounter Summary ---
Author Organization [facility] Address [address] [place] [address] Care Team Providers Care Shredded Filler Cigar Maker Machine Name Role Phone Seymour Collado MD Primary Care Provider [phone] Reason for Visit * Reason Comments Routine Visit Encounter Details Date Type Department Care Team (Late st Contact Info) Description 07/22/2014 9:30 EDT Routine [facility] - [address] [id number] Natalie Freire MD [address] [place] [address], [address] [place] [address] Alla Pearson MD [place]: 38w0d Social History Tobacco Use Types Packs/Day Years [...] Sign Reading Time Taken Comments Blood Pressure 110/60 07/22/2014 1000 EDT Pulse - - Temperature - - Respiratory Rate - - Oxygen Saturation - - Inhaled Oxygen Concentration - - Weight 79.3 kg (174 lb 12.8 oz) 07/22/2014 1000 EDT Height 163 cm (5' 4.17) 07/22/2014 1000 EDT Body Mass Index 29.84 07/22/2014 1000 EDT documented in this encounter Progress Notes * Natalie Freire MD - 07/22/2014 1207 EDT Attestation statement: I discussed the patient with the resident/fellow at the time of the visit. Iagree with the findings and the plan of care documented in the resident's/fellow's note. Natalie Freire MD 07/22/2014 12:07 * Alla Pearson MD - 07/22/2014 1129 EDT CC: 23 y.o. @ 38w0d by 6+6wk S: Doing well. Denies ctxs, LOF, VB. +FM O: BP 110/60 Ht 163 cm (64.17) Wt 79.289 kg (174 lb 12.8 oz) BMI 29.84 kg/m2 FH 38 FHT 140 Breech on leopolds today A/P 23 y.o. @ 38w0d by 6+6wk US Opiate dependence Stable on methadone Stopped smoking during AGA at 32 wks, continues to smoke Other known or suspected abnormality, not elsewhere classified, affecting management of mother, antepartum condition or complication testing ordered Rh negative state in antepartum period Received on 07/18 after ECV Breech presentation S/p failed ECV on 07/18 PCS scheduled for 08/02 Breech on leopolds. Given precautions cardiac anomaly complicating , antepartum Antepartum testing PCS on 08/02 Alla Pearson MD documented in this encounter Miscellaneous Notes * Assessment & Plan Note - Alla Pearson MD - 07/22/2014 1129 EDTAssociated Problem(s): cardiac anomaly complicating , antepartum (Resolved 12/31/2016) Antepartum testing * Assessment & Plan Note - Alla Pearson MD - 07/22/2014 1128 EDTAssociated Problem(s): Breech presentation (Resolved 12/31/2016) S/p failed ECV on 07/18 PCS scheduled for 5/5 [facility] Given precautions * Assessment & Plan Note - Alla Pearson MD - 07/22/2014 1127 EDTAssociated Problem(s): Rh negative state in antepartum period Received on 07/18 after ECV * Assessment & Plan Note - Alla Pearson MD - 07/22/2014 1127 EDTAssociated Problem(s): Other known or suspected abnormality, not elsewhere classified, affecting management of mother, antepartum condition or complication (Resolved 12/31/2016) testing ordered * Assessment & Plan Note - Alla Pearson MD - 07/22/2014 1126 EDTAssociated Problem(s): Stopped smoking during AGA at 32 wks, continues to smoke * Assessment & Plan Note - Alla Pearson MD - 07/22/2014 1125 EDTAssociated Problem(s): Opiate dependence ([facility]) Stable on methadone documented in this encounter Plan of Treatment Not on file documented as of this encounter Visit Diagnoses Diagnosis Supervision of high-risk - Primary Unspecified high-risk documented in this encounter Care Teams Shredded Filler Cigar Maker Machine Relationship Specialty Start Date End Date Seymour Collado MD [address] [place] [address] PCP - General 12/19/09 documented as of this encounter
--- OUTSIDE RECORDS SUMMARY | 2024-02-08 12:29 | XMS_ITS | Encounter Summary ---
Author Organization [facility] Address [address] [place] [address] Care Team Providers Care Design Quality Engineer Name Role Phone Anahy Collado MD Primary Care Provider [phone] Encounter Details Date Type Department Care Team (Late st Contact Info) Description 12/09/2011 Results Only [facility] - [facility] ([facility]) [address] [place] [address], [place] [id number] Anahy Collado MD [address] [place], [place] [id number] Social History Tobacco Use Types Packs/Day Years Used Date Smoking Tobacco: Every Day Cigarettes 0.5 3 Alcohol Use Standard Drinks/Week Comments No 0 (1 standard drink = 0.6 oz pur e alcohol) Not with my liver bad Comments Unknown Sex and Gender Information Value Date Recorded Sex Assigned at Not on file Legal Sex Female 18:50 EST Gender Identity Not on file Sexual Orientation Not on file documented as of this encounter Plan of Treatment Not on file documented as of this encounter Procedures Procedure Name Priority Date/Time Associated Diagnosis Comments PAP TEST- RESULT ONLY Routine 12/09/2011 0:00 EDT documented in this encounter Results * PAP TEST- RESULT ONLY (12/09/2011 0:00 EDT) Pathology Report: CYTOPATHOLOGY REPORT Reports generated via electronic interface contain original data; however they are lacking the format of the original report. Caution should be taken when reading/interpreti ng unformatted reports. Name: ? ADRIANNA MORENO ? Accession #: ? [id number] : ? 1990 (Age: 21) ??F ?Collect Date: ? 12/09/2011 Location: ? [facility] ? Receive Date: ? 12/11/2011 Provider: ?ANAHY COLLADO MD Copy to: ? Specimen/Source: ?Pap Test, Endocervix, ThinPrep Imaging System with manual evaluation Last Menstrual Period: ? 11/28/11 ? SPECIMEN ADEQUACY ? Satisfactory for Evaluation - transformation zone component present GENERAL CATEGORIZATION ? Negative for Intraepithelial Lesion or Malignancy INTERPRETATION ? Shift in natalia present suggestive of bacterial vaginosis. ? Document reviewed and electronically signed by: ? Noa Deleon, [facility](ASCP) ? Report Date: ??12/20/2011 10:50 End of Report [facility]I REDD 12/09/2011 12/11/2011 us Anahy Collado MD PATHOLOGY ORDERABLES Final R esult LETI REDD [address] [place] [address] documented in this encounter Visit Diagnoses Not on filedocumented in this encounter Care Teams Design Quality Engineer Relationship Specialty Start Date End Date Anahy Collado MD [address] [place] [address] PCP - General 12/19/09 documented as of this encounter
--- OUTSIDE RECORDS SUMMARY | 2024-02-08 12:29 | XMS_ITS | Encounter Summary ---
Author Organization [facility] Address [address] [place] [address] Care Team Providers Care Batter Depositor Name Role Phone Anahy Collado MD Primary Care Provider [phone] Encounter Details Date Type Department Care Team (Latest Contact Info) Description 12/19/2009 9:45 EDT - 12/19/2009 15:31 EDT Hospital Encounter [facility] - [facility] [address], [place] [id number] Kathy Briceño PA-C [address] [place] [address] Abdominal pain; Gastroenteritis; Abdominal pain, unspecified site; Other and unspecified noninfectious gastroenteritis and colitis Discharge Disposition: Home or Self Care Social [...] Sign Reading Time Taken Comments Blood Pressure - - Pulse - - Temperature 36.9 ??C (98.4 ??F) 12/19/2009 1003 EDT Respiratory Rate 16 12/19/2009 1003 EDT Oxygen Saturation - - Inhaled Oxygen Concentration - - Weight - - Height - - Body Mass Index - - documented in this encounter Discharge Instructions * Discharge Instructions* Kathy Nicholas PA - 12/19/2009 15:21 EDT As we discussed it is most likely that your vomiting and diarrhea are due to a viral illness Also know and a stomach bug or the stomach flu. You should be recovering nicely over the next couple of days. It is possible that he may have some diarrhea with this illness and that it will last slightly longer than the vomiting. The medication given here will keep you from vomiting the rest of today. Over the rest of the day you should have clear fluid gatorade, jello, soup broth. You should avoid fatty/greasy foods including milk and anything spicy. You may graduate to bland foods like plain rice, bananas, crackers, toast as tolerated and gradually you may re-introduce the usual foods. You should return immediately to the clinic or go to the emergency room if you have abdominal pain,specfically if it is severe or local to one place, especially the right lower area. You should alsoreturn if you are unable to keep any fluids down, if you do not not urinate in any given 5-6 hour period, if you start to have dry or cracked lips or if he runs a high fever or there are any unexpected, changing or worsening symptoms. It is otherwise safe to follow-up with your Primary Care Provider in a few days. * Attachments The following attachments cannot be sent through Care Everywhere. * ABDOMINAL PAIN: AFTER YOUR CHILD'S VISIT (UKRAINIAN) * GASTROENTERITIS: AFTER YOUR VISIT (UKRAINIAN) documented in this encounter Medications at Time of Discharge ondansetron (ZOFRAN) 4 mg tablet Take 1 Tab by mouth every 8 hours as needed for Nausea. 10 Tab 0 12/19/2009 documented as of this encounter Ordered Prescriptions Prescription Sig Dispense Quantity Refills Last Filled Start Date End Date ondansetron (ZOFRAN) 4 mg tablet Take 1 Tab by mouth every 8 hours as needed for Nausea. 10 Tab 0 12/19/2009 documented in this encounter Discharge Disposition Disposition Code Departure Means Destination Home or Self Care Car Home documented in this encounter ED Notes * Noelle Pinto RN - 12/19/2009 1534 EDT Saline lock placed in CT in R antecubital space was removed without problem prior to discharge. * Kathy Nicholas PA - 12/19/2009 1142 EDT DOS: 12/19/2009 No chief complaint on file. The patient is a 19 y.o. female who presents today with No chief complaint on file. HPI Comments: 19 y/o female patient with possible unknown liver diseasse presents with 2 days of right sided abdominal pain, sharp and crampy crampy in RUQ and RLQ, intermittent with vomiting and diarrhea x few episodes of each, no blood. also feeling shaky and like her heart is beating fast today.No fever, no dysuria. LMP last week. Last sexual encounter 2.5 weeks ago, states she uses condoms always. She reports having similar symptoms about 1 year ago and [facility] She states she believes this was because she has too much iron in her blood and it made her liver swollen and it had some spots on it. They told me to follow up and have it re-checked. Buti didn't. Pt is reluctant to answer questions making history slightly difficult to obtain. The history is provided by the patient. GI Problem The pain is located in the RUQ and RLQ. The pain is moderate. Associated symptoms include anorexia,diarrhea, nausea and vomiting. Pertinent negatives include fever, belching, flatus, melena, constipation, dysuria, frequency, hematuria, headaches, arthralgias and myalgias. Exacerbated by: eating. Nothing relieves the symptoms. Past workup includes CT scan. Past workup does not include GI consult.Her past medical history does not include PUD. possible unknown liver problem. Review of Systems Constitutional: Negative for fever, chills, activity change, appetite change and fatigue. HENT: Negative for ear pain, congestion, sore throat, rhinorrhea and neck pain. Respiratory: Negative for cough and shortness of breath. Cardiovascular: Negative for chest pain and palpitations. Gastrointestinal: Positive for nausea, vomiting and diarrhea. Negative for constipation and melena. Genitourinary: Negative for dysuria, frequency and hematuria. Musculoskeletal: Negative for myalgias and arthralgias. Skin: Negative for rash and color change. Neurological: Negative for dizziness, syncope, weakness, numbness and headaches. Psychiatric/Behavioral: Negative for behavioral problems. The patient is not nervous/anxious. Current facility-administered medications Medication Dose Route Frequency Provider Last Rate Last Dose ??? sodium chloride 0.9 % 1,000 mL BOLUS 1,000 mL Intravenous Now IAN Leon Last Dose: 1000 mL at 12/19/09 1125 ??? ondansetron (PF) (ZOFRAN) injection 4 mg 4 mg Intravenous Now IAN Leon Last Dose: 4 mg at 12/19/09 1135 ??? diatrizoate meglumine-sodium in sterile water (bottle) (GASTROGRAFIN) oral solution 1,000 mL Oral Now IAN Leon Last Dose: 1000 mL at 12/19/09 1116 ??? ondansetron (PF) (ZOFRAN) injection 4 mg 4 mg Intravenous Now IAN Leon Last Dose: 4 mg at 12/19/09 1222 ??? ketorolac (TORADOL) injection 30 mg 30 mg Intravenous Now IAN Leon Last Dose: 30 mg at 12/19/09 1228 Current outpatient prescriptions Medication Sig Dispense Refill ??? ondansetron (ZOFRAN) 4 mg tablet Take 1 Tab by mouth every 8 hours as needed for Nausea. 10 Tab0 No Known Allergies Past Medical History Diagnosis Date ??? Iron metabolism disorder History Substance Use Topics ??? Tobacco Use: Yes -- 0.5 packs/day for 3 years ??? Alcohol Use: No Not with my liver bad No family history on file. Temp(Src) 98.4 ??F (36.9 ??C) (Oral) Resp 16 Physical Exam Nursing note and vitals reviewed. Constitutional: She is oriented to person, place, and time. She appears well- developed and well-nourished. No distress. HENT: Head: Normocephalic. Right Ear: External ear normal. Left Ear: External ear normal. Mouth/Throat: Oropharynx is clear and moist. No sublingual icterus. Eyes: Conjunctivae and extraocular motions are normal. Pupils are equal, round, and reactive to light. No scleral icterus. Neck: Normal range of motion. Neck supple. Cardiovascular: Normal rate, regular rhythm and normal heart sounds. Pulmonary/Chest: Effort normal and breath sounds normal. No respiratory distress. She has no wheezes. She has no rales. Abdominal: Soft. Normal appearance and bowel sounds are normal. She exhibits no mass. Tenderness (tendernessin RLQ only- mild) is present. She has no rebound, no guarding and no CVA tenderness. Musculoskeletal: Normal range of motion. Neurological: She is alert and oriented to person, place, and time. Skin: Skin is warm and dry. No rash noted. Psychiatric: She has a normal mood and affect. Her behavior is normal. Consult orders: None PCP: ANAHY COLLADO MD Results for orders placed during the hospital encounter of 12/19/09 HEMAGRAM AND DIFFERENTIAL Component Value Range ??? WBC 5.06 4.0-12.4 (K/cmm) ??? RBC 4.24 3.86-5.04 (M/cmm) ??? Hemoglobin 13.5 11.6-15.2 (gm/dl) ??? HCT 37.0 34.9-44.4 (%) ??? MCV 87 81-98 (fl) ??? MCH 31.8 26.7-33.3 (pg) ??? MCHC 36.5 (*) 32.1-35.9 (gm/dl) ??? PLT 219 141-320 (K/cmm) ??? RDW-CV 10.1 (*) 11.7-14.6 (%) ??? Neutrophils 50.0 45.5-79.7 (%) ??? Lymphocytes 40.1 15.0-46.8 (%) ??? Monocytes 8.7 1.8-12.0 (%) ??? Eosinophils 0.5 (*) 0.6-6.9 (%) ??? Basophils 0.7 0.2-1.4 (%) ??? ABS Neutrophils 2.53 2.20-8.85 (K/cmm) ??? ABS Lymphs 2.03 1.09-3.30 (K/cmm) ??? ABS Monocytes 0.44 0.1-0.8 (K/cmm) ??? ABS Eosinophils 0.03 0.03-0.61 (K/cmm) ??? ABS Basophils 0.04 0.01-0.11 (K/cmm) ??? Type of Diff: Automated COMPREHENSIVE METABOLIC PANEL Component Value Range ??? Potassium 4.3 3.5-5.0 (mEq/L) ??? Sodium 140 136-145 (mEq/L) ??? Chloride 104 96-110 (mEq/L) ??? CO2 27 24-32 (mEq/L) ??? Total Alkaline Phosphatase 70 38-126 (U/L) ??? Bilirubin, Total 0.7 0.2-1.3 (mg/dl) ??? AST 19 15-46 (U/L) ??? ALT 13 9-52 (U/L) ??? Albumin 4.4 3.4-4.9 (g/dl) ??? Total Protein 6.9 6.5-8.3 (g/dl) ??? Creatinine 0.77 0.7-1.5 (mg/dl) ? ? GFR, Calculated >60 (ml/min/1.73m2) ??? BUN 12 10-26 (mg/dl) ??? Calcium 9.7 8.5-10.5 (mg/dl) ??? Calculated Calcium 9.7 8.5-10.5 (mg/dl) ??? Glucose, Serum 86 70-100 (mg/dl) ??? Fasting? Value: Unknown Performed at [facility], [place], [place] LIPASE Component Value Range ??? Lipase 42 0-250 (U/L) AMYLASE Component Value Range ??? Amylase 38 30-110 (U/L) POCT URINE DIPSTICK Component Value Range ??? Color, UA Yellow ??? Clarity, UA Clear ? ? Glucose, UA Negative > Negative (mg/dL) ? ? Bilirubin, UA Negative > Negative ? ? Ketones, UA Negative > Negative (mg/dL) ? ? Spec Grav, UA 1.015 > 1.010, 1.015, 1.020, 1.025 ? ? Blood, UA Negative > Negative ??? pH, UA 7.0 4.6 - 8.0 ? ? Protein, UA Trace (*) > Negative (mg/dL) ??? Urobilinogen, UA 0.2 0.2 - 1.0 (E.U./dL) ? ? Nitrite, UA Negative > Negative ? ? Leuk Esterase Negative > Negative ??? Comment BILIRUBIN DIRECT/INDIRECT Component Value Range ??? Conjugated Bilirubin 0.0 0.0-0.3 (mg/dl) ??? Unconjugated Bilirubin 0.7 0.1-1.1 (mg/dl) TEST, URINE Component Value Range ??? Result- Test, Ur Value: Neg Performed at [facility], [place], [place] Radiology orders: CT ABDOMEN, PELVIS W CONTRAST CT ABDOMEN AND PELVIS (Results Pending) CT ABDOMEN, PELVIS W CONTRAST (Results Pending) Procedures Course: Pt treated with iv fluids, zofran and toradol with complete relief of all symptoms. Case discussed with SABA montaño from PCP office who reports pt had an ED visit from 14 mos ago in which she had an ALT of 121, which dropped 8 days later to a normal 41. At taht time AST-41 Iron 148 Ferritin 17 Transferrin-51 IBC 289 Hepatitis B abs at that time were negative She was asked to have her iron studies re-drawn this october as a follow up but has not been back toPCP. Her final diagnosis at last visit was viral gastroenteritis. i related all of this to the patient as well as her normal results and normal CT abdomen and pelvistoday. i encouraged her to Follow up with her PCP especially regarding the fact that she sometimes feels shaky as is is quite unlikely related to her symptoms today or her illness last year. It may be related to anxiety but if it continues, it should be worked-up. Today i believe she has had a viral gastroenteritis as well and was dehydrated. rx for zofran Encouraged fliuds and advance to a bland diet. Return immediately for any returning or worsening or any new symptoms. 1. Abdominal pain (789.00AP) HEMAGRAM AND DIFFERENTIAL, COMPREHENSIVE METABOLIC PANEL, LIPASE, AMYLASE, POCT URINE DIPSTICK, HEPATITIS C ANTIBODY, HEPATITIS B SURFACE ANTIBODY, HEPATITIS B CORE ANTIBODY, BILIRUBIN DIRECT/INDIRECT, TEST, URINE, HEMAGRAM AND DIFFERENTIAL, COMPREHENSIVE METABOLIC PANEL, LIPASE, AMYLASE, POCT URINE DIPSTICK, HEPATITIS C ANTIBODY, HEPATITIS B SURFACE ANTIBODY, HEPATITIS B CORE ANTIBODY, BILIRUBIN DIRECT/INDIRECT, TEST, URINE 2. Gastroenteritis (558.9AH) Dr. Doc Rodriguez was available for consultation during my care of this patient. [facility] 12/19/2009 16:55 * Noelle Pinto RN - 12/19/2009 1027 EDT Just reported a sharp short-lived pain to abdomen more to right side. Reports some diarrhea yesterday 4-5 times. Denies any urinary difficulty. Instructed on urine specimen needed. * Trena Finnegan - 12/19/2009 1016 EDT [place] notified about pain, pelvis right side to middle. Sharp. Pt stated just started and feels better when curled up. * Noelle Pinto RN - 12/19/2009 0947 EDT Met patient at desk. Visibly shaking. Denies chest pain or shortness of breath. States started feeling poorly on Sat night or Friday. States heart races and vomits anytime she eats anything. Last time she vomited was yesterday-not sure what color maybe brown. Reports she has an iron disorder whereby there is too much in her blood and it affects her liver. Feels hot and cold. Feet freezing face hot. No flushing or jaundice noted. Is a [employer] student in [place] . Left class this am . Escorted with 2 classmates. Iman SOSA informed of her arrival. documented in this encounter Miscellaneous Notes * Scanned Note-Null - Inpatient, Physician - 12/19/2009 0000 EDT * Scanned Note-Null - Inpatient, Physician - 12/19/2009 0000 EDT documented in this encounter Plan of Treatment Not on file documented as of this encounter Procedures Procedure Name Priority Date/Time Associated Diagnosis Comments CT ABDOMEN, PELVIS W CONTRAST 12/19/2009 13:54 EDT POCT URINE DIPSTICK, CLINITEK STAT 12/19/2009 11:35 EDT Abdominal pain HEPATITIS C AB W REFLEX TO HCV RNA BY PCR STAT 12/19/2009 11:11 EDT Abdominal pain HEPATITIS B CORE ANTIBODY (TOTAL) STAT 12/19/2009 11:11 EDT Abdominal pain HEPATITIS B SURFACE ANTIBODY STAT 12/19/2009 11:11 EDT Abdominal pain COMPLETE BLOOD COUNT AND DIFFERENTIAL STAT 12/19/2009 11:11 EDT Abdominal pain BILIRUBIN DIRECT/INDIRECT STAT 12/19/2009 11:11 EDT Abdominal pain LIPASE STAT 12/19/2009 11:11 EDT Abdominal pain AMYLASE STAT 12/19/2009 11:11 EDT Abdominal pain COMPREHENSIVE METABOLIC PANEL (CMP) STAT 12/19/2009 11:11 EDT Abdominal pain TEST, URINE STAT 12/19/2009 11:02 EDT Abdominal pain documented in this encounter Results * CT ABDOMEN, PELVIS W CONTRAST (12/19/2009 13:54 EDT) Anatomical Region Laterality Modality Other 12/19/2009 13:5 4 EDT 12/19/2009 17:22 EDT Narrative 12/19/2009 17:[address] ABDOMEN, PELVIS ??Dec 19, 2009 01:54:00 PM Signs and Symptoms/Comments: ??RUQ and RLQ abdominal pain, ??history of spots on my liver they wanted me to have checked again but i didnt Comparison: None. Technique: Helical images were obtained from the domes of the diaphragm to the iliac crests. Technique Pelvis: Immediately after the above preparation, axial images were obtained from the iliac crests to the ischial tuberosities During the exam, ??intravenous administration of 100 cc of 370 mg% nonionic contrast at a rate of 2 cc/second was administered. Prior to scanning, oral contrast was administered. Findings: Evaluation of the visualized portions of the lower chest demonstrate no abnormalities. The spleen, pancreas, adrenal glands and gallbladder are normal. The liver is normal appearance with no evidence of mass. ??The kidneys are normal in appearance with evidence of stone, hydronephrosis, or perinephric stranding. Evaluation of the bowel demonstrates no dilatation or bowel wall thickening. The terminal ileum and appendix are visualized and are normal in appearance without adjacent stranding. The bladder and uterus are normal in appearance. A small amount of free fluid in the left pelvis. This may be secondary to a ruptured ovarian cyst. Evaluation of the bones and soft tissues demonstrates no abnormalities. Impression: 1. Small amount of free fluid in the left pelvis. This may be secondary to a ruptured ovarian cyst. 2. No liver lesion identified. 3. No evidence of appendicitis. I have personally reviewed the images and the above interpretation and agree with the findings. Procedure Note Papito Shipman MD - 12/19/2009 CT ABDOMEN, PELVIS Dec 19, 2009 01:54:00 PM Signs and Symptoms/Comments: RUQ and RLQ abdominal pain, history of spots on my liver they wanted me to have checked again but i didnt Comparison: None. Technique: Helical images were obtained from the domes of the diaphragm to the iliac crests. Technique Pelvis: Immediately after the above preparation, axial images were obtained from the iliac crests to the ischial tuberosities During the exam, intravenous administration of 100 cc of 370 mg% nonionic contrast at a rate of 2 cc/second was administered. Prior to scanning, oral contrast was administered. Findings: Evaluation of the visualized portions of the lower chest demonstrate no abnormalities. The spleen, pancreas, adrenal glands and gallbladder are normal. The liver is normal appearance with no evidence of mass. The kidneys are normal in appearance with evidence of stone, hydronephrosis, or perinephric stranding. Evaluation of the bowel demonstrates no dilatation or bowel wall thickening. The terminal ileum and appendix are visualized and are normal in appearance without adjacent stranding. The bladder and uterus are normal in appearance. A small amount of free fluid in the left pelvis. This may be secondary to a ruptured ovarian cyst. Evaluation of the bones and soft tissues demonstrates no abnormalities. Impression: 1. Small amount of free fluid in the left pelvis. This may be secondary to a ruptured ovarian cyst. 2. No liver lesion identified. 3. No evidence of appendicitis. I have personally reviewed the images and the above interpretation and agree with the findings. Kathy Briceño PA-C IMG CT ORDERABLES Maria M l Result * (ABNORMAL) POCT URINE DIPSTICK (12/19/2009 11:35 EDT) Color, UA Yellow [facility] Clarity, UA Clear [facility] Glucose, UA Negative Negative mg/dL [facility] Bilirubin, UA Negative Negative [facility] Ketones, UA Negative Negative mg/dL [facility] Spec Grav, UA 1.015 1.010, 1.015, 1.020, 1.025 [facility] Blood, UA Negative Negative [facility] pH, UA 7.0 4.6 - 8.0 [facility] Protein, UA Trace(A) Negative mg/dL [facility] Urobilinogen, UA 0.2 0.2 - 1.0 E.U./dL [facility] Nitrite, UA Negative Negative [facility] Leuk Esterase Negative Negative [facility] Comment [facility] Urine specimen (specimen) 12/19/2009 11:35 EDT Kathy Briceño PA-C PO[facility] CARE TEST ORD ERABLES Final Result [facility] * BILIRUBIN DIRECT/INDIRECT (12/19/2009 11:11 EDT) Conjugated Bilirubin 0.0 0.0 - 0.3 mg/dl [facility] Unconjugated Bilirubin 0.7 0.1 - 1.1 mg/dl [facility] Comment[place] Blood specimen (specimen) 12/19/2009 11:11 EDT 12/19/2009 11:28 EDT us Kathy López Briceño PA-C CHEMISTRY & BLOOD GAS ORDERABLES Final Result Performing Organization Address [facility] de Phone Number [facility] [address] [place] [address] * HEPATITIS B CORE ANTIBODY (12/19/2009 11:11 EDT) Hep B Core Ab Negative Reference Range: Negative Interpretation depends on clinical setting. [facility] Blood specimen (specimen) 12/19/2009 11:11 EDT 12/19/2009 11:28 EDT us Kathy López Briceño PA-C CHEMISTRY & BLOOD GAS ORDERABLES Final Result Performing Organization Address [facility] de Phone Number [facility] [address] [place] [address] * HEPATITIS B SURFACE ANTIBODY (12/19/2009 11:11 EDT) Hepatitis B Surface Ab Positive Reference Range: Negative Interpretation depends on clinical setting. [facility] Blood specimen (specimen) 12/19/2009 11:11 EDT 12/19/2009 11:28 EDT us Kathy López Briceño PA-C CHEMISTRY & BLOOD GAS ORDERABLES Final Result Performing Organization Address [facility] de Phone Number [facility] [address] [place] [address] * HEPATITIS C ANTIBODY (12/19/2009 11:11 EDT) Hepatitis C Ab Negative Reference Range: Negative [facility] Blood specimen (specimen) 12/19/2009 11:11 EDT 12/19/2009 11:28 EDT us Kathy López Briceño PA-C CHEMISTRY & BLOOD GAS ORDERABLES Final Result Performing Organization Address City/[facility] Co de Phone Number [facility] [address] [place] [address] * AMYLASE (12/19/2009 11:11 EDT) Pathologist [facility] Amylase 38 30 - 110 U/L [facility] Comment:Performed at [place], [place] Blood specimen (specimen) 12/19/2009 11:11 EDT 12/19/2009 11:28 EDT Kathy Briceño PA-C CHEMISTRY & BLOOD GAS ORDERABLES Final Result Performing Organization Address [facility] Co de Phone Number [facility] [address] [place] [address] * LIPASE (12/19/2009 11:11 EDT) Pathologist [facility] Lipase 42 0 - 250 U/L [facility] Comment:Performed at [place], [place] Blood specimen (specimen) 12/19/2009 11:11 EDT 12/19/2009 11:28 EDT Kathy DEANC CHEMISTRY & BLOOD GAS ORDERABLES Final Result Performing Organization Address [facility] de Phone Number [facility] [address] [place] [address] * COMPREHENSIVE METABOLIC PANEL (12/19/2009 11:11 EDT) Pathologist [facility] Potassium 4.3 3.5 - 5.0 mEq/L [facility] Sodium 140 136 - 145 mEq/L [facility] Chloride 104 96 - 110 mEq/L [facility] CO2 27 24 - 32 mEq/L [facility] Total Alkaline Phosphatase 70 38 - 126 U/L [facility] Bilirubin, Total 0.7 0.2 - 1.3 mg/dl [facility] AST 19 15 - 46 U/L [facility] ALT 13 9 - 52 U/L [facility] Albumin 4.4 3.4 - 4.9 g/dl [facility] Total Protein 6.9 6.5 - 8.3 g/dl [facility] Creatinine 0.77 0.7 - 1.5 mg/dl [facility] GFR, Calculated >60 ml/min/1. 73m2 [facility] BUN 12 10 - 26 mg/dl [facility] Calcium 9.7 8.5 - 10.5 mg/dl [facility] Calculated Calcium 9.7 8.5 - 10.5 mg/dl [facility] Glucose, Serum 86 70 - 100 mg/dl [facility] Fasting? Unknown Per[facility] Blood specimen (specimen) 12/19/2009 11:11 EDT 12/19/2009 11:28 EDT Kathy Briceño PA-C CHEMISTRY & BLOOD GAS ORDERABLES Final Result [facility] [address] [place] [address] * (ABNORMAL) HEMAGRAM AND DIFFERENTIAL (12/19/2009 11:11 EDT) WBC 5.06 4.0 - 12.4 K/cmm [facility] RBC 4.24 3.86 - 5.04 M/cmm [facility] Hemoglobin 13.5 11.6 - 15.2 gm/dl [facility] HCT 37.0 34.9 - 44.4 % [facility] MCV 87 81 - 98 fl [facility] MCH 31.8 26.7 - 33.3 pg [facility] MCHC 36.5(H) 32.1 - 35.9 gm/dl [facility] PLT 219 141 - 320 K/cmm [facility] RDW-CV 10.1(L) 11.7 - 14.6 % [facility] Comment:Performed at [facility], [place], [place] % Neutrophils 50.0 45.5 - 79.7 % [facility] % Lymphocytes 40.1 15.0 - 46.8 % [facility] % Monocytes 8.7 1.8 - 12.0 % [facility] % Eosinophils 0.5(L) 0.6 - 6.9 % [facility] % Basophils 0.7 0.2 - 1.4 % [facility] ABS Neutrophils 2.53 2.20 - 8.85 K/cmm [facility] ABS Lymphs 2.03 1.09 - 3.30 K/cmm [facility] ABS Monocytes 0.44 0.1 - 0.8 K/cmm [facility] ABS Eosinophils 0.03 0.03 - 0.61 K/cmm [facility] ABS Basophils 0.04 0.01 - 0.11 K/cmm [facility] Type of Diff: Automated [facility] Blood specimen (specimen) 12/19/2009 11:11 EDT 12/19/2009 11:28 EDT Kathy Briceño PA-C PACKAGES & DNA PROBE O RDERABLES Final Result Performing Organization Address [facility] de Phone Number [facility] [address] [place] [address] * TEST, URINE (12/19/2009 11:02 EDT) Result-Pregnan cy Test, Ur Neg Performed at [place], [place] [facility] Urine specimen (specimen) 12/19/2009 11:02 EDT 12/19/2009 11:33 EDT Kathy Briceño PA-C URINALYSIS ORDERABLES Final Result Performing Organization Address [facility] de Phone Number [facility] [address] [place] [address] documented in this encounter Visit Diagnoses Diagnosis Abdominal pain Abdominal pain, unspecified site Gastroenteritis Other and unspecified noninfectious gastroenteritis and colitis Abdominal pain, unspecified site Other and unspecified noninfectious gastroenteritis and colitis(558.9) Other and unspecified noninfectious gastroenteritis and colitis documented in this encounter Administered Medications Inactive Administered Medications - up to 3 most recent administrations Medication Order MAR Action Action Date Dose Rate Site diatrizoate meglumine-sodium in sterile water (bottle) (GASTROGRAFIN) oral solution 1,000 mL, oral, NOW X1, 1 dose, On e 12/19/09 at 1145, Routine Given 12/19/2009 11:16 EDT 1,000 mL ketorolac (TORADOL) injection 30 mg 30 mg, intravenous, NOW X1, 1 dose, On Fri12/19/09 at 1230, Routine Given 12/19/2009 12:28 EDT 30 mg ondansetron (PF) (ZOFRAN) injection 4 mg 4 mg, intravenous, NOW X1, 1 dose, On Fri12/19/09 at 1115, Routine Given 12/19/2009 11:35 EDT 4 mg ondansetron (PF) (ZOFRAN) injection 4 mg 4 mg, intravenous, NOW X1, 1 dose, On Fri12/19/09 at 1230, Routine Given 12/19/2009 12:22 EDT 4 mg sodium chloride 0.9 % 1,000 mL BOLUS 1,000 mL, intravenous, NOW X1, 1 dose, On Fri12/19/09 at 1115, Routine Given 12/19/2009 11:25 EDT 1,000 mL documented in this encounter Active and Recently Administered Medications Times are shown in EDT. Scheduled Medication Order 12/17/2009 12/18/2009 12/19/2009 diatrizoate meglumine-sodium in sterile water (bottle) (GASTROGRAFIN) oral solution (COMPLETED) 1,000 mL, oral, NOW X1, 1 dose, On Fri12/19/09 at 1145, Routine 1116 (Given - Provid er: Noelle Pinto RN - Comment: One bottle an hr x2 hrs.)1200 (Completed - Provider: Noelle Pinto RN - Comment: Drank 2 bottles.) ketorolac (TORADOL) injection 30 mg (COMPLETED) 30 mg, intravenous, NOW X1, 1 dose, On Fri12/19/09 at 1230, Routine 1228 (Given - Provid er: Noelle Pinto RN) ondansetron (PF) (ZOFRAN) injection 4 mg (COMPLETED) 4 mg, intravenous, NOW X1, 1 dose, On e 12/19/09 at 1115, Routine 1135 (Given - Provid er: Noelle Pinto RN) ondansetron (PF) (ZOFRAN) injection 4 mg (COMPLETED) 4 mg, intravenous, NOW X1, 1 dose, On Fri12/19/09 at 1230, Routine 1222 (Given - Provid er: Noelle Pinto RN - Comment: for continued nausea c contrast.) sodium chloride 0.9 % 1,000 mL BOLUS (COMPLETED) 1,000 mL, intravenous, NOW X1, 1 dose, On Fri12/19/09 at 1115, Routine 1125 (Given - Provid er: Noelle Pinto RN - Comment: 999cc/hr)1228 (Completed - Provider: Noelle Pinto RN) documented in this encounter Orders Nursing Count Last Ordered Date First Orde red Date INSERT SALINE LOCK 1 12/19/2009 documented in this encounter Care Teams Batter Depositor Relationship Specialty Start Date End Date Anahy Collado MD [address] [place] [address] PCP - General 12/19/09 documented as of this encounter
--- OUTSIDE RECORDS SUMMARY | 2024-02-08 12:29 | XMS_ITS | Encounter Summary ---
Author Organization [facility] Address [address] [place] [address] Care Team Providers Care Websphere Commerce Architect Name Role Phone Seymour Collado MD Primary Care Provider [phone] Encounter Details Date Type Department Care Team (Late st Contact Info) Description 07/07/2014 16:08 EDT - 07/07/2014 23:59 EDT Hospital Encounter [facility] [phone] Grisel Shipman MD [address] [facility], [address] [place] [id number] Discharge Disposition: Home or Self Care Social [...] as of this encounter Discharge Diagnoses Diagnosis 663.83 CORD COMPL NEC-ANTEPART[ICD-9-CM] documented in this encounter Medications at Time of Discharge calcium carbonate (TUMS) 200 mg calcium (500 mg) tablet,chewable Take 1-2 Tabs by mouth 4 times daily as needed methadone (DOLOPHINE) 5 mg/5 mL oral solution Take 100 mg by mouth daily ondansetron (ZOFRAN) 4 mg tablet Take 1 Tab by mouth every 8 hours as needed for Nausea. 10 Tab 0 12/19/2009 Tbryrjvp-Ct-Lvv-F e-FA ( VITAMIN) tablet Take 1 Tab by mouth daily documented as of this encounter Discharge Disposition Disposition Code Departure Means Destination Home or Self Retirement documented in this encounter Plan of Treatment Not on file documented as of this encounter Visit Diagnoses Not on filedocumented in this encounter Care Teams Websphere Commerce Architect Relationship Specialty Start Date End Date Seymour Collado MD [address] [place] [address] PCP - General 12/19/09 documented as of this encounter
--- OUTSIDE RECORDS SUMMARY | 2024-02-08 12:29 | XMS_ITS | Encounter Summary ---
Author Organization [facility] Address [address] [place] [address] Care Team Providers Care Grocery Specialist Name Role Phone Seymour Collado MD Primary Care Provider [phone] Reason for Referral * Consult (Routine) - Specialty Report Received Specialty Diagnoses / Procedures Referred By Fabienne t Referred To Contact Neonatology Diagnoses Drug dependence, antepartum(559.33) Grisel Shipman MD Phone: tel: fax: [facility] - [address] [address] Phone: tel: fax: Referral ID Status Reason Start Date Expiration Date Visits Requested Visits Authorized [id number] Specialty Report Received Specialty Services Required 07/08/2014 1 1 Question Answer Reason for Request: opiate dependency during Encounter Details Date Type Department Care Team (Late st Contact Info) Description 07/07/2014 Orders Only [facility] - [address] [address] Rose Pearce LPN [address] [place] [address] Drug dependence, antepartum(648.33) (Primary Dx) Social History [...] as of this encounter Plan of Treatment Scheduled Referrals Name Type Priority Associated Diagnoses Orde r Schedule AMB CONS/FOLLOW UP NEONATOLOGY Outpatient Referral Routine Drug dependence, antepartum(648.33) 07/07/2014 documented as of this encounter Visit Diagnoses Diagnosis Drug dependence, antepartum(648.33)- Primary Drug dependence, antepartum documented in this encounter Care Teams Grocery Specialist Relationship Specialty Start Date End Date Seymour Collado MD [address] [place] [address] PCP - General 12/19/09 documented as of this encounter
--- OUTSIDE RECORDS SUMMARY | 2024-02-08 12:29 | XMS_ITS | Encounter Summary ---
Author Organization [facility] Address [address] [place] [address] Care Team Providers Care Ship Pilot Name Role Phone Seymour Collado MD Primary Care Provider [phone] Reason for Referral * Cardiology (3 - 10 Business Days) - Closed Specialty Diagnoses / Procedures Referred By Contac t Referred To Contact Diagnoses Supervision of other high-risk (V23.89) Procedures [facility] ECHOCARDIOGRAM (PEDI CARD) Lacie Shipman MD Phone: tel: fax: Referral ID Status Reason Start Date Expiration Date Visits Re quested Visits Authorized [id number] Closed 07/07/2014 1 1 Encounter Details Date Type Department Care Team (Late st Contact Info) Description 07/07/2014 Orders Only [facility] - [address] [id number] Estephania Cuevas MD Supervision of other high-risk (V23.89) (Primary Dx) Social History Tobacco Use Types [...] Procedure Name Priority Date/Time Associated Diagnosis Comments [facility] ECHOCARDIOGRAM (PEDI CARD) Routine 07/14/2014 12:30 EDT Supervision of other high-risk (V23.89) documented in this encounter Results * [facility] ECHOCARDIOGRAM (PEDI CARD) (07/14/2014 12:30 EDT) Anatomical Region Laterality Modality Other 07/14/2014 12:3 0 EDT Narrative 07/14/2014 14:48 EDT Patient Name: ADRIANNA MORENO Chart Number: [id number] Site Location: Date of Appt: , July 14, 2014, 12:30 PM Echocardiogram Report Demographics and Visit Data: Due Date: 06-Aug-2014. ??Gestational age (weeks): 36.86. ?? : 1990. ??Age: 23y/11m/15d. ??Reason for test: V23.89-Supervision of other high-risk (V23.89)-ICD-9-CM; Persisent Left SVC on US. ?? Person requesting test: LACIE SHIPMAN MD ??Procedure Description: [facility] ECHOCARDIOGRAM (PEDI CARD). ?? echocardiogram at 37 weeks gestation. Study significantly limited by position and advanced gestational age. 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 There is not very significant atrioventricular valve regurgitation demonstrated. The right ventricle and pulmonary artery are larger than the left ventricle and aorta, but all are within the range of normal in size and the systolic function appears normal. Normal arterial and venous connections. No arrhythmias noted during the exam. No evidence of hydrops. The results of the study, its limitations and the limitations of echocardiography in general were reviewed. See consult noted. Complete 2-dimensional study performed, with pulse/continuous wave Doppler samplings, and color flow Doppler imaging reviewed. Anatomic Summary Right Ventricle: Normal Left Ventricle: Normal Pulmonary Veins: 2 Ventricular Septum: Abnormal IVC/SVC: Normal Great Vessels: Normal Foramen: Normal Situs: Normal General Function Function: Normal Rhythm: Normal AV Insufficiency: Abnormal Effusion: None Other Observations Image Quality: Fair Findings: ?? Veins and Atria: ?? >> Patent foramen ovale Right to left flow. ?? >> Normal Left Atrium >> Normal Right Atrium >> Normal Pulmonary venous connections Color Doppler suggests that at least one pulmonary vein is seen entering from each side. There is a structure behind the left atrium that could be a confluence of pulmonary veins, but other views suggest at least some pulmonary veins return normally, and the structure may be the esophagus. ? A-V Canal: ?? >> Transitional complete common atrioventricular canal defect The atrioventricular valves are at the same level and move together. There is probably a fairly small inflow ventricular septal defect, and color Doppler suggest some right to left flow at that level. 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 ? Ventricles: ?? >> Left ventricular dysfunction, ruled out >> Right ventricular dysfunction global, ruled out ?? Conotruncus: ?? >> Normal Pulmonary Valve >> Normal Aortic Valve ?? Great Arteries: ?? >> Patent ductus arteriosus Right to left flow. ?? >> Normal Pulmonary Artery >> Normal Aorta >> Normal Aortic Arch Limited views suggest an intact arch. ? Pericardium: ?? >> Pericardial effusion, ruled out ?? Other: ?? >> echo ?? Measures: Campbell's Name: TANG RIVERA MD Date/time of reading: Jul 14 2014 - 2:48:00 PM Report created at 2:48:43 PM on June Report Number: Note:Study interpreted at The unless otherwise noted Procedure Note Tang Rivera MD - 07/14/2014 Patient Name: ADRIANNA MORENO Chart Number: [id number] Site Location: Date of Appt: June, 12:30 PM Echocardiogram Report Demographics and Visit Data: Due Date: 06-Aug-2014. Gestational age (weeks): 36.86. : 1990. Age: 23y/11m/15d. Reason for test: V23.89-Supervision of other high-risk (V23.89)-ICD-9-CM; Persisent Left SVC on US. Person requesting test: LACIE SHIPMAN MD Procedure Description: [facility] ECHOCARDIOGRAM (PEDI CARD). echocardiogram at 37 weeks gestation. Study significantly limited by position and advanced gestationalage. 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 There is not very significant atrioventricular valve regurgitation demonstrated. The right ventricle and pulmonary artery are larger than the left ventricle and aorta, but all are within the range of normal in size and the systolic function appears normal. Normal arterial and venous connections. No arrhythmias noted during the exam. No evidence of hydrops. The results of the study, its limitations and the limitations of echocardiography in general were reviewed. See consult noted. Complete 2-dimensional study performed, with pulse/continuous wave Doppler samplings, and color flow Doppler imaging reviewed. Anatomic Summary Right Ventricle: Normal Left Ventricle: Normal Pulmonary Veins: 2 Ventricular Septum: Abnormal IVC/SVC: Normal Great Vessels: Normal Foramen: Normal Situs: Normal General Function Function: Normal Rhythm: Normal AV Insufficiency: Abnormal Effusion: None Other Observations Image Quality: Fair Findings: Veins and Atria: >> Patent foramen ovale Right to left flow. >> Normal Left Atrium >> Normal Right Atrium >> Normal Pulmonary venous connections Color Doppler suggests that at least one pulmonary vein is seen entering from each side. There is a structure behind the left atrium that could be a confluence of pulmonary veins, but other views suggest at least some pulmonary veins return normally, and the structure may be the esophagus. A-V Canal: >> Transitional complete common atrioventricular canal defect The atrioventricular valves are at the same level and move together. There is probably a fairly small inflow ventricular septal defect, and color Doppler suggest some right to left flow at that level. 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 Ventricles: >> Left ventricular dysfunction, ruled out >> Right ventricular dysfunction global, ruled out Conotruncus: >> Normal Pulmonary Valve >> Normal Aortic Valve Great Arteries: >> Patent ductus arteriosus Right to left flow. >> Normal Pulmonary Artery >> Normal Aorta >> Normal Aortic Arch Limited views suggest an intact arch. Pericardium: >> Pericardial effusion, ruled out Other: >> echo Measures: Campbell's Name: NICOLE CARRASCO,TANG Vieira Date/time of reading: Gypsy, Jul 14 2014 - 2:48:00 PM Report created at 2:48:43 PM on June Report Number: Note:Study interpreted at The unless otherwise noted us Lacie Shipman MD CARDIAC ECHO ORDERABLES Maria M foley Result documented in this encounter Visit Diagnoses Diagnosis Supervision of other high-risk (V23.89)- Primary Supervision of other high-risk documented in this encounter Care Teams Ship Pilot Relationship Specialty Start Date End Date Seymour Collado MD [address] [place] [address] PCP - General 12/19/09 documented as of this encounter
--- OUTSIDE RECORDS SUMMARY | 2024-02-08 12:29 | XMS_ITS | Encounter Summary ---
Author Organization [facility] Address [address] [place] [address] Care Team Providers Care Foam Cutting Supervisor Name Role Phone Seymour Collado MD Primary Care Provider [phone] Encounter Details Date Type Department Care Team (Late st Contact Info) Description 06/27/2014 Orders Only [facility] - [facility] [address] [place] [address] Rose Pearce LPN [address] [place] [address] Supervision of other normal (Primary Dx) Social History Tobacco Use Types [...] on file documented as of this encounter Results * (ABNORMAL) GROUP B STREPTOCOCCUS MOLECULAR DETECTION (07/07/2014 15:37 EDT) Group B Streptococcus Molecular Detection GROUP B BETA STREPTOCOCCAL DNA detected by PCR.(AA) 07/11/2014 12:03 EDT [facility] Specimen of unknown material (specimen) TOPOGRAPHY UNKNOWN / Unknown 07/07/2014 15:37 EDT 07/07/2014 17:25 EDT us Seymour Vazquez MD MSc MICROBIOLOGY - GENE RAL ORDERABLES Final Result [facility] [address] [place] [address] documented in this encounter Visit Diagnoses Diagnosis Supervision of other normal - Primary documented in this encounter Care Teams Foam Cutting Supervisor Relationship Specialty Start Date End Date Syemour Collado MD [address] [place] [address] PCP - General 12/19/09 documented as of this encounter
--- OUTSIDE RECORDS SUMMARY | 2024-02-08 12:29 | XMS_ITS | Encounter Summary ---
Author Organization [facility] Address [address] [place] [address] Care Team Providers Care Needle Grinder Name Role Phone Seymour Collado MD Primary Care Provider [phone] Encounter Details Date Type Department Care Team (Latest Contact Info) Description 07/14/2014 10:09 EDT - 07/14/2014 23:59 EDT Hospital Encounter [facility] [phone] Tang Walton MD [address] [place] [phone] Discharge Disposition: Home or Self Care Social [...] 655.83 ABNORM NEC-ANTEPAR[ICD-9-CM] documented in this encounter Medications at Time of Discharge calcium carbonate (TUMS) 200 mg calcium (500 mg) tablet,chewable Take 1-2 Tabs by mouth 4 times daily as needed methadone (DOLOPHINE) 5 mg/5 mL oral solution Take 100 mg by mouth daily ondansetron (ZOFRAN) 4 mg tablet Take 1 Tab by mouth every 8 hours as needed for Nausea. 10 Tab 0 12/19/2009 Klsmhjeq-Yc-Drf-F e-FA ( VITAMIN) tablet Take 1 Tab by mouth daily documented as of this encounter Discharge Disposition Disposition Code Departure Means Destination Home or Self Longterm documented in this encounter Plan of Treatment Not on file documented as of this encounter Procedures Procedure Name Priority Date/Time Associated Diagnosis Comments LD US LIMITED OB SCAN 08/02/2014 10:00 EDT documented in this encounter Results * LD US LIMITED OB SCAN (08/02/2014 10:00 EDT) Anatomical Region Laterality Modality Other 08/02/2014 10:0 0 EDT 09/09/2014 14:46 EDT Narrative 08/15/2014 11:25 EDT Indication Unsure lie. History ======= General History Height 163 cm Height (ft) ?5 ft Height (in) ?4 in Previous Outcomes ?1 Number of fetuses: 1. Maternal Assessment Height 163 cm Height (ft) ?5 ft Height (in) ?4 in Physical Exam Initial weight 76 kg Initial weight (lb) ?168 lb Initial BMI ?28.68 kg/m Screening Tests Wants to know gender: ??yes Dating ======= Stated Dating on: ?12/16/2013 GA at stated dating date 6 w + 6 d Stated dating by: ?outside ultrasound GA by stated dating ??39 w + 4 d DELMY by stated dating: ?08/05/2014 Assigned: ??Dating performed on 07/07/2014, based on the stated dating (on 12/16/2013 by outside ultrasound) Assigned GA ?39 w + 4 d Assigned DELMY: ??08/05/2014 General Evaluation Cardiac activity: present. FHR 130 bpm. movements: visualized. Presentation: maude breech. Placenta: Placental site: posterior. Impression [id number] Limited obstetrical ultrasound This is a willingham gestation in a breech presentation. The anatomy was not reviewed in detail. movement was noted. Follow-up On L T D for delivery. Procedure Note Brisa Butler MD - 09/09/2014 Indication Unsure lie. History ======= General History Height 163 cm Height (ft) 5 ft Height (in) 4 in Previous Outcomes 1 Number of fetuses: 1. Maternal Assessment Height 163 cm Height (ft) 5 ft Height (in) 4 in Physical Exam Initial weight 76 kg Initial weight (lb) 168 lb Initial BMI 28.68 kg/m Screening Tests Wants to know gender: yes Dating ======= Stated Dating on: 12/16/2013 GA at stated dating date 6 w + 6 d Stated dating by: outside ultrasound GA by stated dating 39 w + 4 d DELMY by stated datin08/05/2014 Assigned: Dating performed on 07/07/2014, based on the stated dating (on 12/16/2013 by outside ultrasound) Assigned GA 39 w + 4 d Assigned DELMY: 08/05/2014 General Evaluation Cardiac activity: present. FHR 130 bpm. movements: visualized. Presentation: maude breech. Placenta: Placental site: posterior. Impression [id number] Limited obstetrical ultrasound This is a willingham gestation in a breech presentation. The anatomy was not reviewed in detail. movement was noted. Follow-up On L T D for delivery. Brisa Butler MD [facility] LD ORDERABLES Final Result documented in this encounter Visit Diagnoses Not on filedocumented in this encounter Care Teams Needle Grinder Relationship Specialty Start Date End Date Seymour Collado MD [address] [place] [id number] PCP - General 12/19/09 documented as of this encounter
--- OUTSIDE RECORDS SUMMARY | 2024-02-08 12:29 | XMS_ITS | Encounter Summary ---
Author Organization [facility] Address [address] [place] [address] Care Team Providers Care Rock Picker Name Role Phone Seymour Collado MD Primary Care Provider [phone] Reason for Visit * Reason Comments Version Encounter Details Date Type Department Care Team (Late st Contact Info) Description 07/18/2014 9:26 EDT - 07/18/2014 14:25 EDT Hospital Encounter [facility] [address] [place] [address] Dario Almaraz MD [address] [facility], [address] [place] [address] Breech presentation without mention of version, antepartum (Primary Dx) Discharge Disposition: Home or Self Care Social [...] Sign Reading Time Taken Comments Blood Pressure 130/78 07/18/2014 1217 EDT Pulse - - Temperature 36.7 ??C (98.1 ??F) 07/18/2014 1217 EDT Respiratory Rate 20 07/18/2014 1217 EDT Oxygen Saturation - - Inhaled Oxygen Concentration - - Weight 78 kg (171 lb 15.3 oz) 07/18/2014 1002 ED T Height 163 cm (5' 4.17) 07/18/2014 1002 EDT Body Mass Index 29.36 07/18/2014 1002 EDT documented in this encounter Medications at [...] needed for Nausea. 10 Tab 0 12/19/2009 Tndxjakj-On-Vvu- Fe-FA ( VITAMIN) tablet Take 1 Tab by mouth daily HYDROmorphone (DILAUDID) 2 mg tablet Take 1-3 Tabs by mouth every 3 hours as needed for Pain Daily Max: 48 mg 30 Tab 0 08/06/2014 5 documented as of this encounter Discharge Disposition Disposition Code Departure Means Destination Home or Self Care documented in this encounter Progress Notes * Elysia Carballo RN - 07/18/2014 1144 EDT In /[facility] for version now. IV infusing . . 1146: .25 mg Terbutaline IV now per Dr. Almaraz Anesthesia available/OR available in case of emergency. 1149: Procedure start now/ Dr. Zachary Pearson 1152: FH check wnl /giving patient rest 1155: patient agrees to resume procedure 1157: procedure stopped//unsucceessful 1158: return to room for monitoring /FH wnl per DR. Almaraz * Elysia Carballo RN - 07/18/2014 1051 EDT Patient here today for version. Blade breech confirmed by u/s. IV # 18 gauge placed left arm/LR infusing.Allergy : Kiwi. Anesthesia consult complete. Remains NPO. Procedure explained. NST reassuring. documented in this encounter H&P Notes * Alla Pearson MD - 07/18/2014 0944 EDT OB H&P Rh neg/GBS pos CC: IUP @ 37w3d, malpresentation, cardiac anomaly HPI: 23 y.o. woman at 37w3d presents with with malpresentation, plan for ECV. 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 Rare ctx, no LOF or VB. +FM. Feels like baby is movingall over. PMHx: Healthy PSHx: none POBHx: PGynHx: normal menses Social: prior tobacco use Meds: PNV All: NKDA Physical: BP 123/84 Ht 163 cm (64.17) Wt 78 kg (171 lb 15.3 oz) BMI 29.36 kg/m2 GEN: A&Ox3, NAD ABD: Gravid, no uterine tenderness, EFW 7# by Boaz's. EXT: NT, WWP, trace edema, 2+ DPP Bedside U/S: blade breech, left fundal placenta, GINGER 16 EFM: BL 130 bpm, mod variability, pos accels, no decels, Cat I FHT TOCO: occ ctx A/P: 23 y.o. F at 37w3d presents with malpresentation, plan for ECV. Cat I FHT. #Admit to L&D, IV, T&S, CBC, NPO #ECV: blade breech consent obtained, discussed option for epidural/spinal. Anesthesia aware. # cardiac anomaly: increased risk for T21. Not contraindication for version. #FWB: continue EFM. #GBS pos #Rh neg, plan for rhogam and K-B #Discussed with Dr. Sung Pearson MD 07/18/2014 10:48 Cosigned by Dario Almaraz MD at 07/18/2014 12:23 EDT documented in this encounter Procedure Notes * Dario Almaraz MD - 07/18/2014 1207 EDT Procedure Note Date: 07/18/2014 Attending: Dario Almaraz MD Party Plan Demonstrator: Alla Pearson MD Pre-op diagnosis: malpresentation Post-op diagnosis: same Procedure: ECV, unsuccessful Anesthesia: none Findings: 1. Blade breech fetus 2. Left fundal placenta 3. Adequate GINGER Blood loss: NA Fluids: NA Complications: none Condition: good Disposition: LDR to home Indications: Pt is a 23yo @ 37+3 with c/b cardiac anomaly who presents for ECV for malpresentation. Consent obtained Procedure: With IV in place, pt was given terbutaline. After FHT obtained forward roll was attempted and unsuccessful. FHT checked and appropriate. Second attempt with backward roll attempted and unsuccessful. FHT reassuring. Plan for prolonged post procedure monitoring and discharge if reassuring.Will plan to discuss scheduling in clinic for after [address] Almaraz was present Alla Pearson MD, PGY 4 Department of Obstetrics and Gynecology MFM attending I was present for this procedure and assisted with it. Dr. Pearson attempted a forward roll, which was unsuccessful. The heart rate was normal afterwards. I then attempted both a backwards and forwardroll without success. The heart rate was normal afterwards. We discussed options for deliveryplanning, which will be finalized at her next appointment. Dario Almaraz MD 07/18/2014 12:23 documented in this encounter Miscellaneous Notes * Anesthesia Pre-Eval - De Jesus Lulu - 07/18/2014 1003 EDT Obstetric Anesthesia Consult Name: ADRIANNA MORENO : 1990 Date: 07/18/2014 Age: 23 y.o. GA: 37w3d [place]screw Man: No att. providers found Obstetric History: Obstetric History Complications during : Complicated By: Complicated by: breech Allergies Allergen Reactions ??? Kiwi Anesthetic History: Anesthesia History Previous Patient or Family Problems with Anesthesia: None Airway Evaluation: Airway Evaluation Mallampati: 2 Mouth Opening: Normal Jaw Thrust: Normal Thyro-Mental Distance: Normal Neck Eval: ROM Normal Teeth: Tongue Rings Review of Systems: Smoker: Quit History of Respiratory Infections: No Asthma: No Heart Murmur: No High Blood Pressure: No Angina/Palpitations: No Blood Vessel Disease: No Neurological Disease: No Muscular Degeneration: No Backpain/Neckpain: No Reflux/Heartburn/Hiatial Hernia: No Liver Disease: No Thyroid Disease: No Kidney Disease: No Diabetes: No Anemia: No Bleeding Disorders: No Previous Anesthesia for Childbirth: No Infectious Disease: No Opioid Dependency: Yes Contact Lenses/Glasses: None No past surgical history on file. Current Facility-Administered Medications Medication Route Frequency ??? acetaminophen (TYLENOL) tablet 650 mg oral PRN ??? carboprost (HEMABATE) intramuscular injection 250 mcg intramuscular PRN ??? ibuprofen (MOTRIN) tablet 400 mg oral PRN ??? methylergonovine (METHERGINE) injection 200 mcg intramuscular PRN ??? misoprostol (CYTOTEC) tablet 200 mcg buccal PRN ??? misoprostol (CYTOTEC) tablet 800 mcg rectal PRN ??? oxytocin in lactated ringers 30 units/500 ml intravenous ONCE And ??? oxytocin in lactated ringers 30 units/500 ml intravenous ONCE Current Outpatient Prescriptions Medication Sig Dispense Refill ??? calcium carbonate (TUMS) 200 mg calcium (500 mg) tablet,chewable Take 1-2 Tabs by mouth 4 timesdaily as needed ??? methadone (DOLOPHINE) 5 mg/5 mL oral solution Take 100 mg by mouth daily ??? ondansetron (ZOFRAN) 4 mg tablet Take 1 Tab by mouth every 8 hours as needed for Nausea. 10 Tab0 ??? Tcbnrpge-Ef-Ddq-Fe-FA ( VITAMIN) tablet Take 1 Tab by mouth daily No outpatient prescriptions have been marked as taking for the 07/18/14 encounter (Hospital Encounter) with Dario Almaraz MD. Vital Signs: BP 130/78 Temp(Src) 36.7 ??C (98.1 ??F) Resp 20 Ht 163 cm (64.17) Wt 78 kg (171 lb 15.3 oz) BMI 29.36 kg/m2 Labs: Lab Results Component Value Date WBC 13.94* 07/18/2014 HGB 12.7 07/18/2014 HCT 37.0 07/18/2014 MCV 91 07/18/2014 PLT 239 07/18/2014 NA 140 12/19/2009 K 4.3 12/19/2009 CL 104 12/19/2009 CO2 27 12/19/2009 BUN 12 12/19/2009 CREATININE 0.77 12/19/2009 Blood/Cultures: Recent Results (from the past 1008 hour(s)) GROUP B STREPTOCOCCUS MOLECULAR DETECTION Collection Time 07/07/14 15:37 Result Value Ref Range Status Group B Streptococcus Molecular Detection GROUP B BETA STREPTOCOCCAL DNA detected by PCR. (*) Final ASA Classification: Grade II Plan: epidural, general, spinal mode(s) of anesthesia were discussed. Risks discussed included: Bleeding, Infection, Nerve Injury, Spinal headaches, low blood pressures with underperfusion, high spinals, hematomas, failure and replacement. All of Adrianna Moreno's questions were answered to her satisfaction. Unless otherwise noted, follow standard anesthesia pre-operative protocol. Attestation statement: I discussed the patient with the resident/fellow at the time of the visit. Iagree with the findings and the plan of care documented in the resident's/fellow's note. Lulu De Jesus MD 07/18/2014 documented in this encounter Plan of Treatment Not on file documented as of this encounter Procedures Procedure Name Priority Date/Time Associated Diagnosis Comments TRANSFUSION RECORD - SCANNED 07/21/2014 8:59 EDT KLEIHAUER BLOOD Routine 07/18/2014 12:31 EDT LD US LIMITED OB SCAN Routine 07/18/2014 12:18 EDT RH IMMUNE GLOBULIN (300UG) Routine 07/18/2014 12:10 EDT TYPE AND SCREEN STAT 07/18/2014 10:42 EDT KLEIHAUER BLOOD Routine 07/18/2014 10:41 EDT COMPLETE BLOOD COUNT STAT 07/18/2014 10:41 EDT documented in this encounter Results * TRANSFUSION RECORD - SCANNED (07/21/2014 8:59 EDT) 07/21/2014 8:59 EDT us Scan 2 [facility] INFO SERVICE AND SUPPOR T & PHONE RESULT Final Result * KLEIHAUER BLOOD (07/18/2014 12:31 EDT) Eliseauer blood No cells seen ml F/M HEMORRHAGE 07/18/2014 15:21 EDT [facility] Comment: Rev'd by Pathologist POST INVERSION Blood specimen (specimen) BLOOD SPECIMEN / Unknown 07/18/2014 12:31 EDT 07/18/2014 12:39 EDT us Alla Pearson MD HEMATOLOGY & PF4 ORDERABLES Fi nal Result [facility] [address] [place] [address] * LD US LIMITED OB SCAN (07/18/2014 12:18 EDT) Anatomical Region Laterality Modality Other 07/18/2014 12:1 8 EDT 08/01/2014 12:42 EDT Narrative 07/25/2014 13:31 EDT Indication Unsure lie. History ======= General [...] by: ?outside ultrasound GA by stated dating ??37 w + 3 d DELMY by stated dating: ?08/05/2014 Assigned: ??Dating performed on 07/07/2014, based on the stated dating (on 12/16/2013 by outside ultrasound) Assigned GA ?37 w + 3 d Assigned DELMY: ??08/05/2014 General Evaluation Cardiac activity: present. FHR 128 bpm. movements: visualized. Presentation: blade breech. Placenta: Placental site: left lateral, fundal. Amniotic fluid: Amount of AF: normal. MVP 7.3 cm. GINGER 16.4 cm. Q1 7.3 cm, Q2 4.0 cm, Q3 2.4 cm, Q4 2.8 cm. Method ======== Voluson E10, Transabdominal ultrasound examination. Sufficient. Impression [id number] Limited obstetrical ultrasound This is a willingham gestation. presentation is breech. The anatomy was not reviewed in detail. movement was noted. The amniotic fluid volume appears normal. The fetus was breech before and after the unsuccessful version attempt. Follow-up Follow-up as clinically indicated. Procedure Note Dario Almaraz MD - 08/01/2014 Indication Unsure lie. History ======= General History [...] by: outside ultrasound GA by stated dating 37 w + 3 d DELMY by stated datin08/05/2014 Assigned: Dating performed on 07/07/2014, based on the stated dating (on 12/16/2013 by outside ultrasound) Assigned GA 37 w + 3 d Assigned DELMY: 08/05/2014 General Evaluation Cardiac activity: present. FHR 128 bpm. movements: visualized. Presentation: blade breech. Placenta: Placental site: left lateral, fundal. Amniotic fluid: Amount of AF: normal. MVP 7.3 cm. GINGER 16.4 cm. Q1 7.3 cm, Q2 4.0 cm, Q3 2.4 cm, Q4 2.8 cm. Method ======== Voluson E10, Transabdominal ultrasound examination. Sufficient. Impression [id number] Limited obstetrical ultrasound This is a willingham gestation. presentation is breech. The anatomy was not reviewed in detail. movement was noted. The amniotic fluid volume appears normal. The fetus was breech before and after the unsuccessful version attempt. Follow-up Follow-up as clinically indicated. us Alla Pearson MD [facility] LD ORDERABLES Final Res ult * RH IMMUNE GLOBULIN (300UG) (07/18/2014 12:10 EDT) Derivative Code Rh Immune Globulin 300 ug [facility] Lot Number [id number] [facility] Unit Status Transfuse [facility] Blood specimen (specimen) 07/18/2014 12:10 EDT Alla Pearson MD BLOOD BANK ORDERABLES Final Re sult Performing Organization Address [facility]/ZIP Co de Phone Number [facility] [address] [place] [address] * TYPE AND SCREEN (07/18/2014 10:42 EDT) ABO B [facility] Rh Factor Negative [facility] Antibody Screen Negative [facility] Comment:SPECIMEN EXPIRES AT 23:59 ON 07/21/2014 Blood specimen (specimen) 07/18/2014 10:42 EDT us Alla Pearson MD BLOOD BANK TESTS Final Result Performing Organization Address [facility] Co de Phone Number [facility] [address] [place] [address] * KLEIHAUER BLOOD (07/18/2014 10:41 EDT) Kleihauer blood No cells seen ml F/M HEMORRHAGE 07/18/2014 15:20 EDT [facility] Comment:Rev'd by Pathologist Blood specimen (specimen) BLOOD SPECIMEN / Unknown 07/18/2014 10:41 EDT 07/18/2014 10:47 EDT Alla Pearson MD HEMATOLOGY & PF4 ORDERABLES Fi nal Result [facility] [address] [place] [address] * (ABNORMAL) HEMAGRAM (07/18/2014 10:41 EDT) WBC 13.94(H) 4.0 - 12.4 K/cmm 07/18/2014 10:52 EDT [facility] RBC 4.06 3.86 - 5.04 M/cmm 07/18/2014 10:52 EDT [facility] Hemoglobin 12.7 11.6 - 15.2 gm/dl 07/18/2014 10:52 EDT [facility] HCT 37.0 34.9 - 44.4 % 07/18/2014 10:52 [facility] MCV 91 81 - 98 fl 07/18/2014 10:52 EDT [facility] MCH 31.3 26.7 - 33.3 pg 07/18/2014 10:52 T [facility] MCHC 34.3 32.1 - 35.9 gm/dl 07/18/2014 10:52 [facility] RDW-CV 12.9 11.7 - 14.6 % 07/18/2014 10:52 [facility] RDW-SD 42.0 37.6 - 50.3 fl 07/18/2014 10:52 [facility] PLT 239 141 - 320 K/cmm 07/18/2014 10:52 [facility] MPV 7.7 7.5 - 11.2 fl 07/18/2014 10:52 [facility] Blood specimen (specimen) BLOOD SPECIMEN / Unknown 07/18/2014 10:41 EDT 07/18/2014 10:47 EDT us Alla Pearson MD HEMATOLOGY & PF4 ORDERABLES Fi nal Result [facility] [address] [place] [address] documented in this encounter Visit Diagnoses Diagnosis Breech presentation without mention of version, antepartum- Primary Opiate dependence (HCC-CMS) Opioid type dependence, unspecified documented in this encounter Administered Medications Inactive Administered Medications - up to 3 most recent administrations Medication Order MAR Action Action Date Dose Rate Site terbutaline (BRETHINE) injection 0.25 mg 0.25 mg, subcutaneous, NOW X1, 1 dose, On 07/18/14 at 1115, Routine Given 07/18/2014 11:46 EDT 0.25 mg Additional Administered Medications Medication Order MAR Action Action Date Dose Rate Site Rho(D) Immune Globulin IM Intramuscular Given 07/18/2014 300 mcg Left Gluteus Medius/Ventrogluteal documented in this encounter Active and Recently Administered Medications Times are shown in EDT. Scheduled Medication Order 07/16/2014 07/17/2014 07/18/2014 terbutaline (BRETHINE) injection 0.25 mg (COMPLETED) 0.25 mg, subcutaneous, NOW X1, 1 dose, On 07/18/14 at 1115, Routine 1146 (Given - Provid er: Elysia Carballo RN - Comment: IV) documented in this encounter Orders Medications Ordered That Louis ht Not Have Been Administered Count Last Ordered Date First Ordered Date acetaminophen (TYLENOL) tablet 650 mg 1 carboprost (HEMABATE) intram uscular injection 250 mcg 1 07/18/2014 ibuprofen (MOTRIN) tablet 400 mg 1 07/19/19 methylergonovine (METHERGINE ) injection 200 mcg 1 07/18/2014 misoprostol (CYTOTEC) tablet 200 mcg 06/30 misoprostol (CYTOTEC) tablet 800 mcg 1 06/30 oxytocin in lactated ringers 30 units/500 ml 2 07/18/2014 Diet Count Last Ordered Date First Orde red Date DISCHARGE DIET 2 07/18/2014 Nursing Count Last Ordered Date First Orde red Date BATHING INSTRUCTIONS 1 07/18/2014 Transfer Count Last Ordered Date First Orde red Date NOTIFY PPS OF DISCHARGE COMPLETE 1 07/19/19 15 Discharge Count Last Ordered Date First Orde red Date DISCHARGE PATIENT 1 07/18/2014 Legal Count Last Ordered Date First Orde red Date MISCELLANEOUS DISCHARGE INSTRUCTIONS 1 06/30 documented in this encounter Care Teams Rock Picker Relationship Specialty Start Date End Date Seymour Collado MD [address] [place] [address] PCP - General 12/19/09 documented as of this encounter
--- OUTSIDE RECORDS SUMMARY | 2024-02-08 12:29 | XMS_ITS | Encounter Summary ---
Author Organization [facility] Address [address] [place] [address] Care Team Providers Care Vp Software Engineering Name Role Phone Seymour Collado MD Primary Care Provider [phone] Reason for Visit * Reason Comments Routine Visit Encounter Details Date Type Department Care Team (Late st Contact Info) Description 07/07/2014 14:15 EDT Routine [facility] OBGYN Services - [address] [id number] Wander Sheppard MD [address] [place] [address], [address] [place] [address] Cathy Cook MD GA: 35w6d Discharge Disposition: Auto Discharge Social History Tobacco [...] Sign Reading Time Taken Comments Blood Pressure 140/82 07/07/2014 1439 EDT Pulse - - Temperature - - Respiratory Rate - - Oxygen Saturation - - Inhaled Oxygen Concentration - - Weight 78.9 kg (174 lb) 07/07/2014 1439 EDT Height 162.6 cm (5' 4.02) 07/07/2014 1439 EDT Body Mass Index 29.85 07/07/2014 1439 EDT documented in this encounter Discharge Diagnoses Diagnosis V22.1 SUPERVIS OTHER NORMAL PREG[ICD-9-CM] 796.2 ELEV BL PRES W/O HYPERTN[ICD-9-CM] documented in this encounter Discharge Disposition Disposition Code Departure Means Destination Auto Discharge documented in this encounter Progress Notes * Wander Sheppard MD - 07/13/2014 0914 EDT I have reviewed this patient and her care with Dr. Reid. I am in agreement with the assessmentand plan. * Cathy Cook MD - 07/12/2014 1502 EDT CC: 23 y.o. @ 36w4d S: Doing well. Denies ctxs, LOF, VB. +FM. No headaches/blurry vision/CP/SOB. O: BP 140/82 Ht 162.6 cm (64.02) Wt 78.926 kg (174 lb) BMI 29.85 kg/m2 FHT 120s Repeat BPs- 120/80, 127/80 UA neg protein A/P 23 y.o. @ 36w4d Stopped smoking during Occ smokes still, 3,145 g 83% Freire @ 35+6 Supervision of high-risk GBS collected- positive Rh neg- received rhogam at 27 weeks Growth today showed EFW 3,145 g 83% Freire, persistent SVC noted so echo ordered Would like mirena pp Had one elevated BP today, however repeats were wnl, asymptomatic. Neg UA for protein, continue to watch. RTC 1 week Cathy Cook MD * Tessa Wiley - 07/07/2014 1543 EDT UA results given to Dr. Reid for review. Results can be found under the lab tab in prism. Tessa Wiley documented in this encounter Miscellaneous Notes * Assessment & Plan Note - Cathy Cook MD - 07/12/2014 1501 EDT Associated Problem(s): Supervision of high-risk (Resolved 12/31/2016) GBS collected- positive Rh neg- received rhogam at 27 weeks Growth today showed EFW 3,145 g 83% Freire, persistent SVC noted so echo ordered Would like mirena pp * Assessment & Plan Note - Cathy Cook MD - 07/12/2014 1500 EDT Associated Problem(s): Stopped smoking during Occ smokes still, 3,145 g 83% Freire @ 35+6 documented in this encounter Plan of Treatment Not on file documented as of this encounter Procedures Procedure Name Priority Date/Time Associated Diagnosis Comments GROUP B STREP PCR Routine 07/07/2014 15: 37 EDT Supervision of other normal POCT URINE DIPSTICK, CLINITEK Routine 07/07/2014 15:36 EDT Elevated BP documented in this encounter Results * (ABNORMAL) GROUP B STREPTOCOCCUS MOLECULAR DETECTION (07/07/2014 15:37 EDT) Group B Streptococcus Molecular Detection GROUP B BETA STREPTOCOCCAL DNA detected by PCR.(AA) 07/11/2014 12:03 EDT [facility] Specimen of unknown material (specimen) TOPOGRAPHY UNKNOWN / Unknown 07/07/2014 15:37 EDT 07/07/2014 17:25 EDT us Seymour Vazquez MD MSc MICROBIOLOGY - GENE RAL ORDERABLES Final Result [facility] [address] [place] [address] [place] [address] * (ABNORMAL) POCT URINE DIPSTICK (07/07/2014 15:36 EDT) Color DARK YELLOW 07/07/2014 15:36 EDT [facility] Clarity, UA Clear 07/07/2014 15:36 EDT [facility] Glucose Neg Neg 07/07/2014 15:36 EDT [facility] Bilirubin Neg Neg 07/07/2014 15:36 EDT [facility] Ketones Neg Neg 07/07/2014 15:36 EDT [facility] Specific Counselor 1.020 1.001 - 1.035 07/07/2014 15:36 EDT [facility] Blood Neg Neg 07/07/2014 15:36 EDT [facility] pH 7.0 4.6 - 8.0 07/07/2014 15:36 EDT [facility] Protein Neg Neg 07/07/2014 15:36 EDT [facility] Urobilinogen 0.2 0.2 - 1.0 E.U./dl 07/07/2014 15:36 EDT [facility] Nitrite Neg Neg 07/07/2014 15:36 T [facility] Leuk Esterase 1+(A) Neg 07/07/2014 15:36 EDT [facility] supervisor paint roller covers ID [id number] 07/07/2014 15:36 EDT [facility] Comment:Test performed at [facility] Urine specimen (specimen) URINE / Unknown 07/07/2014 15:36 EDT 07/07/2014 15:37 EDT us Pato Sheppard MD POINT OF CARE TEST ORDERABLES Fi nal Result [facility] [address] [place] [address] documented in this encounter Visit Diagnoses Diagnosis Elevated BP- Primary Elevated blood pressure reading without diagnosis of hypertension Supervision of other normal documented in this encounter Care Teams Vp Software Engineering Relationship Specialty Start Date End Date Seymour Collado MD [address] [place] [id number] PCP - General 12/19/09 documented as of this encounter
--- OUTSIDE RECORDS SUMMARY | 2024-02-08 12:29 | XMS_ITS | Encounter Summary ---
Author Organization [facility] Address [address] [place] [address] Care Team Providers Care Independent Freight Agent Name Role Phone Seymour Collado MD Primary Care Provider [phone] Reason for Visit * Reason Onset Date Comments Appointment Related 07/14/2014 Encounter Details Date Type Department Care Team (Late st Contact Info) Description 07/14/2014 Telephone [facility] Obstetrics & Midwifery - [facility] [address] [place], [place] [id number] Cathy Cook MD Appointment Related Social History Tobacco Use Types [...] encounter Miscellaneous Notes * Telephone Encounter - Coretta Ayala - 07/14/2014 1505 EDT PT NEEDS NST TESTING TWICE A WEEK TILL DELIVERY. CALLED TO [facility]. Coretta Ayala documented in this encounter Plan of Treatment Not on file documented as of this encounter Visit Diagnoses Not on filedocumented in this encounter Care Teams Independent Freight Agent Relationship Specialty Start Date End Date Seymour Collado MD [address] [place] [address] PCP - General 12/19/09 documented as of this encounter
--- OUTSIDE RECORDS SUMMARY | 2024-02-08 12:29 | XMS_ITS | Encounter Summary ---
Author Organization [facility] Address [address] [place] [address] Care Team Providers Care Underground Mine Machinery Mechanic Name Role Phone Seymour Collado MD Primary Care Provider [phone] Reason for Visit * Reason Comments Routine Visit Encounter Details Date Type Department Care Team (Latest Contact Info) Description 07/14/2014 13:30 EDT Routine [facility] OBGYN Services - [address] [id number] Seymour Vazquez MD MSc McDonald, Maureen A, MD GA: [id number] Discharge Disposition: Auto Discharge Social History Tobacco [...] Sign Reading Time Taken Comments Blood Pressure 112/74 07/14/2014 1415 EDT Pulse - - Temperature - - Respiratory Rate - - Oxygen Saturation - - Inhaled Oxygen Concentration - - Weight 77.8 kg (171 lb 9.6 oz) 07/14/2014 1415 E DT Height 162.6 cm (5' 4.02) 07/14/2014 1415 EDT Body Mass Index 29.44 07/14/2014 1415 EDT documented in this encounter Discharge Diagnoses Diagnosis V23.89 SUPERVISION OF OTHER HIGH-RISK [ICD-9-CM] 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 Iagree with the findings and the plan of care documented in the resident's/fellow's note. Seymour Vazquez MD * Grisel Shipman MD - 07/14/2014 1504 EDT MFM Note: Discussed AV canal with pt: 40-50% T21. Disc limitations of NIPT and amnio, especially in2 weeks to get results and will not change OB management. Need to consider monitoring for increasedstillbirth risk (although not uteroplacental). Will be seen early next week for version and will have monitoring then; consider NST 2x/wk until delivery. Grisel Shipman MD * Cathy Cook MD - 07/14/2014 1444 EDT CC: 23 y.o. @ 36w6d by 6 wk US S: Doing ok. Upset at increased risk of down's syndrome. Denies ctxs, LOF, VB. +FM O: BP 112/74 Ht 162.6 cm (64.02) Wt 77.837 kg (171 lb 9.6 oz) BMI 29.44 kg/m2 See ultrasound report A/P 23 y.o. @ 36w6d by 6 wk US. Discussed risks vs benefits of primary CS vs. Version. Pt desires version. 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 Shipman. Offered genetic counseling, pt declined. Will start testing next week. Breech presentation Scheduled for version on 07/18 Supervision of high-risk Up to date. Breech, version scheduled on 07/18. GBS POS. Rh neg RTC next Friday for NST, APV Cathy Cook MD documented in this encounter Miscellaneous Notes * Assessment & Plan Note - Cathy Cook MD - 07/14/2014 1444 EDT Associated Problem(s): Supervision of high-risk (Resolved 12/31/2016) Up to date. Breech, version scheduled on 07/18. GBS POS. 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 Shipman. Offered genetic counseling, pt declined. Will start testing next week. * Assessment & Plan Note - Cathy Cook MD - 07/14/2014 1441 EDT Associated Problem(s): Stopped smoking during Growth-3,145 g 83% Freire @ 35+6 documented in this encounter Plan of Treatment Not on file documented as of this encounter Visit Diagnoses Diagnosis anomaly- Primary Multiple congenital anomalies, so described Supervision of other high-risk (V23.89) Supervision of other high-risk documented in this encounter Care Teams Underground Mine Machinery Mechanic Relationship Specialty Start Date End Date Seymour Collado MD [address] [place] [address] PCP - General 12/19/09 documented as of this encounter
--- OUTSIDE RECORDS SUMMARY | 2024-02-08 12:29 | XMS_ITS | Encounter Summary ---
Author Organization [facility] Address [address] [place] [address] Care Team Providers Care Hotel Associate Name Role Phone Seymour Collado MD Primary Care Provider [phone] Encounter Details Date Type Department Care Team (Late st Contact Info) Description 01/07/2014 Results Only [facility] Laboratory Services - [facility] ([facility]) [address], [place] [id number] Tyler Melchor, [facility] [address] [place], [place] [id number] Social History Tobacco Use Types Packs/Day Years [...] Diagnosis Comments PAP TEST- RESULT ONLY Routine 01/07/2014 0:00 EDT documented in this encounter Results * PAP TEST- RESULT ONLY (01/07/2014 0:00 EDT) Pathology Report: CYTOPATHOLOGY REPORT Reports generated via electronic interface contain original data; however they are lacking the format of the original report. Caution should be taken when reading/interpreti ng unformatted reports. Name: ? LIZA ADRIANNA ? Accession #: ? [id number] : ? 1990 (Age: 23) ??F ?Collect Date: ? 01/07/2014 Location: ? [facility] ? Receive Date: ? 01/10/2014 Provider: ?TYLER MELCHOR CNM Copy to: ? Specimen/Source: ?Pap Test, Cervix/Endocervix, ThinPrep Imaging System with manual evaluation Last Menstrual Period: ? 10/29/13 Menstrual/Pregnanc y Status: ? SPECIMEN ADEQUACY ? Satisfactory for Evaluation - transformation zone component present GENERAL CATEGORIZATION ? Negative for Intraepithelial Lesion or Malignancy INTERPRETATION ? Shift in natalia present suggestive of bacterial vaginosis. ? Document reviewed and electronically signed by: ? ELLE Sabillon(ASCP) ? Report Date: ??01/13/2014 16:08 End of Report LETI REDD 01/07/2014 01/10/2014 us Tyler Melchor CNM PATHOLOGY ORDERABLES Fin al Result LETI REDD [address] [place] [address] documented in this encounter Visit Diagnoses Not on filedocumented in this encounter Care Teams Hotel Associate Relationship Specialty Start Date End Date Seymour Collado MD [address] [place] [id number] (work) PCP - General 12/19/09 documented as of this encounter
--- NOTE | 2024-02-12 14:18 | NUR.NOTE ---
Nursing Note: Pt called about her librium taper started 5 days ago, she is concerned that she only has one tablet left and is going to go into withdraw, she is asking for more to get her through the next couple of days. Consulted with the provider and she wanted to speak with the patient. Call transferred back to the provider.
--- NOTE | 2024-02-12 14:25 | W.ED.FU ---
Date of service: 02/12/24 Time of Service: 14:25 Follow Up Plan: Received a phone call from this patient, who was seen in our office/10 for alcohol withdrawal management discharged with Librium taper. She states that she has been doing this needs as prescribed, has been trying to lengthen the amount of time in between doses, last dose was at 11. She reports that this morning she noted that the symptoms of chills and shakiness, anxiety starting to come back, and she is worried that she is going to go back into withdrawal. She states that she has not had any alcohol to drink since discharge, and has otherwise been in her normal state of health. The patient has 1 librium left, with a plan to take it tonight at bedtime. I have provided her with a prescription for two more pills of Librium, 25 mg. I recommended that she attempt to take 1 of these, and taking it tomorrow will have bedtime. If she is unable to make it that far, she will have an additional 1 available to her to take tomorrow morning/afternoon. I also counseled the patient that if she is continuing to have symptoms, or hardening of her concern that she needs to be reevaluated by her primary care provider or here at the emergency department. The patient was reassuringly able to connect with the recovery coaches, and remains motivated to maintain her sobriety. The patient had the opportunity to have all questions answered to her satisfaction. Madhavi Ty MD
== END 2024-02-08 13:35 | disposition home or self-care (01) ==
PROVIDERS: Emergency Provider Emergency Medicine; PCP Internal Medicine
DX: F10.230 Alcohol dependence with withdrawal, uncomplicated (principal); F10.220 Alcohol dependence with intoxication, uncomplicated; F17.210 Nicotine dependence, cigarettes, uncomplicated; Y90.6 Blood alcohol level of 120-199 mg/100 ml
CPT/HCPCS: 80048; 99283; 80320; 81025; 83735; 85025

== ENCOUNTER 2024-03-20 15:42 | Emergency (ER) | payer MEDICAID, SELFPAY ==
[2024-03-20 16:02] VITALS: BP 144/95; PULSE 105; RESP 20; TEMP 37
--- NOTE | 2024-03-20 16:21 | W.ED.GENAD ---
Discharge Plan Disposition Patient Disposition: Home Condition: Stable Discharge Details Clinical Impression: Alcohol withdrawal Primary Care Provider: Janae Zapien ED Provider: Mata Cabrera Home Meds and New Rx's Prescriptions: New prochlorperazine maleate [Compazine] 10 mg tablet 10 mg PO TID PRN (Reason: nausea and vomiting) Qty: 30 0RF chlordiazepoxide HCl 25 mg capsule See Rx Instructions .ROUTE .COMPLEX Qty: 16 0RF Rx Instructions: Day 1: Oral: 50 mg every 6 hours. Day 2: Oral: 50 mg every 12 hours. Day 3: Oral: 50 mg every 24 hours. Day 4: Oral: 25 mg every 24 hours for 2 days Continued methadone 100 mg PO DAILY Patient Comments: please confirm with [facility] Discharge Instructions Additional Instructions: Follow-up with your primary care provider as well as the cryolite recovery operator do not drink alcohol with taking the Librium If you feel more ill or have new symptoms such as high fevers or persistent vomiting despite the medication return to the emergency department for reevaluation HPI General Mode of arrival: ambulatory. Date/Time Provider Initiated Documentation: 03/20/24 15:43. Limitations to Documentation: no limitations. Information obtained by: patient. History of Present Illness 33 year old F presents to the emergency department with the chief complaint of alcohol withdrawal, described as moderate, Patient started experiencing this hour(s) (20) and it has been constant. No relieving factors improve symptom(s), No exacerbating factors reported . Patient notes denies chest pain, fever/chills and shortness of breath. Patient did receive the following treatments prior to arrival, none Related Data Home Medications ?Medication ?Instructions ?Recorded ?Confirmed methadone 100 mg PO DAILY 02/08/24 03/20/24 chlordiazepoxide HCl 25 mg capsule See Rx Instructions .Route 03/20/24 .COMPLEX #16 caps prochlorperazine maleate 10 mg 10 mg PO TID PRN nausea and 03/20/24 tablet (Compazine) vomiting #30 tabs Previous Rx's ?Medication ?Instructions ?Recorded chlordiazepoxide HCl 25 mg capsule See Rx Instructions .Route 03/20/24 .COMPLEX #16 caps prochlorperazine maleate 10 mg 10 mg PO TID PRN nausea and 03/20/24 tablet (Compazine) vomiting #30 tabs Allergies Allergy/AdvReac Type Severity Reaction Status Date / Time bupropion (From Wellbutrin) Allergy Intermediate Topical Verified 03/20/24 16:08 Irritation kiwi Allergy Swelling/Ed Unverified 03/20/24 16:08 catrachita General Stated Complaint: ETOHWithdr NATHANIEL: 3 Review of Systems All systems reviewed & are unremarkable except as noted in HPI and below Constitutional Constitutional: Denies chills, Denies fever(s) and Denies weakness Cardiovascular Cardiovascular: Denies chest pain and Denies dyspnea Respiratory Respiratory: Denies cough and Denies dyspnea Gastrointestinal Gastrointestinal: Denies abdominal pain, Reports nausea and Reports vomiting Musculoskeletal Musculoskeletal: Denies joint swelling Neurologic Neurologic: Denies weakness Psychiatric Psychiatric: Reports anxiety Exam Const General: no acute distress Orientation: alert HENMT Head: normal to inspection Ears: external ears normal General nose exam: external nose normal Mouth: moist mucous membranes Eyes General: appearance normal, both eyes and all related structures Neck Neck: normal visual inspection Resp Effort & Inspection: normal respiratory effort and able to speak in complete sentences Auscultation: clear to auscultation bilaterally Cardio Jugular venous pressure: no JVD Rate: regular rate GI Palpation: soft and nontender Skin General skin exam: no rashes or lesions noted Neuro General: patient alert and patient oriented x3 Extrem General: normal to inspection Psych Mental Status: mental status grossly normal Course Vital Signs Vital signs: Vital Signs Temperature 37.0 C 03/20/24 16:02 Pulse 105 H 03/20/24 16:02 Respiratory Rate 20 03/20/24 16:02 Blood Pressure 144/95 H 03/20/24 16:02 Temperature 37.0 C 03/20/24 16:02 Pulse 105 H 03/20/24 16:02 Respiratory Rate 20 03/20/24 16:02 Blood Pressure 144/95 H 03/20/24 16:02 Pain Level 0 03/20/24 16:02 Medical Decision Making 33-year-old female with a history of chronic alcohol abuse, on methadone, denies any illicit drug use, comes in with complaints that she is in alcohol withdrawal. She states that she stopped drinking alcohol about 20 hours ago and usually drinks over a liter of hard alcohol a day. She says she feels anxious and tremulous. She is stable on arrival, she has no tremors, soft nontender abdomen. She says she has nausea and did vomit earlier. No chest pain or difficulty breathing. Suspect she is experiencing alcohol withdrawal, she says that Librium has helped in the past so we will give a dose of this orally as well as Compazine for her nausea and IV thiamine. Will check metabolic panel to evaluate for electrolyte abnormalities, she has no abdominal tenderness so do not feel any imaging of her abdomen is indicated. She states that she met with a cryolite recovery operator yesterday so does not want to meet with 1 now. Patient's labs unremarkable, does still have alcohol in her system, mild elevation LFTs secondary to alcohol use. She is feeling better tolerating p.o. She is requesting discharge, discussed risks of Librium and drinking and she will not drink alcohol with the Librium. She will follow-up with her PCP and cryolite recovery operator, return precautions given Differential Diagnosis Differential Diagnosis: Alcohol withdrawal, electrolyte abnormality Quality:SDOH Health Related Social Needs: No Data to Display PFSH All Active Problems (Updated 03/20/24 @ 17:27 by Mata Cabrera MD) Drug abuse and dependence (Acute) Elevated transaminase level (Acute) Dental infection (Acute) Tobacco abuse (Acute) Alcohol withdrawal (Acute) Social History Smoking/Tobacco Use Status: Current every day Tobacco Type: cigarettes Smoking risk assessment performed?: Yes Alcohol Intake: current Alcohol Intake frequency: 3 or more drinks per day Alcohol type: hard liquor Drug use: Current Sobriety Substance use type: former substance user and opiates Housing: house Do you feel safe at home: Yes Do you feel safe in your relationship?: Yes PAWSS Have you Been Recently Intoxicated or Drunk Within the Last 30 days?: Yes Have you Ever Experienced Previous Episodes of Alcohol Withdrawal?: Yes Have you ever Experienced Withdrawal Seizures?: No Have you ever Experienced Delirium Tremens(DT)s?: Yes Have you ever undergone Alcohol Rehabilitation Treatment (i.e, inpt ot outpatient treatment programs)?: Yes Have you ever Experienced Blackouts?: Yes Have you ever Combined Alcohol with other Downers within the last 90 days?: No Have you ever Combined Alcohol with any other Substance of Abuse during the last 90 days?: No Positive Blood Alcohol level on Presentation? [PCS.BAL]: No Evidence of Increased Autonomic Activity (i.e. HR>120, tremor, sweating, agitation, nausea)?: Yes Result: 6
[2024-03-20] MEDS: chlordiazePOXIDE 25 MG CAP 75 MG PO (16:24)
[2024-03-20 16:32] LABS: Bilirubin Negative (Negative); Blood Negative (Negative); Clarity Clear (Clear); Glucose Negative (Negative); Ketones Negative (Negative); Leukocyte Esterase Negative (Negative); Nitrite Negative (Negative); Specific Gravity 1.025 (1.005-1.025); Urobilinogen 0.2 mg/dL (Up to 0.2)
[2024-03-20 16:40] LABS: Bacteria Negative HPF (Negative); C & S Indicated? No; Crystals Negative HPF (Negative); Epithelial Cells Many HPF (Negative); Mucus Trace (Negative); RBC 0-2 HPF (0-2); WBC 0-2 HPF (0-5)
[2024-03-20 16:43] LABS: *AMPHETAMINES SCREEN URINE Negative (Negative); *BARBITURATES SCREEN URINE Negative (Negative); *BENZODIAZEPINES SCREEN URINE Positive (Negative); Cannabinoids THC Negative (Negative); Cocaine Screen,Urine Negative (Negative); METHADONE URINE SCREEN Positive (Negative); OPIATES URINE SCREEN Negative (Negative)
[2024-03-20 16:44] LABS: Abs Immature Grans 0.03 10^3/uL (0.0-0.06); Absolute Basophil Count 0.04 10^3/uL (0.0-0.2); Absolute Lymphocyte Count 1.73 10^3/uL (1.2-3.4); Absolute Monocyte Count 0.46 10^3/uL (0.1-0.8); Absolute Neutrophil Count 5.21 10^3/uL (1.2-6.7); Basophils % 0.5 %; HCT 38.7 % (36.0-46.0); HGB 13.6 g/dL (11.2-15.7); Immature Grans % 0.4 %; Lymphocytes % 23.2 %; MCH 30.6 pg (27.0-33.0); MCHC 35.1 % (32.0-36.0); MCV 87 fL (80-95); MPV 8.6 fL (8.0-11.0); Monocytes % 6.2 %; Neutrophils % 69.7 %; Platelet Count 303 10^3/uL (130-400); RBC 4.45 10^6/uL (3.93-5.22); RDW 13.7 % (11.7-14.6); RDW-SD 43.4 fL; WBC 7.47 10^3/uL (4.4-10.8)
[2024-03-20 16:44] LABS: Tricyclic Antidepressants Negative (Negative)
[2024-03-20] MEDS: Prochlorperazine 10 MG/2 ML VIAL IVP (16:46)
[2024-03-20] MEDS: Normal Saline Flush 10 ML SYR IVP (16:46)
[2024-03-20] MEDS: THIAMINE 100 MG in Normal Saline 100 ML 200 MG IVPB (16:49)
[2024-03-20 17:00] LABS: ALT 69 U/L (14-59); AST 68 U/L (15-37); Albumin 4.2 g/dL (3.4-5.0); Alkaline Phosphatase 110 U/L (46-116); Anion Gap 11.2 mmol/L (3-11); BUN 13 mg/dL (7-18); Bilirubin, Direct 0.1 mg/dL (0.0-0.2); Bilirubin, Total 0.44 mg/dL (0.2-1.0); CO2 27.8 mmol/L (21.0-32.0); CREATININE 1.1 mg/dL (0.55-1.02); Calcium 8.7 mg/dL (8.5-10.1); Chloride 98 mmol/L (98-107); ETHANOL BLOOD 165.9 mg/dL (<10); Estimated GFR 68.47 (mL/min/1.73m2); Glucose 113 mg/dL (74-106); Magnesium 1.8 mg/dL (1.8-2.4); Sodium 137 mmol/L (136-145); Total Protein 8.4 g/dL (6.4-8.2)
[2024-03-20 17:01] VITALS: PULSE 73; RESP 8
[2024-03-20 17:10] VITALS: PULSE 68; PULSE 71; RESP 15; RESP 18; O2SAT 94
[2024-03-20 17:41] VITALS: PULSE 80; RESP 16; O2SAT 94
== END 2024-03-20 17:41 | disposition home or self-care (01) ==
PROVIDERS: Emergency Provider Emergency Medicine; PCP Nurse Practitioner Family
DX: F10.130 Alcohol abuse with withdrawal, uncomplicated (principal); R74.01 Elevation of levels of liver transaminase levels
CPT/HCPCS: 80053; 80307; 81025; 96365; 96375; 99284; 80320; 81003; 81015; 82248; 83735; 85025; J0780; J3411

== ENCOUNTER 2024-07-22 12:11 | Emergency (ER) | payer MEDICAID, SELFPAY ==
[2024-07-22 12:14] VITALS: BP 144/104; PULSE 112; RESP 20; TEMP 36.5; O2SAT 95
--- NOTE | 2024-07-22 12:33 | ED.GENADUL_ITS ---
Discharge Plan Disposition Patient Disposition: Against Medical Advice Condition: Fair Discharge Details Clinical Impression: Alcohol withdrawal Primary Care Provider: Janae Zapien ED Provider: Irais Whittaker Home Meds and New Rx's Prescriptions: New chlordiazepoxide HCl 25 mg capsule 25 mg PO Q6-12H PRN (Reason: alcohol withdrawal) Qty: 11 0RF Rx Instructions: Day 1:Take one tab 4 times a day as needed for symptoms. Day 2: Take one tab 3 times a day as needed. Day 3: Take one tab twice daily as needed. Then take one tab daily as needed x 2 days. No Action methadone 100 mg PO DAILY Patient Comments: please confirm with OLIVIA prochlorperazine maleate [Compazine] 10 mg tablet 10 mg PO TID PRN (Reason: nausea and vomiting) Qty: 30 0RF chlordiazepoxide HCl 25 mg capsule See Rx Instructions .ROUTE .COMPLEX Qty: 16 0RF Rx Instructions: Day 1: Oral: 50 mg every 6 hours. Day 2: Oral: 50 mg every 12 hours. Day 3: Oral: 50 mg every 24 hours. Day 4: Oral: 25 mg every 24 hours for 2 days Discharge Instructions Instructions: Alcohol withdrawal, Alcohol Use Disorder ED Additional Instructions: At this time you have opted to leave AGAINST MEDICAL ADVICE prior to the completion of your workup. Please return to the ER if you change your mind. Please take the Librium as directed do not drink alcohol with this. Please follow-up with [facility]. Referrals: [facility] [Outside] - 1 day Janae Zapien [Primary Care Provider] - 2 days HPI General Mode of arrival: ambulatory . Date/Time Provider Initiated Documentation: 07/22/24 12:22 . Limitations to Documentation: no limitations . Information obtained by: patient, RN notes reviewed and old records reviewed . HPI Narrative: 33-year-old female presents to the ER with a chief complaint of alcohol withdrawal. She last drank alcohol approximately 13 hours ago. Upon initial presentation she is tearful, very anxious, restless complaining of tremors nausea vomiting, diarrhea and diaphoresis. She has been seen in our facility multiple times for similar last was in February 2024. She has been on multiple Librium tapers. She is tachycardic and hypertensive upon arrival. Related Data Home Medications ?Medication ?Instructions ?Recorded ?Confirmed methadone 100 mg PO DAILY 02/08/24 07/22/24 chlordiazepoxide HCl 25 mg capsule See Rx Instructions .Route 03/20/24 07/22/24 .COMPLEX #16 caps prochlorperazine maleate 10 mg 10 mg PO TID PRN nausea and 03/20/24 07/22/24 tablet (Compazine) vomiting #30 tabs chlordiazepoxide HCl 25 mg capsule 25 mg PO Q6-12H PRN alcohol 07/22/24 withdrawal #11 caps Previous Rx's ?Medication ?Instructions ?Recorded chlordiazepoxide HCl 25 mg capsule See Rx Instructions .Route 03/20/24 .COMPLEX #16 caps prochlorperazine maleate 10 mg 10 mg PO TID PRN nausea and 03/20/24 tablet (Compazine) vomiting #30 tabs chlordiazepoxide HCl 25 mg capsule 25 mg PO Q6-12H PRN alcohol 07/22/24 withdrawal #11 caps Allergies Allergy/AdvReac Type Severity Reaction Status Date / Time bupropion (From Wellbutrin) Allergy Intermediate Topical Verified 07/22/24 12:20 Irritation kiwi Allergy Swelling/Ed Unverified 07/22/24 12:20 catrachita General Stated Complaint: ETOHWithdr NATHANIEL: 3 Review of Systems All systems reviewed & are unremarkable except as noted in HPI and below Constitutional Constitutional: Reports as per HPI, Reports chills, Reports excessive sweating and Reports headache(s) ENT Ears, Nose, Mouth, and Throat: Reports headache(s) Neurologic Neurologic: Reports as per HPI, Reports headache(s) and Reports tremor(s) Endocrine Endocrine: Reports excessive sweating Exam Const General: in distress mild and anxious Nutritional Appearance: obese Orientation: alert, awake and oriented x3 Limitations: behavioral limitations Psych Speech and Movement: agitated and restless Mood: anxious mood and angry Affect: irritable affect Attitude: avoids eye contact Insight: fair Judgment: fair Course Vital Signs Vital signs: Vital Signs Temperature 36.5 C 07/22/24 12:14 Pulse 112 H 07/22/24 12:14 Respiratory Rate 07/22/24 12:14 Blood Pressure 144/104 H 07/22/24 12:14 Pulse Oximetry 95 07/22/24 12:14 Temperature 36.5 C 07/22/24 12:14 Pulse 112 H 07/22/24 12:14 Respiratory Rate 07/22/24 12:14 Blood Pressure 144/104 H 07/22/24 12:14 Blood Pressure Position Sitting 07/22/24 12:14 Pulse Oximetry 95 07/22/24 12:14 Oxygen Delivery Method Room Air 07/22/24 12:14 Oxygen Flow Rate 0 07/22/24 12:14 Medical Decision Making 33-year-old female presents to the ER with a chief complaint of alcohol withdrawal. She last drank alcohol approximately 13 hours ago. Upon initial presentation she is tearful, very anxious, restless complaining of tremors nausea vomiting, diarrhea and diaphoresis. She has been seen in our facility multiple times for similar last was in February 2024. She has been on multiple Librium tapers. She is tachycardic and hypertensive upon arrival. Workup ordered including CIWA protocol, CBC CMP banana bag and IV lorazepam protocol. At this time initial approximate CIWA score is 12. 1411: On patient reevaluation nurses at bedside they did have a hard time getting the IV started. Patient has not gotten any lorazepam up to this point. She is very frustrated and is requesting to leave AMA prior to the completion of her workup and lab results. She is requesting Librium. I did request that the career coach be called however have not heard back from them yet. I did try to encourage patient to stay for the completion of the workup which she refused at this time. Patient is standing up at side of bed getting dressed. Appears very agitated and yelling at staff. Patient requesting to leave AMA. Discussed risks and benefits with patient. Patient verbalizes understanding of situation and the risks of leaving including worsening condition, developing disability, including but not limited to . Discussed results of labs and imaging, if they were performed and recommendations for further treatment and/or observation. The patient verbalizes understanding of the results discussed. At this time patient has opted to leave against medical advice. Patient is alert and oriented and has the capacity to make own decisions. Medical Records Medical records reviewed: Yes I reviewed the patient's medical records. Quality:SDOH Health Related Social Needs: No Data to Display PFSH All Active Problems (Updated 07/22/24 @ 14:12 by Irais Whittaker NP) Drug abuse and dependence (Acute) Elevated transaminase level (Acute) Dental infection (Acute) Tobacco abuse (Acute) Alcohol withdrawal (Acute) Social History Smoking/Tobacco Use Status: Current every day Tobacco Type: cigarettes Smoking risk assessment performed?: Yes Alcohol Intake: current Alcohol Intake frequency: 3 or more drinks per day Alcohol type: hard liquor Drug use: Never Substance use type: former substance user and opiates Housing: house Do you feel safe at home: Yes Do you feel safe in your relationship?: Yes PAWSS Have you Been Recently Intoxicated or Drunk Within the Last 30 days?: Yes Have you Ever Experienced Previous Episodes of Alcohol Withdrawal?: Yes Have you ever Experienced Withdrawal Seizures?: No Have you ever Experienced Delirium Tremens(DT)s?: No Have you ever undergone Alcohol Rehabilitation Treatment (i.e, inpt ot outpatient treatment programs)?: Yes Have you ever Experienced Blackouts?: Yes Have you ever Combined Alcohol with other Downers within the last 90 days?: No Have you ever Combined Alcohol with any other Substance of Abuse during the last 90 days?: Yes Evidence of Increased Autonomic Activity (i.e. HR>120, tremor, sweating, agitation, nausea)?: Yes Result: 7
[2024-07-22] MEDS: MULTIVITAMIN 10 ML, THIAMINE 100 MG, FOLIC ACID 1 MG in DEXTROSE 5%-0.45% SALINE 1,000 ML 42 ML IV (13:59)
[2024-07-22 14:01] LABS: Abs Immature Grans 0.02 10^3/uL (0.0-0.06); Absolute Basophil Count 0.01 10^3/uL (0.0-0.2); Absolute Eosinophil Count 0.01 10^3/uL (0.0-0.7); Absolute Lymphocyte Count 2.09 10^3/uL (1.2-3.4); Absolute Neutrophil Count 3.53 10^3/uL (1.2-6.7); Basophils % 0.2 %; Eosinophils % 0.2 %; HCT 40.3 % (36.0-46.0); HGB 13.5 g/dL (11.2-15.7); Immature Grans % 0.3 %; Lymphocytes % 34.5 %; MCH 30.8 pg (27.0-33.0); MCHC 33.5 % (32.0-36.0); MCV 92 fL (80-95); MPV 8.9 fL (8.0-11.0); Monocytes % 6.6 %; Neutrophils % 58.2 %; Platelet Count 159 10^3/uL (130-400); RBC 4.38 10^6/uL (3.93-5.22); RDW 14.3 % (11.7-14.6); RDW-SD 48.2 fL; WBC 6.06 10^3/uL (4.4-10.8)
[2024-07-22 14:13] LABS: INR 1.1 (0.9-1.1); Prothrombin Time 10.8 sec (9.1-11.1)
[2024-07-22 14:16] LABS: ALT 81 U/L (14-59); AST 58 U/L (15-37); Albumin 3.8 g/dL (3.4-5.0); Alkaline Phosphatase 134 U/L (46-116); Anion Gap 11.1 mmol/L (3-11); BUN 9 mg/dL (7-18); Bilirubin, Total 0.3 mg/dL (0.2-1.0); CO2 27.9 mmol/L (21.0-32.0); CREATININE 0.9 mg/dL (0.55-1.02); Calcium 8.8 mg/dL (8.5-10.1); Chloride 105 mmol/L (98-107); Estimated GFR 87.11 (mL/min/1.73m2); Glucose 101 mg/dL (74-106); Lipase 29 U/L (<78); Magnesium 1.9 mg/dL (1.8-2.4); Potassium 3.9 mmol/L (3.5-5.1); Sodium 144 mmol/L (136-145); Total Protein 7.8 g/dL (6.4-8.2)
[2024-07-22] MEDS: chlordiazePOXIDE 25 MG CAP 50 MG PO (14:16)
[2024-07-22 14:32] LABS: ETHANOL BLOOD 315.9 mg/dL (<10)
[2024-07-22 14:34] LABS: Salicylate 3.1 mg/dL (<2.8)
[2024-07-22 14:35] LABS: Acetaminophen < 2 ug/mL (10-30)
== END 2024-07-22 14:39 | disposition left against medical advice (07) ==
PROVIDERS: Emergency Provider Registered Nurse Emergency; PCP Nurse Practitioner Family
DX: F10.139 Alcohol abuse with withdrawal, unspecified (principal); F17.210 Nicotine dependence, cigarettes, uncomplicated; Y90.8 Blood alcohol level of 240 mg/100 ml or more; Z53.29 Procedure and treatment not carried out because of patient's decision for other reasons
CPT/HCPCS: 80053; 83690; 99283; 80320; 80329; 83735; 85025; 85610; J3411

== ENCOUNTER 2024-08-12 12:40 | Emergency (ER) | payer MEDICAID, SELFPAY ==
[2024-08-12 12:41] VITALS: BP 147/93; PULSE 103; RESP 20; TEMP 36.4; O2SAT 100
--- NOTE | 2024-08-12 13:04 | ED.GENADUL_ITS ---
Discharge Plan Disposition Patient Disposition: Eloped Condition: Stable Discharge Details Clinical Impression: Alcohol withdrawal Primary Care Provider: aJnae Zapien ED Provider: Dominic Patel Home Meds and New Rx's Prescriptions: No Action methadone 80 mg PO DAILY Patient Comments: please confirm with OLIVIA prochlorperazine maleate [Compazine] 10 mg tablet 10 mg PO TID PRN (Reason: nausea and vomiting) Qty: 30 0RF chlordiazepoxide HCl 25 mg capsule See Rx Instructions .ROUTE .COMPLEX Qty: 16 0RF Rx Instructions: Day 1: Oral: 50 mg every 6 hours. Day 2: Oral: 50 mg every 12 hours. Day 3: Oral: 50 mg every 24 hours. Day 4: Oral: 25 mg every 24 hours for 2 days chlordiazepoxide HCl 25 mg capsule 25 mg PO Q6-12H PRN (Reason: alcohol withdrawal) Qty: 11 0RF Rx Instructions: Day 1:Take one tab 4 times a day as needed for symptoms. Day 2: Take one tab 3 times a day as needed. Day 3: Take one tab twice daily as needed. Then take one tab daily as needed x 2 days. Discharge Data Discharge Date/Time-TO BE ENTERED AT DEPARTURE: 08/12/24 15:38 HPI General Date/Time Provider Initiated Documentation: 08/12/24 13:00 . HPI Narrative: 34 year-old female presents to ED today by POV/ambulating with a chief complaint of request for detox from alcohol with onset chronically- drinks 1 gal of hard alcohol per day. Quality described as generally shakey, states last drink 13 hours ago, no radiation to nausea/vomiting, uncontrollable tremor, endorses headache, body aches, restlessness, denies chest pain, shortness of breath, severe abdominal pain. Severity is described as moderate to severe for restlessness. Palliating factors include nothing specific attempted. Provoking factors include nothing specific. Events leading up to the incident/Associated Symptoms: Patient was seen 07/22 for same- given a shorter than normal course of Librium. Patient endorses seizure history with ETOH withdrawal. Patient not anticoagulated. Related Data Home Medications ?Medication ?Instructions ?Recorded ?Confirmed methadone 80 mg PO DAILY 02/08/24 08/12/24 chlordiazepoxide HCl 25 mg capsule See Rx Instructions .Route 03/20/24 08/12/24 .COMPLEX #16 caps prochlorperazine maleate 10 mg 10 mg PO TID PRN nausea and 03/20/24 08/12/24 tablet (Compazine) vomiting #30 tabs chlordiazepoxide HCl 25 mg capsule 25 mg PO Q6-12H PRN alcohol 07/22/24 08/12/24 withdrawal #11 caps Previous Rx's ?Medication ?Instructions ?Recorded chlordiazepoxide HCl 25 mg capsule See Rx Instructions .Route 03/20/24 .COMPLEX #16 caps prochlorperazine maleate 10 mg 10 mg PO TID PRN nausea and 03/20/24 tablet (Compazine) vomiting #30 tabs chlordiazepoxide HCl 25 mg capsule 25 mg PO Q6-12H PRN alcohol 07/22/24 withdrawal #11 caps Allergies Allergy/AdvReac Type Severity Reaction Status Date / Time bupropion (From Wellbutrin) Allergy Intermediate Topical Verified 08/12/24 12:46 Irritation kiwi Allergy Swelling/Ed Unverified 08/12/24 12:46 catrachita General Stated Complaint: ETOHWithdr NATHANIEL: 2 Review of Systems All systems reviewed & are unremarkable except as noted in HPI and below Exam Narrative Exam Narrative: GENERAL APPEARANCE: Well-nourished, non-toxic, awake and alert, atraumatic, no acute distress. SKIN: Warm, pink, dry, intact, without rashes/lesions/ulcerations. No jaundice. HEAD: Normocephalic, atraumatic, normal hair distribution for gender/age. EYES: Normal conjunctiva, no exudates on lids/lashes. ENT: Nares patent, no circumoral cyanosis, no facial swelling NECK: Supple, trachea midline, painless cervical ROM. LUNGS/CHEST: Lungs CTA bilaterally-no rhonchi/rales/wheezes diffusely, non- labored respirations, normal A/P diameter, symmetrical expansion, no chest wall deformity HEART (CV/PV): Regular rate and rhythm without murmur, no peripheral edema, no JVD. ABDOMEN: Soft, non-distended, no guarding, negative Zhou sign. MSK: Normal ROM, no swelling/deformity to bilateral UEs or LEs, moving all extremities without weakness, no cyanosis, spine midline without tenderness, normal curvature. NEURO: Mental Status AAOx4 - alert to person, place, time, events No facial droop, no forehead involvement. Motor: No focal weakness - strength 5/5 in bilateral UEs and LEs, proximal and distal, symmetric. Mild tremulous movements. Sensory: sensation intact to light touch globally. Gait normal: patient ambulated without ataxia into ED room. PSYCH: euthymic, cooperative, pleasant, appropriate speech Course Vital Signs Vital signs: Vital Signs Temperature 36.4 C L 08/12/24 12:41 Pulse 103 H 08/12/24 12:41 Respiratory Rate 20 08/12/24 12:41 Blood Pressure 147/93 H 08/12/24 12:41 Pulse Oximetry 100 08/12/24 12:41 Temperature 36.4 C L 08/12/24 12:41 Temperature Source Oral 08/12/24 12:41 Pulse 103 H 08/12/24 12:41 Respiratory Rate 20 08/12/24 12:41 Blood Pressure 147/93 H 08/12/24 12:41 Pulse Oximetry 100 08/12/24 12:41 Oxygen Delivery Method Room Air 08/12/24 12:41 Oxygen Flow Rate 0 08/12/24 12:41 Pain Level 8 08/12/24 12:41 Medical Decision Making This dictation utilizes [id number] dictation software and may contain unedited grammatical errors. 34 year-old female presents to ED today by POV/ambulating with a chief complaint of request for detox from alcohol with onset chronically- drinks 1 gal of hard alcohol per day. Quality described as generally shakey, states last drink 13 hours ago, no radiation to nausea/vomiting, uncontrollable tremor, endorses headache, body aches, restlessness, denies chest pain, shortness of breath, severe abdominal pain. Severity is described as moderate to severe for restlessness. Palliating factors include nothing specific attempted. Provoking factors include nothing specific. Events leading up to the incident/Associated Symptoms: Patient was seen 07/22 for same- given a shorter than normal course of Librium. Patient endorses seizure history with ETOH withdrawal. Patients' medical history: Alcohol withdrawal, history of DVT prophylaxis, history of substance abuse. Family and social history: Drinks 1 gallon of hard alcohol per day, denies other illicit substance use. Pertinent exam findings / vital signs include mild tachycardia, no Zhou's sign, restlessness without severe delirium tremens, neuro intact, appears mildly intoxicated, no jaundice. Differential / pathologies of concern include intoxication, alcohol withdrawal, pancreatitis, liver failure. Diagnostic studies of: - CBC, CMP, lactate, magnesium, ammonia, lipase, TSH, alcohol level. - CBC shows mild leukopenia, no anemia - Lactate negative - Patient has mildly low potassium on CMP but no other actionable abnormality - Magnesium within normal limits - Ammonia negative - Lipase elevated at 179 indicating pancreatitis - TSH within normal limits - Alcohol level 260 - COWS assessment moderate Interventions of: -1mg IV Ativan given on arrival for significant tremulous activity. -Consulted Hospitalist Dr. Hammond for admission 1510- accepted. Patient eloped right after this. ED Course/Assessment/Plan: 34-year-old female presents with significant alcohol withdrawal states that she drinks about a gallon of whiskey per day, states her last drink was 13 hours ago. Initial alcohol level was 260, her CIWA score was 8, high risk for complications as she has history of alcohol withdrawal seizure and is still intoxicated experiencing significant withdrawal symptoms, I did provide her 1 mg of Ativan, due to this high risk situation I did talk to the hospitalist Dr. Villarreal who accepts her admission, I did enter admission orders and phenobarbital protocol. I spoke to the patient stating that it is far safer for her to be admitted on medicine she will likely feel much better and would face significantly less complications for seizure and . The patient acknowledged the risk of ou tpatient therapy for her severe withdrawals syndrome but after I left the room, she pulled her own IV out and eloped-it was clear from our prior discussion that this was against my advice and I did speak directly to the risks of seizure and and coma from alcohol withdrawal, which she acknowledged. Findings not consistent with seizure activity. Disposition of Alcohol Withdrawal. Patient verbalized understanding of the plan and return to ED criteria and engaged in shared decision making. Medical Records Medical records reviewed: Yes I reviewed the patient's medical records. Lab Data Lab results reviewed: Yes I reviewed the patient's lab results. Labs: Laboratory Tests Range/Units 08/12/24 08/12/24 13:51 14:00 WBC (4.4-10.8) 10^3/uL 3.68 L RBC (3.93-5.22) 10^6/uL 4.34 Hgb (11.2-15.7) g/dL 13.5 Hct (36.0-46.0) % 38.3 MCV (80-95) fL 88 MCH (27.0-33.0) pg 31.1 MCHC (32.0-36.0) % 35.2 RDW (11.7-14.6) % 14.3 Plt Count (130-400) 10^3/uL 121 L MPV (8.0-11.0) fL 9.6 Immature Gran % % 0.3 Neutrophils % % 41.6 Lymphocytes % % 51.4 Monocytes % % 5.7 Eosinophils % % 0.5 Basophils % % 0.5 Nucleated RBC % (0.0-0.3) % 0.0 Absolute Neutrophils (1.2-6.7) 10^3/uL 1.53 Absolute Lymphocytes (1.2-3.4) 10^3/uL 1.89 Absolute Monocytes (0.1-0.8) 10^3/uL 0.21 Absolute Eosinophils (0.0-0.7) 10^3/uL 0.02 Absolute Basophils (0.0-0.2) 10^3/uL 0.02 VBG Lactate (<or=2.0) mmol/L 1.2 Sodium (136-145) mmol/L 140 Potassium (3.5-5.1) mmol/L 3.3 L Chloride (98-107) mmol/L 103 Carbon Dioxide (21.0-32.0) mmol/L 28.8 Anion Gap (3-11) mmol/L 8.2 BUN (7-18) mg/dL 11 Creatinine (0.55-1.02) mg/dL 0.9 Est GFR (CKD-EPI 2020) (mL/min/1.73m2) 86.57 Glucose (74-106) mg/dL 146 H Calcium (8.5-10.1) mg/dL 8.6 Magnesium (1.8-2.4) mg/dL 1.8 Total Bilirubin (0.2-1.0) mg/dL 0.3 Conjugated Bilirubin (0.0-0.2) mg/dL 0.1 AST (15-37) U/L 111 H ALT (14-59) U/L 81 H Alkaline Phosphatase (46-116) U/L 129 H Ammonia (11-32) umol/L < 10 L Total Protein (6.4-8.2) g/dL 7.5 Albumin (3.4-5.0) g/dL 3.6 Lipase (<78) U/L 179 H TSH (0.36-3.74) uIU/mL 1.81 Ethyl Alcohol (<10) mg/dL 259.5 H Quality:SDHI Health Related Social Needs: No Data to Display PFSH All Active Problems (Updated 08/12/24 @ 15:38 by IAN Azevedo) Alcohol withdrawal (Acute) Hypokalemia (Acute) On deep vein thrombosis (DVT) prophylaxis (Acute) Elevated lipids (Acute) Drug abuse and dependence (Acute) Elevated transaminase level (Acute) Dental infection (Acute) Tobacco abuse (Acute) Alcohol withdrawal (Acute) Social History Smoking/Tobacco Use Status: Current every day Tobacco Type: cigarettes Smoking risk assessment performed?: Yes Alcohol Intake: current Alcohol Intake frequency: 3 or more drinks per day Alcohol type: hard liquor Drug use: Never Substance use type: former substance user and opiates Housing: house Do you feel safe at home: Yes Do you feel safe in your relationship?: Yes PAWSS Have you Been Recently Intoxicated or Drunk Within the Last 30 days?: Yes Have you Ever Experienced Previous Episodes of Alcohol Withdrawal?: Yes Have you ever Experienced Withdrawal Seizures?: Yes Have you ever Experienced Delirium Tremens(DT)s?: Yes Have you ever undergone Alcohol Rehabilitation Treatment (i.e, inpt ot outpatient treatment programs)?: Yes Have you ever Experienced Blackouts?: Yes Have you ever Combined Alcohol with other Downers within the last 90 days?: Unable to Obtain Have you ever Combined Alcohol with any other Substance of Abuse during the last 90 days?: Unable to Obtain Positive Blood Alcohol level on Presentation? [PCS.BAL]: Unable to Obtain Evidence of Increased Autonomic Activity (i.e. HR>120, tremor, sweating, agitation, nausea)?: Yes Result: 7
--- NOTE | 2024-08-12 13:15 | RT.EKG_ITS ---
APPROVED REPORT Exam: Resting ECG Reason for Exam: baseline/screening Patient Location: E HR:81 bpm ECG Measurements Heart Rate 81 AXIS RI 163 P 58 QRSd 104 QRS -58 QT 377 T 66 QTc 437 Conclusion Sinus rhythm, rate 81 No interval abnormalities No STEMI Q waves V1, V2 new from priors
[2024-08-12] MEDS: LORazepam 20 MG/10 ML VIAL IVP (13:50)
[2024-08-12 13:57] LABS: Lactate 1.2 mmol/L (<or=2.0)
[2024-08-12 13:58] LABS: Abs Immature Grans 0.01 10^3/uL (0.0-0.06); Absolute Basophil Count 0.02 10^3/uL (0.0-0.2); Absolute Eosinophil Count 0.02 10^3/uL (0.0-0.7); Absolute Lymphocyte Count 1.89 10^3/uL (1.2-3.4); Absolute Monocyte Count 0.21 10^3/uL (0.1-0.8); Absolute Neutrophil Count 1.53 10^3/uL (1.2-6.7); Basophils % 0.5 %; Eosinophils % 0.5 %; HCT 38.3 % (36.0-46.0); HGB 13.5 g/dL (11.2-15.7); Immature Grans % 0.3 %; Lymphocytes % 51.4 %; MCH 31.1 pg (27.0-33.0); MCHC 35.2 % (32.0-36.0); MCV 88 fL (80-95); MPV 9.6 fL (8.0-11.0); Monocytes % 5.7 %; Neutrophils % 41.6 %; Platelet Count 121 10^3/uL (130-400); RBC 4.34 10^6/uL (3.93-5.22); RDW 14.3 % (11.7-14.6); RDW-SD 46.5 fL; WBC 3.68 10^3/uL (4.4-10.8)
[2024-08-12] MEDS: MAGNESIUM SULFATE 8.12 MEQ, MULTIVITAMIN 10 ML, THIAMINE 100 MG, FOLIC ACID 1 MG in Nor... 168.867 MG IV (14:05)
[2024-08-12 14:22] LABS: Ammonia < 10 umol/L (11-32)
[2024-08-12 14:28] LABS: ALT 81 U/L (14-59); AST 111 U/L (15-37); Albumin 3.6 g/dL (3.4-5.0); Alkaline Phosphatase 129 U/L (46-116); Anion Gap 8.2 mmol/L (3-11); BUN 11 mg/dL (7-18); Bilirubin, Direct 0.1 mg/dL (0.0-0.2); Bilirubin, Total 0.3 mg/dL (0.2-1.0); CO2 28.8 mmol/L (21.0-32.0); CREATININE 0.9 mg/dL (0.55-1.02); Calcium 8.6 mg/dL (8.5-10.1); Chloride 103 mmol/L (98-107); ETHANOL BLOOD 259.5 mg/dL (<10); Estimated GFR 86.57 (mL/min/1.73m2); Glucose 146 mg/dL (74-106); Lipase 179 U/L (<78); Magnesium 1.8 mg/dL (1.8-2.4); Potassium 3.3 mmol/L (3.5-5.1); Sodium 140 mmol/L (136-145); TSH (W/Ref FT4) 1.81 uIU/mL (0.36-3.74); Total Protein 7.5 g/dL (6.4-8.2)
--- NOTE | 2024-08-12 15:10 | HPE_ITS ---
Date of service: 08/12/24 Time of Service: 15:11 Assessment and Plan Assessment and plan (1) Drug abuse and dependence: Status: Acute (2) Elevated transaminase level: Status: Acute (3) Tobacco abuse: Status: Acute (4) Alcohol withdrawal: Status: Acute (5) Elevated lipids: Status: Acute (6) On deep vein thrombosis (DVT) prophylaxis: Status: Acute (7) Hypokalemia: Status: Acute History of Present Illness History of Present Illness Chief Complaint: ETOH withdrawal Review of Systems All systems reviewed & are unremarkable except as noted in HPI and below PFSH All Active Problems (Updated 08/12/24 @ 15:21 by Chastity Chi APRN) Hypokalemia (Acute) On deep vein thrombosis (DVT) prophylaxis (Acute) Elevated lipids (Acute) Drug abuse and dependence (Acute) Elevated transaminase level (Acute) Dental infection (Acute) Tobacco abuse (Acute) Alcohol withdrawal (Acute) Social History Smoking/Tobacco Use Status: Current every day Tobacco Type: cigarettes Smoking risk assessment performed?: Yes Alcohol Intake: current Alcohol Intake frequency: 3 or more drinks per day Alcohol type: hard liquor Drug use: Never Substance use type: former substance user and opiates Housing: house Do you feel safe at home: Yes Do you feel safe in your relationship?: Yes Meds Allergies and Home Medications Allergies Allergy/AdvReac Type Severity Reaction Status Date / Time bupropion (From Wellbutrin) Allergy Intermediate Topical Verified 08/12/24 12:46 Irritation kiwi Allergy Swelling/Ed Unverified 08/12/24 12:46 catrachita Home Medications ?Medication ?Instructions ?Recorded ?Confirmed ?Type methadone 80 mg PO DAILY 02/08/24 08/12/24 History chlordiazepoxide HCl 25 mg capsule See Rx Instructions .Route 03/20/24 08/12/24 Rx .COMPLEX #16 caps prochlorperazine maleate 10 mg 10 mg PO TID PRN nausea and 03/20/24 08/12/24 Rx tablet (Compazine) vomiting #30 tabs chlordiazepoxide HCl 25 mg capsule 25 mg PO Q6-12H PRN alcohol 07/22/24 08/12/24 Rx withdrawal #11 caps Results Labs 08/12/24 13:51 08/12/24 13:51 Labs: Laboratory Results - last 24 hr 08/12/24 08/12/24 13:51 14:00 WBC 3.68 L RBC 4.34 Hgb 13.5 Hct 38.3 MCV 88 MCH 31.1 MCHC 35.2 RDW 14.3 Plt Count 121 L MPV 9.6 Immature Gran % 0.3 Neutrophils % 41.6 Lymphocytes % 51.4 Monocytes % 5.7 Eosinophils % 0.5 Basophils % 0.5 Nucleated RBC % 0.0 Absolute Neutrophils 1.53 Absolute Lymphocytes 1.89 Absolute Monocytes 0.21 Absolute Eosinophils 0.02 Absolute Basophils 0.02 VBG Lactate 1.2 Sodium 140 Potassium 3.3 L Chloride 103 Carbon Dioxide 28.8 Anion Gap 8.2 BUN 11 Creatinine 0.9 Est GFR (CKD-EPI 2020) 86.57 Glucose 146 H Calcium 8.6 Magnesium 1.8 Total Bilirubin 0.3 Conjugated Bilirubin 0.1 AST 111 H ALT 81 H Alkaline Phosphatase 129 H Ammonia < 10 L Total Protein 7.5 Albumin 3.6 Lipase 179 H TSH 1.81 Ethyl Alcohol 259.5 H Last Vital Signs Temp 36.4 C L 08/12/24 12:41 Pulse 103 H 08/12/24 12:41 Resp 20 08/12/24 12:41 BP 147/93 H 08/12/24 12:41 Pulse Ox 100 08/12/24 12:41 PAWSS Have you Been Recently Intoxicated or Drunk Within the Last 30 days?: Yes Have you Ever Experienced Previous Episodes of Alcohol Withdrawal?: Yes Have you ever Experienced Withdrawal Seizures?: Yes Have you ever Experienced Delirium Tremens(DT)s?: Yes Have you ever undergone Alcohol Rehabilitation Treatment (i.e, inpt ot outpatient treatment programs)?: Yes Have you ever Experienced Blackouts?: Yes Have you ever Combined Alcohol with other Downers within the last 90 days?: U nable to Obtain Have you ever Combined Alcohol with any other Substance of Abuse during the last 90 days?: Unable to Obtain Positive Blood Alcohol level on Presentation? [PCS.BAL]: Unable to Obtain Evidence of Increased Autonomic Activity (i.e. HR>120, tremor, sweating, agitation, nausea)?: Yes Result: 7
== END 2024-08-12 15:38 | disposition left against medical advice (07) ==
PROVIDERS: Emergency Provider Physician Assistant; PCP Nurse Practitioner Family
DX: F10.220 Alcohol dependence with intoxication, uncomplicated (principal); Y90.8 Blood alcohol level of 240 mg/100 ml or more; Z53.29 Procedure and treatment not carried out because of patient's decision for other reasons
CPT/HCPCS: 80048; 80076; 83690; 93005; 99283; 80320; 82140; 83605; 83735; 84443; 85025; 93010; J2060; J3411; J3475

== ENCOUNTER 2024-08-31 11:48 | Inpatient (IN) | payer MEDICAID, SELFPAY ==
[2024-08-31] VITALS (108 sets, daily range): BP systolic 78–136; BP diastolic 34–90; PULSE 43–115; RESP 10–41; TEMP 36.9–38; O2SAT 83–100
--- NOTE | 2024-08-31 12:15 | RT.EKG_ITS ---
APPROVED REPORT Exam: Resting ECG Reason for Exam: Bradycardia Patient Location: E HR:92 bpm ECG Measurements Heart Rate 92 AXIS CO 59 P 10 QRSd 112 QRS -34 QT 431 T -7 QTc 534 Conclusion Sinus rhythm 92 LVH prolong QTC +BIGEMINY, PVC
[2024-08-31 13:04] LABS: HCT 34.4 % (36.0-46.0); HGB 12.7 g/dL (11.2-15.7); MCH 31.1 pg (27.0-33.0); MCHC 36.9 % (32.0-36.0); MCV 84 fL (80-95); RBC 4.08 10^6/uL (3.93-5.22); RDW-SD 43.2 fL; WBC 6.54 10^3/uL (4.4-10.8)
[2024-08-31] MEDS: MAGNESIUM SULFATE 1 GM/100 ML BAG IV_INF (13:14)
[2024-08-31] MEDS: diazePAM 10 MG/2 ML SYR 5 MG IVP (13:17)
[2024-08-31] MEDS: Normal Saline 1,000 ML 1000 ML IV (13:21)
[2024-08-31 13:26] LABS: Absolute Eosinophil Count 0.07 10^3/uL (0.0-0.7); Absolute Lymphocyte Count 0.59 10^3/uL (1.2-3.4); Absolute Monocyte Count 0.52 10^3/uL (0.1-0.8); Absolute Neutrophil Count 5.36 10^3/uL (1.2-6.7); Diff Comment Manual Differential; Platelet Count 33 10^3/uL (130-400); RBC Morphology Normal
[2024-08-31 13:31] LABS: ETHANOL BLOOD 18.2 mg/dL (<10)
[2024-08-31 13:45] LABS: ALT 35 U/L (14-59); AST 41 U/L (15-37); Albumin 2.2 g/dL (3.4-5.0); Alkaline Phosphatase 189 U/L (46-116); Anion Gap 9.7 mmol/L (3-11); BUN 36 mg/dL (7-18); Bilirubin, Total 0.9 mg/dL (0.2-1.0); CO2 32.3 mmol/L (21.0-32.0); CREATININE 2.4 mg/dL (0.55-1.02); Calcium 8.8 mg/dL (8.5-10.1); Chloride 87 mmol/L (98-107); Estimated GFR 26.68 (mL/min/1.73m2); Glucose 150 mg/dL (74-106); Lipase 43 U/L (<78); Magnesium 1.7 mg/dL (1.8-2.4); Sodium 129 mmol/L (136-145); TSH (W/Ref FT4) 3.83 uIU/mL (0.36-3.74); Total Protein 7.4 g/dL (6.4-8.2)
--- NOTE | 2024-08-31 13:45 | DI.RAD_ITS ---
Exam(s) XR PORTABLE CHEST AP EXAM: XR PORTABLE CHEST AP CLINICAL HISTORY: shortness of breath TECHNIQUE: 2D digital imaging was performed of the chest. One image was obtained. An AP view was ob tained. COMPARISON: No exams were available for comparison FINDINGS: Exam is limited due to overlying monitoring equipment. MEDIASTINUM: Normal. HEART: Normal. PULMONARY VASCULATURE: Normal. LUNGS: Clear. PLEURAL SPACE: No pleural effusion or pneumothorax. BONE:Within normal limits for the patient's age. OTHER FINDINGS:Normal. IMPRESSION: No acute pulmonary findings. DATA REPOSITORY: RADIATION DOSE DELIVERED:
[2024-08-31 13:48] LABS: Potassium 2.1 mmol/L (3.5-5.1)
[2024-08-31 14:04] LABS: FREE T4 1.03 ng/dL (0.76-1.46)
[2024-08-31] MEDS: Potassium Chloride 20 MEQ TABCR 40 MEQ PO ×2 (14:10→20:17)
[2024-08-31] MEDS: POTASSIUM CHLORIDE 20 MEQ/100 ML BAG 50 MEQ IV_INF (14:10)
[2024-08-31] MEDS: diazePAM 10 MG/2 ML SYR IVP ×4 (14:33→23:42)
--- NOTE | 2024-08-31 14:45 | RT.EKG_ITS ---
APPROVED REPORT Exam: Resting ECG Reason for Exam: irregular heartrate Patient Location: E HR:89 bpm ECG Measurements Heart Rate 89 AXIS MI 146 P 28 QRSd 111 QRS -30 QT 418 T 54 QTc 508 Conclusion Sinus rhythm 89 LVH improved qtc
--- NOTE | 2024-08-31 15:00 | ED.GENADUL_ITS ---
Discharge Plan Disposition Patient Disposition: Admit to [facility] Condition: Critical Discharge Details Clinical Impression: Hypokalemia, Alcohol withdrawal, MARLON (acute kidney injury), Acute hyponatremia, CHF (congestive heart failure), Cardiomyopathy, Hepatitis C Primary Care Provider: Janae Zapien ED Provider: Sissy Martinez Home Meds and New Rx's Prescriptions: No Action methadone 80 mg PO DAILY Patient Comments: please confirm with BAART chlordiazepoxide HCl 25 mg capsule 25 mg PO Q6-12H PRN (Reason: alcohol withdrawal) Qty: 11 0RF Rx Instructions: Day 1:Take one tab 4 times a day as needed for symptoms. Day 2: Take one tab 3 times a day as needed. Day 3: Take one tab twice daily as needed. Then take one tab daily as needed x 2 days. HPI General Date/Time Provider Initiated Documentation: 08/31/24 12:01 . HPI Narrative: 34-year-old female with alcohol withdrawal, nausea, and weakness worsening over several hours. Sober for 1300 hours. Drinks a gallon of whiskey daily. No chest pain, intermittent shortness of breath, not worse today. Took methadone 80 mg, decreased fluids due to nausea. No vomiting, new abdominal pain, fever, or chills. Alert and oriented, appears chronically ill. Murmur present, no arrhythmia. Lungs clear to auscultation. No peripheral edema, no abdominal tenderness, distended abdomen. Oropharynx patent, oropharyngeal thrush. Abnormal EKG with QTc prolongation and bigeminy, no obvious ischemia. Related Data Home Medications ?Medication ?Instructions ?Recorded ?Confirmed methadone 80 mg PO DAILY 02/08/24 08/31/24 chlordiazepoxide HCl 25 mg capsule 25 mg PO Q6-12H PRN alcohol 07/22/24 08/31/24 withdrawal #11 caps Previous Rx's ?Medication ?Instructions ?Recorded chlordiazepoxide HCl 25 mg capsule 25 mg PO Q6-12H PRN alcohol 07/22/24 withdrawal #11 caps Allergies Allergy/AdvReac Type Severity Reaction Status Date / Time bupropion (From Wellbutrin) Allergy Intermediate Topical Verified 08/31/24 11:57 Irritation kiwi Allergy Swelling/Ed Unverified 08/31/24 11:57 catrachita General Stated Complaint: ETOHWithdr NATHANIEL: 2 Exam Narrative Exam Narrative: General Appearance: Alert and oriented x4. Vital signs: Within normal limits. HEENT: Oropharynx patent, oropharyngeal thrush. Respiratory: Lungs clear to auscultation. Cardiovascular: Murmur present, no arrhythmia. Gastrointestinal: No abdominal tenderness, distended abdomen. Extremities: No peripheral edema. Skin: Warm and dry, no rash. Neurological: Normal. Course Vital Signs Vital signs: Vital Signs Temperature 36.9 C 08/31/24 11:55 Pulse 54 L 08/31/24 11:55 Respiratory Rate 16 08/31/24 11:55 Blood Pressure 110/64 08/31/24 11:55 Pulse Oximetry 98 08/31/24 11:55 Temperature 36.9 C 08/31/24 11:55 Temperature Source Oral 08/31/24 11:55 Pulse 77 08/31/24 14:00 Pulse 96 H 08/31/24 14:00 Respiratory Rate 17 08/31/24 14:00 Respiratory Pattern Normal 08/31/24 12:11 Blood Pressure 92/34 L 08/31/24 13:46 Blood Pressure Mean 48 08/31/24 13:46 Blood Pressure Position Sitting 08/31/24 11:55 Pulse Oximetry 89 L 08/31/24 14:00 Oxygen Delivery Method Room Air 08/31/24 11:55 Oxygen Flow Rate 0 08/31/24 11:55 Lab/Test Results Lab/Test Results: Laboratory Tests Range/Units 08/31/24 12:56 WBC (4.4-10.8) 10^3/uL 6.54 RBC (3.93-5.22) 10^6/uL 4.08 Hgb (11.2-15.7) g/dL 12.7 Hct (36.0-46.0) % 34.4 L MCV (80-95) fL 84 MCH (27.0-33.0) pg 31.1 MCHC (32.0-36.0) % 36.9 H RDW (11.7-14.6) % 14.0 Plt Count (130-400) 10^3/uL 33 L MPV (8.0-11.0) fL 11.0 Immature Gran % % 0.0 Neutrophils % % 82.0 Lymphocytes % % 9.0 Monocytes % % 8.0 Eosinophils % % 1.0 Basophils % % 0.0 Nucleated RBC % (0.0-0.3) % 0.0 Absolute Neutrophils (1.2-6.7) 10^3/uL 5.36 Absolute Lymphocytes (1.2-3.4) 10^3/uL 0.59 L Absolute Monocytes (0.1-0.8) 10^3/uL 0.52 Absolute Eosinophils (0.0-0.7) 10^3/uL 0.07 Absolute Basophils (0.0-0.2) 10^3/uL 0.00 RBC Morphology Normal Sodium (136-145) mmol/L 129 L Potassium (3.5-5.1) mmol/L 2.1 L* Chloride (98-107) mmol/L 87 L Carbon Dioxide (21.0-32.0) mmol/L 32.3 H Anion Gap (3-11) mmol/L 9.7 BUN (7-18) mg/dL 36 H Creatinine (0.55-1.02) mg/dL 2.4 H Est GFR (CKD-EPI 2020) (mL/min/1.73m2) 26.68 Glucose (74-106) mg/dL 150 H Calcium (8.5-10.1) mg/dL 8.8 Magnesium (1.8-2.4) mg/dL 1.7 L Total Bilirubin (0.2-1.0) mg/dL 0.9 AST (15-37) U/L 41 H ALT (14-59) U/L 35 Alkaline Phosphatase (46-116) U/L 189 H Total Protein (6.4-8.2) g/dL 7.4 Albumin (3.4-5.0) g/dL 2.2 L Lipase (<78) U/L 43 TSH (0.36-3.74) uIU/mL 3.83 H Free T4 (0.76-1.46) ng/dL 1.03 Ethyl Alcohol (<10) mg/dL 18.2 H Medical Decision Making Magnesium 1.7, potassium 2.1, creatinine 2.4, sodium 129. Chest x-ray shows no significant acute abnormality. EKG shows QTc prolongation and bigeminy, no obvious ischemia. Initial Assessment: 34-year-old female with alcohol withdrawal symptoms, nausea, weakness, and intermittent shortness of breath. Sober for 13 hours, drinks about a gallon of whiskey daily. Not taken any meds today, took methadone 80 mg. Decreased fluids due to nausea, denies vomiting, new abdominal pain, fever, chills, and additional complaints. Chronically ill appearance, alert and oriented x 4, oropharyngeal thrush, abnormal EKG with QTc prolongation and bigeminy, no obvious ischemia. Differential Diagnosis: - Alcohol withdrawal: Sober for 13 hours, worsening symptoms. CIWA score 13. Valium 10 mg IV administered, resting comfortably. Home medications to be administered. - Hypokalemia: Potassium 2.1. Potassium 20 mEq IV and 40 mEq PO initiated, rhythm improved. - Hypomagnesemia: Magnesium 1.7. Magnesium 1 g initiated. - Acute kidney injury: Baseline creatinine 0.8, today 2.4. Not taken medications for 2 days, possibly due to not taking torsemide. - Mild hyponatremia: Sodium 129. - Dysrhythmia: Abnormal EKG with QTc prolongation and bigeminy, rhythm improved after potassium and magnesium. Repeat EKG for admission. ED Course: - Magnesium 1 g initiated upon arrival. - Potassium 20 mEq IV and 40 mEq PO initiated. - Fluids slowed to administer potassium. - Reviewed last echocardiogram, ejection fraction 35%. - Chest x-ray shows no significant acute abnormality. - Pads applied for bigeminy, rhythm improved after potassium and magnesium administration. - Valium 10 mg IV administered, patient resting comfortably. - Repeating EKG for admission purposes. - Administering oral home medications. Final Assessment: Patient with alcohol withdrawal, hypokalemia, hypomagnesemia, acute kidney injury, mild hyponatremia, and dysrhythmia. Treatment included magnesium and potassium administration, Valium for withdrawal symptoms, and reassessment with EKG. Clinical Impression: - Alcohol withdrawal - Hypokalemia - Hypomagnesemia - Acute kidney injury - Mild hyponatremia - Dysrhythmia Disposition: - Admission: Repeating EKG for admission purposes. MDM Components Evaluation: - Number of Differential Diagnoses or Management Options: Alcohol withdrawal, hypokalemia, hypomagnesemia, acute kidney injury, mild hyponatremia, dysrhythmia. - Amount and Complexity of Data Reviewed: EKG, echocardiogram, chest x-ray, CIWA score. - Risk of Complication and Morbidity or Mortality: High risk due to alcohol withdrawal, hypokalemia, hypomagnesemia, acute kidney injury, and dysrhythmia. Quality:[facility] Health Related Social Needs: No Data to Display Critical Care Time Critical Care Time Attestation: 45 minutes of critical care time secondary to acute hypokalemia with EKG changes, acute alcohol withdrawal requiring Valium, [facility] All Active Problems (Updated 08/31/24 @ 15:23 by IAN Forde) Hepatitis C (Chronic) Cardiomyopathy (Acute) CHF (congestive heart failure) (Chronic) Acute hyponatremia (Acute) MARLON (acute kidney injury) (Acute) Alcohol withdrawal (Acute) Hypokalemia (Acute) On deep vein thrombosis (DVT) prophylaxis (Acute) Elevated lipids (Acute) Drug abuse and dependence (Acute) Elevated transaminase level (Acute) Dental infection (Acute) Tobacco abuse (Acute) Alcohol withdrawal (Acute) Social History Smoking/Tobacco Use Status: Current every day Tobacco Type: cigarettes Smoking risk assessment performed?: Yes Alcohol Intake: current Alcohol Intake frequency: 3 or more drinks per day Alcohol type: hard liquor Drug use: Never Substance use type: former substance user and opiates Housing: house Do you feel safe at home: Yes Do you feel safe in your relationship?: Yes PAWSS Have you Been Recently Intoxicated or Drunk Within the Last 30 days?: Yes Have you Ever Experienced Previous Episodes of Alcohol Withdrawal?: Yes Have you ever Experienced Withdrawal Seizures?: No Have you ever Experienced Delirium Tremens(DT)s?: No Have you ever undergone Alcohol Rehabilitation Treatment (i.e, inpt ot outpatient treatment programs)?: Yes Have you ever Experienced Blackouts?: Yes Have you ever Combined Alcohol with other Downers within the last 90 days?: No Have you ever Combined Alcohol with any other Substance of Abuse during the last 90 days?: No Result: 4
[2024-08-31] MEDS: Torsemide 20 MG TAB 40 MG PO (15:14)
[2024-08-31 15:17] LABS: Troponin I 12 ng/L (<or=51)
[2024-08-31 15:20] LABS: NT-proBNP 8669 pg/mL (<300)
[2024-08-31 15:32] LABS: Troponin I 11 ng/L (<or=51)
[2024-08-31 15:40] LABS: Bilirubin Negative (Negative); Blood Moderate (Negative); Clarity Clear (Clear); Glucose Negative (Negative); Ketones Negative (Negative); Leukocyte Esterase Moderate (Negative); Nitrite Negative (Negative); Specific Gravity <= 1.005 (1.005-1.025); Urobilinogen 0.2 mg/dL (Up to 0.2)
[2024-08-31 15:48] LABS: Bacteria Moderate HPF (Negative); C & S Indicated? Yes; Casts Negative LPF (Negative); Crystals Negative HPF (Negative); Epithelial Cells Rare HPF (Negative); Mucus Negative (Negative); RBC 0-2 HPF (0-2)
--- NOTE | 2024-08-31 16:33 | W.PCEDHO ---
Registration Status: Primary Language: Preferred Language: ED Information & Data Chief Complaint ETOHWithdr 08/31/24 15:02 Triage Note patient here in withdrawal 08/31/24 11:55 from alcohol. Drinks one gallon of whiskey a day. Last drink was approx 13 hours ago. patient is now nauseous, anxious and irritable. Most Recent Vital Signs Temperature 36.9 C 08/31/24 11:55 Temperature Source Oral 08/31/24 11:55 Pulse 85 08/31/24 15:20 Pulse 85 08/31/24 15:20 Respiratory Rate 22 08/31/24 15:20 Respiratory Pattern Normal 08/31/24 12:11 Blood Pressure 115/53 L 08/31/24 15:17 Blood Pressure Mean 71 08/31/24 15:17 Blood Pressure Position Sitting 08/31/24 11:55 Pulse Oximetry 97 08/31/24 15:20 Oxygen Delivery Method Room Air 08/31/24 11:55 Oxygen Flow Rate 0 08/31/24 11:55 Allergies bupropion (From Wellbutrin) Allergy (Intermediate, Verified 08/31/24 11:57) Topical Irritation kiwi Allergy (Unverified 08/31/24 11:57) Swelling/Edema IV IV Catheter Type [Left Forearm Saline Lock ] IV Catheter Type [Right Peripheral IV Antecubital] IV Catheter Gauge [Left 18 Forearm] IV Catheter Gauge [Right 18 Antecubital] Diet Orders Category Date Time Status Low Sodium [DIET] Nutrition 08/31/24 Dinner Active Diagnostics 08/31/24 08/31/24 08/31/24 Range/Units 15:07 15:00 12:56 WBC 6.54 (4.4-10.8) 10^3/uL RBC 4.08 (3.93-5.22) 10^6/uL Hgb 12.7 (11.2-15.7) g/dL Hct 34.4 L (36.0-46.0) % MCV 84 (80-95) fL MCH 31.1 (27.0-33.0) pg MCHC 36.9 H (32.0-36.0) % RDW 14.0 (11.7-14.6) % Plt Count 33 L (130-400) 10^3/uL MPV 11.0 (8.0-11.0) fL Immature Gran % 0.0 % Neutrophils % 82.0 % Lymphocytes % 9.0 % Monocytes % 8.0 % Eosinophils % 1.0 % Basophils % 0.0 % Nucleated RBC % 0.0 (0.0-0.3) % Absolute Neutrophils 5.36 (1.2-6.7) 10^3/uL Absolute Lymphocytes 0.59 L (1.2-3.4) 10^3/uL Absolute Monocytes 0.52 (0.1-0.8) 10^3/uL Absolute Eosinophils 0.07 (0.0-0.7) 10^3/uL Absolute Basophils 0.00 (0.0-0.2) 10^3/uL RBC Morphology Normal Sodium 129 L (136-145) mmol/L Potassium 2.1 L* (3.5-5.1) mmol/L Chloride 87 L (98-107) mmol/L Carbon Dioxide 32.3 H (21.0-32.0) mmol/L Anion Gap 9.7 (3-11) mmol/L BUN 36 H (7-18) mg/dL Creatinine 2.4 H (0.55-1.02) mg/dL Est GFR (CKD-EPI 2020) 26.68 (mL/min/1.73m2) Glucose 150 H (74-106) mg/dL Calcium 8.8 (8.5-10.1) mg/dL Magnesium 1.7 L (1.8-2.4) mg/dL Total Bilirubin 0.9 (0.2-1.0) mg/dL AST 41 H (15-37) U/L ALT 35 (14-59) U/L Alkaline Phosphatase 189 H (46-116) U/L Troponin I 11 12 (<or=51) ng/L NT-Pro-B Natriuret Pep 8669 H (<300) pg/mL Total Protein 7.4 (6.4-8.2) g/dL Albumin 2.2 L (3.4-5.0) g/dL Lipase 43 (<78) U/L TSH 3.83 H (0.36-3.74) uIU/mL Free T4 1.03 (0.76-1.46) ng/dL Urine Color Yellow (Yellow) Urine Clarity Clear (Clear) Urine pH 6.0 (5-8) Ur Specific [place] <= 1.005 (1.005-1.025) Urine Protein 100 H (Neg-Trace) mg/dL Urine Ketones Negative (Negative) mg/dL Urine Blood Moderate H (Negative) Urine Nitrite Negative (Negative) Urine Bilirubin Negative (Negative) Urine Urobilinogen 0.2 (Up to 0.2) mg/dL Ur Leukocyte Esterase Moderate H (Negative) Urine RBC 0-2 (0-2) HPF Urine WBC 10-20 H (0-5) HPF Ur Epithelial Cells Rare (Negative) HPF Urine Crystals Negative (Negative) HPF Urine Bacteria Moderate (Negative) HPF Urine Casts Negative (Negative) LPF Urine Mucus Negative (Negative) Ur Culture Indicated? Yes Urine Glucose Negative (Negative) mg/dL Ethyl Alcohol 18.2 H (<10) mg/dL 08/31/24 15:00 Urine Culture - Pending Urine - Reflex from Ua Intake and Output - 24 Hour Total 08/31/24 11:48 thru 08/31/24 15:20 Intake Total 100 Output Total 400 Balance -300 Weight 90.718 kg Intake: IV 100 Output: Urine 400 Falls Risk Assessment History of Falls No History 08/31/24 12:11 Contributing Factors No Factors 08/31/24 12:11 Ambulatory Aids Independent 08/31/24 12:11 Tubes/Lines None 08/31/24 12:11 Gait Evaluation No gait disturbance 08/31/24 12:11 Cognition No cognitive impairment 08/31/24 12:11 Fall Total Score 0 08/31/24 12:11 Level of Risk Standard/Low Risk 08/31/24 12:11 v v v v v v v v v Sending and/or Receiving Nurses: Please use comment section below to note any information pertinent to the patient hand-off not included above. Information / Comments: Report received from: Tiffanie Reno Hose Mender/ Camryn Avila
--- NOTE | 2024-08-31 17:06 | HPE_ITS ---
Date of service: 08/31/24 Time of Service: 17:06 Assessment and Plan Assessment and plan (1) Tobacco abuse: Status: Acute Assessment and plan: will add nicotine replacement (2) CHF (congestive heart failure): Status: Chronic Assessment and plan: restarted home meds including dapagliflozin, losartan, metoprolol, aldactone and torsemide (3) Alcohol withdrawal: Status: Acute Assessment and plan: on benzo protocol on recommendation from pharmacy. High dose thiamine and daily vitamin (4) Thrombocytopenia: Status: Chronic Assessment and plan: will stop lovenox and do scd. Most likely 2/2 etoh abuse (5) Hypomagnesemia: Status: Acute Assessment and plan: replace (6) Hypokalemia: Status: Acute Assessment and plan: replace History of Present Illness History of Present Illness Chief Complaint: etoh wd Narrative: This is a 34-year-old female with a known history of alcohol use disorder presents to the ED today after trying to quit cold turkey and is concerned about withdrawal. The patient states he drinks a gallon of whiskey a day and her last drink was 13 hours ago. According to report, the patient also has a significant history of congestive heart failure with an EF of approximately 35%. Patient stopped taking her medications approximately a week ago due to nausea and vomiting. I reviewed the patient's data from the ED and it does show a platelet count of 33 as well as hyponatremia at 129 hypokalemia at 2.1 a BUN to creatinine ratio of 36/2.4, with the last BMP drawn in July of this year at 11 and 0.9 magnesium was 1.7. Her BNP was 8669 lipase at 43 alcohol level was 18.2. Her EKG did show significant prolonged QTc. After treatment including electrolyte replacement her QT had improved. According to my discussion with the ED provider, a recommendation was placed to not use the phenobarbital protocol as this could prolong QTc interval. Patient will be admitted to the ICU. Patient states she does smoke about 2 packs of cigarettes a week but does not use any other drugs. Review of Systems All systems reviewed & are unremarkable except as noted in HPI and below PFSH All Active Problems (Updated 08/31/24 @ 17:18 by Seymour Sheppard MD) Hypokalemia (Acute) Hypomagnesemia (Acute) Thrombocytopenia (Chronic) Nicotine abuse (Acute) Hepatitis C (Chronic) Cardiomyopathy (Acute) CHF (congestive heart failure) (Chronic) Acute hyponatremia (Acute) MARLON (acute kidney injury) (Acute) Alcohol withdrawal (Acute) Hypokalemia (Acute) On deep vein thrombosis (DVT) prophylaxis (Acute) Elevated lipids (Acute) Drug abuse and dependence (Acute) Elevated transaminase level (Acute) Dental infection (Acute) Tobacco abuse (Acute) Alcohol withdrawal (Acute) Social History Smoking/Tobacco Use Status: Current every day Tobacco Type: cigarettes Smoking risk assessment performed?: Yes Alcohol Intake: current Alcohol Intake frequency: 3 or more drinks per day Alcohol type: hard liquor Drug use: Never Substance use type: former substance user and opiates Housing: house Do you feel safe at home: Yes Do you feel safe in your relationship?: Yes Meds Allergies and Home Medications Allergies Allergy/AdvReac Type Severity Reaction Status Date / Time bupropion (From Wellbutrin) Allergy Intermediate Topical Verified 08/31/24 11:57 Irritation kiwi Allergy Swelling/Ed Unverified 08/31/24 11:57 catrachita Home Medications ?Medication ?Instructions ?Recorded ?Confirmed ?Type methadone 80 mg PO DAILY 02/08/24 08/31/24 History chlordiazepoxide HCl 25 mg capsule 25 mg PO Q6-12H PRN alcohol 07/22/24 08/31/24 Rx withdrawal #11 caps atorvastatin 40 mg tablet (Lipitor) 40 mg PO DAILY 08/31/24 08/31/24 History calcium carbonate (Tums) 200 mg PO DAILY 08/31/24 08/31/24 History ciprofloxacin HCl 500 mg tablet 500 mg PO BID 08/31/24 08/31/24 History dapagliflozin propanediol 10 mg 10 mg PO DAILY 08/31/24 08/31/24 History tablet (Farxiga) losartan 25 mg tablet (Cozaar) 25 mg PO DAILY 08/31/24 08/31/24 History magnesium oxide 400 mg (241.3 mg 400 mg PO DAILY 08/31/24 08/31/24 History magnesium) tablet metoprolol succinate 25 mg 25 mg PO DAILY 08/31/24 08/31/24 History tablet,extended release 24 hr (Toprol XL) sofosbuvir 400 mg-velpatasvir 100 1 tab PO DAILY 08/31/24 08/31/24 History mg tablet (Epclusa) spironolactone 25 mg tablet 25 mg PO DAILY 08/31/24 08/31/24 History (Aldactone) torsemide 40 mg tablet (Soaanz) 40 mg PO DAILY 08/31/24 08/31/24 History Exam Narrative Exam Narrative: HEENT-NCAT MMM EOMI PERRLA NO NYSTAGMUS NECK-NO LAD NO JVD CV-RRR NO MRG PULM-CTAB NO AMU ABD-SNTND PROTUBERENT EXT-MILD ASTERIXIS Results Labs 08/31/24 12:56 08/31/24 12:56 Labs: Laboratory Results - last 24 hr 08/31/24 08/31/24 08/31/24 12:56 15:00 15:07 WBC 6.54 RBC 4.08 Hgb 12.7 Hct 34.4 L MCV 84 MCH 31.1 MCHC 36.9 H RDW 14.0 Plt Count 33 L MPV 11.0 Immature Gran % 0.0 Neutrophils % 82.0 Lymphocytes % 9.0 Monocytes % 8.0 Eosinophils % 1.0 Basophils % 0.0 Nucleated RBC % 0.0 Absolute Neutrophils 5.36 Absolute Lymphocytes 0.59 L Absolute Monocytes 0.52 Absolute Eosinophils 0.07 Absolute Basophils 0.00 RBC Morphology Normal Sodium 129 L Potassium 2.1 L* Chloride 87 L Carbon Dioxide 32.3 H Anion Gap 9.7 BUN 36 H Creatinine 2.4 H Est GFR (CKD-EPI 2020) 26.68 Glucose 150 H Calcium 8.8 Magnesium 1.7 L Total Bilirubin 0.9 AST 41 H ALT 35 Alkaline Phosphatase 189 H Troponin I 12 11 NT-Pro-B Natriuret Pep 8669 H Total Protein 7.4 Albumin 2.2 L Lipase 43 TSH 3.83 H Free T4 1.03 Urine Color Yellow Urine Clarity Clear Urine pH 6.0 Ur Specific [place] <= 1.005 Urine Protein 100 H Urine Ketones Negative Urine Blood Moderate H Urine Nitrite Negative Urine Bilirubin Negative Urine Urobilinogen 0.2 Ur Leukocyte Esterase Moderate H Urine RBC 0-2 Urine WBC 10-20 H Ur Epithelial Cells Rare Urine Crystals Negative Urine Bacteria Moderate Urine Casts Negative Urine Mucus Negative Ur Culture Indicated? Yes Urine Glucose Negative Ethyl Alcohol 18.2 H Last Vital Signs Temp 36.9 C 08/31/24 11:55 Pulse 85 08/31/24 15:20 Resp 22 08/31/24 15:20 BP 115/53 L 08/31/24 15:17 Pulse Ox 97 08/31/24 15:20 PAWSS Have you Been Recently Intoxicated or Drunk Within the Last 30 days?: Yes Have you Ever Experienced Previous Episodes of Alcohol Withdrawal?: Yes Have you ever Experienced Withdrawal Seizures?: No Have you ever Experienced Delirium Tremens(DT)s?: No Have you ever undergone Alcohol Rehabilitation Treatment (i.e, inpt ot outpatient treatment programs)?: Yes Have you ever Experienced Blackouts?: Yes Have you ever Combined Alcohol with other Downers within the last 90 days?: No Have you ever Combined Alcohol with any other Substance of Abuse during the last 90 days?: No Result: 4 Time Spent Time spent with Patient: 40-54 minutes Time was spent: preparing to see the patient(eg.review tests), obtaining and/or reviewing separately otained hiistory, ordering medications,tests, procedures, referring, communicating with other health healthcare insurance sales agent, indepentently interpreting results, counseling the patient and care coordination
[2024-08-31] MEDS: THIAMINE 500 MG in Normal Saline 100 ML 200 MG IVPB (17:39)
[2024-08-31] MEDS: Magnesium Oxide 400 MG TAB 800 MG PO (20:17)
[2024-08-31] MEDS: Potassium Chloride Liquid 20 MEQ PKT 40 MEQ PO (20:19)
[2024-08-31] MEDS: MAGNESIUM SULFATE 2 GM/50 ML BAG IV_INF (20:20)
[2024-08-31] MEDS: Normal Saline Flush 10 ML SYR (20:32)
[2024-08-31] MEDS: POTASSIUM CHLORIDE 10 MEQ/100 ML BAG 100 MEQ IV_INF ×3 (21:00→23:54)
[2024-09-01] VITALS (67 sets, daily range): BP systolic 98–160; BP diastolic 45–134; PULSE 75–124; RESP 10–38; TEMP 36.9–38.8; O2SAT 88–97
[2024-09-01] MEDS: POTASSIUM CHLORIDE 10 MEQ/100 ML BAG 100 MEQ IV_INF (00:25)
[2024-09-01] MEDS: diazePAM 10 MG/2 ML SYR IVP ×4 (01:41→19:48)
[2024-09-01] MEDS: THIAMINE 500 MG in Normal Saline 100 ML 200 MG IVPB ×3 (02:18→17:11)
[2024-09-01] MEDS: Methadone Liquid 10 MG/ML 90 MG PO (08:23)
[2024-09-01] MEDS: Magnesium Oxide 400 MG TAB PO ×2 (08:24→19:45)
[2024-09-01] MEDS: Metoprolol CR 25 MG TABCR PO (08:24)
[2024-09-01] MEDS: Losartan 25 MG TAB PO (08:24)
[2024-09-01] MEDS: Spironolactone 25 MG TAB PO (08:24)
[2024-09-01] MEDS: Potassium Chloride 20 MEQ TABCR 40 MEQ PO ×3 (08:25→19:45)
[2024-09-01] MEDS: Magnesium Oxide 400 MG TAB 800 MG PO (08:25)
[2024-09-01] MEDS: Atorvastatin 40 MG TAB PO (08:26)
[2024-09-01] MEDS: Multivitamin TAB 1 TAB PO (08:26)
[2024-09-01 08:51] LABS: Abs Immature Grans 0.16 10^3/uL (0.0-0.06); Absolute Basophil Count 0.06 10^3/uL (0.0-0.2); Absolute Eosinophil Count 0.02 10^3/uL (0.0-0.7); Absolute Lymphocyte Count 0.77 10^3/uL (1.2-3.4); Absolute Monocyte Count 0.82 10^3/uL (0.1-0.8); Eosinophils % 0.3 %; HCT 34.2 % (36.0-46.0); HGB 12.1 g/dL (11.2-15.7); Immature Grans % 2.6 %; Lymphocytes % 12.4 %; MCH 30.4 pg (27.0-33.0); MCHC 35.4 % (32.0-36.0); MCV 86 fL (80-95); MPV 12.8 fL (8.0-11.0); Monocytes % 13.2 %; Neutrophils % 70.5 %; RBC 3.98 10^6/uL (3.93-5.22); RDW 15.2 % (11.7-14.6); RDW-SD 47.5 fL; WBC 6.23 10^3/uL (4.4-10.8)
[2024-09-01 09:08] LABS: Diff Comment Diff Reviewed; Platelet Count 32 10^3/uL (130-400); RBC Morphology Normal
--- NOTE | 2024-09-01 09:08 | PDOC.CMIN ---
Date of service: 09/01/24 Time of Service: 09:08 Care Management Initial Assmt Initial Assessment Reason for Hospitalization: alcohol withdrawal Functional Status/Living Situation Patient Presentation: Isabel was lying in bed when CM met with her. She appeared a bit sleepy but had received IV Diazepam for symptom control for her alcohol withdrawal symptoms. early in the day her CIWA score was 12 buthas been between 3 and 8 since then. Isabel also has CHF with an EF of 35%. She is on medication for it and is monitoring her diet, I&O and weight. Isabel lives in a single family home in [place] with her mother. She has 4 children but does not have custody. She is unemployed and has started the process of applying for disability. Isabel has been in touch with [facility] in [place] and is trying to get into [facility]. Town of Residence: [place] Resides with: Parent (Mom Monica) Employment Status: Unemployed Instrumental Activities of Daily Living (ADLs): Independent Medications Medication Management: No Issues/Barriers identified Advance Directives Advance Directives: Do you have an Advance Directive: N 11/13/19 17:41 AD On File at [facility]: N 11/26/18 10:04 Date Asked 08/31/24 08/31/24 16:42 AD Date Reviewed COLST On File at [facility] No 03/20/24 15:57 COLST Date Scanned Code Status Resuscitation Status Full Code Portal Pt does not currently have a portal and education provided: Yes Insurance Coverage/Financial Issues Insurance: Medicaid Care Team Visit Care Team Role Provider Type Janae Zapien Primary Care Provider NURSE PRACTITIONER Lili Arnett Other Providers OUTSIDE MAINTENANCE WORKER Daisy Mcgee Other Providers OUTSIDE MAINTENANCE WORKER Tanya Barr Other Providers OUTSIDE MAINTENANCE WORKER Larissa Amaya RN Other Providers OUTSIDE MAINTENANCE WORKER Lizette Sheppard Other Providers OUTSIDE MAINTENANCE WORKER IAN Forde Emergency Provider [employer] INSURANCE OFFICER Seymour Sheppard MD Admit Provider [facility] STAFF PHYSICIAN Attending Provider Discharge Potential Discharge Needs: PCP F/U Appt Anticipated Barriers to Discharge: None Identified Patient/Family Education Needs: Review discharge instructions, discuss Ask Me Three Transportation: Private vehicle Plan: Anticipate Isabel will be discharged home with no new services when medically stable. She will follow up with her PCP and plan of care and transport with family. CM will follow and continue to support discharge planning efforts. Social Determinants of Health Screening Social Determinants of health last assessed in clinic: 09/01/24 Will the Patient Participate in the Screening?: Yes Do you worry about having a steady place to live?: no Problems where you live: no known problems In the past 12 months, have you had to go without electric, gas, oil or water in your home?: no 1. Within the past 12 months, we worried whether our food would run out before we got money to buy more.: Never true 2. Within the past 12 months, the food we bought just didn't last and we didn't have money to get more.: Never true Has lack of transportation kept you from medical appointments or from doing things needed for daily living?: no Has anyone in your life made you feel unsafe or unsupported?: no How hard is it for you to pay for the very basics like food, housing, medical care, and heating? Would you say it is:: Somewhat hard Do you want help finding or keeping work or a job?: I do not need or want help If for any reason you need help with day-to-day activities such as bathing, preparing meals, shopping, managing finances, etc., do you get the help you need?: I don?t need any help How often do you feel lonely or isolated from those around you?: Never Do you speak a language other than [place] at home?: No Does the patient want assistance with any of the above?: No Health Related Social Needs Health related social needs: problems related to housing/economic circumstances (Z59.89) [facility] All Active Problems (Updated 09/01/24 @ 11:17 by Seymour Sheppard MD) Hyponatremia (Acute) UTI (urinary tract infection) (Acute) Hypokalemia (Acute) Hypomagnesemia (Acute) Thrombocytopenia (Chronic) Nicotine abuse (Acute) Hepatitis C (Chronic) Cardiomyopathy (Acute) CHF (congestive heart failure) (Chronic) Acute hyponatremia (Acute) MARLON (acute kidney injury) (Acute) Alcohol withdrawal (Acute) Hypokalemia (Acute) On deep vein thrombosis (DVT) prophylaxis (Acute) Elevated lipids (Acute) Drug abuse and dependence (Acute) Elevated transaminase level (Acute) Dental infection (Acute) Tobacco abuse (Acute) Alcohol withdrawal (Acute) Social History Smoking/Tobacco Use Status: Current every day Tobacco Type: cigarettes Smoking risk assessment performed?: Yes Alcohol Intake: current Alcohol Intake frequency: 3 or more drinks per day Alcohol type: hard liquor Drug use: Never Substance use type: former substance user and opiates Housing: house Do you feel safe at home: Yes Do you feel safe in your relationship?: Yes
[2024-09-01 09:15] LABS: ALT 25 U/L (14-59); AST 56 U/L (15-37); Albumin 1.9 g/dL (3.4-5.0); Alkaline Phosphatase 174 U/L (46-116); Anion Gap 3.7 mmol/L (3-11); BUN 34 mg/dL (7-18); Bilirubin, Total 1.2 mg/dL (0.2-1.0); CO2 30.3 mmol/L (21.0-32.0); CREATININE 2.1 mg/dL (0.55-1.02); Calcium 8.5 mg/dL (8.5-10.1); Chloride 91 mmol/L (98-107); Estimated GFR 31.32 (mL/min/1.73m2); Glucose 132 mg/dL (74-106); Potassium 4.2 mmol/L (3.5-5.1); Sodium 125 mmol/L (136-145); Total Protein 7.2 g/dL (6.4-8.2)
[2024-09-01] MEDS: Acetaminophen 325 MG TAB PO ×3 (09:24→22:05)
[2024-09-01] MEDS: Normal Saline Flush 10 ML SYR IVP ×2 (09:25→19:43)
--- NOTE | 2024-09-01 11:02 | PGE_ITS ---
Date of Service Date of service: 09/01/24 Time of Service: 11:02 Assessment and Plan Assessment and plan (1) Tobacco abuse: Status: Acute Assessment and plan: will add nicotine replacement (2) CHF (congestive heart failure): Status: Chronic Assessment and plan: restarted home meds including dapagliflozin, losartan, metoprolol, aldactone and torsemide 09/01/24 Dapagliflozin being held at recommendation from pharmacy 2/2 renal fx (3) Alcohol withdrawal: Status: Resolved Assessment and plan: on benzo protocol on recommendation from pharmacy. High dose thiamine and daily vitamin (4) Thrombocytopenia: Status: Chronic Assessment and plan: will stop lovenox and do scd. Most likely 2/2 etoh abuse 09/01/24 Plt currently at 32. No active bleed, will monitor (5) Hypomagnesemia: Status: Resolved Assessment and plan: replace (6) Hypokalemia: Status: Resolved Assessment and plan: replace 09/01/24 Potassium is now 4.2, will dc potassium replacement (7) UTI (urinary tract infection): Status: Resolved (8) MARLON (acute kidney injury): Status: Acute Assessment and plan: give low dose IVF, mindful of chf (9) Hyponatremia: Status: Acute Assessment and plan: sodium at 125. Will try some salt tabs. Would like to fluid restrict but pt still with marlon. Subjective Subjective Interval history since last seen: Pt seen and examined in her room this am. Pt does complain of dysuria and polyuria. Pt is on benzo protocol 2.2 significant electrolyte abnormalities and prolonged qtc Exam Narrative Exam Narrative: HEENT-NCAT MMM EOMI PERRLA NO NYSTAGMUS NECK-NO LAD NO JVD CV-RRR NO MRG PULM-CTAB NO AMU ABD-SNTND PROTUBERENT EXT-MILD ASTERIXIS Objective Last Vital Signs Temp 38.2 C H 09/01/24 04:00 Pulse 110 H 09/01/24 10:01 Resp 22 09/01/24 10:01 BP 135/81 09/01/24 10:01 Pulse Ox 88 L 09/01/24 10:01 Laboratory Results - last 24 hr 08/31/24 08/31/24 08/31/24 12:56 15:00 15:07 WBC 6.54 RBC 4.08 Hgb 12.7 Hct 34.4 L MCV 84 MCH 31.1 MCHC 36.9 H RDW 14.0 Plt Count 33 L MPV 11.0 Immature Gran % 0.0 Neutrophils % 82.0 Lymphocytes % 9.0 Monocytes % 8.0 Eosinophils % 1.0 Basophils % 0.0 Nucleated RBC % 0.0 Absolute Neutrophils 5.36 Absolute Lymphocytes 0.59 L Absolute Monocytes 0.52 Absolute Eosinophils 0.07 Absolute Basophils 0.00 RBC Morphology Normal Sodium 129 L Potassium 2.1 L* Chloride 87 L Carbon Dioxide 32.3 H Anion Gap 9.7 BUN 36 H Creatinine 2.4 H Est GFR (CKD-EPI 2020) 26.68 Glucose 150 H Calcium 8.8 Magnesium 1.7 L Total Bilirubin 0.9 AST 41 H ALT 35 Alkaline Phosphatase 189 H Troponin I 12 11 NT-Pro-B Natriuret Pep 8669 H Total Protein 7.4 Albumin 2.2 L Lipase 43 TSH 3.83 H Free T4 1.03 Urine Color Yellow Urine Clarity Clear Urine pH 6.0 Ur Specific [place] <= 1.005 Urine Protein 100 H Urine Ketones Negative Urine Blood Moderate H Urine Nitrite Negative Urine Bilirubin Negative Urine Urobilinogen 0.2 Ur Leukocyte Esterase Moderate H Urine RBC 0-2 Urine WBC 10-20 H Ur Epithelial Cells Rare Urine Crystals Negative Urine Bacteria Moderate Urine Casts Negative Urine Mucus Negative Ur Culture Indicated? Yes Urine Glucose Negative Ethyl Alcohol 18.2 H 09/01/24 08:45 WBC 6.23 RBC 3.98 Hgb 12.1 Hct 34.2 L MCV 86 MCH 30.4 MCHC 35.4 RDW 15.2 H Plt Count 32 L MPV 12.8 H Immature Gran % 2.6 Neutrophils % 70.5 Lymphocytes % 12.4 Monocytes % 13.2 Eosinophils % 0.3 Basophils % 1.0 Nucleated RBC % 0.0 Absolute Neutrophils 4.40 Absolute Lymphocytes 0.77 L Absolute Monocytes 0.82 H Absolute Eosinophils 0.02 Absolute Basophils 0.06 RBC Morphology Normal Sodium 125 L Potassium 4.2 D Chloride 91 L Carbon Dioxide 30.3 Anion Gap 3.7 BUN 34 H Creatinine 2.1 H Est GFR (CKD-EPI 2020) 31.32 Glucose 132 H Calcium 8.5 Magnesium Total Bilirubin 1.2 H AST 56 H ALT 25 Alkaline Phosphatase 174 H Troponin I NT-Pro-B Natriuret Pep Total Protein 7.2 Albumin 1.9 L Lipase TSH Free T4 Urine Color Urine Clarity Urine pH Ur Specific [place] Urine Protein Urine Ketones Urine Blood Urine Nitrite Urine Bilirubin Urine Urobilinogen Ur Leukocyte Esterase Urine RBC Urine WBC Ur Epithelial Cells Urine Crystals Urine Bacteria Urine Casts Urine Mucus Ur Culture Indicated? Urine Glucose Ethyl Alcohol PAWSS Have you Been Recently Intoxicated or Drunk Within the Last 30 days?: Yes Have you Ever Experienced Previous Episodes of Alcohol Withdrawal?: Yes Have you ever Experienced Withdrawal Seizures?: No Have you ever Experienced Delirium Tremens(DT)s?: Yes Have you ever undergone Alcohol Rehabilitation Treatment (i.e, inpt ot outpatient treatment programs)?: Yes Have you ever Experienced Blackouts?: Yes Have you ever Combined Alcohol with other Downers within the last 90 days?: No Have you ever Combined Alcohol with any other Substance of Abuse during the last 90 days?: No Positive Blood Alcohol level on Presentation? [PCS.BAL]: Yes Evidence of Increased Autonomic Activity (i.e. HR>120, tremor, sweating, liliana tation, nausea)?: Yes Result: 7 Time Spent with Patient Time Spent with Patient: <25 minutes Time was spent: preparing to see the patient(eg.review tests), obtaining and/or reviewing separately otained hiistory, ordering medications,tests, procedures, referring, communicating with other health healthcare specialist, indepentently interpreting results, counseling the patient and care coordination
[2024-09-01] MEDS: Normal Saline 1,000 ML 100 ML IV ×2 (12:00→22:48)
--- NOTE | 2024-09-01 12:38 | PHA.REVIEW2 ---
Pharmacy Admission Review Admission Clinical Review Admission Pharmacy Review: Hyponatremia (Acute) UTI (urinary tract infection) (Acute) Hypokalemia (Acute) Hypomagnesemia (Acute) MARLON (acute kidney injury) (Acute) Tobacco abuse (Acute) Alcohol withdrawal (Acute) bupropion (From Wellbutrin) Allergy (Intermediate, Verified 08/31/24 11:57) Topical Irritation kiwi Allergy (Unverified 08/31/24 11:57) Swelling/Edema Resuscitation Status Full Code Height 5 ft 4 in Weight 97.2 kg Pharmacy Admission Review Renal Dosing Renal Dosing: BUN 34 mg/dL (7-18) H 09/01/24 08:45 Creatinine 2.1 mg/dL (0.55-1.02) H 09/01/24 08:45 Medications needing adjustments: Intervened (CrCl 43.1 mL/min, BUN decreased from 36 and SCr decreased from 2.4) List of meds needing interventions: Recommended holding patients Farxiga due to eGFR < 45 (31.32) - provider was okay with this, canceled order for now. Will need to be brought in from home if provider restarts Anticoagulation Anticoagulation: Hgb 12.1 g/dL (11.2-15.7) 09/01/24 08:45 Hct 34.2 % (36.0-46.0) L 09/01/24 08:45 Plt Count 32 10^3/uL (130-400) L 09/01/24 08:45 Creatinine 2.1 mg/dL (0.55-1.02) H 09/01/24 08:45 DVT Prophylaxis: Reviewed (SCDs - thrombocytopenia) Opiate Usage Evaluate Pain Scale/Pains Meds: Reviewed (methadone 90mg daily - dose confirmed with BA[facility]) Scheduled Bowel Reg ordered if on Opiates?: No (PRN docusate and Miralax) Relevant Labs Relevant Labs: Sodium 125 mmol/L (136-145) L 09/01/24 08:45 Potassium 4.2 mmol/L (3.5-5.1) D 09/01/24 08:45 Chloride 91 mmol/L (98-107) L 09/01/24 08:45 Magnesium 1.7 mg/dL (1.8-2.4) L 08/31/24 12:56 Electrolytes, C-Reactive P, ESR: Reviewed (Na 125, Mg repleted with IV infusion yesterday) Cardiac Review Cardiac Review: Troponin I 11 ng/L (<or=51) 08/31/24 15:07 NT-Pro-B Natriuret Pep 8669 pg/mL (<300) H 08/31/24 12:56 BP, HR, EF%: Reviewed (HR 95, has ranged from mid 90s to ~110 all day) List meds needing interventions: Has orders for losartan 25mg daily, metoprolol XL 25mg daily, spironolactone 25mg daily and torsemide 40mg daily QTc Review QTc: Intervened (508 from 08/31/24) List meds needing interventions: On methadone - provider aware. Patient was taking ciprofloxacin at home for UTI, recommended change due to QTc. Provider ordered Bactrim instead. IV to PO Switch IV Medications: Reviewed (diazepam and thiamine) Home Meds Home Med List reviewed: Intervened Relevent Home Meds Not ordered & why?: Tums (PRN), ciprofloxacin (has order for Bactrim), Farxiga (on hold due to eGFR < 45) Has torsemide on home med list that was not initially ordered, only ordered as a now one dose yesterday. Asked provider if this was being held during morning meeting. Provider looked into it and ended up putting in the order. Farxiga was initially ordered but pended by overnight due to renal function. Spoke with provider today who stated to hold for now. Canceled order. If renal function improves and provider wants to restart, will need to see if patient can have this brought in from home. Epclusa changed to patients own order. Reached out to nurse to see if this could be brought in for the patient. Per nurse patient is seeing if someone can bring it in. Current Meds Current Medication Order Review: Intervened Comments: Patient had 2 orders for magnesium. One for 400mg daily and the other was 800mg BID. Asked provider if he wanted both. Provider asked both be discontinued and order be put in for 400mg BID. Added IV admission order set Has order for diazepam for CIWA - patient has received 45mg / 24 hrs Pharmacy Antibiotic Review Relevant Labs: WBC 6.23 10^3/uL (4.4-10.8) 09/01/24 08:45 Temperature 38.2 C 0400 Microbiology 08/31/24 15:00 Urine Culture - Preliminary Urine - Reflex from Ua Escherichia coli Gram positive natalia, mixed Pharmacy Antibiotic Activity: C/S review and Reviewed, no change Comments: Patient started on Bactrim DS PO, day 1, for UTI. Patient was started on ciprofloxacin outpatient (on home med list) but recommended alternative antibiotic to provider given patients prolonged QTc and methadone treatment.
[2024-09-01] MEDS: Water,Injection,Sterile 10 ML VIAL IJ (18:53)
[2024-09-01] MEDS: Sulfameth/Trimeth DS TAB 1 TAB PO (19:45)
[2024-09-02] VITALS (40 sets, daily range): BP systolic 129–150; BP diastolic 70–115; PULSE 74–100; RESP 10–22; TEMP 36.7–38.7; O2SAT 83–97
[2024-09-02] MEDS: diazePAM 10 MG/2 ML SYR IVP ×3 (00:57→05:46)
[2024-09-02] MEDS: THIAMINE 500 MG in Normal Saline 100 ML 200 MG IVPB ×2 (01:44→09:50)
[2024-09-02] MEDS: Acetaminophen 325 MG TAB PO ×3 (04:22→20:40)
[2024-09-02] MEDS: cefTRIAXone 1 GM/50 ML BAG IVPB (08:34)
[2024-09-02] MEDS: Torsemide 20 MG TAB 40 MG PO (08:35)
[2024-09-02] MEDS: Potassium Chloride 20 MEQ TABCR 40 MEQ PO ×2 (08:35→20:40)
[2024-09-02] MEDS: Atorvastatin 40 MG TAB PO (08:35)
[2024-09-02] MEDS: Losartan 25 MG TAB PO (08:36)
[2024-09-02] MEDS: Multivitamin TAB 1 TAB PO (08:36)
[2024-09-02] MEDS: Nicotine 14 MG/24 HR PATCH TD (08:36)
[2024-09-02] MEDS: Magnesium Oxide 400 MG TAB PO ×2 (08:36→22:26)
[2024-09-02] MEDS: Metoprolol CR 25 MG TABCR PO (08:36)
[2024-09-02] MEDS: Spironolactone 25 MG TAB PO (08:37)
[2024-09-02] MEDS: Normal Saline Flush 10 ML SYR IVP ×2 (08:37→20:41)
[2024-09-02] MEDS: Methadone Liquid 10 MG/ML 90 MG PO (08:44)
[2024-09-02 08:53] LABS: Abs Immature Grans 0.27 10^3/uL (0.0-0.06); Absolute Basophil Count 0.04 10^3/uL (0.0-0.2); Absolute Eosinophil Count 0.01 10^3/uL (0.0-0.7); Absolute Lymphocyte Count 0.99 10^3/uL (1.2-3.4); Absolute Monocyte Count 0.86 10^3/uL (0.1-0.8); Absolute Neutrophil Count 4.32 10^3/uL (1.2-6.7); Basophils % 0.6 %; Eosinophils % 0.2 %; HCT 32.3 % (36.0-46.0); HGB 10.9 g/dL (11.2-15.7); Immature Grans % 4.2 %; Lymphocytes % 15.3 %; MCH 30.4 pg (27.0-33.0); MCHC 33.7 % (32.0-36.0); MCV 90 fL (80-95); MPV 11.1 fL (8.0-11.0); Monocytes % 13.3 %; Neutrophils % 66.4 %; RBC 3.59 10^6/uL (3.93-5.22); RDW 16.3 % (11.7-14.6); RDW-SD 54.4 fL; WBC 6.49 10^3/uL (4.4-10.8)
--- NOTE | 2024-09-02 08:54 | PDOC.CMPRO ---
Date of service: 09/02/24 Time of Service: 08:54 Care Management Progress Note Progress Note Text Progress Note Text: Isabel was lying in bed dozing when CM met with her. She woke up to gentle touch and stated that she was really sleepy and wanted to take a nap. At her request, CM kept the visit brief. Isabel was admitted with alcohol withdrawal and MARLON. Her Creatinine is 0.9 at baseline and was 2.1 yesterday and 1.9 today. Her LFTs remain elevated and she has been spiking fevers of 38-38.8. A tick panel has been ordered as Isabel has also developed thrombocytopenia with a platelet count in the 30s. CM will follow. Discharge Potential Discharge Needs: PCP F/U Appt Anticipated Barriers to Discharge: None Identified Patient/Family Education Needs: Review discharge instructions, discuss Ask Me Three Transportation: Private vehicle Plan: Anticipate Isabel will be discharged home with no new services when medically stable. She will follow up with her PCP and plan of care and transport with family. CM will continue to support discharge planning efforts. Social Determinants of Health Screening Social Determinants of health last assessed in clinic: 09/02/24 Will the Patient Participate in the Screening?: Yes Do you worry about having a steady place to live?: no Problems where you live: no known problems In the past 12 months, have you had to go without electric, gas, oil or water in your home?: no 1. Within the past 12 months, we worried whether our food would run out before we got money to buy more.: Sometimes true 2. Within the past 12 months, the food we bought just didn't last and we didn't have money to get more.: Sometimes true Has lack of transportation kept you from medical appointments or from doing things needed for daily living?: no Has anyone in your life made you feel unsafe or unsupported?: no How hard is it for you to pay for the very basics like food, housing, medical care, and heating? Would you say it is:: Somewhat hard Do you want help finding or keeping work or a job?: I do not need or want help If for any reason you need help with day-to-day activities such as bathing, preparing meals, shopping, managing finances, etc., do you get the help you need?: I don?t need any help How often do you feel lonely or isolated from those around you?: Never Do you speak a language other than [place] at home?: No Does the patient want assistance with any of the above?: No Health Related Social Needs Health related social needs: food insecurity (Z59.41) and problems related to housing/economic circumstances (Z59.89)
[2024-09-02 09:07] LABS: ALT 33 U/L (14-59); AST 65 U/L (15-37); Alkaline Phosphatase 178 U/L (46-116); BUN 26 mg/dL (7-18); Bilirubin, Total 0.8 mg/dL (0.2-1.0); CREATININE 1.9 mg/dL (0.55-1.02); Calcium 8.3 mg/dL (8.5-10.1); Chloride 98 mmol/L (98-107); Estimated GFR 35.31 (mL/min/1.73m2); Glucose 91 mg/dL (74-106); Potassium 4.2 mmol/L (3.5-5.1); Sodium 130 mmol/L (136-145); Total Protein 6.8 g/dL (6.4-8.2)
[2024-09-02 09:31] LABS: Platelet Count 41 10^3/uL (130-400)
--- NOTE | 2024-09-02 10:10 | PGE_ITS ---
Date of Service Date of service: 09/02/24 Time of Service: 10:10 Assessment and Plan Assessment and plan (1) Alcohol withdrawal: Status: Acute Assessment and plan: on benzo protocol on recommendation from pharmacy. High dose thiamine and daily vitamin (2) Thrombocytopenia: Status: Chronic Assessment and plan: New on this admission, possibly directly from alcohol but again this is new. Given this and with persistent fevers, will send tick panel and start doxy. No active bleed, will monitor (3) Hypomagnesemia: Status: Acute Assessment and plan: replaced, follow (4) CHF (congestive heart failure): Status: Chronic Assessment and plan: HFrEF, alcoholic cardiomyopathy. Was started back on home meds including dapagliflozin, losartan, metoprolol, aldactone and torsemide, thought dapagliflozin being held at recommendation from pharmacy 05/02 renal fx 09/01 no change (5) Hypokalemia: Status: Acute Assessment and plan: Was 2.1, replacement has been 40mEq TID, K+ didn't go up, so will continue but cut dose to BID, monitor (6) UTI (urinary tract infection): Status: Acute Assessment and plan: Started on SMX/TMP orally 09/01. Still febrile, will change to IV ceftriaxone. (7) Tobacco abuse: Status: Acute Assessment and plan: continue nicotine replacement (8) MARLON (acute kidney injury): Status: Acute Assessment and plan: Likely pre-renal with acute illness, withdrawal. Continue to follow. (9) Hyponatremia: Status: Acute Assessment and plan: sodium at 125 at admission, improved to 130, was likely a/w hypovolemia with acute illness. (10) Anemia: Status: Chronic Assessment and plan: Some drop in h/h with hydration, continue to follow. (11) DVT prophylaxis: Status: Acute Assessment and plan: SCDs, no heparin with significant thrombocytopenia Subjective Subjective Patient reports: feels better, tolerating liquids well, voiding w/o difficulty and fever; denies diarrhea, nausea, vomiting or shortness of breath Interval history since last seen: Febrile overnight IV diazepam x 2 overnight 10mg Started on SMX/TMP orally for UTI 09/01 She feels okay this morning. Still shakey and anxious. She denies any cough/respiratory symptoms, RECIO, abdominal pain, or any urinary symptoms. Eating some, not a lot. Exam Narrative Exam Narrative: HEENT- MMM EOMI pupils mid sized in room light, NO NYSTAGMUS CV-RRR NO MRG PULM-CTAB noraml effort ABD-+BS, soft, NT/ND, though protuberant. EXT-MILD tremors in hands when extended, not at rest. no cyanosis or edema. Skin: No rash, significant bruising. Objective Last Vital Signs Temp 38.1 C H 09/02/24 07:45 Pulse 92 H 09/02/24 06:01 Resp 18 09/02/24 06:01 BP 143/105 H 09/02/24 06:01 Pulse Ox 94 09/02/24 06:01 Laboratory Results - last 24 hr 09/02/24 08:40 WBC 6.49 RBC 3.59 L Hgb 10.9 L Hct 32.3 L MCV 90 D MCH 30.4 MCHC 33.7 RDW 16.3 H Plt Count 41 L MPV 11.1 H Immature Gran % 4.2 Neutrophils % 66.4 Lymphocytes % 15.3 Monocytes % 13.3 Eosinophils % 0.2 Basophils % 0.6 Nucleated RBC % 0.0 Absolute Neutrophils 4.32 Absolute Lymphocytes 0.99 L Absolute Monocytes 0.86 H Absolute Eosinophils 0.01 Absolute Basophils 0.04 Sodium 130 L Potassium 4.2 Chloride 98 Carbon Dioxide 26.0 Anion Gap 6.0 BUN 26 H Creatinine 1.9 H Est GFR (CKD-EPI 2020) 35.31 Glucose 91 Calcium 8.3 L Total Bilirubin 0.8 AST 65 H ALT 33 Alkaline Phosphatase 178 H Total Protein 6.8 Albumin 2.0 L PAWSS Have you Been Recently Intoxicated or Drunk Within the Last 30 days?: Yes Have you Ever Experienced Previous Episodes of Alcohol Withdrawal?: Yes Have you ever Experienced Withdrawal Seizures?: No Have you ever Experienced Delirium Tremens(DT)s?: Yes Have you ever undergone Alcohol Rehabilitation Treatment (i.e, inpt ot outpatient treatment programs)?: Yes Have you ever Experienced Blackouts?: Yes Have you ever Combined Alcohol with other Downers within the last 90 days?: No Have you ever Combined Alcohol with any other Substance of Abuse during the last 90 days?: No Positive Blood Alcohol level on Presentation? [PCS.BAL]: Yes Evidence of Increased Autonomic Activity (i.e. HR>120, tremor, sweating, agitation, nausea)?: Yes Result: 7 Time Spent with Patient Time Spent with Patient: >50 minutes Time was spent: preparing to see the patient(eg.review tests), obtaining and/or reviewing separately otained hiistory, ordering medications,tests, procedures, referring, communicating with other health wound care center consultant, indepentently interpreting results, counseling the patient and care coordination
[2024-09-02] MEDS: Doxycycline Hyclate 100 MG CAP PO ×2 (11:13→20:40)
[2024-09-02] MEDS: LORazepam 1 MG TAB PO/SL ×3 (11:22→20:50)
[2024-09-02 11:29] LABS: Lab Add On Test DONE
[2024-09-02 11:45] LABS: Magnesium 2.3 mg/dL (1.8-2.4)
--- NOTE | 2024-09-02 20:19 | W.PC.ACHO ---
Registration Status: Primary Language: Preferred Language: ED Information & Data Chief Complaint ETOHWithdr 08/31/24 15:02 Triage Note patient here in withdrawal 08/31/24 11:55 from alcohol. Drinks one gallon of whiskey a day. Last drink was approx 13 hours ago. patient is now nauseous, anxious and irritable. Most Recent Vital Signs Temperature 38.2 C H 09/02/24 15:50 Temperature Source Tympanic 09/02/24 15:50 Pulse 77 09/02/24 16:00 Pulse 76 09/02/24 16:00 Respiratory Rate 10 L 09/02/24 16:00 Respiratory Effort Normal 08/31/24 17:01 Respiratory Depth Normal 08/31/24 17:01 Respiratory Pattern Normal 08/31/24 17:01 Blood Pressure 137/94 H 09/02/24 15:56 Blood Pressure Mean 107 09/02/24 15:56 Blood Pressure Position Supine 08/31/24 17:01 Pulse Oximetry 90 L 09/02/24 16:00 Oxygen Delivery Method Room Air 09/02/24 15:50 Oxygen Flow Rate 0 09/02/24 15:50 Pain Level 0 08/31/24 21:58 Comment Pt appears to have some sleep apnea and will very briefly de-sat to the 80's while asleep but will recover back to high 90's within a couple seconds. 09/02/24 15:50 Allergies bupropion (From Wellbutrin) Allergy (Intermediate, Verified 08/31/24 11:57) Topical Irritation kiwi Allergy (Unverified 08/31/24 11:57) Swelling/Edema Active Medications Generic Name Dose Route Start Last Admin Trade Name Freq PRN Reason Stop Dose Admin Acetaminophen 0 mg 08/31/24 16:03 09/02/24 11:13 Acetaminophen 325 Mg Tab PO 650 mg Q4H PRN PRN Administration Atorvastatin Calcium 40 mg 09/01/24 08:30 09/02/24 08:35 Atorvastatin 40 Mg Tab PO 40 mg DAILY KUNAL Administration Diazepam 0 mg 08/31/24 16:06 09/02/24 05:46 Diazepam 10 Mg/2 Ml Syr IVP 5 mg DIRECTED PRN Administration Ceftriaxone Sodium/Dextrose 1 gm in 50 mls @ 100 mls/hr 09/02/24 08:00 09/02/24 09:04 Rocephin IVPB Infused Q24H KUNAL Infusion Lorazepam 0 mg 09/02/24 09:58 09/02/24 17:49 Lorazepam 1 Mg Tab PO/SL 1 mg DIRECTED PRN Administration Losartan Potassium 25 mg 09/01/24 08:30 09/02/24 08:36 Losartan 25 Mg Tab PO 25 mg DAILY KUNAL Administration Methadone HCl 90 mg 09/01/24 08:30 09/02/24 08:44 Methadone Liquid 10 Mg/Ml PO 90 mg DAILY KUNAL Administration Metoprolol Succinate 25 mg 09/01/24 08:30 09/02/24 08:36 Metoprolol Cr 25 Mg Tabcr PO 25 mg DAILY KUNAL Administration Multivitamins 1 tab 09/01/24 08:30 09/02/24 08:36 Multivitamin Tab PO 09/07/24 08:31 1 tab QAM KUNAL Administration Nicotine 14 mg 09/02/24 08:30 09/02/24 08:36 Nicotine 14 Mg/24 Hr Patch TD 14 mg DAILY KUNAL Administration Pt's Own Sofosbuvir- 1 each 09/01/24 08:30 09/02/24 08:30 Velpatasvir [Epclusa PO Not Given ] 400-100 Mg Tablet DAILY KUNAL Sodium Chloride 0 ml 09/01/24 08:15 09/02/24 08:37 Normal Saline Flush 10 Ml Syr IVP 40 ml PRN PRN Administration Spironolactone 25 mg 09/01/24 08:30 09/02/24 08:37 Spironolactone 25 Mg Tab PO 25 mg DAILY KUNAL Administration Sterile Water 10 ml 09/01/24 18:46 09/01/24 18:53 Water,Injection,Sterile 10 Ml Vial IJ 10 ml DIRECTED PRN Administration Torsemide 40 mg 09/02/24 08:30 09/02/24 08:35 Torsemide 20 Mg Tab PO 40 mg DAILY KUNAL Administration IV IV Catheter Type [Left Forearm Peripheral IV ] IV Catheter Type [Right Peripheral IV Antecubital] IV Catheter Gauge [Left 18 Forearm] IV Catheter Gauge [Right 18 Antecubital] Diet Orders Category Date Time Status Diet [Regular/Normal] [DIET] Nutrition 09/02/24 Lunch Active Diagnostics 09/02/24 Range/Units 08:40 WBC 6.49 (4.4-10.8) 10^3/uL RBC 3.59 L (3.93-5.22) 10^6/uL Hgb 10.9 L (11.2-15.7) g/dL Hct 32.3 L (36.0-46.0) % MCV 90 D (80-95) fL MCH 30.4 (27.0-33.0) pg MCHC 33.7 (32.0-36.0) % RDW 16.3 H (11.7-14.6) % Plt Count 41 L (130-400) 10^3/uL MPV 11.1 H (8.0-11.0) fL Immature Gran % 4.2 % Neutrophils % 66.4 % Lymphocytes % 15.3 % Monocytes % 13.3 % Eosinophils % 0.2 % Basophils % 0.6 % Nucleated RBC % 0.0 (0.0-0.3) % Absolute Neutrophils 4.32 (1.2-6.7) 10^3/uL Absolute Lymphocytes 0.99 L (1.2-3.4) 10^3/uL Absolute Monocytes 0.86 H (0.1-0.8) 10^3/uL Absolute Eosinophils 0.01 (0.0-0.7) 10^3/uL Absolute Basophils 0.04 (0.0-0.2) 10^3/uL Sodium 130 L (136-145) mmol/L Potassium 4.2 (3.5-5.1) mmol/L Chloride 98 (98-107) mmol/L Carbon Dioxide 26.0 (21.0-32.0) mmol/L Anion Gap 6.0 (3-11) mmol/L BUN 26 H (7-18) mg/dL Creatinine 1.9 H (0.55-1.02) mg/dL Est GFR (CKD-EPI 2020) 35.31 (mL/min/1.73m2) Glucose 91 (74-106) mg/dL Calcium 8.3 L (8.5-10.1) mg/dL Magnesium 2.3 (1.8-2.4) mg/dL Total Bilirubin 0.8 (0.2-1.0) mg/dL AST 65 H (15-37) U/L ALT 33 (14-59) U/L Alkaline Phosphatase 178 H (46-116) U/L Total Protein 6.8 (6.4-8.2) g/dL Albumin 2.0 L (3.4-5.0) g/dL B. divergens/MO-1 PCR Pending Babesia duncani (PCR) Pending Babesia microti DNA PCR Pending Lyme Disease Antibody Pending E.chaffeensis DNA (PCR) Pending E.ewingii/canis DNA PCR Pending E.muris eauclairensis (PCR) Pending A. phagocytophilum (PCR) Pending Blood B. miyamotoi (PCR) Pending Add-On Test Request DONE 09/02/24 09:05 Blood Culture - Pending Blood 09/02/24 09:05 Blood Culture - Pending Blood 08/31/24 15:00 Urine Culture - Final Urine - Reflex from Ua Escherichia coli Gram positive natalia, mixed Intake and Output - 24 Hour Total 08/31/24 11:48 thru 09/02/24 17:45 Intake Total 8991.667 Output Total 6250 Balance 2741.667 Weight 96.5 kg Intake: IV 4201.667 Oral 4790 Output: Urine 6250 Other: Urine Color Yellow Urine Appearance Clear Urine Odor None Comment large amount of urine, unmeasured, mixed with liquid stool Stool Size Moderate Stool Characteristics Soft Formed [place] Risk Assessment History of Falls No History 08/31/24 17:01 Contributing Factors Confusion,Unstable, 08/31/24 17:01 Incontinence Ambulatory Aids Independent 08/31/24 17:01 Tubes/Lines W/no contributing factors 08/31/24 17:01 Gait Evaluation No gait disturbance 08/31/24 17:01 Cognition No cognitive impairment 08/31/24 17:01 Fall Total Score 19 08/31/24 17:01 Level of Risk Standard/Low Risk 08/31/24 17:01 Problems (Last Reviewed 07/22/24 @ 12:34 by Irais Whittaker NP) DVT prophylaxis (Acute) Anemia (Chronic) Hyponatremia (Acute) UTI (urinary tract infection) (Acute) Hypokalemia (Acute) Hypomagnesemia (Acute) Thrombocytopenia (Chronic) CHF (congestive heart failure) (Chronic) MARLON (acute kidney injury) (Acute) Tobacco abuse (Acute) Alcohol withdrawal (Acute) v v v v v v v v v Sending and/or Receiving Nurses: Please use comment section below to note any information pertinent to the patient hand-off not included above. Information / Comments: A&Ox3 RECIO rated 5/10 endorses nausea NA was 125, rsolved to 130 Telemetry Sinus tach with ambulation BMx3 today voiding appropriately SBG/Ind to bedside commode PO benzo ETOH withdrawal protocol--1mg PO @ 17:50 Report received from: SABA Tovar
[2024-09-02] MEDS: Mylanta Suspension 30 ML CUP PO (20:50)
[2024-09-03 04:36] VITALS: BP 128/92; PULSE 99; RESP 22; TEMP 37.9; O2SAT 97
[2024-09-03 04:38] VITALS: TEMP 37.9
[2024-09-03] MEDS: LORazepam 1 MG TAB PO/SL ×4 (04:38→17:29)
[2024-09-03] MEDS: Acetaminophen 325 MG TAB PO ×2 (04:38→15:36)
[2024-09-03 07:03] LABS: BUN 27 mg/dL (7-18); CREATININE 1.8 mg/dL (0.55-1.02); Calcium 8.8 mg/dL (8.5-10.1); Chloride 95 mmol/L (98-107); Estimated GFR 37.68 (mL/min/1.73m2); Glucose 126 mg/dL (74-106); Magnesium 2.1 mg/dL (1.8-2.4); Potassium 4.4 mmol/L (3.5-5.1); Sodium 131 mmol/L (136-145)
[2024-09-03 08:10] VITALS: BP 134/92; PULSE 85; RESP 16; TEMP 36.4; O2SAT 97
[2024-09-03] MEDS: Methadone Liquid 10 MG/ML 90 MG PO (08:16)
[2024-09-03] MEDS: Nicotine 14 MG/24 HR PATCH TD (08:20)
[2024-09-03] MEDS: cefTRIAXone 1 GM/50 ML BAG IVPB (08:21)
[2024-09-03] MEDS: Normal Saline Flush 10 ML SYR IVP (08:21)
[2024-09-03] MEDS: Torsemide 20 MG TAB 40 MG PO (08:23)
[2024-09-03] MEDS: Thiamine 100 MG TAB PO (08:23)
[2024-09-03] MEDS: Folic Acid 1 MG TAB PO (08:23)
[2024-09-03] MEDS: Multivitamin TAB 1 TAB PO (08:23)
[2024-09-03] MEDS: Spironolactone 25 MG TAB PO (08:23)
[2024-09-03] MEDS: Potassium Chloride 20 MEQ TABCR 40 MEQ PO (08:23)
[2024-09-03] MEDS: Metoprolol CR 25 MG TABCR PO (08:24)
[2024-09-03] MEDS: Magnesium Oxide 400 MG TAB PO ×2 (08:24→21:50)
[2024-09-03] MEDS: Losartan 25 MG TAB PO (08:24)
[2024-09-03] MEDS: Atorvastatin 40 MG TAB PO (08:24)
[2024-09-03] MEDS: Doxycycline Hyclate 100 MG CAP PO ×2 (08:24→21:50)
--- NOTE | 2024-09-03 09:23 | CMPROGNOTE_ITS ---
Date of service: 09/03/24 Time of Service: 09:23 Care Management Progress Note Progress Note Text Progress Note Text: Isabel was walking around in her room when CM met with her. She was transferred out of the ICU yesterday to the med-surg unit. Isabel was much more awake and engaged than she has been for the past 2 days. She stated that she is starting to feel better. Isabel informed CM that she is already connected to a liver specialist and [employer] at [facility] and has seen both recently (early July). Isabel also has a life skills coach through [facility] who is helping her with the admission process to [facility]. She verbalized that she knows she needs to do something now. She has 4 children that she is trying to win back and all of these steps are a necessary part of the process. Discharge Potential Discharge Needs: PCP F/U Appt Anticipated Barriers to Discharge: None Identified Patient/Family Education Needs: Review discharge instructions, discuss Ask Me Three Transportation: Private vehicle Plan: Anticipate Isabel will be discharged home with no new services when medically stable. She will follow up with her PCP and plan of care and transport with family. CM will continue to support discharge planning efforts. Social Determinants of Health Screening Social Determinants of health last assessed in clinic: 09/03/24 Will the Patient Participate in the Screening?: Yes Do you worry about having a steady place to live?: no Problems where you live: no known problems In the past 12 months, have you had to go without electric, gas, oil or water in your home?: no 1. Within the past 12 months, we worried whether our food would run out before we got money to buy more.: Never true 2. Within the past 12 months, the food we bought just didn't last and we didn't have money to get more.: Never true Has lack of transportation kept you from medical appointments or from doing things needed for daily living?: no Has anyone in your life made you feel unsafe or unsupported?: no How hard is it for you to pay for the very basics like food, housing, medical care, and heating? Would you say it is:: Somewhat hard Do you want help finding or keeping work or a job?: I do not need or want help If for any reason you need help with day-to-day activities such as bathing, preparing meals, shopping, managing finances, etc., do you get the help you need?: I don?t need any help How often do you feel lonely or isolated from those around you?: Never Do you speak a language other than Yi at home?: No Does the patient want assistance with any of the above?: No Health Related Social Needs Health related social needs: problems related to housing/economic circumstances (Z59.89)
[2024-09-03 11:09] LABS: Lyme Ab w Rflx to Lyme Confirm Negative (Negative)
[2024-09-03 11:26] LABS: Abs Immature Grans 0.23 10^3/uL (0.0-0.06); Absolute Basophil Count 0.07 10^3/uL (0.0-0.2); Absolute Eosinophil Count 0.02 10^3/uL (0.0-0.7); Absolute Lymphocyte Count 1.11 10^3/uL (1.2-3.4); Absolute Monocyte Count 0.81 10^3/uL (0.1-0.8); Absolute Neutrophil Count 5.82 10^3/uL (1.2-6.7); Basophils % 0.9 %; Eosinophils % 0.2 %; HCT 34.4 % (36.0-46.0); HGB 11.7 g/dL (11.2-15.7); Immature Grans % 2.9 %; Lymphocytes % 13.8 %; MCH 31.1 pg (27.0-33.0); MCV 92 fL (80-95); Neutrophils % 72.2 %; RBC 3.76 10^6/uL (3.93-5.22); RDW 16.5 % (11.7-14.6); RDW-SD 55.6 fL; WBC 8.06 10^3/uL (4.4-10.8)
[2024-09-03 11:40] LABS: Diff Comment PLT Morph Reviewed; Platelet Count 68 10^3/uL (130-400); RBC Morphology Normal
[2024-09-03 11:42] VITALS: BP 124/73; PULSE 75; RESP 12; TEMP 36.4; O2SAT 94
[2024-09-03 15:26] VITALS: BP 137/82; PULSE 95; RESP 16; TEMP 37.1; O2SAT 95
--- NOTE | 2024-09-03 18:52 | PGE_ITS ---
Date of Service Date of service: 09/03/24 Time of Service: 15:52 Assessment and Plan Assessment and plan (1) Alcohol withdrawal: Status: Acute Assessment and plan: on benzo protocol on recommendation from pharmacy along with thiamine and daily vitamin, improving, continue (2) Thrombocytopenia: Status: Chronic Assessment and plan: New on this admission, possibly directly from alcohol but again this is new. Given this and with persistent fevers, sent tick panel and started doxy. No active bleed, will monitor Get abd u/s for signs cirrhosis, splenomegaly (3) Hypomagnesemia: Status: Acute Assessment and plan: replaced, improved, continue to follow (4) CHF (congestive heart failure): Status: Chronic Assessment and plan: HFrEF, alcoholic cardiomyopathy. Was started back on home meds including dapagliflozin, losartan, metoprolol, aldactone and torsemide, thought dapagliflozin being held at recommendation from pharmacy 05/02 renal fx 09/01, she can resume as GFR>30 Currently compensated, recent echo no will not repeat. (5) Hypokalemia: Status: Acute Assessment and plan: Was 2.1, replacement has been 40mEq TID, then BID. Will increase spironolactone and cut to 20mEq daily, follow (6) UTI (urinary tract infection): Status: Acute Assessment and plan: Started on SMX/TMP orally 09/01. Still febrile 09/02, changed to IV ceftriaxone. Culture is E coli sensitive to this. (7) Tobacco abuse: Status: Acute Assessment and plan: continue nicotine replacement (8) MARLON (acute kidney injury): Status: Acute Assessment and plan: Likely pre-renal with acute illness, withdrawal but not improving quickly Will get renal u/s Repeat u/s to make sure clearing of blood/protein. (9) Hyponatremia: Status: Acute Assessment and plan: sodium at 125 at admission, improved to 130, was likely a/w hypovolemia with acute illness. (10) Anemia: Status: Chronic Assessment and plan: Some drop in h/h with hydration, but stabilized. (11) DVT prophylaxis: Status: Acute Assessment and plan: SCDs, no heparin with significant thrombocytopenia Subjective Subjective Patient reports: no new complaints, tolerating a regular diet, voiding w/o difficulty and nausea; denies diarrhea, vomiting, shortness of breath or fever Interval history since last seen: Events: Still scoring CIWA, but lower today Feels a little better. Still anxious, tired. No chest pain or abdominal or flank pain currently. Abd feels bloated. Exam Narrative Exam Narrative: HEENT- MMM EOMI pupils mid sized in room light, NO NYSTAGMUS CV-RRR NO MRG PULM-CTAB noraml effort ABD-+BS, soft, NT/ND, though protuberant. No fluid wave EXT-MILD tremors in hands when extended, not at rest. no cyanosis or edema. Skin: No rash, significant bruising. Objective Last Vital Signs Temp 37.1 C 09/03/24 15:26 Pulse 95 H 09/03/24 15:26 Resp 16 09/03/24 15:26 BP 137/82 09/03/24 15:26 Pulse Ox 95 09/03/24 15:26 Laboratory Results - last 24 hr 09/02/24 09/03/24 08:40 06:30 WBC 8.06 RBC 3.76 L Hgb 11.7 Hct 34.4 L MCV 92 MCH 31.1 MCHC 34.0 RDW 16.5 H Plt Count 68 L D MPV 11.0 Immature Gran % 2.9 Neutrophils % 72.2 Lymphocytes % 13.8 Monocytes % 10.0 Eosinophils % 0.2 Basophils % 0.9 Nucleated RBC % 0.0 Absolute Neutrophils 5.82 Absolute Lymphocytes 1.11 L Absolute Monocytes 0.81 H Absolute Eosinophils 0.02 Absolute Basophils 0.07 RBC Morphology Normal Sodium 131 L Potassium 4.4 Chloride 95 L Carbon Dioxide 26.0 Anion Gap 10.0 BUN 27 H Creatinine 1.8 H Est GFR (CKD-EPI 2020) 37.68 Glucose 126 H Calcium 8.8 Magnesium 2.1 Lyme Disease Antibody Negative PAWSS Have you Been Recently Intoxicated or Drunk Within the Last 30 days?: Yes Have you Ever Experienced Previous Episodes of Alcohol Withdrawal?: Yes Have you ever Experienced Withdrawal Seizures?: No Have you ever Experienced Delirium Tremens(DT)s?: Yes Have you ever undergone Alcohol Rehabilitation Treatment (i.e, inpt ot outpatient treatment programs)?: Yes Have you ever Experienced Blackouts?: Yes Have you ever Combined Alcohol with other Downers within the last 90 days?: No Have you ever Combined Alcohol with any other Substance of Abuse during the last 90 days?: No Positive Blood Alcohol level on Presentation? [PCS.BAL]: Yes Evidence of Increased Autonomic Activity (i.e. HR>120, tremor, sweating, agitation, nausea)?: Yes Result: 7 Time Spent with Patient Time Spent with Patient: >50 minutes Time was spent: preparing to see the patient(eg.review tests), obtaining and/or reviewing separately otained hiistory, ordering medications,tests, procedures, referring, communicating with other health career development coordinator/teacher, indepentently interpreting results, counseling the patient and care coordination
[2024-09-03 19:27] VITALS: BP 104/86; PULSE 63; RESP 20; TEMP 36; O2SAT 94
--- NOTE | 2024-09-04 | DI.CT_ITS ---
Exam(s) CT ABDOMEN PELVIS WO EXAM: CT ABDOMEN PELVIS WO CLINICAL HISTORY: MARLON, liver dysfunction. cirrhosis? hydronephrosis?. TECHNIQUE: Imaging Protocol: Axial computed tomography images with coronal and sagittal reformatted images were created and reviewed. COMPARISON: CR XR PORTABLE CHEST AP from 08/31/2024 FINDINGS: The examination is limited due to patient motion artifact. ABDOMEN: Lung Bases: Normal where visualized. Liver: There is diffuse decreased attenuation of the liver consistent with fatty infiltration. The l iver is enlarged. The liver contour is smooth. No measurable mass. Gallbladder and biliary tract: No radiodense calculus or biliary ductal dilation. Pancreas: Normal density, no abnormal calcifications or inflammatory process. Spleen: Normal. Kidneys: Normal size, contour and axis.There is bilateral nephrolithiasis. No evidence of hydronephr osis. No masses seen. Adrenal glands: No mass is seen. Lymph nodes: Within normal limits. Abdominal Aorta: Abdominal portion non-dilated. PELVIS: Bladder:Symmetric distention, no gross wall thickening. Bowel: No obstruction or bowel wall thickening. No evidence of appendicitis. Peritoneal cavity: No ascites, collection or mesenteric inflammatory response. No free air. Reproductive organs: Unremarkable as visualized. Bones: Within normal limits. Soft Tissues: Within normal limits. IMPRESSION: 1. Hepatomegaly and hepatic steatosis. 2. Bilateral nephrolithiasis. No evidence of hydronephrosis. 3. No acute abdominal or pelvic process. RADIATION DOSE DELIVERED: 875.49mGy.cm Total DLP DATA REPOSITORY: All CT scans at this facility are submitted to the National Radiology Data Registry (NRDR) Dose Index Registry (DIR) with the [employer] (ACR). RADIATION OPTIMIZATION: All CT scans at this facility use at least one of these dose optimization te chniques: automated exposure control; mA and/or kV adjustment per patient size (includes targeted exa ms where dose is matched to clinical indication); or iterative reconstruction.
[2024-09-04] MEDS: LORazepam 1 MG TAB PO/SL ×3 (01:09→20:50)
[2024-09-04 01:25] LABS: Bilirubin Negative (Negative); Blood Small (Negative); Clarity Clear (Clear); Glucose Negative (Negative); HCG Qual (Urine) Negative; Ketones Negative (Negative); Leukocyte Esterase Trace (Negative); Nitrite Negative (Negative); Specific Gravity 1.015 (1.005-1.025); Urobilinogen 0.2 mg/dL (Up to 0.2); pH 6.5 (5-8)
[2024-09-04 07:08] VITALS: BP 105/93; PULSE 87; RESP 24; TEMP 36.1; O2SAT 95
[2024-09-04] MEDS: cefTRIAXone 1 GM/50 ML BAG IVPB (08:38)
[2024-09-04] MEDS: Normal Saline Flush 10 ML SYR IVP ×3 (08:38→20:51)
[2024-09-04] MEDS: Nicotine 14 MG/24 HR PATCH TD (08:38)
[2024-09-04] MEDS: Spironolactone 25 MG TAB 50 MG PO (08:39)
[2024-09-04] MEDS: Metoprolol CR 25 MG TABCR PO (08:39)
[2024-09-04] MEDS: Losartan 25 MG TAB PO (08:39)
[2024-09-04] MEDS: Torsemide 20 MG TAB PO (08:39)
[2024-09-04] MEDS: Doxycycline Hyclate 100 MG CAP PO ×2 (08:39→20:37)
[2024-09-04] MEDS: Multivitamin TAB 1 TAB PO (08:39)
[2024-09-04] MEDS: Thiamine 100 MG TAB PO (08:39)
[2024-09-04] MEDS: Methadone Liquid 10 MG/ML 90 MG PO (08:40)
[2024-09-04] MEDS: Potassium Chloride 20 MEQ TABCR PO (08:40)
[2024-09-04] MEDS: Folic Acid 1 MG TAB PO (08:40)
[2024-09-04] MEDS: Magnesium Oxide 400 MG TAB PO ×2 (08:40→20:37)
[2024-09-04] MEDS: Atorvastatin 40 MG TAB PO (08:40)
[2024-09-04 10:31] LABS: HCT 34.2 % (36.0-46.0); HGB 11.5 g/dL (11.2-15.7); MCHC 33.6 % (32.0-36.0); MCV 92 fL (80-95); MPV 10.4 fL (8.0-11.0); Platelet Count 115 10^3/uL (130-400); RBC 3.71 10^6/uL (3.93-5.22); RDW 16.6 % (11.7-14.6); RDW-SD 56.5 fL; WBC 8.57 10^3/uL (4.4-10.8)
[2024-09-04 10:46] LABS: ALT 28 U/L (14-59); AST 29 U/L (15-37); Albumin 2.2 g/dL (3.4-5.0); Alkaline Phosphatase 196 U/L (46-116); Anion Gap 10.3 mmol/L (3-11); BUN 29 mg/dL (7-18); Bilirubin, Direct 0.3 mg/dL (0.0-0.2); Bilirubin, Total 0.5 mg/dL (0.2-1.0); CO2 26.7 mmol/L (21.0-32.0); CREATININE 1.7 mg/dL (0.55-1.02); Calcium 8.7 mg/dL (8.5-10.1); Chloride 96 mmol/L (98-107); Estimated GFR 40.36 (mL/min/1.73m2); Glucose 121 mg/dL (74-106); Potassium 4.2 mmol/L (3.5-5.1); Sodium 133 mmol/L (136-145); Total Protein 7.7 g/dL (6.4-8.2)
[2024-09-04 10:47] LABS: Magnesium 2.1 mg/dL (1.8-2.4)
[2024-09-04 11:48] VITALS: BP 110/69; PULSE 80; RESP 20; TEMP 36.4; O2SAT 93
--- NOTE | 2024-09-04 12:59 | PGE_ITS ---
Date of Service Date of service: 09/04/24 Time of Service: 12:59 Assessment and Plan Assessment and plan (1) Alcohol withdrawal: Status: Acute Assessment and plan: on benzo protocol on recommendation from pharmacy along with thiamine and daily vitamin, improving. Higher scores related to tremor and anxiety. I agree with nursing concerns that this may be non-alcohol related anxiety. Will stop the protocol at this point 4+ days in and offer altnerative therapies for anxiety/tremor. (2) Thrombocytopenia: Status: Chronic Assessment and plan: New on this admission, possibly directly from alcohol but again this is new. Given this and with persistent fevers, sent tick panel and started 09/02 No active bleed, will monitor Tried to get abd u/s for signs cirrhosis, splenomegaly, but not available. CT shows steatosis but no signs cirrhosis, nl spleen. Much improved in past 2 days, suggesting either alcohol or acute infection as cause. (3) CHF (congestive heart failure): Status: Chronic Assessment and plan: HFrEF, alcoholic cardiomyopathy. Was started back on home meds including dapagliflozin, losartan, metoprolol, aldactone and torsemide, thought dapagliflozin being held at recommendation from pharmacy 05/02 renal fx 09/01, she can resume as GFR>30 Currently compensated, recent echo no will not repeat, continue to monitor clinically. (4) Hypokalemia: Status: Acute Assessment and plan: Was 2.1, replacement has been 40mEq TID, then BID. Increased spironolactone and cut to 20mEq daily, stable today, follow. (5) UTI (urinary tract infection): Status: Acute Assessment and plan: Started on SMX/TMP orally 09/01. Still febrile 09/02, changed to IV ceftriaxone. Culture is E coli sensitive to this. (6) Tobacco abuse: Status: Acute Assessment and plan: continue nicotine replacement (7) MARLON (acute kidney injury): Status: Acute Assessment and plan: Likely pre-renal with acute illness, withdrawal but not improving quickly No hydronephrosis on renal CT. U/a not c/w nephritis Some she is improving with increase diurseis, suggesting some cardiorenal. Give additional dose of furosemide 40mg today. Follow (8) Hyponatremia: Status: Acute Assessment and plan: sodium at 125 at admission, now improved to 133, was likely a/w hypovolemia with acute illness. (9) Anemia: Status: Chronic Assessment and plan: Some drop in h/h with hydration, but stabilized. (10) DVT prophylaxis: Status: Acute Assessment and plan: SCDs, no heparin with significant thrombocytopenia Subjective Subjective Patient reports: no new complaints, tolerating a regular diet and voiding w/o difficulty; denies diarrhea, nausea, vomiting, shortness of breath or fever Interval history since last seen: Still scoring overnight up to 14 on CIWA She feels like she is slowly getting better. Still nervous, a little shakey. She does not have abdominal or chest pain or other pain concerns. Exam Narrative Exam Narrative: GEN: Sleepy, but arouses and A&O x 4, NAD HEENT- MMM EOMI pupils mid sized in room light, NO NYSTAGMUS CV-RRR NO MRG PULM-CTAB noraml effort ABD-+BS, soft, NT/ND, though protuberant. No fluid wave EXT-MILD tremors in hands when extended, not at rest. no cyanosis or edema. Objective Last Vital Signs Temp 36.4 C L 09/04/24 11:48 Pulse 80 09/04/24 11:48 Resp 20 09/04/24 11:48 BP 110/69 09/04/24 11:48 Pulse Ox 93 09/04/24 11:48 Laboratory Results - last 24 hr 09/02/24 09/04/24 09/04/24 08:40 00:40 10:20 WBC 8.57 RBC 3.71 L Hgb 11.5 Hct 34.2 L MCV 92 MCH 31.0 MCHC 33.6 RDW 16.6 H Plt Count 115 L D MPV 10.4 Sodium 133 L Potassium 4.2 Chloride 96 L Carbon Dioxide 26.7 Anion Gap 10.3 BUN 29 H Creatinine 1.7 H Est GFR (CKD-EPI 2020) 40.36 Glucose 121 H Calcium 8.7 Magnesium 2.1 Total Bilirubin 0.5 Conjugated Bilirubin 0.3 H AST 29 ALT 28 Alkaline Phosphatase 196 H Total Protein 7.7 Albumin 2.2 L Urine Color Yellow Urine Clarity Clear Urine pH 6.5 Ur Specific [place] 1.015 Urine Protein Trace H Urine Ketones Negative Urine Blood Small H Urine Nitrite Negative Urine Bilirubin Negative Urine Urobilinogen 0.2 Ur Leukocyte Esterase Trace H Urine Glucose Negative Urine HCG, Qual Negative Lyme Disease Antibody Negative PAWSS Have you Been Recently Intoxicated or Drunk Within the Last 30 days?: Yes Have you Ever Experienced Previous Episodes of Alcohol Withdrawal?: Yes Have you ever Experienced Withdrawal Seizures?: No Have you ever Experienced Delirium Tremens(DT)s?: Yes Have you ever undergone Alcohol Rehabilitation Treatment (i.e, inpt ot ou tpatient treatment programs)?: Yes Have you ever Experienced Blackouts?: Yes Have you ever Combined Alcohol with other Downers within the last 90 days?: No Have you ever Combined Alcohol with any other Substance of Abuse during the last 90 days?: No Positive Blood Alcohol level on Presentation? [PCS.BAL]: Yes Evidence of Increased Autonomic Activity (i.e. HR>120, tremor, sweating, agitation, nausea)?: Yes Result: 7 Time Spent with Patient Time Spent with Patient: 35-49 minutes Time was spent: preparing to see the patient(eg.review tests), obtaining and/or reviewing separately otained hiistory, ordering medications,tests, procedures, referring, communicating with other health continuum of care manager, indepentently interpreting results, counseling the patient and care coordination
[2024-09-04] MEDS: Furosemide 40 MG/4 ML VIAL IVP (13:46)
[2024-09-04 15:20] VITALS: BP 98/68; PULSE 75; RESP 20; TEMP 36.2; O2SAT 94
[2024-09-04 20:29] VITALS: BP 94/73; PULSE 75; RESP 19; TEMP 36.4; O2SAT 90
[2024-09-04] MEDS: Acetaminophen 325 MG TAB PO (20:37)
[2024-09-04 23:39] VITALS: BP 99/66; PULSE 73; RESP 20; TEMP 36.2; O2SAT 93
[2024-09-05 03:52] VITALS: BP 100/69; PULSE 75; RESP 18; TEMP 36; O2SAT 93
[2024-09-05 07:18] LABS: Anion Gap 10.6 mmol/L (3-11); BUN 34 mg/dL (7-18); CO2 27.4 mmol/L (21.0-32.0); CREATININE 1.9 mg/dL (0.55-1.02); Calcium 9.3 mg/dL (8.5-10.1); Chloride 94 mmol/L (98-107); Estimated GFR 35.31 (mL/min/1.73m2); Glucose 113 mg/dL (74-106); Potassium 4.4 mmol/L (3.5-5.1); Sodium 132 mmol/L (136-145)
[2024-09-05 07:42] VITALS: BP 86/56; PULSE 64; RESP 18; TEMP 36.5; O2SAT 99
[2024-09-05] MEDS: cefTRIAXone 1 GM/50 ML BAG IVPB (09:05)
[2024-09-05] MEDS: Doxycycline Hyclate 100 MG CAP PO (09:05)
[2024-09-05] MEDS: Nicotine 14 MG/24 HR PATCH TD (09:05)
[2024-09-05] MEDS: Thiamine 100 MG TAB PO (09:06)
[2024-09-05] MEDS: Folic Acid 1 MG TAB PO (09:06)
[2024-09-05] MEDS: Atorvastatin 40 MG TAB PO (09:06)
[2024-09-05] MEDS: Multivitamin TAB 1 TAB PO (09:06)
[2024-09-05] MEDS: Metoprolol CR 25 MG TABCR PO (09:06)
[2024-09-05] MEDS: Magnesium Oxide 400 MG TAB PO (09:06)
[2024-09-05] MEDS: Potassium Chloride 20 MEQ TABCR PO (09:06)
[2024-09-05] MEDS: Normal Saline Flush 10 ML SYR IVP (09:07)
[2024-09-05] MEDS: Methadone Liquid 10 MG/ML 90 MG PO (09:14)
[2024-09-05 11:24] VITALS: BP 100/69; PULSE 78; RESP 16; TEMP 36.6; O2SAT 97
[2024-09-05] MEDS: Normal Saline 250 ML IV (11:32)
--- NOTE | 2024-09-05 13:38 | W.PM.DS.N ---
Date of service: 09/05/24 Time of Service: 13:38 DS: Diagnosis Discharge Diagnosis (1) Alcohol withdrawal: Status: Acute (2) Thrombocytopenia: Status: Chronic (3) CHF (congestive heart failure): Status: Chronic (4) Hypokalemia: Status: Acute (5) UTI (urinary tract infection): Status: Acute (6) Tobacco abuse: Status: Acute (7) MARLON (acute kidney injury): Status: Acute (8) Hyponatremia: Status: Acute (9) Anemia: Status: Chronic (10) DVT prophylaxis: Status: Acute Discharge Plan Disposition Patient Disposition: Home Condition: Improving Discharge Details Reason For Visit: Alcohol Withdrawal Admit Date/Time: 08/31/24 16:04 Admit Provider: Seymour Sheppard Attending Provider: Seymour Sheppard Primary Care Provider: [facility] Course Hospital Course: 34 yo F with opioid use disorder on methadone, HFrEF and h/o NSTEMI with LVEF 35%, chronic hepatits C on therapy, and active heavy alcohol use who presented reporting dringing a gallon of wiskey a day. She was vomiting and had been off her regular medication for several days. She was also found to have acute kidney injury with Cr of 2.4, potassium of 2.1, and low platelets to 33. She was admitted and treated with benzodiazepine-based withdrawal protocol due to her renal function. She continued to require ativan into her 4th day of treatment but was comfortable off of benzodiazepines. Options for treating alcohol use disorder were discussed. She is connected to therapy and her recovery center. She was given a trial on topiramate to address alcohol cravings and some anxiety. After initially holding her cardiac medications due to vomiting and dehydration, they were resumed on hospital day 3. She was not in acute CHF. We did try increasing her spironolactone and gave her an additional 40mg furosemide 6 but her BP ran low so the diuretics were held 09/05 and her home doses were resumed on discharge. Her Creatinine did trend down but did not normalize. Renal CT and urinalysis did not suggest intrinsic disease of obstruction. Venous congestion was considered, but her Cr went up slightly with additional diuresis so previous doses were resumed. This should be followed as an outpatient. She had hyponatremia which did improve but did not normalize. Her antivirals sofosbuvir and velpatasvir were continued. Her liver enzymes were elevated, but her AST/ALT improved during admission. Platelets were low but her CT w/o contrast did not suggest cirrhosis or splenomegaly. She did have fevers during her first 3-4 days and urine grew E. coli. She was treated with bactrim the first day, then ceftriaxone. With low platelets tick panel was sent and doxycycline added. Lyme was negative but the rest of the panel including anaplasmosis was still pending. She was given 5 more days of doxycycline at discharge. smoking cessation was encouraged. PCP follow up: Appointment in 1 week with CBC, CMP, Mg prior to follow up. Assess response to topirimate and titrate dose up as needed. Home Meds and New Rx's Prescriptions: New multivitamin [Multiple Vitamins] Tablet 1 tab PO QAM Qty: 90 0RF doxycycline hyclate 100 mg Capsule 100 mg PO BID 5 Days Qty: 10 0RF nicotine 14 mg/24 hr Patch 24 Hour 14 mg transdermal DAILY Qty: 30 0RF magnesium oxide 400 mg (241.3 mg magnesium) Tablet 400 mg PO DAILY Qty: 90 0RF folic acid 1 mg Tablet 1 mg PO QAM Qty: 30 0RF thiamine mononitrate (vit B1) [Vitamin B-1 (mononitrate)] 100 mg Tablet 100 mg PO QAM Qty: 30 0RF topiramate 50 mg tablet See Rx Instructions .ROUTE .COMPLEX Qty: 30 0RF Rx Instructions: 1/2 tablet po daily x 4 days, then one tab po daily Continued methadone 80 mg PO DAILY Patient Comments: please confirm with OLIVIA sofosbuvir-velpatasvir [Epclusa] 400-100 mg tablet 1 tab PO DAILY metoprolol succinate [Toprol XL] 25 mg tablet extended release 24 hr 25 mg PO DAILY dapagliflozin propanediol [Farxiga] 10 mg tablet 10 mg PO DAILY calcium carbonate [Tums] 200 mg calcium (500 mg) tablet,chewable 200 mg PO DAILY ciprofloxacin HCl 500 mg tablet 500 mg PO BID magnesium oxide 400 mg (241.3 mg magnesium) tablet 400 mg PO DAILY Soaanz 40 mg tablet 40 mg PO DAILY atorvastatin [Lipitor] 40 mg tablet 40 mg PO DAILY losartan [Cozaar] 25 mg tablet 25 mg PO DAILY spironolactone [Aldactone] 25 mg tablet 25 mg PO DAILY aspirin 81 mg tablet,chewable 81 mg PO DAILY Discharge Instructions Instructions: Alcohol Use Disorder (DC) Additional Instructions: take 5 more days of the antibiotic doxycycline. This is to treat possible tick-related illness. You were also treated for urinary tract infection, but you are done with this. Resume your regular heart medications and continue your hepatitis treatment. Make sure you follow up and get your labs. Activity:: Activity as Tolerated Equipment/Supplies:: No Equipment Needed Diet:: Low Sodium Discharge Orders Discharge Orders: Discharge Order (Routine); Ordered 09/05/24 Ordered By: Gerhard Hammond DS: Summary Time Spent with Patient providing and/or coordinating discharge services: Greater than 30 minutes Status at Discharge Functional status at discharge: independent ambulation Overall status at discharge: patient is back to baseline Mental Status: mental status grossly normal Speech and Movement: speech and movement normal Mood: congruent mood Affect: normal affect Quality:SDOH Health Related Social Needs: Health related social needs problems related to housing/economic circumstances (Z59.89) Exam Narrative Exam Narrative: GEN: A&O, more awake today, NAD HEENT- MMM EOMI pupils mid sized in room light, NO NYSTAGMUS CV-RRR NO MRG PULM-CTAB normal effort ABD- soft, NT/ND EXT- no cyanosis or edema. no tremors Psych Mental Status: mental status grossly normal Speech and Movement: speech and movement normal Mood: congruent mood Affect: normal affect DS: Data Vitals/I&O Vitals and I&O: Vital Signs Temperature 36.6 C 09/05/24 11:24 Temperature Source Temporal Artery Scan 09/05/24 11:24 Pulse 78 09/05/24 11:24 Pulse 87 09/02/24 19:31 Respiratory Rate 16 09/05/24 11:24 Respiratory Effort Normal 08/31/24 17:01 Respiratory Depth Normal 08/31/24 17:01 Respiratory Pattern Normal 08/31/24 17:01 Blood Pressure 100/69 09/05/24 11:24 Blood Pressure Mean 79 09/05/24 11:24 Blood Pressure Position Supine 08/31/24 17:01 Pulse Oximetry 97 09/05/24 11:24 Oxygen Delivery Method Room Air 09/05/24 11:24 Oxygen Flow Rate 0 09/05/24 11:24 Pain Level 0 09/05/24 03:52 Comment rn notified 09/05/24 07:42 Intake & Output 09/04/24 09/05/24 09/05/24 23:59 11:59 23:59 Intake Total 910 / 960 50 / 50 Output Total 400 / 800 200 / 200 Balance 510 / 160 -150 / -150 Weight 91.739 kg Intake: IV 50 / 50 Oral 910 / 910 Output: Urine 400 / 800 200 / 200 Other: Urine Color Light Kyra Light Kyra Urine Appearance Sediment Sediment Hematuria Hematuria Urine Odor Strong Strong Comment Pt voided ind. in the toilet. urine was mixed with stool Stool Size Small Stool Characteristics Soft Liquid Data Completed and Pending Labs on day of discharge: Labs from last 24 hours 09/05/24 06:48 Sodium 132 L Potassium 4.4 Chloride 94 L Carbon Dioxide 27.4 Anion Gap 10.6 BUN 34 H Creatinine 1.9 H Est GFR (CKD-EPI 2020) 35.31 Glucose 113 H Calcium 9.3 Preliminary micro results at discharge 09/02/24 09:05 Blood Blood Culture - Preliminary NO GROWTH 72 HOURS 09/02/24 09:05 Blood Blood Culture - Preliminary NO GROWTH 72 HOURS PFSH All Active Problems (Updated 09/05/24 @ 13:36 by Gerhard Hammond) DVT prophylaxis (Acute) Anemia (Chronic) Hyponatremia (Acute) UTI (urinary tract infection) (Acute) Hypokalemia (Acute) Hypomagnesemia (Acute) Thrombocytopenia (Chronic) Nicotine abuse (Acute) Hepatitis C (Chronic) Cardiomyopathy (Acute) CHF (congestive heart failure) (Chronic) Acute hyponatremia (Acute) MARLON (acute kidney injury) (Acute) Alcohol withdrawal (Acute) Hypokalemia (Acute) On deep vein thrombosis (DVT) prophylaxis (Acute) Elevated lipids (Acute) Drug abuse and dependence (Acute) Elevated transaminase level (Acute) Dental infection (Acute) Tobacco abuse (Acute) Alcohol withdrawal (Acute) Social History Smoking/Tobacco Use Status: Current every day Tobacco Type: cigarettes Smoking risk assessment performed?: Yes Alcohol Intake: current Alcohol Intake frequency: 3 or more drinks per day Alcohol type: hard liquor Drug use: Never Substance use type: former substance user and opiates Housing: house Do you feel safe at home: Yes Do you feel safe in your relationship?: Yes Time Spent with Patient Time Spent with Patient: 45-69 minutes Time was spent: preparing to see the patient(eg.review tests), obtaining and/or reviewing separately otained hiistory, ordering medications,tests, procedures, referring, communicating with other health healthcare administrative assistant, indepentently interpreting results, counseling the patient and care coordination
--- NOTE | 2024-09-05 14:59 | PDOC.CMDIS ---
Date of service: 09/05/24 Time of Service: 14:00 LACE Index Scoring Tool Questions: Length of Stay (in days): 4 - 6 Was the patient admitted via the E.D.?: Yes Comorbidities: Liver or Renal Disease E.D. Visits: 4 Answers: Total Score: 16 Risk of Readmission: High Risk Care Management Discharge Plan Reason for Hospitalization: alcohol withdrawal Discharge Plan: Melissa was discharged home today with no new services. She was encouraged to continue working with her Medical Staffing Coordinator. Melissa will f/u with her PCP and continue per her plan of care. Melissa was driven home by family. Patient/Family Education Needs: Review of discharge instructions, activity, limitations, and discuss Ask me 3. SDOH Health Related Social Needs: Health related social needs problems related to housing/economic circumstances (Z59.89)
[2024-09-05 23:34] LABS: Anaplasma phagocytophilum Negative (Negative); B. miyamotoi PCR Negative (Negative); Babesia divergens/MO-1 Negative (Negative); Babesia duncani Negative (Negative); Babesia microti Negative (Negative); Ehrlichia chaffeensis Negative (Negative); Ehrlichia ewingii/canis Negative (Negative); Ehrlichia muris eauclairensis Negative (Negative)
--- NOTE | 2024-09-08 06:00 | NUR.NOTE ---
OLIVIA in [place] called Re: pt admission/discharge dates and strength of MTD given here to compare with pt's home dose/time schedule for compliance purposes. This HS in chart for these purposes only for continuity/continuation of care.
== END 2024-09-05 14:09 | disposition home or self-care (01) | DRG 897 ==
LOC: ER 15:23 → ICU 16:42 → MS 09-02 20:03
PROVIDERS: Admitting Provider Hospitalist; Emergency Provider Physician Assistant; PCP Nurse Practitioner Family; Responsible Provider Family Medicine; Visit Provider Hospitalist
DX: F10.239 Alcohol dependence with withdrawal, unspecified (principal); I50.22 Chronic systolic (congestive) heart failure; N17.9 Acute kidney failure, unspecified; E87.1 Hypo-osmolality and hyponatremia; F11.20 Opioid dependence, uncomplicated; N39.0 Urinary tract infection, site not specified; I42.6 Alcoholic cardiomyopathy; D64.9 Anemia, unspecified; B18.2 Chronic viral hepatitis C; K76.0 Fatty (change of) liver, not elsewhere classified; D69.59 Other secondary thrombocytopenia; R94.31 Abnormal electrocardiogram [ECG] [EKG]; E87.6 Hypokalemia; E83.42 Hypomagnesemia; R74.01 Elevation of levels of liver transaminase levels; F17.210 Nicotine dependence, cigarettes, uncomplicated; E78.5 Hyperlipidemia, unspecified; F41.9 Anxiety disorder, unspecified; I25.2 Old myocardial infarction; B96.20 Unspecified Escherichia coli [E. coli] as the cause of diseases classified elsewhere
CPT/HCPCS: 00123; 36415; 80048; 80053; 80076; 83690; 85027; 87040; 87077; 87798; 93005; 96361; 96365; 96366; 96375; 96376; 99291; 71045; 74176; 80320; 81003; 81015; 81025; 83735; 83880; 84439; 84443; 84484; 85025; 86618; 87086; 87186; 93010; 99222; 99231; 99232; 99233; 99239; J0696; J1938; J3360; J3411; J3475; J3480